=== PATIENT | female | born 1980 | race Caucasian/White ===

== ENCOUNTER → 2016-05-17 | Outpatient (REF) | payer OTHER ==
[~2016-05-17] MED LIST: ACET50TA PO; CITA20TA4 PO; FERR325T3 PO; IBUP-1114 PO; OMEP40CA2 PO; PRENTAB7 PO; VITA50003 PO; VITA500046 PO
[2016-05-17 10:47] LABS: MEAN CORPUSCULAR HEMOGLOBIN 27.4 pg (27.0-33.0); MEAN CORPUSCULAR HGB CONC 33.2 g/dl (32.0-36.5); MEAN CORPUSCULAR VOLUME 82.6 fl (80.0-96.0); PLATELET COUNT, AUTOMATED 228 k/mm3 (150-450); RED CELL DISTRIBUTION WIDTH 16.3 % (11.5-14.5); WHITE BLOOD COUNT 5.2 K/mm3 (4.0-10.0)
[2016-05-17 11:01] LABS: ALBUMIN 3.4 GM/DL (3.2-5.2); ALBUMIN/GLOBULIN RATIO 1.03 (1.00-1.93); ALKALINE PHOSPHATASE 135 U/L (45-117); ALT/SGPT 26 U/L (12-78); ANION GAP 8 MEQ/L (8-16); AST/SGOT 18 U/L (15-37); BILIRUBIN,TOTAL 0.3 MG/DL (0.2-1.0); BLOOD UREA NITROGEN 14 MG/DL (7-18); CALCIUM LEVEL 8.3 MG/DL (8.5-10.1); CARBON DIOXIDE LEVEL 30 MEQ/L (21-32); CHLORIDE LEVEL 106 MEQ/L (98-107); CREATININE FOR GFR 0.71 MG/DL (0.55-1.02); GLOMERULAR FILTRATION RATE > 60.0 (>60); GLUCOSE, FASTING 75 MG/DL (70-105); PERCENT SATURATION 37.4 % (13.2-37.4); POTASSIUM SERUM 3.8 MEQ/L (3.5-5.1); SODIUM LEVEL 144 MEQ/L (136-145); TOTAL IRON BINDING CAPACITY 385 UG/DL (250-450); TOTAL PROTEIN 6.7 GM/DL (6.4-8.2)
[2016-05-17 11:02] LABS: VITAMIN B12 LEVEL 585 PG/ML
[2016-05-17 11:03] LABS: FOLATE > 24.0 NG/ML
== END ==
LOC: M LAB REF 10:30
PROVIDERS: ATTEND Physician Assistant Medical
DX: D64.9 Anemia, unspecified (principal)

== ENCOUNTER → 2016-05-17 | Day surgery (SDC) | payer OTHER ==
[~2016-05-17] VITALS: Ht 167.6 cm; Wt 98.4 kg
[~2016-05-17] MED LIST changes: +BUPIVACAINE HCL 0.25% 30 ML VIAL As Ordered ONE; +GLYCOPYRROLATE INJ 0.2 MG/ML 2 ML VIAL As Ordered ONE; +HYDROmorphone HCL 2 MG/ML 1ML VIAL (J1170) As Ordered ONE; +KETOROLAC 30 MG/ML VIAL (J1885) IV SCH; +KETOROLAC 60 MG/2 ML VIAL (J1885) As Ordered ONE; +LIDOCAINE 2% INJ 100 MG/5 ML SDV (FOR ANES.) As Ordered ONE; +LR 1,000 ML IV SCH; +MEPERIDINE INJ 25 MG/ML VIAL (J2175) IV PRN; +METOCLOPRAMIDE INJ 10MG/2ML VIAL (J2765) IV PRN; +MIDAZOLAM INJ 2 MG/2 ML VIAL (J2250) As Ordered ONE; +NEOSTIGMINE 1MG/ML 5 ML SYRINGE (J2710) As Ordered ONE; +ONDANSETRON 4MG/2ML VIAL (J2405) As Ordered ONE; +ONDANSETRON 4MG/2ML VIAL (J2405) IV PRN; +PERCOCET 5MG/325MG TAB PO PRN; +PERCOCET 5MG/325MG TAB PO SCH; +PROPOFOL 200 MG/20 ML VIAL As Ordered ONE; +ROCURONIUM BROMIDE 50 MG/5 ML VIAL As Ordered ONE; +SILVER NITRATE APPLICATOR As Ordered ONE; +dexameTHASONE 4 MG/ML 1ML VIAL (J1100) As Ordered ONE; +fentaNYL 100 MCG/2 ML INJECTION (J3010) As Ordered ONE; +fentaNYL 100 MCG/2 ML INJECTION (J3010) IV PRN
[2016-05-17 09:12] LABS: RED CELL DISTRIBUTION WIDTH 16.2 % (11.5-14.5); WHITE BLOOD COUNT 5.2 K/mm3 (4.0-10.0)
[2016-05-17 09:21] LABS: CONTROL LINE HCG INT CTR LINE PRESENT
--- NOTE | 2016-05-17 13:33 | RO ---
DATE OF PROCEDURE: 05/17/2016 PREPROCEDURE DIAGNOSIS: Satisfied parity with undesired fertility. POSTPROCEDURE DIAGNOSES: 1. Satisfied parity with undesired fertility. 2. Dermoid cyst. PROCEDURE PERFORMED: 1. Laparoscopic salpingo-oophorectomy. 2. Left salpingectomy SURGEON: Sena Patel MD [facility] INSURANCE: Swetha Perry NP ANESTHESIA: General endotracheal anesthesia. ESTIMATED BLOOD LOSS: 100 mL. INTRAVENOUS FLUIDS: 1200 mL of lactated Ringer's solution. URINE OUTPUT: Was 400 mL. PREOPERATIVE ANTIBIOTICS: None. OPERATIVE FINDINGS: Approximately 8 cm dermoid cyst, normal appearing uterus and left adnexa. SPECIMENS: Right dermoid cyst and fallopian tube, left fallopian tube. DESCRIPTION OF OPERATION: After informed consent was obtained and written consent was reviewed, the patient was brought to the operating room where general endotracheal anesthesia was obtained. She was then placed in lithotomy position. She was prepped and draped in a normal sterile fashion. A time out in the operating room was then performed identifying the patient, procedure to be performed, as well as drug allergies. A bivalve speculum was then placed revealing the cervix. The anterior lip of the cervix was grasped with a single tooth tenaculum. A Hulka tenaculum was then advanced through the cervical os as a means to manipulate the uterus. A single tooth tenaculum, as well as speculum was then removed. A Joseph catheter was then placed and set to gravity. Gloves were changed and attention was turned to the patient's abdomen where 0.25 % Marcaine was infused in the umbilical region. An incision was made in this area and an 11 mm trocar and sleeve was advanced through this incision. The trocar was removed. Laparoscope was placed revealing intra-abdominal placement. A pneumoperitoneum was then obtained with CO2 gas. The abdomen was surveyed with the above noted findings. Two additional trocars were placed both left and to the right sides of the abdomen below the umbilicus. These areas were infused with 0.25% Marcaine and a 5 mm trocar and sleeve was advanced through these incisions under direct visualization. Next, a right salpingo-oophorectomy was performed. The right fallopian tube, the infundibulum pelvic ligament was then cauterized and ligated using Harmonic scalpel device with good hemostasis noted. The uterine-ovarian ligament, as well as the fallopian tube was cauterized and ligated with good hemostasis noted. The specimen was then detached and was placed in the Endo Catch bag and was decompressed at the level of the skin and was removed through the umbilical port site. A left salpingectomy was performed. The left fallopian tube was placed on traction using the Harmonic scalpel device, the mesosalpinx were cauterized and ligated. The fallopian tube was transected at the level of the uterus. The specimen was also brought out through the umbilical port site. Surgical sites were inspected and noted to be hemostatic. The abdomen was then irrigated and suctioned. Quinton was applied over the surgical sites. The fascia of the umbilical port site was then closed using #0 Vicryl. The pneumoperitoneum was then released. All three skin incisions were closed with #4-0 Monocryl and dressed with Dermabond. The Joseph catheter, as well as the Hulka tenaculum was then removed. Tenaculum sites were hemostatic after application of silver nitrate. The patient was then taken out of lithotomy position, was awakened from general anesthesia and was taken to the recovery in stable condition. Counts were correct. MTDD
[2016-05-17 15:00] VITALS: BP 144/75
== END | disposition home or self-care (01) ==
LOC: M SDC 08:25
PROVIDERS: ATTEND Obstetrics & Gynecology
DX: Z30.2 Encounter for sterilization (principal); D28.2 Benign neoplasm of uterine tubes and ligaments; K21.9 Gastro-esophageal reflux disease without esophagitis; F32.9 Major depressive disorder, single episode, unspecified; Z79.899 Other long term (current) drug therapy; Z87.891 Personal history of nicotine dependence
CPT/HCPCS: 36415; 58661; 84703; 85027; 86850; 86900; 86901; 88302; 88305; J1100; J1170; J1885; J2250; J2405; J2710; J3010

== ENCOUNTER → 2016-06-28 | Outpatient (CLI) | payer OTHER ==
[~2016-06-28] MED LIST changes: -BUPIVACAINE HCL 0.25% 30 ML VIAL As Ordered ONE; -GLYCOPYRROLATE INJ 0.2 MG/ML 2 ML VIAL As Ordered ONE; -HYDROmorphone HCL 2 MG/ML 1ML VIAL (J1170) As Ordered ONE; -KETOROLAC 30 MG/ML VIAL (J1885) IV SCH; -KETOROLAC 60 MG/2 ML VIAL (J1885) As Ordered ONE; -LIDOCAINE 2% INJ 100 MG/5 ML SDV (FOR ANES.) As Ordered ONE; -LR 1,000 ML IV SCH; -MEPERIDINE INJ 25 MG/ML VIAL (J2175) IV PRN; -METOCLOPRAMIDE INJ 10MG/2ML VIAL (J2765) IV PRN; -MIDAZOLAM INJ 2 MG/2 ML VIAL (J2250) As Ordered ONE; -NEOSTIGMINE 1MG/ML 5 ML SYRINGE (J2710) As Ordered ONE; -ONDANSETRON 4MG/2ML VIAL (J2405) As Ordered ONE; -ONDANSETRON 4MG/2ML VIAL (J2405) IV PRN; -PERCOCET 5MG/325MG TAB PO PRN; -PERCOCET 5MG/325MG TAB PO SCH; -PROPOFOL 200 MG/20 ML VIAL As Ordered ONE; -ROCURONIUM BROMIDE 50 MG/5 ML VIAL As Ordered ONE; -SILVER NITRATE APPLICATOR As Ordered ONE; -dexameTHASONE 4 MG/ML 1ML VIAL (J1100) As Ordered ONE; -fentaNYL 100 MCG/2 ML INJECTION (J3010) As Ordered ONE; -fentaNYL 100 MCG/2 ML INJECTION (J3010) IV PRN
== END ==
LOC: M SMT 10:20
PROVIDERS: ATTEND Physician Assistant Medical
DX: E55.9 Vitamin D deficiency, unspecified (principal)

== ENCOUNTER 2019-12-31 22:31 | Emergency (ER) | payer OTHER ==
[~2019-12-31] VITALS: Ht 165.1 cm; Wt 100.3 kg
[~2019-12-31 22:31] MED LIST changes: -ACET50TA PO; -CITA20TA4 PO; +CITA20TA6 PO; +MAPA500T2 PO; -OMEP40CA2 PO; +OMEP40CA97 PO; -VITA50003 PO; +VITA50005 PO
[2019-12-31] MEDS ORDERED: NS 1,000 ML IV ONE (23:15)
[2019-12-31 23:31] LABS: BASO # 0.1 10^3/uL (0.0-0.2); BASO % 0.6 % (0.0-1.0); EOS # 1.2 10^3/uL (0.0-0.5); EOS % 10.6 % (0.0-3.0); HEMATOCRIT 34.1 % (36.0-47.0); HEMOGLOBIN 10.3 g/dl (12.0-15.5); LYMPH # 1.8 10^3/uL (1.5-5.0); LYMPH % 15.4 % (24.0-44.0); MEAN CORPUSCULAR HEMOGLOBIN 22.4 pg (27.0-33.0); MEAN CORPUSCULAR HGB CONC 30.2 g/dl (32.0-36.5); MEAN CORPUSCULAR VOLUME 74.3 fl (80.0-96.0); MONO # 0.6 10^3/uL (0.0-0.8); MONO % 5.5 % (0.0-5.0); NEUTROPHILS # 7.7 10^3/uL (1.5-8.5); NEUTROPHILS % 67.6 % (36.0-66.0); PLATELET COUNT, AUTOMATED 334 10^3/uL (150-450); RED BLOOD COUNT 4.59 10^6/uL (4.00-5.40); WHITE BLOOD COUNT 11.4 10^3/uL (4.0-10.0)
[2019-12-31 23:40] LABS: INR 0.89; PROTHROMBIN TIME 12.2 SECONDS (12.5-14.3)
[2019-12-31 23:41] LABS: PARTIAL THROMBOPLASTIN TIME 27.3 SECONDS (24.2-38.5)
[2020-01-01] MEDS ORDERED: ISOVUE-370 76% 100ML VIAL As Ordered ONE (00:06)
[2020-01-01 00:08] LABS: ALBUMIN 3.3 GM/DL (3.2-5.2); ALT/SGPT 27 U/L (12-78); BILIRUBIN,DIRECT < 0.1 MG/DL (0.0-0.2); BILIRUBIN,TOTAL 0.2 MG/DL (0.2-1.0); CK-MB VALUE MASS 1.7 NG/ML (<3.6); CPK CREATINE PHOSPHOKINASE 388 U/L (26-192); LIPASE 170 U/L (73-393); MB/CK RELATIVE INDEX 0.44 (< OR =4); TOTAL PROTEIN 6.4 GM/DL (6.4-8.2); TROPONIN I < 0.02 NG/ML (< 0.10)
--- NOTE | 2020-01-01 00:45 | REPVR ---
PROCEDURE INFORMATION: Exam: CT Angiography Chest With Contrast Exam date and time: 12/31/2019 12:17 AM Age: 39 years old Clinical indication: Shortness of breath; Additional info: SOB; Bloody sputum TECHNIQUE: Imaging protocol: Computed tomographic angiography of the chest with intravenous contrast. 3D rendering (Not supervised by radiologist): MIP and/or 3D reconstructed images were created by the technologist. Radiation optimization: All CT scans at this facility use at least one of these dose optimization techniques: automated exposure control; mA and/or kV adjustment per patient size (includes targeted exams where dose is matched to clinical indication); or iterative reconstruction. Contrast material: ISOVUE 370; Contrast volume: 100 ml; Contrast route: INTRAVENOUS (IV); COMPARISON: No relevant prior studies available. FINDINGS: Pulmonary arteries: Normal. No pulmonary emboli. Aorta: Unremarkable. No aortic aneurysm. No aortic dissection. Tracheobronchial tree: Visualized airway is unremarkable. Lungs: Few areas of lung nodules measuring up to 5 mm in the right upper lobe, right lower lobe and left lower lobe. Pleural space: Unremarkable. No pneumothorax. No pleural effusion. Heart: Unremarkable. No cardiomegaly. No pericardial effusion. Lymph nodes: Bilateral mediastinal and bilateral hilar lymphadenopathy. Largest node is located in the left hilar region measuring 1.1 x 1.9 cm. There are some calcified lymph nodes. Stomach and bowel: Status post gastric bypass surgery. Bones/joints: Mild degenerative spine. No acute fracture. Soft tissues: Unremarkable. IMPRESSION: 1. Negative for pulmonary emboli. 2. Few areas of lung nodules. Possible infection. For patients at low risk (minimal or absent history of smoking and of other known risk factors), no routine follow-up is indicated. For patients at high risk (history of smoking or of other known risk factors), consider optional CT Chest at 12 months. (Reference: Dillon) REFERENCES: Barretthojudith H, et al. Guidelines for Management of Incidental Pulmonary Nodules Detected on CT Images: From the Fleischner Society 2017. Radiology. 2017;284(1):228-243. Electronically signed by: Jennifer Sanchez On 01/01/2020 00:45:36 AM
--- NOTE | 2020-01-01 00:48 | REPVR ---
PROCEDURE INFORMATION: Exam: CT Abdomen And Pelvis With Contrast Exam date and time: 12/31/2019 12:17 AM Age: 39 years old Clinical indication: Abdominal pain; Localized; Left upper quadrant (luq); Additional info: Luq pain TECHNIQUE: Imaging protocol: Computed tomography of the abdomen and pelvis with intravenous contrast. Radiation optimization: All CT scans at this facility use at least one of these dose optimization techniques: automated exposure control; mA and/or kV adjustment per patient size (includes targeted exams where dose is matched to clinical indication); or iterative reconstruction. Contrast material: ISOVUE 370; Contrast volume: 100 ml; Contrast route: INTRAVENOUS (IV); COMPARISON: US OBS FOLL UP OR REPEAT EACH GES 12/18/2015 8:02 AM FINDINGS: Lungs: Clusters of lung nodules. See CTA chest report. Liver: Normal. No mass. Gallbladder and bile ducts: Status post cholecystectomy. No biliary ductal dilatation. Pancreas: Normal. No ductal dilation. Spleen: Irregular hypodense lesion in the spleen measuring 1.2 x 1.3 cm. Adrenal glands: Normal. No mass. Kidneys and ureters: Normal. No hydronephrosis. Stomach and bowel: Status post gastric bypass surgery. No abnormal bowel dilatation. No abnormal bowel wall thickening. Negative for colonic diverticulitis. Appendix: Appendix is normal. Intraperitoneal space: Unremarkable. No free air. No significant fluid collection. Vasculature: No aortic aneurysm. Multiple phleboliths in the pelvis. Lymph nodes: Lymphadenopathy in the hilar regions. There are few calcified nodes.21 no lymphadenopathy in the abdomen and pelvis. Urinary bladder: Unremarkable as visualized. Reproductive: Uterus is normal. Crenulated cystic lesion in the left ovary measuring 2.3 x 1.6 cm. Bones/joints: Mild degenerative spine. No acute fracture. Soft tissues: Unremarkable. IMPRESSION: 1. Irregular hypodense lesion in the spleen. For patients without history of cancer, recommend follow-up MR in 6-12 months. With history of cancer, recommend evaluation with PET vs. MRI vs. biopsy. 2. Crenulated cystic lesion in the left ovary. Suspect corpus luteum. No further imaging is recommended. (Reference: Hoang) 3. Status post gastric bypass surgery. 4. Clusters of lung nodules. See CTA chest report. 5. Additional findings as described. REFERENCES: Hoang et al. Management of Incidental Adnexal Findings on CT and MRI: A White Paper of the ACR Incidental Findings Committee, J Am Filomena Radiol. 2019;17(2):248-254. Electronically signed by: Jennifer Sanchez On 01/01/2020 00:48:18 AM
[2020-01-01 01:15] VITALS: BP 137/84
--- NOTE | 2020-01-01 06:43 | ED PDOC ---
Post-Departure Follow-Up ct abd/p faxed to rupa kaplan for fu Suzy Li MD Jan 01, 2020 06:43
--- NOTE | 2020-01-01 09:30 | ECGEPIP ---
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
== END 2020-01-01 01:47 | disposition home or self-care (01) ==
LOC: M ED 22:31
DX: J06.9 Acute upper respiratory infection, unspecified (principal); R10.9 Unspecified abdominal pain; D73.89 Other diseases of spleen; R93.89 Abnormal findings on diagnostic imaging of other specified body structures; R91.8 Other nonspecific abnormal finding of lung field; R59.0 Localized enlarged lymph nodes; Z98.84 Bariatric surgery status; K21.9 Gastro-esophageal reflux disease without esophagitis; F33.9 Major depressive disorder, recurrent, unspecified; Z79.899 Other long term (current) drug therapy
CPT/HCPCS: 71275; 74177; 80047; 80076; 82550; 82553; 83690; 84484; 84702; 85025; 85610; 85730; 93005; 93041; 96360; 96361; 99284; Q9967

== ENCOUNTER 2020-03-26 11:32 | Emergency (ER) | payer OTHER ==
[~2020-03-26] VITALS: Ht 167.6 cm; Wt 101.4 kg
[2020-03-26] MEDS ORDERED: OMEP-218 PO (11:41)
[2020-03-26] MEDS ORDERED: OMEP40CA97 PO (11:41)
--- OUTSIDE RECORDS SUMMARY | 2020-03-26 11:41 | CCD ---
Author [facility] Address [address] [place] [address] Phone Care Team Providers Care Scrap Baler Name Role Phone Berna Gonzalez PP [phone] Sal BEVERLY, aRdha Unavailable [phone] [facility] Unavailable [phone] [facility] Unavailable [phone] [facility], MANAGER SPANISH Unavailable [phone] Reason for Referral No Reason for Referral Recorded Problems Includes: Active, inactive, and resolved Problems All Visits Effective Date(s) Provider Condition Stat Hypocalcemia 08/16/2018 Alexis Nurse Active 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 Recommend 30 minutes daily exercise, decrease calorie intake to <30 g of carbs w/ meals and <15 g. w/ snacks. Anemia 03/24/2016 Berna PUCKETT Active Female Pelvic Pain 09/27/2013 Mary Jane Hawthorne MD Active Carpal Tunnel Syndrome 09/18/2012 Berna PUCKETT Active Note: 09/06/12 Dr Hill-O rtho consult Hypertension (systemic) 06/23/2012 Berna PUCKETT Activ e Note: put on HCTZ 25 mg qd d oing well Vitamin D Deficiency 06/20/2012 [facility] Nurse Active Note: 03/24/16 - [facility]., Radha Huang MD - level @ 16.9. Recommend OTC vitamin D3 5,000 IU daily w/ dinner & Drisdol 50,000 IU once weekly for 3 months.05/2012 level 20, advised 1000u daily. Blood Pressure Isolated Elevated 06/16/2012 Berna PUCKETT Active Note: ill today, will have p t monitor at home, call if >140/90 Overweight 06/16/2012 Mary Jane Hawthorne MD Active Note: patient concerned, rev iewed healthy diet, exercise 30 min or more daily encouraged, will check tsh and labs /// s/p bariatric surgery. History of Cervical Dysplasia 04/04/2012 Berna PUCKETT Active Note: Unchanged Contraceptive Surveillance 04/04/2012 Berna PUCKETT Ac tive Note: Unchanged - TRINESSA D UE, REFILLED-- SAFE INTERCOURSE ENCOURAGED Current Smoker 04/04/2012 Berna PUCKETT Active Note: Unchanged - with alcoh ol 3 CIG/DAY done 2013 Depression 03/27/2012 Berna PUCKETT Active Note: Unchanged Tendonitis 03/27/2012 Berna PUCKETT Active Note: Unchanged - BILATERAL WRIST, SPLINTS EFFECTIVE, NERVE CONDUCTION LAST AUGUST WAS NEGATIVE DR QUEZADA-- HEAT, WATCH REPETATIVE MOTION WHEN FLAIRS Nicotine Dependence 03/27/2012 Berna PUCKETT Inactive Note: Unchanged - SMOKING BU T NOT DAILY, SOCIAL, MONITOR RISKS DISCUSSED, OPTIONS GIVEN, PT DECLINES Sebaceous Cyst 11/21/2011 Steven Hawthorne MD Active Note: Unchanged - 11/24/11 in c and drainage done; resched for excision if desires once well healed- over a month Joint Pain, Localized in the Shoulder 09/15/2011 Berna PUCKETT Active Note: involving upper arm, U PPER EXTREMITY NERVE CONDUCTION IS WNL 09/15/2011 Pain in Joint Involving Upper Arm 08/31/2011 Berna PUCKETT Active Note: pt went to [facility] with as sessment to pain joint, Elbow ( left ). pt left forearm pain with clinical suspicion of carpal tunnel syndrome. pt was provided with a wrist splint for nighttime use. EMG done. Dr. 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 Anxiety 04/08/2010 Berna PUCKETT Active Note: Well-Controlled - gracai lopram, stress management discussed DOING WELL . Cervical Pap Smear 04/08/2010 Berna PUCKETT Active Note: Unchanged - wnl 011, 07/20/2011 SHOWS HYPERKERATOSIS OTHERWISE WNL, AFFIRM + TREATED WITH FLAGYL. Routine General Medical Examination At [facility] 08/20/2008 Berna PUCKETT Active Note: PFT WNL--, pap wnl Major Depressive Affective Disorder Recurrent Episode Modera 12/30/2007 Berna PUCKETT Active Note: Well-Controlled - doin g well on citalopram, declines counseling. Plan of Treatment Pending Tests Order Diagnosis Results Due Ordering Provi jose Lab AMYLASE 01/07/21 Berna PUCKETT Lab Antinuclear Antibodies, IFA 01/07/21 Berna PUCKETT Lab VITAMIN B12 01/07/21 Berna PUCKETT Lab (CBC)COMPLETE BLOOD CNT 01/07/21 Berna PUCKETT Lab CREATINE KINASE 01/07/21 Berna PUCKETT Lab COMPREHENSIVE METABOLIC PANEL 01/07/21 Berna PUCKETT Lab EBV (VCA) IgG Ab,S 01/07/21 Berna PUCKETT Lab EBV(VCA)IgM Ab,S 01/07/21 Berna Araiza Lab IRON 01/07/21 Berna PUCKETT Lab FERRITIN 01/07/21 Berna PUCKETT Lab FOLIC ACID 01/07/21 Berna PUCKETT Lab HEMOGLOBIN A1C 01/07/21 Berna PUCKETT Lab IRON TIBC 01/07/21 Berna PUCKETT Lab LIPASE 01/07/21 Berna PUCKETT Lab LIPID PANEL 01/07/21 Berna PUCKETT Lab Lyme Western Blot,S 01/07/21 Berna PUCKETT Lab FREE T4 AND TOTAL T4 01/07/21 Berna PUCKETT Lab TSH 01/07/21 Berna PUCKETT Lab Vitamin D,25-HYDROXY 01/07/21 Berna PUCKETT Referrals To Diagnosis US Note: Please schedule patient for test l ower pelvic pain, vaginal discomfort, transvaginal US for further eval [facility] 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 Diarrhea Note: Please schedule patient with provi jose vaginal itching, abdominal tenderness, [place] 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 referral please Endocrine Disorder of parathyr oid gland, unspecified Note: Please schedule patient with provi jose Future Appointments Date Time Location Provider [facility] 03/11/2020 3:00PM [facility] Berna PUCKETT Future Tests Order Diagnosis Results Due Ordering Provid er Lab US PELVIC TRANSVAGINAL NON OB 01/07/21 Berna PUCKETT Lab US ABDOMEN COMPLETE 01/07/21 Berna PUCKETT Findings Encounter Date Ordered disposition - tylenol and/or mo rhett as needed for pain or fever, and warm salt water gargles if tolerated. Change toothbrush in 2-3 days. Finish all antibiotics as ordered to prevent complications of strep. Also, the patient is to return or call for appointment if there is persistence of fever for more than 48 hours, pain or other new significant symptoms Acute Telehealth Zoom with Berna PUCKETT 02/01/2020 Ordered fluids Acute Telehealth Zoom with Berna PUCKETT 02/01/2020 Ordered return to the clinic if condition worsens or n ew symptoms arise Acute Telehealth Zoom with Berna PUCKETT 02/01/2020 Ordered soft diet Acute Telehealth Zoom with Berna PUCKETT 02/01/2020 Ordered disposition - tylenol and/or mo rhett as needed for pain or fever, and warm salt water gargles if tolerated. Change toothbrush in 2-3 days. Finish all antibiotics as ordered to prevent complications of strep. Also, the patient is to return or call for appointment if there is persistence of fever for more than 48 hours, pain or other new significant symptoms Telephonic Encounter with Berna PUCKETT 01/08/2020 Ordered fluids Telephonic Encounter with Berna PUCKETT 01/08/2020 Ordered return to the clinic if condition worsens or n ew symptoms arise Telephonic Encounter with Berna PUCKETT 01/08/2020 Ordered soft diet Telephonic Encounter with Berna PUCKETT 01/08/2020 Ordered return to the clinic if condition worsens or n ew symptoms arise Acute L1 with Berna Reece NP 12/20/2019 Ordered return to the clinic if condition worsens or n ew symptoms arise Acute Follow-up Telehealth with Michelle Mendez NP 12/17/2019 Ordered return to the clinic if condition worsens or n ew symptoms arise Telephonic Encounter with Michelle Mendez NP 12/13/2019 Ordered return to the clinic if condition worsens or n ew symptoms arise Acute L1 with Michelle Mendez NP 12/12/2019 Ordered Clinical summary transmitted to referring provider electronically with reasonable certainty of receipt or receiving provider [facility] Primary Care Telehealth Zoom with Berna PUCKETT 06/13/2019 Ordered follow-up visit 6 months AHR, sooner if quest ions or problems Primary Care Telehealth Zoom with Berna PUCKETT 06/13/2019 Ordered return to the clinic if condition worsens or n ew symptoms arise Primary Care Telehealth Zoom with Berna PUCKETT 06/13/2019 Ordered Transition in care, clinical sum berna provided electronically through [employer] [facility] Primary Care Telehealth Zoom with Berna PUCKETT 06/13/2019 Ordered Clinical summary transmitted to referring provider electronically with reasonable certainty of receipt or receiving provider [facility] Walk-In with Berna PUCKETT 01/19/2019 Ordered disposition - Patient or careta harsh was instructed in use of tylenol and/or motrin as needed for pain or fever, and decongestants if tolerated. Fluids, rest was advised. Also, the patient is to return or call for appointment if there is persistence of fever for more than 48 hours, pain or other new significant symptoms Walk-In with Berna PUCKETT 01/19/2019 Ordered follow-up visit 6 months AHR, sooner if quest ions or problems Walk-In with Berna PUCKETT 01/19/2019 Ordered return to the clinic if condition worsens or n ew symptoms arise Walk-In with Berna PUCKETT 01/19/2019 Ordered Transition in care, clinical sum berna provided electronically through [employer] [facility] Walk-In with Berna PUCKETT 01/19/2019 Ordered Clinical summary transmitted to referring provider electronically or receiving provider electronically through [employer] [facility] Chronic Disease Follow-up with Berna PUCKETT 08/18/2018 Ordered follow-up visit 6 months AHR, sooner if quest ions or problems Chronic Disease Follow-up with Berna PUCKETT 08/18/2018 Ordered return to the clinic if condition worsens or n ew symptoms arise Chronic Disease Follow-up with Berna PUCKETT 08/18/2018 Ordered Transition in care, clinical sum berna provided electronically through [employer] [facility] Chronic Disease Follow-up with Berna PUCKETT 08/18/2018 Ordered Clinical summary transmitted to referring provider electronically or receiving provider electronically through [employer] [facility] AHR with Berna PUCKETT 03/14/2018 Ordered follow-up visit 6 months, sooner if questions or problems AHR with Berna PUCKETT 03/14/2018 Ordered return to the clinic if condition worsens or n ew symptoms arise AHR with Berna PUCKETT 03/14/2018 Ordered Transition in care, clinical sum berna provided electronically through [employer] AHR with Berna PUCKETT 03/14/2018 Ordered follow-up visit 6 months, sooner if questions or problems Chronic Disease Follow-up with Berna PUCKETT 03/30/2017 Ordered return to the clinic if condition worsens or n ew symptoms arise Chronic Disease Follow-up with Berna PUCKETT 03/30/2017 Ordered Transition in care, clinical sum berna provided electronically through [employer] [facility] Chronic Disease Follow-up with Berna PUCKETT 03/30/2017 Ordered follow-up visit 6 months, sooner if questions or problems AHR with Berna PUCKETT 09/23/2016 Ordered return to the clinic if condition worsens or n ew symptoms arise AHR with Berna PUCKETT 09/23/2016 Ordered Transition in care, clinical sum berna provided electronically through [employer] AHR with Berna PUCKETT 09/23/2016 Ordered follow-up visit 6 months, sooner if questions or problems Chronic Disease Follow-up with Berna PUCKETT 03/24/2016 Ordered return to the clinic if condition worsens or n ew symptoms arise Chronic Disease Follow-up with Berna PUCKETT 03/24/2016 Ordered follow-up visit 6 months, sooner if questions or problems AHR with Berna PUCKETT 09/22/2015 Ordered return to the clinic if condition worsens or n ew symptoms arise AHR with Berna PUCKETT 09/22/2015 Ordered follow-up visit 6 months, sooner if quest or problems Chronic Disease Follow-up with Berna PUCKETT 03/24/2015 Ordered return to the clinic if condition worsens or n ew symptoms arise Chronic Disease Follow-up with Berna PUCKETT 03/24/2015 Ordered follow-up visit 6 months, sooner if quest or problems AHR with Berna PUCKETT 06/04/2014 Ordered return to the clinic if condition worsens or n ew symptoms arise AHR with Berna PUCKETT 06/04/2014 Ordered return to the clinic if condition worsens or n ew symptoms arise Walk-In with Mary Jane Hawthorne MD 09/27/2013 Ordered a urine culture Walk-In with Berna mcpherson NP 09/20/2013 Ordered return to the clinic if condition worsens or n ew symptoms arise Walk-In with Berna Dangelo NP 09/20/2013 Ordered follow-up visit HERE FOR AHR IN OCT, POSTOP CARE PER SURGEON Pre Op with Berna PUCKETT 07/03/2013 Ordered return to the clinic if condition worsens or n ew symptoms arise Pre Op with Berna PUCKETT 07/03/2013 Ordered disposition - Patient or careta ker was instructed in use of tylenol and/or motrin as needed for pain or fever, and decongestants if tolerated. Fluids, rest was advised. Also, the patient is to return or call for appointment if there is persistence of fever for more than 48 hours, pain or other new significant symptoms Chronic Disease Follow-up with Berna PUCKETT 05/03/2013 Ordered follow-up visit preop clearance scheduled for JUNE-- call sooner if questions or problems Chronic Disease Follow-up with Berna PUCKETT 05/03/2013 Ordered return to the clinic if condition worsens or n ew symptoms arise Chronic Disease Follow-up with Berna PUCKETT 05/03/2013 Ordered follow-up visit f/u, sap plant maintenance consultant referral if not reso lving with treatment-- Same Day Acute with Berna PUCKETT 12/13/2012 Ordered return to the clinic if condition worsens or n ew symptoms arise Same Day Acute with Berna PUCKETT 12/13/2012 Ordered disposition - Patient or leroy house was instructed in use of tylenol and/or motrin as needed for pain or fever. Fluids, rest was advised. Also, the patient is to return or call for appointment if there is persistence of fever for more than 48 hours, pain or other new significant symptoms Same Day Acute with Berna PUCKETT 10/18/2012 Ordered return to the clinic if condition worsens or n ew symptoms arise Same Day Acute with Berna PUCKETT 10/18/2012 Ordered return to the clinic if conditio n worsens or new symptoms arise call if questions or problems before next appt meds discussed, no alcohol with flagyl-- call if not tolerating, or pain or new symptoms Follow-up Labs with Berna PUCKETT 08/30/2012 Ordered follow-up visit 4 months for rosales review, sooner if questions or problems AHR with Berna PUCKETT 08/28/2012 Ordered return to the clinic if condition worsens or n ew symptoms arise AHR with Berna PUCKETT 08/28/2012 Ordered disposition - Patient or leroy harsh was instructed in use of antipyretics and decongestants. Mucinex as needed. Also, the patient is to return if there is persistence of fever for more than 48 hours, pain or other new significant symptoms M Same Day with Berna PUCKETT 07/14/2012 Ordered fluids , rest M Same Day with Berna PUCKETT Ordered return to the clinic if condition worsens or n ew symptoms arise M Same Day with Berna PUCKETT 07/14/2012 Ordered return to the clinic if conditio n worsens or new symptoms arise or if not improved 24-48 hr, resolved 7-10 days. Call if question or problem M Same Day with Berna PUCKETT 07/14/2012 Ordered follow-up visit HTN Follow-up with Berna Douglas 07/10/2012 Ordered return to the clinic if condition worsens or n ew symptoms arise HTN Follow-up with Berna PUCKETT 07/10/2012 Patient education about pain management as appropriat e HTN Follow-up with Berna PUCKETT 07/10/2012 Ordered return to the clinic if conditio n worsens or new symptoms arise zach fever, pain or swelling,-- M Same Day with Berna PUCKETT 06/16/2012 Ordered follow-up visit Chronic Disease Follow-up with Berna PUCKETT 03/27/2012 Ordered return to the clinic if condition worsens or n ew symptoms arise Chronic Disease Follow-up with Berna PUCKETT 03/27/2012 Patient education about pain management as appropriat e Chronic Disease Follow- up with Berna PUCKETT 03/27/2012 Increase fluids and rest Advised to replace tooth brush in 48-72 hours Moniter temperature. RTO if symptoms worsen or do not improve M Same Day with Ilene Decker NP 12/08/2011 Ordered fluids M Same Day with Ilene Decker NP 12/07 Ordered return to the clinic if condition worsens or n ew symptoms arise M Same Day with Ilene Decker NP 12/08/2011 Ordered follow-up visit in 4 months berhane ner if quest or problems and with Dr Steven Hawthorne as ordered for cyst removal 10 Minute Revist with Berna PUCKETT 11/17/2011 Ordered return to the clinic if condition worsens or n ew symptoms arise 10 Minute Revist with Berna PUCKETT 11/17/2011 Ordered fluids (patient to increase p.o. intake) Day with Crystal PUCKETT 08/23/2011 Ordered urinalysis Urine culture sent M Same Day with Bebeto PUCKETT 08/23/2011 Ordered a mammogram AHR with Berna PUCKETT 07/20/2011 Ordered follow-up visit 6 months and ba sed on test results, sooner if quest or problems AHR with Berna PUCKETT 07/20/2011 Ordered return to the clinic if condition worsens or n ew symptoms arise AHR with Berna PUCKETT 07/20/2011 Ordered return to the clinic if condition worsens or n ew symptoms arise 10 Minute Revist with Crystal PUCKETT 03/20/2011 Ordered return to the clinic if condition worsens or n ew symptoms arise M Same Day with Crystal PUCKETT 01/26/2011 Ordered follow-up visit in 6 months FO R PAP AND AHR, SOONER IF QUEST OR PROBLEMS M 20 Minutes with Berna PUCKETT 11/25/2010 Ordered return to the clinic if condition worsens or n ew symptoms arise M 20 Minutes with Berna PUCKETT 11/25/2010 Ordered follow-up visit in 3 months to review depression and new ocp-- sooner if questions or problems 30 minutes with Berna PUCKETT 07/09/2010 Ordered return to the clinic if condition worsens or n ew symptoms arise 30 minutes with Berna PUCKETT 07/09/2010 Advised that she can work with no lif ting / pushing / pulling over 20# for 4 days, then if improved can return to work without restrictions after that time. 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 Advised motrin 800 mg TID ATC for 4 days then prn. Advised to take with food. If has any GI upset will stop and let me know. Advised also flexeril prn for muscle spasms. Advised that flexeril will make her drowsy so cannot work or drive on medicine. She will let me know if no improvement in 4 days or RTC sooner with new or worsening sx. Patient expressed understanding and agreed with plan M Same Day with Mckenna Davidson NP 06/25/2010 Ordered return to the clinic if condition worsens or n ew symptoms arise M Same Day with Mckenna Davidson NP 06/25/2010 Ordered follow-up visit 4 to 6 weeks-- sooner if que stions or problems M 20 Minutes with Berna PUCKETT 05/28/2010 Ordered return to the clinic if condition worsens or n ew symptoms arise M 20 Minutes with Berna PUCKETT 05/28/2010 Ordered follow-up visit three to four w eeks-- sooner if questions or problems baseline mammogram at 39 yo unless change in hx or symptoms-- labs reviewed from last october-- will recheck next year and prn-- will also review palpitations and menses at next appt 30 minutes with Berna PUCKETT 04/08/2010 Ordered return to the clinic if condition worsens or n ew symptoms arise --F/U 30 minutes with Berna PUCKETT 04/08/2010 Ordered return to the clinic if conditio n worsens or new symptoms arise PT INFORMED SHE IS DO FOR AHR/PAP-- SCHEDULED FOR 03/11/2009-- M Same Day with Berna PUCKETT 02/04/2010 APPROVED FOR FIREFIGHTING 30 minutes with Berna Dangelo NP 08/26/2009 Ordered return to the clinic if conditio n worsens or new symptoms arise --F/U one year and prn abcds of [employer] discussed seatbelt use MSBE 30 minutes with Berna PUCKETT 12/03/2008 Ordered return to the clinic if condition worsens or n ew symptoms arise 30 minutes with Berna PUCKETT 11/14/2008 Ordered a lipid profile IF YOUNGER THAN 75 AND OVER 75 IF RISK FACTORS. DUE: NO RISK FACTORS- [facility] Review-Short with Berna PUCKETT 08/21/19 09 Ordered a mammogram Q 1-2 YEARS UNTIL AGE 69, DUE: 39Y O [facility] Review-Short with Berna PUCKETT 08/20/2008 Ordered an X-ray DEXA DUE: IF CHANGE IN HISTORY, HEIGH T LOSS, ETC [facility] Review-Short with Berna PUCKETT 08/20/2008 Requested consultation with a specialist DISCUSSED COLONOSCOPY RECOMMENDATIONS VS FOBT. DUE: AT 49 YO UNLESS CHANGE IN FAMILY HISTORY- [facility] Review-Short with Berna PUCKETT 08/20/2008 Ordered return to the clinic if conditio n worsens or new symptoms arise motrin or tylenol prn watch for continuing cough, fever, symptoms worse warm salt water gargles prn out of work for the rest of the week, patient agrees good handwashing M Office Visit - Short with Berna PUCKETT 009 Assessments Includes: Assessments for all patient encounters Findings Encounter Date Abdominal pain omeprazole and f.u with GI labs neg, u s she will reschedule Acute Telehealth Zoom with Berna PUCKETT 02/01/2020 Assessment of anxiety well controlled with meds, want s to continue Acute Telehealth Zoom with Berna PUCKETT 02/01/2020 Assessment of shoulder joint pain painf ul to lseep onleft hip and left shoulder-- asked pt to do PT to limit dx likely tendonitis as she has had no trauma, pt agrees-- no radicular symptoms, no numbnesss or weakness-- Acute Telehealth Zoom with Berna PUCKETT 02/01/2020 Bariatric surgery status Acute Telehealth Zoom with Berna PUCKETT 02/01/2020 Esophageal reflux Acute Telehealth Zoom with Berna PUCKETT 02/01/2020 Left hip joint pain Acute Telehealth Zoom with Berna PUCKETT 02/01/2020 Multiple pulmonary nodules symptoms resolved, will mo nitor Acute Telehealth Zoom with Berna PUCKETT 02/01/2020 Nicotine dependence in remission x two months encouraged continued cessation she agrees please call if quest or concerns before 24 minutes telephone time spentw tih pt >50% counseling, coordination of care Acute Telehealth Zoom with Berna PUCKETT 02/01/2020 Ovarian cyst us ordered for rechek, pain is improved, working toda-y- Acute Telehealth Zoom with Berna PUCKETT 02/01/2020 Abdominal pain omeprazole and f.u with GI after labs and USs are back, 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-- advised to the ER if worse again before-- Telephonic Encounter with Berna PUCKETT 01/08/2020 Bariatric surgery status Telephonic Encounter with Berna PUCKETT 01/08/2020 Multiple pulmonary nodules Telephonic Encounter with Berna PUCKETT 01/08/2020 Nicotine dependence in remission x one month encouraged continued cessation pt encouraged to have rapid covid testing due to symptoms -- she feels she does not have covid but agrees to testing-- labs, US s after next tuesday as she had a positive covid exposure last tuesday -- she agrees please call if quest or concerns before 24 minutes telephone time spentw tih pt >50% counseling, coordination of care Telephonic Encounter with Berna PUCKETT 0 Ovarian cyst Telephonic Encounter with Berna PUCKETT 01/08/2020 Acute sinusitis Acute L1 with Berna Reece NP 0 Bronchitis Acute L1 with Berna Reece NP 0 Acute bronchitis Acute Follow-up Telehealth with Michelle Mendez NP 12/17/2019 Viral syndrome Acute Follow-up Telehealth with Michelle Mendez [employer] 12/17/2019 Acute bronchitis Acute Follow-up Telephonic with Qing De Jesus [employer] 12/14/2019 Viral syndrome Acute Follow-up Telephonic with Qing De Jesus [employer] 12/14/2019 Acute bronchitis Telephonic Encounter with Michelle cui [employer] 12/13/2019 Viral syndrome Telephonic Encounter with Michelle ciu [employer] 12/13/2019 Acute pharyngitis Acute L1 with Michelle Mendez [employer] 12/11 Assessment of cough Acute L1 with Michelle Mendez [employer] 12/11 Assessment of dyspnea Acute L1 with Michelle Mendez [employer] Anemia continue iron as ordered-- lean proteins, iron in the diet will recheck labs as ordered with PTH 44 minutes face tof martina time spent with pt >50% counseling, coordination of care Primary Care Telehealth Zoom with Berna PUCKETT 06/13/2019 Assessment of anxiety Primary Care Telehealth Zoom with Berna PUCKETT 06/13/2019 Assessment of depression well controlled with citalop tiffanie, Primary Care Telehealth Zoom with Berna PUCKETT 06/13/2019 Esophageal reflux omeprazole down to on ce daily, trying to go as needed-- watch spicy foods and triggers-- Primary Care Telehealth Zoom with Berna PUCKETT 06/13/2019 Hypertension well controlled s/p bariatric surgery of [facility] Primary Care Telehealth Zoom with Berna PUCKETT 06/13/2019 Nicotine dependence 5 min on education, quit options-- down to 2-4 -- could quit with SO as a team-- benefit vs risk discussed Primary Care Telehealth Zoom with Berna PUCKETT 06/13/2019 Overweight s/p bariatric surgery 2012 -- at high was 286-- was down to 195-- Primary Care Telehealth Zoom with Berna PUCKETT 06/13/2019 Parathyroid gland disorder hx, post op, monitor will recheck with labs since Ca off Primary Care Telehealth Zoom with Berna PUCKETT 0 06/13/2019 Persistent insomnia Primary Care Telehealth Zoom with Berna PUCKETT 06/13/2019 Restless legs syndrome stretches, warm baths, check labs-- will take ropinorole daily and see if this helps-- Primary Care Telehealth Zoom with Berna PUCKETT 06/13/2019 Anemia continue iron as ordered-- lean proteins, iron in the diet will watch labs 44 minutes face tof martina time spent with pt >50% counseling, coordination of care Walk-In with Berna PUCKETT 01/19/2019 Assessment of depression well controlled with citalop tiffanie, Walk-In with Berna PUCKETT 01/19/2019 Esophageal reflux off meds-- Walk-In with Berna Douglas 01/19/2019 Hypertension well controlled s/p bariatric surgery of f meds Walk-In with Berna PUCKETT 01/19/2019 Nicotine dependence 5 min on education, quit options-- down to 2-4 -- could quit with SO as a team-- benefit vs risk discussed Walk-In with Berna PUCKETT 01/19/2019 Otitis media of the left ear and open wound, forehead Walk-In with Berna PUCKETT 01/19/2019 Overweight s/p bariatric surgery 2012 -- at high was 286-- was down to 195-- Walk-In with Berna PUCKETT 01/19/2019 Restless legs syndrome stretches, warm baths, check labs-- will take ropinorole daily and see if this helps-- Walk-In with Berna PUCKETT 01/19/2019 Anemia continue iron as ordered-- lean proteins, iron in the diet will recheck labs as ordered with PTH 44 minutes face tof martina time spent with pt >50% counseling, coordination of care Chronic Disease Follow-up with Berna PUCKETT 08/18/2018 Assessment of depression well controlled with citalop tiffanie, Chronic Disease Follow-up with Berna PUCKETT 08/18/2018 Esophageal reflux omeprazole down to on ce daily, trying to go as needed-- watch spicy foods and triggers-- Chronic Disease Follow-up with Berna PUCKETT 08/18/2018 Hypertension well controlled s/p bariatric surgery of f meds Chronic Disease Follow-up with Berna PUCKETT 08/18/2018 Nicotine dependence 5 min on education, quit options-- down to 2-4 -- could quit with SO as a team-- benefit vs risk discussed Chronic Disease Follow-up with Berna PUCKETT 08/18/2018 Overweight s/p bariatric surgery 2012 -- at high was 286-- was down to 195-- Chronic Disease Follow-up with Berna PUCKETT 08/18/2018 Parathyroid gland disorder hx, post op, monitor will recheck with labs since Ca off Chronic Disease Follow-up with Berna PUCKETT 07/30 Restless legs syndrome stretches, warm baths, check labs-- will take ropinorole daily and see if this helps-- Chronic Disease Follow-up with Berna PUCKETT 08/18/2018 Anemia continue iron as ordered-- lean proteins, iron in the diet 45 minutes face to face time with pt >50% counseling, coordination of care AHR with Berna PUCKETT 03/14/2018 Assessment of depression well controlled with citalop tiffanie, AHR with Berna PUCKETT 03/14/2018 Esophageal reflux will trial off omepra zole--- watch spicy foods and triggers-- AHR with Berna PUCKETT 03/14/2018 Hypertension well controlled s/p bariatric surgery of f meds AHR with Berna PUCKETT 03/14/2018 Nicotine dependence 5 min on education, quit options-- less than pack day, sometimes 3-5 -- thinking about e cig options-- benefit vs risk discussed AHR with Berna PUCKETT 03/14/2018 Normal routine history and physical s ee updated problem list above for impression and plan of any problems addressed today. AHR with Berna PUCKETT 03/14/2018 Overweight s/p bariatric surgery 2012 -- AHR with Berna PUCKETT 03/14/2018 Parathyroid gland disorder hx, post op, monitor dr erika españa AHR with Berna PUCKETT 03/14/2018 Restless legs syndrome stretches, warm baths, check labs-- will take ropinorole daily and see if this helps-- AHR with Berna PUCKETT 03/14/2018 Vaginitis vs yeast, affirm sent, she took a diflucan at home-- AHR with Berna PUCKETT 03/14/2018 Anemia continue iron as ordered-- lean proteins, iron in the diet 43 minutes face to face time with pt >50% counseling, coordination of care Chronic Disease Follow-up with Berna PUCKETT 03/30/2017 Assessment of depression well controlled with citalop tiffanie, Chronic Disease Follow-up with Berna PUCKETT 03/30/2017 Bronchitis Chronic Disease Follow-up with Berna PUCKETT 03/30/2017 Esophageal reflux continue omeprazole a s ordered-- watch spicy foods and triggers-- Chronic Disease Follow-up with Berna PUCKETT 03/02 Hypertension well controlled s/p bariatric surgery of f meds Chronic Disease Follow-up with Berna PUCKETT 03/30/2017 Hypoparathyroidism Chronic Disease Follow-up with Berna PUCKETT 03/30/2017 Nicotine dependence - in remission Chronic Disease Fol low-up with Berna PUCKETT 03/30/2017 Overweight s/p bariatric surgery 2012 -- she is eatin g healthy Chronic Disease Follow-up with Berna PUCKETT 03/30/2017 Parathyroid gland disorder hx, post op, monitor dr erika españa Chronic Disease Follow- up with Berna PUCKETT 03/30/2017 Restless legs syndrome stretches, warm baths, check labs-- consider meds if not resolving-- Chronic Disease Follow-up with Berna PUCKETT 03/02 Anemia continue iron as ordered-- lean proteins, iron in the diet AHR with Berna PUCKETT 09/23/2016 Assessment of depression well controlled with citalop tiffanie, AHR with Berna PUCKETT 09/23/2016 Esophageal reflux continue omeprazole a s ordered-- watch spicy foods and triggers-- AHR with Berna PUCKETT 09/23/2016 Hypertension well controlled s/p bariatric surgery of f meds AHR with Berna PUCKETT 09/23/2016 Nicotine dependence - in remission AHR with Berna PUCKETT 09/23/2016 Normal routine history and physical s ee updated problem list above for impression and plan of any problems addressed today. AHR with Berna PUCKETT 09/23/2016 Overweight s/p bariatric surgery 2012 -- she is eatin g healthy AHR with Berna PUCKETT 09/23/2016 Parathyroid gland disorder hx, post op, monitor dr erika españa AHR with Berna PUCKETT 09/23/2016 Restless legs syndrome stretches, warm baths, check labs-- consider meds if not resolving-- AHR with Berna PUCKETT 09/23/2016 Amenorrhea no menses since of edi 3 months ago -- preg neg today-- Chronic Disease Follow-up with Berna PUCKETT 03/24/2016 Assessment of depression well controlle d with citalopram, stress management, use of support group -- stress management Chronic Disease Follow-up with Berna PUCKETT 03/24/2016 Esophageal reflux well controlled, starting probiotic for baby's colic Chronic Disease Follow-up with Berna PUCKETT 03/24/2016 Hypertension well controlled s/p bariatric surgery of f meds Chronic Disease Follow-up with Berna PUCKETT 03/24/2016 Nicotine dependence - in remission [facility] 44 minutes face to face time with pt >50% counseling, coordination of care Chronic Disease Follow-up with Berna PUCKETT 03/24/2016 Overweight s/p bariatric surgery 2013 l abs as below, healthy diet, exercise encouraged, reviewed Chronic Disease Follow-up with Berna PUCKETT 03/24/2016 Assessment of depression well controlle d with citalopram, her OB is aware she is taking, risk vs benefit discussed AHR with Berna PUCKETT 09/22/2015 Esophageal reflux ppi ok per ob? advise d to double check to make sure she knows you are taking-- watch spicy foods and triggers-- AHR with Berna PUCKETT 09/22/2015 Hypertension well controlled s/p bariatric surgery of [facility] AHR with Berna PUCKETT 09/22/2015 Nicotine dependence - in remission AHR with Berna PUCKETT 09/22/2015 Normal routine history and physical s ee updated problem list above for impression and plan of any problems addressed today. 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-- will monitor-- AHR with Berna PUCKETT 09/22/2015 will call when baby is born for appt if nee ded AHR with Berna PUCKETT 09/22/2015 Skin abscess open still but healing, ne devin took antibiotic -- s/s infection and wound care reviewed-- f.u as needed AHR with Berna PUCKETT 09/22/2015 Assessment of depression well controlle d, citalopram as ordered-- stress management is encouraged Chronic Disease Follow-up with Berna PUCKETT 03/24/2015 Esophageal reflux well controlled, cont inue PPI omeprazole increased to 40 mg daily Chronic Disease Follow-up with Berna PUCKETT 03/01 Overweight has lost 80 pounds since gas tric bypass last year, gained 20 back- with job changed-- working on healthier options Chronic Disease Follow-up with Berna PUCKETT 03/24/2015 Vitamin D deficiency Chronic Disease Follow-up with Berna PUCKETT 03/24/2015 Assessment of depression well controlle d, citalopram as ordered-- stress management is encouraged AHR with Berna PUCKETT 06/04/2014 Esophageal reflux well controlled, continue PPI as or dered AHR with Berna PUCKETT 06/04/2014 Normal routine history and physical s ee updated problem list above for impression and plan of any problems addressed today. AHR with Berna PUCKETT 06/04/2014 Overweight has lost 80 pounds since gas tric bypass last year, doing well vit d a bit low per surgeon, will request copies AHR with Berna PUCKETT 06/04/2014 Vitamin D deficiency AHR with Berna PUCKETT 06/04/2014 Female pelvic pain Walk-In with Mary Jane Hawthorne MD 09/27 Overweight Walk-In with Mary Jane Hawthorne MD 09/27 Urinary tract infection : this appears to be cleared b y today's urinalysis Walk- In with Mary Jane Hawthorne MD 09/27/2013 Postsurgical status of intestinal bypass Walk-In with Berna Dangelo NP 09/20/2013 Sexually transmitted disease EXPOSURE Walk-In with Jennifer Dangelo NP 09/20/2013 Urinary tract infection Walk-In with Berna mcpherson NP 09/20/2013 Assessment of depression well controlled, continue ci talopram as ordered Pre Op with Berna PUCKETT 07/03/2013 Esophageal reflux on pepcid currently, can adjust per surgeon Pre Op with Berna PUCKETT 07/03/2013 Hypertension well controlled with HCTZ, no cardiac sy mptoms, Pre Op with Berna PUCKETT 07/03/2013 Morbid obesity THIS PATIENT'S CHRONIC I SSUES ARE OPTIMALLY CONTROLLED FOR UPCOMING SURGERY PENDING EKG AND LABS Pre Op with Berna PUCKETT 07/03/2013 Normal routine history and physical s ee updated problem list above for impression and plan of any problems addressed today. Pre Op with Berna PUCKETT 07/03/2013 Vitamin D deficiency continue daily supplementation P re Op with Berna PUCKETT 07/03/2013 Assessment of anxiety Chronic Disease Follow-up with Berna PUCKETT 05/03/2013 Depression Chronic Disease Follow-up with Berna PUCKETT 05/03/2013 Hypertension Chronic Disease Follow-up with Berna PUCKETT 05/03/2013 Obesity Chronic Disease Follow-up with Berna PUCKETT 05/03/2013 Sinusitis Chronic Disease Follow-up with Berna PUCKETT 05/03/2013 Assessment of anxiety Same Day Acute with Berna PUCKETT 12/13/2012 Bacterial vaginosis Same Day Acute with Berna PUCKETT 1 Vaginal candidiasis Same Day Acute with Berna PUCKETT 1 Assessment of current smoker patient is aware of risks, has cut down, will monitor Acute with Berna PUCKETT 11/17/2012 Assessment of depression stress management, continue current meds, -- Acute with Berna PUCKETT 11/17/2012 Diarrhea stool cultures as ordered jacky cullen, will order labs due to abdominal symptoms Acute with Berna PUCKETT 11/17/2012 Female pelvic pain transvaginal US and 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 referral at this point for ongoing symptoms-- go to ER if worsening pain or fever-- Acute with Berna PUCKETT 11/17/2012 Hypertension to goal today, HCTZ helps with fluid-- watch salt, continue current plan Acute with Berna PUCKETT 11/17/2012 Malaise Same Day Acute with Berna PUCKETT 0 10/18/2012 Urinary tract infection Same Day Acute with Berna PUCKETT 10/18/2012 Vitamin D deficiency Same Day Acute with Berna PUCKETT 10/18/2012 Bacterial vaginosis /will cover for PID due to tenderness on last exam, here for treatment-- Follow-up Labs with Berna PUCKETT 08/30/2012 Contraceptive surveillance TRISPRINTEC WORKING WELL, CALL FOR REFILLS IF NEEDED AHR with Berna PUCKETT 08/28/2012 Hypertension TOLERATING HCTZ WELL, WATC H SALT, HEALTHY DIET, EXERCISE 30 MIN DAILY ENCOURAGED AHR with Berna PUCKETT 08/28/2012 Nicotine dependence NO SMOKING PER PT, MONITOR, PT IS AWARE OF RISKS AHR with Berna PUCKETT 08/28/2012 Normal routine history and physical AHR with Berna PUCKETT 08/28/2012 Routine gynecological exam with cervical pap smear AHR with Berna PUCKETT 08/28/2012 Vaginal candidiasis dry well after swimming, shower, diflucan as ordered AHR with Berna PUCKETT 08/28/2012 Vitamin D deficiency CONTINUE CURRENT DOSING, LABS NE XT VISIT AHR with Berna PUCKETT 08/28/2012 Sinusitis with early bronchitis no smoking advised M Same Day with Berna PUCKETT 07/14/2012 Assessment of current smoker intermitte nt, social, pt is aware of risks, monitor 5 min HTN Follow-up with Berna PUCKETT 07/10/2012 Causalgia of upper limb bilateral forea rm down-- splints were effective but now both worsening-- EMG U/E wnl, patient will make appt for reevaluation at ortho HTN Follow-up with Berna PUCKETT 07/10/2012 Hypertension much improved with HCTZ, w atch salt <140/90 is the goal, has lost almost 10 pounds over last two visits monitor HTN Follow-up with Berna PUCKETT 07/10/2012 Vitamin D deficiency on 50,000 u once w eekly as the 2000 u daily not effective, recheck 3 months, pt has lab slip HTN Follow-up with Berna PUCKETT 07/10/2012 Isolated blood pressure was elevated wa tch salt, goal is less than 140/90, will monitor, likely due to sickess, healthy weight loss encouraged M Same Day with Berna PUCKETT 06/16/2012 Nicotine dependence smokes about three monthly-- advised of risks, pt aware, trying to quit on own M Same Day with Berna PUCKETT 06/16/2012 Overweight patient concerned, reviewed healthy diet, exercise 30 min or more daily encouraged, will check tsh and labs M Same Day with Berna PUCKETT 06/16/2012 Pharyngitis warm salt water gargles, ty lenol and/or motrin as needed for pain or fever, change toothbrush in 2-3 days -- return if fever, pain, continued symptoms despite treatment M Same Day with Berna PUCKETT 06/16/2012 Contraceptive surveillance TRINESSA DUE , REFILLED-- SAFE INTERCOURSE ENCOURAGED Chronic Disease Follow-up with Berna PUCKETT 03/01 Major depression, recurrent without juliette ncholia CITALOPRAM HELPFUL, STRESS MANAGEMENT ENCOURAGED-- DOING WELL Chronic Disease Follow-up with Berna PUCKETT 03/27/2012 Nicotine dependence SMOKING BUT NOT JUAN MANUEL LY, SOCIAL, MONITOR RISKS DISCUSSED, OPTIONS GIVEN, PT DECLINES Chronic Disease Follow-up with Berna PUCKETT 03/27/2012 Tendonitis BILATERAL WRIST, SPLINTS EFF ECTIVE, NERVE CONDUCTION LAST AUGUST WAS NEGATIVE-- HEAT, WATCH REPETATIVE MOTION WHEN FLAIRS Chronic Disease Follow-up with Berna PUCKETT 03/27/2012 Pharyngitis suspect strep M Same Day with Ilene Jackson 12/08/2011 Sebaceous cyst improving well; small am t drainage continues; less pain;; pack removed. Once healed sched excision if desires 10 Minute Revist with Steven Hawthorne MD 11/26/2011 Assessment of anxiety better, monitor 10 Minute Revist with Berna PUCKETT 11/17/2011 Assessment of current smoker 6 min spen t with pt on eval, declines quit options, pt states she is aware of risks 10 Minute Revist with Berna PUCKETT 11/17/2011 Contraceptive surveillance as below, tr isprintec, condom use prn-- menses is reg-- monitor 10 Minute Revist with Berna PUCKETT 11/17/2011 Depression doing well with citalopram a nd support of sister who she lives with-- declines counseling,s tress management encouraged 10 Minute Revist with Berna PUCKETT 11/17/2011 Sebaceous cyst warm packs, will cover w ajit keflex, removal by Dr Steven Hawthorne scheduled for 2 weeks-- pt states gets larger and tender and then goes down again x months, requesting removal 10 Minute Revist with Berna PUCKETT 11/17/2011 Urinary tract infection M Same Day with Crystal PUCKETT 08/23/2011 Assessment of anxiety declines natalie hanks,stress management encouraged, cont current meds AHR with Berna PUCKETT 07/20/2011 Nicotine dependence smoking, 2cigs day -- AHR with Berna PUCKETT 07/20/2011 Normal routine history and physical AHR with Berna PUCKETT 07/20/2011 Symptoms referable to a joint of the hum erus/elbow xray ordered, RICE advised , consider PT, further imaging if not resolving 1-2 weeks AHR with Berna PUCKETT 07/20/2011 Acute sinusitis 10 Minute Revist with Crystal PUCKETT 03/20/2011 Allergic rhinitis M Same Day with Crystal PUCKETT Assessment of anxiety M 20 Minutes with Berna PUCKETT 0 11/25/2010 Assessment of current smoker M 20 Minutes with Berna PUCKETT 11/25/2010 Contraceptive surveillance M 20 Minutes with Berna PUCKETT 11/25/2010 Depression M 20 Minutes with Berna PUCKETT Persistent insomnia SLEEP HYGEINE HAND OUT, GIVEN 10 DAY LUNESTA TO RESET SLEEP CYCLE-- MONITOR M 20 Minutes with Berna PUCKETT 11/25/2010 Contraceptive surveillance take at the same time daily, use back up when on abx-- start tuesday of next menses 30 minutes with Berna PUCKETT 07/09/2010 Major depression, recurrent without juliette ncholia citalopram, stress management, sleep hygeine reviewed 30 minutes with Berna PUCKETT 07/09/2010 Nicotine dependence only three or less a day, but did advise to not smoke while on control-- 30 minutes with Berna PUCKETT 07/09/2010 Vitamin D deficiency cont 1000 units d stacyy, will recheck with next set of labs 30 minutes with Berna PUCKETT 07/09/2010 Sprain Trapezius muscle M Same Day with Mckenna Davidson [employer]OWER 0 06/25/2010 Sprained left shoulder M Same Day with Mckenna Davidson [employer] 05/30 Anxiety disorder NOS discussed anxiety , depression symptoms with patient-- discussed situational changes, stress management and positive feedback-- patient will also cont to find counseling appt-- we will keep her on the same dose of celexa for now-- she will call if worsening symptoms or concerns before next appt-- M 20 Minutes with Berna PUCKETT 05/28/2010 Assessment of current smoker does not want to quit at this time due to depression , anxiety-- continue to monitor M 20 Minutes with Berna PUCKETT 05/28/2010 Obesity will check lipids, tsh, labs a s ordered-- diet and exercise 30 min daily encouraged-- monitor M 20 Minutes with Berna PUCKETT 05/28/2010 Contraceptive surveillance 30 minutes with Berna Douglas 04/08/2010 Normal routine history and physical 30 minutes with Berna PUCKETT 04/08/2010 Routine pelvic exam with cervical pap smear 30 minutes with Berna PUCKETT 04/08/2010 Foreign body in the left auditory canal RELIEF OF SYM PTOMS WITH PROCEDURE M Same Day with Berna PUCKETT 02/04/2010 Normal routine history and physical 30 minutes with Jennifer Dangelo NP 08/26/2009 Breast fibrocystic disease 30 minutes with Berna Douglas 12/03/2008 Obesity diet and exercise discussed 30 minutes with Berna PUCKETT 12/03/2008 Routine pelvic exam with cervical pap smear 30 minutes with Berna PUCKETT 12/03/2008 Sebaceous cyst RIGHT LOWER BACK, LESS THAN 1 MM 30 min utes with Berna PUCKETT 12/03/2008 Normal routine history and physical exam deferred due to menses, rescheduled for two weeks, fasting labs ordered-- patient agrees discussed sunscreen, skincare, diet and exercise daily 30 minutes with Berna PUCKETT 11/14/2008 Cervical dysplasia per history, last pap april 2007 wnl-- is scheduled next visit for PAP-- M Health Review-Short with Berna PUCKETT 08/21/19 09 Normal routine history and physical M Health Review-Sh ort with Berna PUCKETT 08/20/2008 Influenza type A M Office Visit - Short with Berna PUCKETT 05/21/2008 Instructions Instructions not supported for this document typeNo Instructions Recorded Medical Equipment - Implanted Devices Includes: Current and historical DevicesNo Medical Equipment Recorded Medications Includes: Current and historical Medications Current Medications (continue as prescribed) Omeprazole 20 MG Oral Capsule Delayed Release 01/08/2020 Provider: Berna PUCKETT Diagnosis: Gastro-esophageal re flux disease without esophagitis twice a day takes rare Misc. Devices Miscellaneous 01/08/2020 - 02/07/2020 Provider : Berna PUCKETT Diagnosis: Cough olivas rapid test for covid testing symp toms of cough sore [facility]bromide 40 MG Oral Tablet 01/08/2020 Provider: Berna PUCKETT Diagnosis: Major depressive dis order, recurrent, moderate once a day Albuterol Sulfate (2.5 MG/3ML) 0.083% Inhalation Nebul ization solution 12/20/2019 Provider: Berna Reece NP Diagnosis: Shortness of breath inhale 1 vial every 4-6 hours as needed wheezing. Past Medications on file Amoxicillin-Pot Clavulanate 875-125 MG Oral Tablet 0 - 12/30/2019 Provider: Berna Reece NP Diagnosis: Acute sinusitis, uns pecified twice a day- with food predniSONE 20 MG Oral Tablet 12/13/2019 - 12/20/2019 Provide r: Michelle Mendez NP Diagnosis: Acute bronchitis, un specified 2 tabs by mouth once a day with food Albuterol Sulfate (2.5 MG/3ML) 0.083% Inhalation Nebul ization solution 12/12/2019 - 12/20/2019 Provider: Michelle Mendez NP Diagnosis: Shortness of breath 3ML via nebulizer inhaled every 4 hours as needed for wheezi ng/SOB guaiFENesin ER 600 MG Oral Tablet Extended Release 12 Hour 12/12/2019 - 12/13/2019 Provider: Michelle Mendez NP Diagnosis: Cough 1 tab by mouth twice a day as needed for cough/congestion Daily Multivitamin Oral Capsule 06/13/2019 - 12/12/2019 Prov ider: Diagnosis: Citalopram Hydrobromide 40 MG Oral Tablet 06/13/2019 - 01/07 Provider: Berna PUCKETT Diagnosis: Major depressive dis order, recurrent, moderate once a day Omeprazole 20 MG Oral Capsule Delayed Release 06/13/2019 - 1 03/09/2019 Provider: Berna PUCKETT Diagnosis: Gastro-esophageal re flux disease without esophagitis twice a day takes rare Omeprazole 20 MG Oral Capsule Delayed Release 06/13/2019 - 0 06/13/2019 Provider: Berna PUCKETT Diagnosis: Gastro-esophageal re flux disease without esophagitis twice a day takes rare Citalopram Hydrobromide 40 MG Oral Tablet 06/13/2019 - 06/12 Provider: Berna PUCKETT Diagnosis: Major depressive dis order, recurrent, moderate once a day Daily Multivitamin Oral Capsule 01/19/2019 - 06/13/2019 Prov ider: Diagnosis: rOPINIRole HCl 0.5 MG Oral Tablet 01/19/2019 - 06/13/2019 Pr ovider: Berna PUCKETT Diagnosis: Restless legs syndro me one nightly, x one week, can increase to two nightly after t hat if needed Cefdinir 300 MG Oral Capsule 01/19/2019 - 01/29/2019 Provide r: Berna PUCKETT Diagnosis: twice a day metroNIDAZOLE 500MG Oral Tablet 08/21/2018 - 01/19/2019 Prov ider: Berna PUCKETT Diagnosis: twice a day EQL Vitamin D3 5000UNIT Oral Capsule 08/18/2018 - 06/13/2019 Provider: Diagnosis: per endo Omeprazole 20MG Oral Capsule, delayed-release 04/03/2018 - 0 06/13/2019 Provider: Berna PUCKETT Diagnosis: Gastro-esophageal re flux disease without esophagitis twice a day Citalopram Hydrobromide 40MG Oral Tablet 04/03/2018 - 2019 Provider: Berna PUCKETT Diagnosis: Major depressive dis order, recurrent, moderate once a day MetroNIDAZOLE 500MG Oral Tablet 03/15/2018 - 08/18/2018 Prov ider: Berna PUCKETT Diagnosis: twice a day Omeprazole 20MG Oral Capsule Delayed Release 03/30/2017 - Provider: Berna PUCKETT Diagnosis: Gastro-esophageal re flux disease without esophagitis twice a day PredniSONE 20MG Oral Tablet 03/30/2017 - 03/14/2018 Provider : Berna PUCKETT Diagnosis: use as directed one TID for 3 days, on e BID for 3 days, one daily for 3 days, and 1/2 tab daily for 3 days Zithromax Z-Kunal 250MG Oral Tablet 03/30/2017 - 03/14/2018 Pr ovider: Berna PUCKETT Diagnosis: 2 tabs po day one, 1tab po daily days 2- 5 ROPINIRole HCl 0.5MG Oral Tablet 03/30/2017 - 01/19/2019 Pro vider: Berna PUCKETT Diagnosis: Restless legs syndro me one nightly, x one week, can increase to two nightly after t hat if needed Ferrous Sulfate 325 (65 Fe)MG Oral Tablet 03/30/2017 - 06/12 Provider: Berna PUCKETT Diagnosis: Other iron deficienc y anemias twice a day Citalopram Hydrobromide 40MG Oral Tablet 03/30/2017 - 2018 Provider: Berna PUCKETT Diagnosis: Major depressive dis order, recurrent, moderate once a day EQL Vitamin D3 5000UNIT Oral Capsule 03/30/2017 - 08/18/2018 Provider: Diagnosis: per endo Daily Multivitamin Oral Capsule 03/30/2017 - 01/19/2019 Prov ider: Diagnosis: Omeprazole 20MG Oral Capsule Delayed Release 10/04/2016 - Provider: Berna PUCKETT Diagnosis: Gastro-esophageal re flux disease without esophagitis twice a day EQL Vitamin D3 5000UNIT Oral Capsule 09/23/2016 - 03/30/2017 Provider: Diagnosis: per endo Daily Multivitamin Oral Capsule 09/23/2016 - 03/30/2017 Prov ider: Diagnosis: EQL Vitamin D3 5000UNIT Oral Capsule 04/19/2016 - 09/23/2016 Provider: Diagnosis: per endo Vitamin D3 [id number] Oral Tablet 04/19/2016 - 09/23/2016 Pro vider: Diagnosis: per endo Drisdol [id number] Oral Capsule 04/14/2016 - 09/23/2016 Provi jose: Radha Huang MD Diagnosis: once weekly for 3 months CVS Gummy 0.4-113.5 MG Tablet Chewable 03/24/2016 - 09/23/2016 Provider: Diagnosis: CVS Vitamin D3 1000 UNIT Tablet Chewable 03/24/2016 - 2016 Provider: Berna PUCKETT Diagnosis: Vitamin D deficiency , unspecified once a day Ferrous Sulfate 325 (65 Fe) MG Tablet 03/24/2016 - 8 Provider: Berna PUCKETT Diagnosis: Other iron deficienc y anemias twice a day Omeprazole 20 MG Capsule Delayed Release 03/24/2016 - 2016 Provider: Berna PUCKETT Diagnosis: Gastro-esophageal re flux disease without esophagitis twice a day Citalopram Hydrobromide 40 MG Tablet 03/24/2016 - 03/30/2017 Provider: Berna PUCKETT Diagnosis: Major depressive dis order, recurrent, moderate once a day Multivitamins Capsule 09/22/2015 - 03/24/2016 Provider: Diagnosis: Citalopram Hydrobromide 40 MG Tablet 09/22/2015 - 03/24/2016 Provider: Berna PUCKETT Diagnosis: Major depressive dis order, recurrent, moderate once a day Omeprazole 40 MG Capsule Delayed Release 09/22/2015 - 2016 Provider: Berna PUCKETT Diagnosis: Gastro-esophageal re flux disease without esophagitis once a day CVS Gummy 0.4-113.5 MG Tablet Chewable 09/22/2015 - 03/24/2016 Provider: Diagnosis: Vitamin D 1000 UNIT Capsule 09/22/2015 - 03/24/2016 Provi jsoe: Diagnosis: Biotin 1000 MCG Tablet 03/24/2015 - 09/22/2015 Provider: Diagnosis: 2 qday Citalopram Hydrobromide 40 MG Tablet 03/24/2015 - 09/22/2015 Provider: Berna PUCKETT Diagnosis: Major depressive dis order, recurrent, moderate once a day Omeprazole 40 MG Capsule Delayed Release 03/24/2015 - 2015 Provider: Berna PUCKETT Diagnosis: Gastro-esophageal re flux disease without esophagitis once a day Vitamin D 1000 UNIT Capsule 03/24/2015 - 09/22/2015 Provi jose: Diagnosis: Multivitamins Capsule 03/24/2015 - 09/22/2015 Provider: Diagnosis: Omeprazole 20 MG Capsule, delayed-release 07/31/2014 - 03/24 Provider: Berna PUCKETT Diagnosis: Esophageal Reflux once a day per gastric bypass surgery Citalopram Hydrobromide 40 MG Tablet 06/04/2014 - 03/24/2015 Provider: Berna PUCKETT Diagnosis: Major Depressive Aff ective Disorder Recurrent Episode Modera once a day TriNessa (28) 0.18/0.215/0.25 MG-35 MCG Tablet 06/04/2014 - 03/24/2015 Provider: Berna PUCKETT Diagnosis: Contraceptive Survei llance Unspecified as directed one by mouth daily Omeprazole 20 MG Capsule, delayed-release 06/04/2014 - 07/31 Provider: Berna PUCKETT Diagnosis: Esophageal Reflux once a day per gastric bypass surgery Citalopram Hydrobromide 40 MG Tablet 06/04/2014 - 06/04/2014 Provider: Berna PUCKETT Diagnosis: Major Depressive Aff ective Disorder Recurrent Episode Modera once a day CVS Vitamin D3 1000 UNIT Capsule, conventional 06/04/2014 - 03/24/2015 Provider: Diagnosis: Biotin 1000 MCG Tablet 06/04/2014 - 03/24/2015 Provider: Diagnosis: 2 qday Multivitamins Capsule, conventional 06/04/2014 - 03/24/2015 Provider: Diagnosis: Citalopram Hydrobromide 40 MG OR TABS 03/05/2014 - 5 Provider: Berna PUCKETT Diagnosis: Major Depressive Aff ective Disorder Recurrent Episode Modera Multivitamins OR CAPS 09/27/2013 - 06/04/2014 Provider: Diagnosis: Biotin 1000 MCG OR TABS 09/27/2013 - 06/04/2014 Provider: Diagnosis: 2 qday Multivitamins OR CAPS 09/27/2013 - 09/27/2013 Provider: Diagnosis: TriNessa (28) 0.18/0.215/0.25 MG-35 MCG OR TABS 09/21/2013 - 06/04/2014 Provider: Berna PUCKETT Diagnosis: one by mouth daily Pyridium 200 MG OR TABS 09/20/2013 - 09/27/2013 Provider: Berna Dangelo OLIVE GROWER Diagnosis: Bactrim DS 800-160 MG OR TABS 09/20/2013 - 09/27/2013 Provid er: Berna Dangelo OLIVE GROWER Diagnosis: Diflucan 150 MG OR TABS 09/18/2013 - 09/20/2013 Provider: Berna PUCKETT Diagnosis: Diflucan 150 MG OR TABS 09/18/2013 - 09/18/2013 Provider: Berna PUCKETT Diagnosis: QID Omeprazole 20 MG OR CPDR 08/30/2013 - 06/04/2014 Provider: Berna PUCKETT Diagnosis: Esophageal Reflux per gastric bypass surgery CVS Vitamin D3 1000 UNIT OR CAPS 08/30/2013 - 06/04/2014 Pro vider: Berna PUCKETT Diagnosis: Unspecified Vitamin D Deficiency Citalopram Hydrobromide 40 MG OR TABS 07/03/2013 - 5 Provider: Berna PUCKETT Diagnosis: Major Depressive Aff ective Disorder Recurrent Episode Modera Citalopram Hydrobromide 40 MG OR TABS 07/03/2013 - 4 Provider: Berna PUCKETT Diagnosis: Pepcid 40 MG OR TABS 07/03/2013 - 08/30/2013 Provider: Diagnosis: Diflucan 150 MG OR TABS 06/19/2013 - 07/03/2013 Provider: Berna PUCKETT Diagnosis: take one - call clinic to be evaluated if symptoms are not resolved! Diflucan 150 MG OR TABS 06/19/2013 - 07/03/2013 Provider: Berna PUCKETT Diagnosis: take one - call clinic to be evaluated if symptoms are not resolved! Citalopram Hydrobromide 40 MG OR TABS 06/18/2013 - 4 Provider: Alida PUCKETT Diagnosis: Augmentin 875-125 MG OR TABS 05/03/2013 - 07/03/2013 Provide r: Berna PUCKETT Diagnosis: Take one tab PO BID x 10 days Citalopram Hydrobromide 40 MG OR TABS 04/09/2013 - 4 Provider: Berna PUCKETT Diagnosis: Major Depressive Aff ective Disorder Recurrent Episode Modera Citalopram Hydrobromide 40 MG OR TABS 04/09/2013 - 4 Provider: Berna PUCKETT Diagnosis: Major Depressive Aff ective Disorder Recurrent Episode Modera hydroCHLOROthiazide 25 MG TABS 02/12/2013 - 09/20/2013 Provi ojse: Berna PUCKETT Diagnosis: Benign Essential Hyp ertension Tri-Sprintec 0.18/0.215/0.25 MG-35 MCG OR TABS 01/26/2013 - 07/03/2013 Provider: Berna PUCKETT Diagnosis: Contraceptive Survei llance Unspecified one tab po qday Diflucan 150 MG OR TABS 01/16/2013 - 04/09/2013 Provider: Berna PUCKETT Diagnosis: 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 metroNIDAZOLE 500 MG OR TABS 11/22/2012 - 12/13/2012 Provide r: Berna PUCKETT Diagnosis: Take one tab PO BID x 10 days Vitamin D3 1.25 MG (19177 UT) OR CAPS 11/17/2012 - 4 Provider: Berna PUCKETT Diagnosis: Take one capsule once weekly for 12 WEEKS Bactrim DS 800-160 MG OR TABS 10/24/2012 - 11/17/2012 Provid er: Berna PUCKETT Diagnosis: Vitamin D3 1.25 MG (74178 UT) OR CAPS 10/20/2012 - 3 Provider: Berna PUCKETT Diagnosis: Take one capsule once weekly for 12 weeks Cipro 500 MG OR TABS 10/18/2012 - 11/17/2012 Provider: Berna PUCKETT Diagnosis: Urinary Tract Infect ion Site Not Specified Diflucan 150 MG OR TABS 10/18/2012 - 11/17/2012 Provider: Berna PUCKETT Diagnosis: Candidiasis of Vulva and Vagina take one tab po x 1 now and repeat in 1 week if sx con tinue this is a refill Diflucan 150 MG OR TABS 10/16/2012 - 10/18/2012 Provider: Berna PUCKETT Diagnosis: take one tab po x 1 now and repeat in 1 week if sx continue Azithromycin 1 GM OR PACK 08/30/2012 - 10/18/2012 Provider: Berna PUCKETT Diagnosis: Candidiasis of Vulva and Vagina 1g po once weekly x 2 weeks Flagyl 500 MG OR TABS 08/30/2012 - 11/17/2012 Provider: Berna PUCKETT Diagnosis: Candidiasis of Vulva and Vagina Diflucan 150 MG OR TABS 08/28/2012 - 11/17/2012 Provider: Berna PUCKETT 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 Exam Wi th or without Pap Vitamin D3 1.25 MG (43175 UT) OR CAPS 08/28/2012 - 3 Provider: Berna PUCKETT Diagnosis: Unspecified Vitamin D Deficiency one tab monthly Citalopram Hydrobromide 40 MG OR TABS 08/28/2012 - 4 Provider: Berna PUCKETT Diagnosis: Major Depressive Aff ective Disorder Recurrent Episode Modera Tri-Sprintec 0.18/0.215/0.25 MG-35 MCG OR TABS 08/28/2012 - 01/16/2013 Provider: Berna PUCKETT Diagnosis: Contraceptive Survei llance Unspecified one tab po qday hydroCHLOROthiazide 25 MG TABS 08/28/2012 - 02/12/2013 Provi jose: Berna PUCKETT Diagnosis: Benign Essential Hyp ertension Zithromax Z-Kunal 250 MG OR TABS 07/14/2012 - 08/28/2012 Provi jose: Berna PUCKETT Diagnosis: Acute Maxillary Sinu sitis 2 tabs po day one, 1tab po daily days 2- 5 Vitamin D3 1.25 MG (27416 UT) OR CAPS 06/28/2012 - 3 Provider: Berna PUCKETT Diagnosis: Unspecified Vitamin D Deficiency hydroCHLOROthiazide 25 MG TABS 06/23/2012 - 08/28/2012 Provi jose: Berna PUCKETT Diagnosis: Penicillin V Potassium 500 MG OR TABS 06/16/2012 - 3 Provider: Berna PUCKETT Diagnosis: Acute Pharyngitis Citalopram Hydrobromide 40 MG OR TABS 03/27/2012 - 3 Provider: Berna PUCKETT Diagnosis: Major Depressive Aff ective Disorder Recurrent Episode Modera KEEP ON FILE FOR REFILL Tri-Sprintec 0.18/0.215/0.25 MG-35 MCG OR TABS 03/27/2012 - 08/28/2012 Provider: Berna PUCKETT Diagnosis: Contraceptive Survei llance Unspecified one tab po qday Wrist Splint MISC 03/27/2012 - 08/28/2012 Provider: Berna PUCKETT Diagnosis: TENDONITIS AND ENTHE SOPATHY BILAT DX: TENDONITIS FIT TO SIZE, LEFT AND RIGHT Penicillin V Potassium 500 MG OR TABS 12/08/2011 - 3 Provider: Ilene Decker NP Diagnosis: Acute Pharyngitis 1 TAB PO TID X 10 DAYS Cephalexin 500 MG OR CAPS 11/24/2011 - 12/08/2011 Provider: Steven Hawthorne MD Diagnosis: Sebaceous Cyst Cephalexin 500 MG OR CAPS 11/17/2011 - 11/24/2011 Provider: Berna PUCKETT Diagnosis: Sebaceous Cyst Tri-Sprintec 0.18/0.215/0.25 MG-35 MCG OR TABS 11/17/2011 - 03/27/2012 Provider: Berna PUCKETT Diagnosis: Contraceptive Survei llance Unspecified one tab po qday Citalopram Hydrobromide 40 MG OR TABS 11/17/2011 - 3 Provider: Berna PUCKETT Diagnosis: Major Depressive Aff ective Disorder Recurrent Episode Modera Pyridium 200 MG OR TABS 08/23/2011 - 11/17/2011 Provider: Crystal PUCKETT Diagnosis: Urinary Tract Infect ion Site Not Specified one tab po tid for 2 days Bactrim DS 800-160 MG OR TABS 08/23/2011 - 11/17/2011 Provid er: Crystal PUCKETT Diagnosis: Urinary Tract Infect ion Site Not Specified 1 tab by mouth bid x 7 days Flagyl 500 MG OR TABS 07/23/2011 - 08/23/2011 Provider: Berna PUCKETT Diagnosis: Do not drink alcohol with this medication Bactroban 2% EX OINT 07/20/2011 - 11/17/2011 Provider: Berna PUCKETT Diagnosis: aaa bid prn # 15 gram tube Tri-Sprintec 0.18/0.215/0.25 MG-35 MCG OR TABS 07/20/2011 - 11/17/2011 Provider: Berna PUCKETT Diagnosis: Contraceptive Survei llance Unspecified one tab po qday Citalopram Hydrobromide 40 MG OR TABS 07/20/2011 - 2 Provider: Berna PUCKETT Diagnosis: this is an increase from 20 mg daily Citalopram Hydrobromide 20 MG OR TABS 06/23/2011 - 2 Provider: Berna PUCKETT Diagnosis: Tri-Sprintec 0.18/0.215/0.25 MG-35 MCG OR TABS 03/20/2011 - 07/20/2011 Provider: Crystal PUCKETT Diagnosis: one tab po qday Augmentin 875-125 MG OR TABS 03/20/2011 - 07/20/2011 Provide r: Crystal PUCKETT Diagnosis: Sinusitis, Acute Uns pecified one tab po bid ZyrTEC Allergy 10 MG OR TABS 01/26/2011 - 03/20/2011 Provide r: Crystal PUCKETT Diagnosis: Allergic Rhinitis Ca use Unspecified one tab po qday ZyrTEC Allergy 10 MG OR TABS 01/26/2011 - 01/26/2011 Provide r: Crystal PUCKETT Diagnosis: Allergic Rhinitis Ca use Unspecified one tab po qday Ambien 10 MG OR TABS 11/27/2010 - 03/20/2011 Provider: Berna PUCKETT Diagnosis: Lunesta 2 MG OR TABS 11/25/2010 - 11/27/2010 Provider: Berna PUCKETT Diagnosis: ONE PO QHS Loestrin 24 Fe 1-20 MG-MCG OR TABS 11/25/2010 - 03/20/2011 Manuel derasder: Berna PUCKETT Diagnosis: Citalopram Hydrobromide 20 MG OR TABS 11/25/2010 - 2 Provider: Berna PUCKETT Diagnosis: Citalopram Hydrobromide 20 MG OR TABS 10/19/2010 - 1 Provider: Berna PUCKETT Diagnosis: Citalopram Hydrobromide 20 MG OR TABS 08/20/2010 - 1 Provider: Berna PUCKETT Diagnosis: Ortho Tri-Cyclen Lo 0.18/0.215/0.25 MG-25 MCG OR TABS 2010 - 11/25/2010 Provider: Berna PUCKETT Diagnosis: Flexeril 10 MG OR TABS 06/25/2010 - 07/09/2010 Provider: Mckenna Davidson NP Diagnosis: 1 tab PO TID prn muscle spasms Citalopram Hydrobromide 20 MG OR TABS 06/05/2010 - 1 Provider: Berna PUCKETT Diagnosis: Citalopram Hydrobromide 20 MG OR TABS 04/08/2010 - 1 Provider: Berna PUCKETT Diagnosis: 1/2 TABLET ONCE DAILY, MAY INCREASE TO ONE TABLET PO DAILY A FTER ONE WEEK Zithromax 250 MG OR TABS 01/15/2010 - 02/04/2010 Provider: Moy Multani DO Diagnosis: 2 tabs for the first day and then 1 each day for 2-5 Relenza Diskhaler 5 MG/BLISTER IN AEPB 05/21/2008 - 02/05/20 10 Provider: Berna PUCKETT Diagnosis: 10 MG NOW AND 2H APART, THEN 10 MG BID X 4 DAYS Permethrin 5% EX CREA 05/18/2007 - 12/03/2008 Provider: Berna PUCKETT Diagnosis: apply head to toe except mucous membrane leave on 8-14 hours wash off repeat in 14 days if not effective Medications Administered Includes: Administered Medications in patient's chart Medications Administered Diagnosis Date Provi jose cefTRIAXone Sodium 250 MG IJ SOLR 08/30/2012 Myrna PUCKETT verbal order per MMB Vital Signs Includes: Vital Signs from 02/02/2019 through 02/03/2020 Vital Name 02/01/2020 11:17A 01/08/2020 08:16A 12/20/2019 01:01P 12/17/2019 08:43A 12/14/2019 11:25A Pain Level 0 4 0 0 0 Oxygen Saturation (%) 97 Flow Rate (l/min) (None (Room Air)) FiO2 (%) 21 Blood Pressure Sitting L 120/80 BP Cuff Size Regular Pulse Rate-Sitting (bpm) 104 Pulse Rhythm Regular Respiration Rate (breaths/min) 20 Temp-Tympanic (F) 97.6 Weight (lb) 219 217 Temp-Temporal 96.7 Note: pt unable to obtain any vitals Vital Name 12/13/2019 09:34A 12/12/2019 12:59P 06/13/2019 12:37P Pain Level 4 0 0 Oxygen Saturation (%) 98 Flow Rate (l/min) (None (Room Air)) FiO2 (%) 21 Blood Pressure Sitting L 118/80 BP Cuff Size Large Pulse Rate-Sitting (bpm) 91 Pulse Rhythm Regular Respiration Rate (breaths/min) 17 Temp-Tympanic (F) 96.9 98.4 Weight (lb) 217 235 Note: Pt obtained vitals pt weighed se lf at home Results Includes: Results from 02/02/2019 through 02/03/2020 Strep Test In-House Labs Ordered by Michelle Mendez NP on 12/12/2019 Collected: 12/12/2019 Reported: 12/12/2019 Throat Swab negative N (Normal) Reviewed on 12/12/2019; All test result s are final unless otherwise noted. FULL THROAT CULT [facility] Ordered by Michelle Mendez NP on 12/12/[address] [place] [address], [id number] Collected: 12/12/2019 Reported: 12/14/2019 tel:[phone] See Note Pyle None Note: Run: 12/14/19 0834 INTERFACED REPORT Name: Lisette Soto Age/Sex: 39/F Location: [facility] Acct: [id number] Unit: [id number] Status: REG REF Room/Bed: Re12/12/19 Disch: Att Dr: Michelle Mendez NP Specimen #: [id number] Ordered : 12/12/19 Collected : 12/12/19 By: LETICIA Received: 12/12/19 By: ROCKY Source: THROAT Specimen Description: Procedure Result -- FULL THROAT CULT Final USUAL KALYAN AFTER 18 HOURS USUAL KALYAN AFTER 42 HOURS FULL THROAT CULT Preliminary (Corrected) USUAL KALYAN AFTER 18 HOURS END OF REPORT Reviewed by Michelle Mendez NP on 11/28; All test results are final unless otherwise noted. Reported Physicians [facility] Ordered by Michelle Mendez NP on 12/12/[address] [place] [address], [address] Collected: 12/12/2019 Reported: 12/14/2019 tel:[phone] Reported Physicians See Note None Note: Reported Physicians:Ordering: Michelle Carlisleding: Michelle Mendez Reviewed by Michelle Mendez OLIVE GROWER on 11/28; All test results are final unless otherwise noted. RESPIRATORY PANEL AND COVID [facility] Ordered by Michelle Mendez OLIVE GROWER on 12/12/[address] [place] [address], [address] Collected: 12/12/2019 Reported: 12/12/2019 tel:[phone] ADENOVIRUS Not Detected (NotDetected) None Note: Responsible Observer: ADENOVIRUS A DENOVIRUS [phone] (A) BORDETELLA PARAPERTUS Not Detected (NotDetected) None Note: Responsible Observer: BORD PAR IS1 001 BORDETELLA PARAPERTUS [phone] (A) BORDETELLA PERTUSSIS Not Detected (NotDetected) None Note: Responsible Observer: BORDET PERTU SS BORDETELLA PERTUSSIS [phone] (A) CHLAMYDIA PNEUMONIAE Not Detected (NotDetected) None Note: Responsible Observer: CHLMY PNEUMO JULIENNE CHLAMYDIA PNEUMONIAE [phone] (A) CORONAVIRUS NL63 Not Detected (NotDetected) None Note: This is NOT the novel coronavirus COVID-19Responsible Observer: CORONVIRUS NL63 CORONAVIRUS NL63 [phone] (A) CORONAVIRUS OC43 Not Detected (NotDetected) None Note: This is NOT the novel coronavirus COVID-19Responsible Observer: CORONVIRUS OC43 CORONAVIRUS OC43 [phone] (A) CORONAVIRUS 229E Not Detected (NotDetected) None Note: This is NOT the novel coronavirus COVID-19Responsible Observer: CORONVIRUS 229E CORONAVIRUS 229E [phone] (A) CORONAVIRUS HKU1 Not Detected (NotDetected) None Note: This is NOT the novel coronavirus COVID-19Responsible Observer: CORONVIRUS HKU1 CORONAVIRUS HKU1 [phone] (A) COVID 19 (SARS-CoV-2) NOT-DETECTED (NOTDETECTED) None Note: THIS IS THE NOVEL CORONAVIRUS COV ID-19Responsible Observer: COVID 2 SARS Coronavirus 2 (SARS-CoV-2) [phone] (A) INFLUENZA A Not Detected (NotDetected) None Note: Responsible Observer: INFLUENZA A INFLUENZA A [phone] (A) INFLUENZA B Not Detected (NotDetected) None Note: Responsible Observer: INFLUENZA B INFLUENZA B [phone] (A) HUMAN METAPNEUMOVIRUS Not Detected (NotDetected) None Note: Responsible Observer: HUMAN METAPN EUV HUMAN METAPNEUMOVIRUS [phone] (A) MYCOPLASMA PNEUMONIAE Not Detected (NotDetected) None Note: The Respiratory Panel is a multip lexed nucleic acid/PCR test. A negative result does not rule out the presence of PCR inhibitors in the patient sample or assay-specific nucleic acid concentrations below the level of detection by the assay.Responsible Observer: MYCOP PNEUMONIA MYCOPLASMA PNEUMONIAE [phone] (A) PARAINFLUENZA VIRUS 4 Not Detected (NotDetected) None Note: Responsible Observer: PARAINFLU R 4 PARAINFLUENZA VIRUS 4 [phone] (A) PARAINFLUENZA VIRUS 3 Not Detected (NotDetected) None Note: Responsible Observer: PARAINFLU R 3 PARAINFLUENZA VIRUS 3 [phone] (A) PARAINFLUENZA VIRUS 1 Not Detected (NotDetected) None Note: Responsible Observer: PARAINFLU R 1 PARAINFLUENZA VIRUS 1 [phone] (A) PARAINFLUENZA VIRUS 2 Not Detected (NotDetected) None Note: Responsible Observer: PARAINFLU R 2 PARAINFLUENZA VIRUS 2 [phone] (A) HUMAN RHINOVIRUS/ENT Detected (NotDetected) A (Abnormal) Note: Responsible Observer: HMN RHINO/EN TER HUMAN RHINOVIRUS/ENT [phone] (A) RESPIRATORY SYNCY VIR Not Detected (NotDetected) None Note: Responsible Observer: RSV RESPIRAT ORY SYNCY VIR [phone] (A) Reviewed by Michelle Mendez NP on 11/28; All test results are final unless otherwise noted. Reported Physicians [facility] Ordered by Michelle Mendez NP on 12/12/[address], [address] Collected: 12/12/2019 Reported: 12/12/2019 tel:[phone] Reported Physicians See Note None Note: Reported Physicians:Ordering: Michelle Carlisle LAtjosselineding: Michelle Mendez Reviewed by Michelle Mendez NP on 11/28; All test results are final unless otherwise noted. History of Present Illness History of Present Illness not supported for this document typeNo History of Present Illness Recorded Social History Description Last Updated Secondhand cigarette smoke exposure 6 weeks 0 Smoking status 02/01/2020 : Former smoker 02/01/2020 control method --sexually active, one partner, doing well on OCP--menses--5- 6-7 days normal ONE ~no miscarriages or abortions 12/20/2019 Caffeine use coffee 5 days a week 12/20/2019 Feeding oneself with no difficulty 12/20/2019 Good exercise habits 12/20/2019 No difficulty walking unassisted 12/20/2019 No difficulty washing 12/20/2019 No life circumstance event 12/20/2019 No recent decrease in exercise activity 12/20/2019 No recent emotional stress 12/20/2019 No severe hearing impairment 12/20/2019 No severe visual impairment 12/20/2019 No tobacco use 12/20/2019 Not using drugs 12/20/2019 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, [employer]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 Sexually active 12/20/2019 Social history [use for free text] 12/20/2019 Social history unchanged 12/20/2019 The sexual partner had a vasectomy 12/20/2019 Not a current smoker with alcohol 3 CIG/DAY 5 Procedures and Surgical/Medical History Includes: Procedures from 02/02/2019 through 02/03/2020 Procedures CPT-4 Diagnosis Performing Provider Service Location Service Date Rapid Strep Test 27515 Acute pharyngitis, unspecified Danielle Mendez NP [facility] 12/12/2019 Surgical History Last Updated History of cholecystectomy 199812/20/2019 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 Surgical / procedural history bilateral salpingectomy , right oophorectomy 12/20/2019 Surgical / procedural history Leep 19 y o - normal pa p smears since 12/20/2019 Medical History Last Updated Exposure to streptococcus 01/10/2020 History of cervical dysplasia 12/20/2019 07/18/[address] Sy 2019 Exposure to STD , positive chlymidia 1997, multiple te sts since then negative 12/20/2019 1 12/20/2019 No history of condyloma acuminatum last pap was April 2007 normal, MAR 2010 WNL 12/20/2019 No history of coronary artery disease 12/20/2019 No history of essential hypertension 12/20/2019 No history of HIV infection 12/20/2019 No history of hyperlipidemia 12/20/2019 No history of prostatitis 12/20/2019 No history of type 2 diabetes mellitus 12/20/2019 No previous emergency room visit 12/20/2019 No recent change in medical history 12/20/2019 No recent immunization for flu 12/20/2019 No smoke exposure 12/20/2019 Para 1 12/20/2019 Past medical history -Please see Problem List for Act odalis Chronic Problems 12/20/2019 Standardized depression screening: negative for sympto ms 09/27/2013 09/27/2013 A mammogram was performed 02/07/2012 05/03/2013 Cervical Pap smear 08/28/2012 03/15/2013 Family History Includes: Family History in patient's chart Description Last Updated Maternal Aunt on oxygen Aunt and Grand mother with heart disease ~Paternal GM cervical cancer, ~Sister- HTN 12/20/2019 Family history of cancer both grandmothers- cervical 12/20/2019 Family history of depression mom 12/20/2019 Family history of diabetes mellitus paternal 12/20/19 20 Family history of essential hypertension paternal Family history of heart disease grandmother 0 Family history of hypertension father 12/20/2019 Family history unchanged 12/20/2019 Maternal history of depression 12/20/2019 Maternal history of not using drugs 12/20/2019 No family history of early deaths 12/20/2019 No family history of malignant female breast neoplasm 12/20/2019 No family history of malignant neoplasm of large intes shayla 12/20/2019 No paternal history of depression 12/20/2019 Paternal history of not using drugs 12/20/2019 Review of Systems Review of Systems not supported for this document typeNo Review of Systems Recorded Mental Status Mental Status not supported for this document typeNo Mental Status Recorded Functional Status Functional Status not supported for this document typeNo Functional Status Recorded Physical Exam Physical Exam not supported for this document typeNo Physical Exam Recorded Immunizations Includes: Immunizations in patient's chart Vaccine Dose # Date Site Reaction(s) Status Source Boostrix 1 04/08/2010 Left Arm Complete (Administered) [facility] Hep B 1 04/08/2010 Right Arm Complete (Administered) [facility] Hep B 2 05/06/2010 Right Arm Complete (Administered) [facility] Hep B 3 03/30/2017 Left Deltoid Complete (Administered) [facility] Influenza 1 04/08/2010 Left Arm Complete (Administered) [facility] Influenza 2 11/25/2010 Left Arm Complete (Administered) [facility] Influenza 3 11/17/2011 Right Arm Complete (Administered) [facility] Influenza 4 12/13/2012 Left Arm Complete (Administered) [facility] Note: [facility] Influenza 5 03/30/2017 Right Deltoid Complete (Administere d) [facility] Influenza 6 03/14/2018 Left Arm Complete (Administered) [facility] MMR 1 11/15/1980 Complete (Reported) Patient MMR 2 07/09/2010 Right Arm Complete (Administered) [facility] PPD TB TST 1 04/08/2010 Lower Right Arm Complete (Adminis tered) [facility] Tdap 1 03/19/2015 Complete (Reported) Patient Allergies Includes: Active, inactive, and resolved AllergiesNo Known Allergies Encounters Includes: Encounters from 02/02/2019 through 02/03/2020 Encounter Provider Location Date Diagnosis [Patient Encounter] Berna PUCKETT 02/01/2020 Acute Telehealth Zoom Berna PUCKETT [facility] 02/01/2020 Esophageal Reflux, Assessment of Anxiety, Assessment of Joint Pain, Localized in the Shoulder, Joint Pain in the Left Hip, Ovarian Cyst, Cxr Lungs Multiple Pulmonary Nodules, Nicotine Dependence in Remission, Bariatric Surgery Status, Abdominal Pain [Patient Encounter] Berna PUCKETT 01/08/2020 Telephonic Encounter Berna PUCKETT [facility] 01/08/2020 Ovarian Cyst, Abdominal Pain, Bariatric Surgery Status, Cxr Lungs Multiple Pulmonary Nodules, Nicotine Dependence in Remission Acute L1 Berna Reece NP [facility] 12/20/2019 Sinusiti s Acute, Bronchitis Acute Follow-up Telehealth Michelle Mendez NP [facility] Acute Bronchitis, Viral Syndrome Acute Follow-up Telephonic Qing De Jesus NP [facility] 020 Acute Bronchitis, Viral Syndrome Telephonic Encounter Michelle Mendez NP [facility] 0 Acute Bronchitis, Viral Syndrome Acute L1 Michelle Mendez [employer] [facility] 12/12/2019 Asse ssment of Cough, Assessment of Difficulty Breathing (dyspnea), Pharyngitis Acute Primary Care Telehealth Zoom Berna PUCKETT [facility] Assessment of Anxiety, Persistent Insomnia, Nicotine Dependence, Hypertension (systemic), Restless Legs Syndrome, Esophageal Reflux, Parathyroid Gland Disorders, Overweight, Assessment of Depression, Anemia Standing Order Berna PUCKETT 04/24/2019 Insurance Includes: Active Insurance Policies Plan Name Member ID Group # Subscriber Relationship Effective Da abdi 1 - Mvp [id number] Lisette Soto Self 019 - Unknown 2 - D [employer] [id number] Lisette Kendall Advance Directives Includes: Current Advance Directives Directive Pat Aware Third Constitution Party Effective Date Reviewed Status RHIO Yes 09/07/2012 Current and Ve rified Note: 08/28/12 packet given Pt Bill of Rights, Priv Prac, Ad Dir Yes 03/14/2018 Current and Verified Note: Pt declined AD packet Ebola Screening Performed Yes 01/19/2019 Current and Verified Note: Within the last month, have you traveled outside of the [place]? - NO Health Concerns Includes: Active Health Concerns Female Pelvic Pain Onset 09/27/2013 Overweight Onset 06/16/2012 Goals Includes: Active Goals Lose weight. Added 06/17/2012 by Provider Health Concern: Overweight Determine cause of pelvic pain. Added 09/27/2013 by Provider Health Concern: Female Pelvic Pain Interventions Includes: Interventions for active Goals Some of your symptoms (fatigue, feeling poorly, pale) may be due to a vitamin/mineral deficiency, so we have ordered bloodwork to look for these. Added 06/17/2012 Goal: Lose weight. We have ordered labwork to look for poss ible causes of pelvic pain and your other symptoms. A pelvic exam was done today in the office and we will check for STDs and yeast.If your symptoms do not improve or worsen, please return to see Berna Roaara. Added 09/27/2013 Goal: Determine cause of pelvic pain. Evaluations & Outcomes Includes: Evaluations & Outcomes for active Goals Goal converted from Patient Problem data . Goal is currently In Progress. Added 06/17/2012 - In Progress Goal: Lose weight. Goal converted from Patient Problem data . Goal is currently In Progress. Added 09/27/2013 - In Progress Goal: Determine cause of pelvic pain.
--- OUTSIDE RECORDS SUMMARY | 2020-03-26 11:42 | CCD ---
Author Author [facility] Organization [facility] Address [address] [place] [address] Phone Care Team Providers Care Chief Specialist Leed Name Role Phone Berna Gonzalez PP [phone] Sal BEVERLY, Radha Unavailable [phone] [facility] Unavailable [phone] [facility] Unavailable [phone] [facility], LPN MEDICAL ASSISTANT Unavailable [phone] Reason for Referral No Reason for Referral [...] Paulino se Active Note: 04/14/16 - [facility] y Ortho.Radha MD - BMI = 36.5. [...] d oing well Vitamin D Deficiency 06/20/2012 [place] Nurse Active Note: 03/24/16 - [facility] Ortho., Radha Huang MD - level [...] use. EMG done. Dr. Yolanda Quezada MD 08-24-11.AGuidry/GRE TUTOR Mammographic Abnormality 08/09/2011 Berna PUCKETT Acti ve [...] 04/08/2010 Berna PUCKETT Active Note: Well-Controlled - gracia lopram, stress management discussed DOING WELL . Cervical Pap Smear 04/08/2010 Berna PUCKETT Active Note: Unchanged - wnl 011, 07/20/2011 SHOWS HYPERKERATOSIS OTHERWISE WNL, AFFIRM + TREATED WITH FLAGYL. Routine General Medical Examination At [facility] 08/20/2008 Berna PUCKETT Active Note: PFT WNL--, pap wnl Major Depressive Affective Disorder Recurrent Episode Modera 12/30/2007 Berna PUCKETT Active Note: Well-Controlled - doin g well on citalopram, declines counseling. Plan of Treatment Pending Tests Order Diagnosis Results Due Ordering Provi jose Lab (CBC)COMPLETE BLOOD CNT 12/10/19 Berna PUCKETT Lab COMPREHENSIVE METABOLIC PANEL 12/10/19 Berna PUCKETT Lab IRON 12/10/19 Berna PUCKETT Lab FERRITIN 12/10/19 Berna PUCKETT Lab FOLIC ACID 12/10/19 Berna PUCKETT Lab HEMOGLOBIN A1C 12/10/19 Berna PUCKETT Lab IRON TIBC 12/10/19 Berna PUCKETT Lab LIPID PANEL 12/10/19 Berna PUCKETT Lab TSH 12/10/19 Berna PUCKETT Lab Vitamin D,25-HYDROXY 12/10/19 Berna PUCKETT Lab COVID 19 12/28/19 Michelle L Kimba ll SECURITY SHIFT MANAGER Lab INFLUENZA A B RAPID 12/28/19 Michelle L Andrea SECURITY SHIFT MANAGER Lab RESPIRATORY PANEL AND COVID 12/28/19 Michelle L Andrea SECURITY SHIFT MANAGER Lab AMYLASE 01/07/21 Berna PUCKETT Lab Antinuclear [...] pain, vaginal discomfort, transvaginal US for further [facility] imaging LUMBER TAILER Diarrhea Note: Please schedule patient with provi jose vaginal itching, abdominal tenderness, [place] LUMBER TAILER referral please Endocrine Disorder of parathyr oid gland, unspecified Note: Please schedule patient with provi jose Future Appointments Date Time Location Provider Acute Follow-up Well 02/01/2020 11:10AM [facility] Berna PUCKETT AHR 03/11/2020 3:00PM [facility] Berna PUCKETT Future Tests Order Diagnosis Results [...] of receipt or receiving provider electronically through [employer] [facility] Primary Care Telehealth Zoom with Berna PUCKETT 06/13/2019 Ordered follow-up visit 6 months AHR, sooner if quest ions or problems Primary Care Telehealth Zoom with Berna PUCKETT 06/13/2019 Ordered return to the clinic if condition worsens or n ew symptoms arise Primary Care Telehealth Zoom with Berna PUCKETT 06/13/2019 Ordered Transition in care, clinical sum berna provided electronically through [employer] [facility] Primary Care Telehealth Zoom with Berna PUCKETT 06/13/2019 Ordered Clinical summary transmitted to referring provider electronically with reasonable certainty of receipt or receiving provider electronically through [employer] [facility] Walk-In with Berna PUCKETT 01/19/2019 Ordered [...] care, clinical sum berna provided electronically through [employer] [facility] Walk-In with Berna PUCKETT 01/19/2019 Ordered Clinical summary transmitted to referring provider electronically or receiving provider electronically through [employer] [facility] Chronic Disease Follow-up with Berna PUCKETT 08/18/2018 Ordered follow-up visit 6 months AHR, sooner if quest ions or problems Chronic Disease Follow-up with Berna PUCKETT 08/18/2018 Ordered return to the clinic if condition worsens or n ew symptoms arise Chronic Disease Follow-up with Berna PUCKETT 08/18/2018 Ordered Transition in care, clinical sum berna provided electronically through [employer] [facility] Chronic Disease Follow-up with Berna PUCKETT 08/18/2018 Ordered Clinical summary transmitted to referring provider electronically or receiving provider electronically through [employer] [facility] AHR with Berna PUCKETT 03/14/2018 Ordered follow-up visit 6 months, sooner if questions or problems AHR with Berna PUCKETT 03/14/2018 Ordered return to the clinic if condition worsens or n ew symptoms arise AHR with Berna PUCKETT 03/14/2018 Ordered Transition in care, clinical sum berna provided electronically through [employer] [facility] AHR with Berna PUCKETT 03/14/2018 Ordered follow-up visit 6 months, sooner if questions or problems Chronic Disease Follow-up with Berna PUCKETT 03/30/2017 Ordered return to the clinic if condition worsens or n ew symptoms arise Chronic Disease Follow-up with Berna PUCKETT 03/30/2017 Ordered Transition in care, clinical sum berna provided electronically through [employer] [facility] Chronic Disease Follow-up with Berna PUCKETT 03/30/2017 Ordered follow-up visit 6 months, sooner if questions or problems AHR with Berna PUCKETT 09/23/2016 Ordered return to the clinic if condition worsens or n ew symptoms arise AHR with Berna PUCKETT 09/23/2016 Ordered Transition in care, clinical sum berna provided electronically through [employer] [facility] AHR with Berna PUCKETT 09/23/2016 Ordered follow-up [...] 07/03/2013 Ordered disposition - Patient or careta harsh [...] Berna PUCKETT 05/03/2013 Ordered follow-up visit f/u, social media manager referral if not reso lving with treatment-- [...] 08/30/2012 Ordered follow-up visit 4 months for janet caba review, sooner if questions or problems AHR with Berna PUCKETT 08/28/2012 Ordered return to the clinic if condition worsens or n ew symptoms arise AHR with Berna PUCKETT 08/28/2012 Ordered disposition - Patient lionel house was instructed in use of antipyretics and [...] Ordered fluids (patient to increase p.o. 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-- as well as LUMBER TAILER-- advised to the ER if worse again [...] Acute sinusitis Acute L1 with Berna Reece SECURITY SHIFT MANAGER 0 Bronchitis Acute L1 with Berna Reece SECURITY SHIFT MANAGER 0 Acute bronchitis Acute Follow-up Telehealth with Michelle Mendez NP 12/17/2019 Viral syndrome Acute Follow-up Telehealth with Michelle Mendez SECURITY SHIFT MANAGER 12/17/2019 Acute bronchitis Acute Follow-up Telephonic with Qing De Jesus NP 12/14/2019 Viral syndrome Acute Follow-up Telephonic with Qing De Jesus NP 12/14/2019 Acute bronchitis Telephonic Encounter with Michelle cui SECURITY SHIFT MANAGER 12/13/2019 Viral syndrome Telephonic Encounter with Michelle cui SECURITY SHIFT MANAGER 12/13/2019 Acute pharyngitis Acute L1 with Michelle Mendez SECURITY SHIFT MANAGER 12/11 Assessment of cough Acute L1 with Michelle Mendez SECURITY SHIFT MANAGER 12/11 Assessment of dyspnea Acute L1 with Michelle Mendez SECURITY SHIFT MANAGER Anemia continue iron as ordered-- lean proteins, [...] controlled s/p bariatric surgery of f meds Primary Care Telehealth Zoom with Berna PUCKETT [...] Hypertension well controlled s/p bariatric surgery of [facility] Chronic Disease Follow-up with Berna PUCKETT 08/18/2018 [...] Hypertension well controlled s/p bariatric surgery of [facility] AHR with Berna PUCKETT 03/14/2018 Nicotine dependence 5 min on education, quit options-- less than pack day, sometimes 3-5 -- thinking about e cig options-- benefit vs risk discussed AHR with Berna PUCKETT 03/14/2018 Normal routine history and physical s ee updated problem list above for impression and plan of any problems addressed today. AHR with Berna PUCKETT 03/14/2018 Overweight s/p bariatric surgery 2013 -- AHR with Berna PUCKETT 03/14/2018 Parathyroid [...] PUCKETT 03/24/2016 Nicotine dependence - in remission sinc e 2015 44 minutes face to face time with pt >50% counseling, coordination of care Chronic Disease Follow-up with Berna PUCKETT 03/24/2016 Overweight s/p bariatric surgery 2012 l abs as below, healthy diet, exercise [...] of f meds AHR with Berna PUCKETT 09/22/2015 Nicotine dependence - in remission AHR with Berna PUCKETT 09/22/2015 Normal routine history and physical s ee updated problem list above for impression and plan of any problems addressed today. 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-- will monitor-- AHR with Berna PUCKETT 09/22/2015 [...] of intestinal bypass Walk-In with Berna Dangelo SECURITY SHIFT MANAGER 09/20/2013 Sexually transmitted disease EXPOSURE Walk-In with Jennifer escamilla Maryam Dangelo NP 09/20/2013 Urinary tract infection Walk-In with Berna mcpherson SECURITY SHIFT MANAGER 09/20/2013 Assessment of depression well controlled, continue [...] 11/17/2012 Female pelvic pain transvaginal US and LUMBER TAILER referral at this point for ongoing symptoms-- [...] Crystal PUCKETT 08/23/2011 Assessment of anxiety declines counseli latonya,stress management encouraged, cont current meds AHR with [...] Vitamin D deficiency cont 1000 units d aily, will recheck with next set of labs 30 minutes with Berna PUCKETT 07/09/2010 Sprain Trapezius muscle M Same Day with Mckenna Davidson SECURITY SHIFT MANAGER 0 06/25/2010 Sprained left shoulder M Same Day with Mckenna Davidson NP 05/30 Anxiety disorder NOS discussed anxiety , [...] with cervical pap smear 30 minutes with eBrna PUCKETT 04/08/2010 Foreign body in the left [...] M Health Review-Short with Berna PUCKETT 08/21/19 Normal routine history and physical [facility] [...] toms of cough sore [facility] Citalopram Hydrobromide 40 MG Oral Tablet 01/08/2020 [...] 12/13/2019 - 12/20/2019 Provide r: Michelle Mendez SECURITY SHIFT MANAGER Diagnosis: Acute bronchitis, un specified 2 tabs [...] 09/23/2016 Provider: Diagnosis: per endo Vitamin D3 [id number] Oral Tablet 04/19/2016 - 09/23/2016 Pro vider: Diagnosis: per endo Drisdol [id number] Oral Capsule 04/14/2016 - 09/23/2016 Provi jose: [...] Tablet Chewable 09/22/2015 - 03/24/2016 Provider: Diagnosis: KP Vitamin D 1000 UNIT Capsule 09/22/2015 - 03/24/2016 Provi jose: Diagnosis: Biotin 1000 MCG Tablet 03/24/2015 - 09/22/2015 Provider: Diagnosis: 2 qday Citalopram Hydrobromide 40 MG Tablet 03/24/2015 - 09/22/2015 Provider: Berna PUCKETT Diagnosis: Major depressive dis order, recurrent, moderate once a day Omeprazole 40 MG Capsule Delayed Release 03/24/2015 - 2015 Provider: Berna PUCKETT Diagnosis: Gastro-esophageal re flux disease without esophagitis once a day KP Vitamin D 1000 UNIT Capsule 03/24/2015 - [...] TABS 09/20/2013 - 09/27/2013 Provider: Berna Dangelo NP Diagnosis: Bactrim DS 800-160 MG OR TABS 09/20/2013 - 09/27/2013 Provid er: Berna Dangelo SECURITY SHIFT MANAGER Diagnosis: Diflucan 150 MG OR TABS 09/18/2013 [...] 25 MG TABS 02/12/2013 - 09/20/2013 Provi jose: Berna PUCKETT Diagnosis: Benign Essential [...] x 10 days Vitamin D3 1.25 MG (78404 UT) OR CAPS 11/17/2012 - 4 Provider: Berna PUCKETT Diagnosis: Take one capsule once weekly for 12 WEEKS Bactrim DS 800-160 MG OR TABS 10/24/2012 - 11/17/2012 Provid er: Berna PUCKETT Diagnosis: Vitamin D3 1.25 MG (78984 UT) OR CAPS 10/20/2012 - 3 Provider: [...] - 11/17/2012 Provider: Berna PUCKETT Diagnosis: Routine [employer]. Exam Wi th or without Pap Vitamin D3 1.25 MG (34155 UT) OR CAPS 08/28/2012 - 3 Provider: [...] days 2- 5 Vitamin D3 1.25 MG (73208 UT) OR CAPS 06/28/2012 - 3 Provider: [...] Unspecified one tab po qday [facility] 03/27/2012 - 08/28/2012 Provider: Berna PUCKETT Diagnosis: [...] OR TABS 2010 - 11/25/2010 Provider: Berna PUKCETT Diagnosis: Flexeril 10 MG OR TABS 06/25/2010 [...] MMB Vital Signs Includes: Vital Signs from 01/09/2019 through 01/10/2020 Vital Name 01/08/2020 08:16A 12/20/2019 01:01P 12/17/2019 08:43A 12/14/2019 11:25A 12/13/2019 09:34A Pain Level 4 0 0 0 4 Blood Pressure Sitting L 120/80 BP Cuff Size Regular Pulse Rate-Sitting (bpm) 104 Pulse Rhythm Regular Respiration Rate (breaths/min) 20 Temp-Tympanic (F) 97.6 96.9 Weight (lb) 219 217 Oxygen Saturation (%) 97 Flow Rate (l/min) (None (Room Air)) FiO2 (%) 21 Temp-Temporal 96.7 Note: Pt obtained vi erika Vital Name 12/12/2019 12:59P 06/13/2019 12:37P 01/19/2019 02:29P Pain Level 0 0 4 Blood Pressure Sitting L 118/80 130/80 BP Cuff Size Large Large Pulse Rate-Sitting (bpm) 91 85 Pulse Rhythm Regular Regular Respiration Rate (breaths/min) 17 18 Temp-Tympanic (F) 98.4 97.6 Weight (lb) 217 235 239 Oxygen Saturation (%) 98 99 Flow Rate (l/min) (None (Room Air)) (None (Room Air)) FiO2 (%) 21 21 Note: pt weighed self at home Results Includes: Results from 01/09/2019 through 01/10/2020 Strep Test In-House Labs Ordered by Michelle Mendez NP on 12/12/2019 Collected: 12/12/2019 Reported: 12/12/2019 Throat Swab negative N (Normal) Reviewed on 12/12/2019; All test result s are final unless otherwise noted. FULL THROAT CULT [facility] Ordered by Michelle Mendez NP on 12/12/[address] [place] [address], [address] Collected: 12/12/2019 Reported: 12/14/2019 tel:[phone] See Note Pyle None Note: Run: 12/14/19 0834 INTERFACED REPORT Name: CharlesLisette Age/Sex: 39/F Location: [facility] Acct: [id number] Unit: [id number] Status: REG REF Room/Bed: Re12/12/19 Disch: Gordon Dr: Michelle Mendez SECURITY SHIFT MANAGER Specimen #: [id number] Ordered : 12/12/19 Collected : 12/12/19 By: OFFICE Received: 12/12/19 By: ROCKY Source: THROAT Specimen Description: Procedure Result -- FULL THROAT CULT Final USUAL KALYAN AFTER 18 HOURS USUAL KALYAN AFTER 42 HOURS FULL THROAT CULT Preliminary (Corrected) USUAL KALYAN AFTER 18 HOURS END OF REPORT Reviewed by Michelle Mendez NP on 11/28; All test results are final unless otherwise noted. Reported Physicians [facility] Ordered by Michelle Mendez NP on 12/12/[address] [place] [address], [address] Collected: 12/12/2019 Reported: 12/14/2019 tel:[phone] Reported Physicians See Note None Note: Reported Physicians:Ordering: Michelle Carlisle LAttending: Michelle Mendez Reviewed by Michelle Mendez NP on 11/28; All test results are final unless otherwise noted. RESPIRATORY PANEL AND COVID [facility] Ordered by Michelle Mendez NP on 12/12/[address] [place] [address], [address] Collected: 12/12/2019 Reported: 12/12/2019 tel:[phone] ADENOVIRUS Not Detected (NotDetected) None Note: Responsible [...] VIR [phone] (A) Reviewed by Michelle Mendez SECURITY SHIFT MANAGER on 11/28; All test results are final unless otherwise noted. Reported Physicians [facility] Ordered by Michelle Mendez SECURITY SHIFT MANAGER on 12/12/[address], [facility] Collected: 12/12/2019 Reported: 12/12/2019 tel:[phone] Reported Physicians See Note None Note: Reported Physicians:Ordering: Michelle Carlisle LAttending: Michelle Mendez Reviewed by Michelle Mendez SECURITY SHIFT MANAGER on 11/28; All test results are final unless otherwise noted. 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] AllergiesNo Known Allergies Encounters Includes: Encounters from 01/09/2019 through 01/10/2020 Encounter Provider Location Date Diagnosis [Patient Encounter] Berna PUCKETT 01/08/2020 Telephonic Encounter Berna PUCKETT [facility] 01/08/2020 Ovarian Cyst, Abdominal Pain, Bariatric Surgery Status, Cxr Lungs Multiple Pulmonary Nodules, Nicotine Dependence in Remission Acute L1 Sariah Shanell [facility] 12/20/2019 Sinusiti s Acute, Bronchitis Acute Follow-up Telehealth Michelle Mendez [facility] Acute Bronchitis, Viral Syndrome Acute Follow-up Telephonic Qing De Jesus [facility] 020 Acute Bronchitis, Viral Syndrome Telephonic Encounter Michelle Mendez [facility] 0 Acute Bronchitis, Viral Syndrome Acute L1 Michelle Mendez [facility] 12/12/2019 Asse ssment of Cough, Assessment of Difficulty Breathing (dyspnea), Pharyngitis Acute Primary Care Telehealth Zoom Berna PUCKETT [facility] Assessment of Anxiety, Persistent Insomnia, Nicotine Dependence, Hypertension (systemic), Restless Legs Syndrome, Esophageal Reflux, Parathyroid Gland Disorders, Overweight, Assessment of Depression, Anemia Standing Order Berna PUCKETT 04/24/2019 Walk-In Berna PUCKETT [facility] 01/19/2019 Otitis Media Left Ear, Assessment of Depression, Anemia, Hypertension (systemic), Restless Legs Syndrome, Esophageal Reflux, Overweight, Nicotine Dependence Insurance Includes: Active Insurance Policies Plan Name Member ID Group # Subscriber Relationship Effective Da abdi 1 - Mvp [id number] Lisette Kendall 019 - Unknown 2 - D [employer] [id number] Lisette Kendall Advance Directives Includes: Current Advance Directives Directive Pat Aware Third Libertarian Effective Date Reviewed Status RHIO Yes 09/07/2012 [...] or worsen, please return to see Berna Rajput. Added 09/27/2013 Goal: Determine cause of pelvic [...]
--- OUTSIDE RECORDS SUMMARY | 2020-03-26 11:43 | CCD ---
Author Author [facility] Organization [facility] Address Unknown Phone Unavailable Care Team Providers Care Geospatial Information Scientist Name Role Phone JAYA, W EDUARDO PA Unavailable Unavailable LAKE, W EDUARDO PA Unavailable Unavailable LAKE, W EDUARDO PA Unavailable Unavailable LAKE, W EDUARDO PA Unavailable Unavailable LAKE, W EDUARDO PA Unavailable Unavailable LAKE, W EDUARDO PA Unavailable Unavailable LAKE, W EDUARDO PA Unavailable Unavailable LAKE, W EDUARDO PA Unavailable Unavailable LAKE, W EDUARDO PA Unavailable Unavailable LAKE, W EDUARDO PA Unavailable Unavailable LAKE, W EDUARDO PA Unavailable Unavailable LAKE, W EDUARDO PA Unavailable Unavailable ALKE, W EDUARDO PA Unavailable Unavailable LAKE, W EDUARDO PA Unavailable Unavailable LAKE, W EDUARDO PA Unavailable Unavailable LAKE, W EDUARDO PA Unavailable Unavailable LAKE, W EDUARDO PA Unavailable Unavailable LAKE, W EDUARDO PA Unavailable Unavailable LAKE, W EDUARDO PA Unavailable Unavailable LAKE, W EDUARDO PA Unavailable Unavailable LAKE, W EDUARDO PA Unavailable Unavailable LAKE, W EDUARDO PA Unavailable Unavailable LAKE, W EDUARDO PA Unavailable Unavailable LAKE, W EDUARDO PA Unavailable Unavailable LAKE, W EDUARDO PA Unavailable Unavailable LAKE, W EDUARDO PA Unavailable Unavailable LAKE, W EDUARDO PA Unavailable Unavailable LAKE, W EDUARDO PA Unavailable Unavailable LAKE, W EDUARDO PA Unavailable Unavailable LAKE, W EDUARDO PA Unavailable Unavailable LAKE, W EDUARDO PA Unavailable Unavailable LAKE, W EDUARDO PA Unavailable Unavailable LAKE, W EDUARDO PA Unavailable Unavailable LAKE, W EDUARDO PA Unavailable Unavailable LAKE, W EDUARDO PA Unavailable Unavailable LAKE, W EDUARDO PA Unavailable Unavailable LAKE, W EDUARDO PA Unavailable Unavailable LAKE, W EDUARDO PA Unavailable Unavailable LAKE, W EDUARDO PA Unavailable Unavailable LAKE, W EDUARDO PA Unavailable Unavailable LAKE, W EDUARDO PA Unavailable Unavailable LAKE, W EDUARDO PA Unavailable Unavailable LAKE, W EDUARDO PA Unavailable Unavailable LAKE, W EDUARDO PA Unavailable Unavailable LAKE, W EDUARDO PA Unavailable Unavailable LAKE, W EDUARDO PA Unavailable Unavailable Shaben, E Berna INFRASTRUCTURE ANALYST Unavailable Unavailable Shaben, E Berna INFRASTRUCTURE ANALYST Unavailable Unavailable Shaben, E Berna INFRASTRUCTURE ANALYST Unavailable Unavailable Shaben, E Berna INFRASTRUCTURE ANALYST Unavailable Unavailable Shaben, E Berna INFRASTRUCTURE ANALYST Unavailable Unavailable Shaben, E Berna INFRASTRUCTURE ANALYST Unavailable Unavailable Shaben, E Berna INFRASTRUCTURE ANALYST Unavailable Unavailable Shaben, E Berna INFRASTRUCTURE ANALYST Unavailable Unavailable Shaben, E Berna INFRASTRUCTURE ANALYST Unavailable Unavailable Shaben, E Berna INFRASTRUCTURE ANALYST Unavailable Unavailable Shaben, E Berna INFRASTRUCTURE ANALYST Unavailable Unavailable Shaben, E Berna INFRASTRUCTURE ANALYST Unavailable Unavailable Shaben, E Berna INFRASTRUCTURE ANALYST Unavailable Unavailable Shaben, E Berna INFRASTRUCTURE ANALYST Unavailable Unavailable Shaben, E Berna INFRASTRUCTURE ANALYST Unavailable Unavailable Shaben, E Berna INFRASTRUCTURE ANALYST Unavailable Unavailable Shaben, E Berna INFRASTRUCTURE ANALYST Unavailable Unavailable Shaben, E Berna INFRASTRUCTURE ANALYST Unavailable Unavailable Shaben, E Berna INFRASTRUCTURE ANALYST Unavailable Unavailable Shaben, E Berna INFRASTRUCTURE ANALYST Unavailable Unavailable Shaben, E Berna INFRASTRUCTURE ANALYST Unavailable Unavailable Shaben, E Berna INFRASTRUCTURE ANALYST Unavailable Unavailable Shaben, Kelsi Coronel INFRASTRUCTURE ANALYST Unavailable Unavailable Shaben, Kelsi Coronel INFRASTRUCTURE ANALYST Unavailable Unavailable Neal, A Qing SOLID STATE TESTER Unavailable Unavailable Greenbrier, A Qing SOLID STATE TESTER Unavailable Unavailable Neal, A Qing SOLID STATE TESTER Unavailable Unavailable Greenbrier, A Qing SOLID STATE TESTER Unavailable Unavailable Greenbrier, A Qing SOLID STATE TESTER Unavailable Unavailable Greenbrier, A Qing SOLID STATE TESTER Unavailable Unavailable Greenbrier, A Qing SOLID STATE TESTER Unavailable Unavailable Neal, A Qing SOLID STATE TESTER Unavailable Unavailable Neal, A Qing SOLID STATE TESTER Unavailable Unavailable Greenbrier, A Qing SOLID STATE TESTER Unavailable Unavailable Greenbrier, A Qing SOLID STATE TESTER Unavailable Unavailable Greenbrier, A Qing SOLID STATE TESTER Unavailable Unavailable Greenbrier, A Qing SOLID STATE TESTER Unavailable Unavailable Greenbrier, A Qing SOLID STATE TESTER Unavailable Unavailable Neal, A Qing SOLID STATE TESTER Unavailable Unavailable Greenbrier, A Qing SOLID STATE TESTER Unavailable Unavailable Neal, A Qing SOLID STATE TESTER Unavailable Unavailable Greenbrier, A Qing SOLID STATE TESTER Unavailable Unavailable Neal, A Qing SOLID STATE TESTER Unavailable Unavailable Greenbrier, A Qing SOLID STATE TESTER Unavailable Unavailable Greenbrier, A Qing SOLID STATE TESTER Unavailable Unavailable CAROL, L INGRID SOLID STATE TESTER Unavailable Unavailable CAROL, L INGRID SOLID STATE TESTER Unavailable Unavailable CAROL, L INGRID SOLID STATE TESTER Unavailable Unavailable CAROL, L INGRID SOLID STATE TESTER Unavailable Unavailable CAROL, L INRGID SOLID STATE TESTER Unavailable Unavailable CAROL, L INGRID SOLID STATE TESTER Unavailable Unavailable CAROL, L INGRID SOLID STATE TESTER Unavailable Unavailable CAROL, L INGRID SOLID STATE TESTER Unavailable Unavailable CAROL, L INGRID SOLID STATE TESTER Unavailable Unavailable CAROL, L INGRID SOLID STATE TESTER Unavailable Unavailable CAROL, L INGRID SOLID STATE TESTER Unavailable Unavailable CAROL, L INGRID SOLID STATE TESTER Unavailable Unavailable CAROL, L INGRID SOLID STATE TESTER Unavailable Unavailable CAROL, L INGRID SOLID STATE TESTER Unavailable Unavailable CAROL, L INGRID SOLID STATE TESTER Unavailable Unavailable CAROL, L INGRID SOLID STATE TESTER Unavailable Unavailable CAROL, L INGRID SOLID STATE TESTER Unavailable Unavailable CAROL, L INGRID SOLID STATE TESTER Unavailable Unavailable CAROL, L INGRID SOLID STATE TESTER Unavailable Unavailable CAROL, L INGRID SOLID STATE TESTER Unavailable Unavailable CAROL, L INGRID SOLID STATE TESTER Unavailable Unavailable CAROL, L INGRID SOLID STATE TESTER Unavailable Unavailable CAROL, L INGRID SOLID STATE TESTER Unavailable Unavailable CAROL, L INGRID SOLID STATE TESTER Unavailable Unavailable CAROL, L INGRID SOLID STATE TESTER Unavailable Unavailable CAROL, L INGRID SOLID STATE TESTER Unavailable Unavailable CAROL, L INGRID SOLID STATE TESTER Unavailable Unavailable CAROL, L INGRID SOLID STATE TESTER Unavailable Unavailable CAROL, L INGRID SOLID STATE TESTER Unavailable Unavailable CAROL, L INGRID SOLID STATE TESTER Unavailable Unavailable CAROL, L INGRID SOLID STATE TESTER Unavailable Unavailable CAROL, L INGRID SOLID STATE TESTER Unavailable Unavailable CAROL, L INGRID SOLID STATE TESTER Unavailable Unavailable CAROL, L INGRID SOLID STATE TESTER Unavailable Unavailable LD, M BERNA PA Unavailable Unavailable LD, M BERNA PA Unavailable Unavailable LD, M BERNA PA Unavailable Unavailable LD, M BERNA PA Unavailable Unavailable LD, M BERNA PA Unavailable Unavailable LD, M BERNA PA Unavailable Unavailable LD, M BERNA PA Unavailable Unavailable LD, M BERNA PA Unavailable Unavailable LD, M BERNA PA Unavailable Unavailable LD, M BERNA PA Unavailable Unavailable LD, M BERNA PA Unavailable Unavailable LD, M BERNA PA Unavailable Unavailable LD, M BERNA PA Unavailable Unavailable LD, M BERNA PA Unavailable Unavailable LD, M BERNA PA Unavailable Unavailable LD, M BERNA PA Unavailable Unavailable LD, M BERNA PA Unavailable Unavailable LD, M BERNA PA Unavailable Unavailable LD, M BERNA PA Unavailable Unavailable LD, M BERNA PA Unavailable Unavailable LD, M BERNA PA Unavailable Unavailable LD, M BERNA PA Unavailable Unavailable LD, M BERNA PA Unavailable Unavailable LD, M BERNA PA Unavailable Unavailable LD, M BERNA PA Unavailable Unavailable LD, M BERNA PA Unavailable Unavailable LD, M BERNA PA Unavailable Unavailable LD, M BERNA PA Unavailable Unavailable LD, M BERNA PA Unavailable Unavailable LD, M BERNA PA Unavailable Unavailable LD, M BERNA PA Unavailable Unavailable LD, M BERNA PA Unavailable Unavailable LD, M BERNA PA Unavailable Unavailable LD, M BERNA PA Unavailable Unavailable LD, M BERNA PA Unavailable Unavailable LD, M BERNA PA Unavailable Unavailable LD, M BERNA PA Unavailable Unavailable LD, M BERNA PA Unavailable Unavailable LD, M BERNA PA Unavailable Unavailable LD, M BERNA PA Unavailable Unavailable LD, M BERNA PA Unavailable Unavailable LD, M BERNA PA Unavailable Unavailable LD, M BERNA PA Unavailable Unavailable LD, M BERNA PA Unavailable Unavailable LD, M BERNA PA Unavailable Unavailable LD, M BERNA PA Unavailable Unavailable LD, M BERNA PA Unavailable Unavailable LD, M BERNA PA Unavailable Unavailable LD, M BERNA PA Unavailable Unavailable LD, M BERNA PA Unavailable Unavailable LD, M BERNA PA Unavailable Unavailable LD, M BERNA PA Unavailable Unavailable LD, M BERNA PA Unavailable Unavailable LD, M BERNA PA Unavailable Unavailable LD, M BERNA PA Unavailable Unavailable LD, M BERNA PA Unavailable Unavailable LD, M BERNA PA Unavailable Unavailable LD, M BERNA PA Unavailable Unavailable LD, M BERNA PA Unavailable Unavailable LD, M BERNA PA Unavailable Unavailable LD, M BERNA PA Unavailable Unavailable LD, M BERNA PA Unavailable Unavailable LD, M BERNA PA Unavailable Unavailable LD, M BERNA PA Unavailable Unavailable LD, M BERNA PA Unavailable Unavailable LD, M BERNA PA Unavailable Unavailable LD, M BERNA PA Unavailable Unavailable LD, M BERNA PA Unavailable Unavailable LD, M BERNA PA Unavailable Unavailable LD, M BERNA PA Unavailable Unavailable LD, M BERNA PA Unavailable Unavailable LD, M BERNA PA Unavailable Unavailable LD, M BERNA PA Unavailable Unavailable LD, M BERNA PA Unavailable Unavailable LD, M BERNA PA Unavailable Unavailable LD, M BERNA PA Unavailable Unavailable LD, M BERNA PA Unavailable Unavailable LD, M BERNA PA Unavailable Unavailable LD, M BERNA PA Unavailable Unavailable LD, M BERNA PA Unavailable Unavailable LD, M BERNA PA Unavailable Unavailable LD, M BERNA PA Unavailable Unavailable LD, M BERNA PA Unavailable Unavailable LD, M BERNA PA Unavailable Unavailable LD, M BERNA PA Unavailable Unavailable LD, M BERNA PA Unavailable Unavailable LD, M BERNA PA Unavailable Unavailable LD, M BERNA PA Unavailable Unavailable LD, M BERNA PA Unavailable Unavailable LD, M BERNA PA Unavailable Unavailable LD, M BERNA PA Unavailable Unavailable LD, M BERNA PA Unavailable Unavailable LD, M BERNA PA Unavailable Unavailable LD, M BERNA PA Unavailable Unavailable LD, M BERNA PA Unavailable Unavailable LD, M BERNA PA Unavailable Unavailable LD, M BERNA PA Unavailable Unavailable LD, M BERNA PA Unavailable Unavailable LD, M BERNA PA Unavailable Unavailable LD, M BERNA PA Unavailable Unavailable LD, M BERAN PA Unavailable Unavailable LD, M BERNA PA Unavailable Unavailable LD, M BERNA PA Unavailable Unavailable LD, M BERNA PA Unavailable Unavailable LD, M BERNA PA Unavailable Unavailable LD, M BERNA PA Unavailable Unavailable LD, M BERNA PA Unavailable Unavailable LD, M BERNA PA Unavailable Unavailable LD, M BERNA PA Unavailable Unavailable LD, M BERNA PA Unavailable Unavailable LD, M BERNA PA Unavailable Unavailable LD, M BERNA PA Unavailable Unavailable LD, M BERNA PA Unavailable Unavailable LD, M BERNA PA Unavailable Unavailable LD, M BERNA PA Unavailable Unavailable LD, M BERNA PA Unavailable Unavailable LD, M BERNA PA Unavailable Unavailable LD, M BERNA PA Unavailable Unavailable LD, M BERNA PA Unavailable Unavailable LD, M BERNA PA Unavailable Unavailable LD, M BERNA PA Unavailable Unavailable LD, M BERNA PA Unavailable Unavailable LD, M BERNA PA Unavailable Unavailable LD, M BERNA PA Unavailable Unavailable LD, M BERNA PA Unavailable Unavailable LD, M BERNA PA Unavailable Unavailable LD, M BERNA PA Unavailable Unavailable LD, M BERNA PA Unavailable Unavailable LD, M BERNA PA Unavailable Unavailable LD, M BERNA PA Unavailable Unavailable LD, M BERNA PA Unavailable Unavailable LD, M BERNA PA Unavailable Unavailable LD, M BERNA PA Unavailable Unavailable LD, M BERNA PA Unavailable Unavailable LD, M BERNA PA Unavailable Unavailable LD, M BERNA PA Unavailable Unavailable LD, M BERNA PA Unavailable Unavailable LD, M BERNA PA Unavailable Unavailable LD, M BERNA PA Unavailable Unavailable LD, M BERNA PA Unavailable Unavailable LD, M BERNA PA Unavailable Unavailable LD, M BERNA PA Unavailable Unavailable LD, M BERNA PA Unavailable Unavailable LD, M BERNA PA Unavailable Unavailable Re-disclosure Warning The records that you are about to access may contain information from federally-assisted alcohol or drug abuse programs. If such information is present, then the following federally mandated warning applies: This information has been disclosed to you from records protected by federal confidentiality rules (42 CFR part 2). The federal rules prohibit you from making any further disclosure of this information unless further disclosure is expressly permitted by the written consent of the person to whom it pertains or as otherwise permitted by 42 CFR part 2. A general authorization for the release of medical or other information is NOT sufficient for this purpose. The Federal rules restrict any use of the information to criminally investigate or prosecute any alcohol or drug abuse patient.The records that you are about to access may contain highly sensitive health information, the redisclosure of which is protected by Article 27-F of the [place] State Public Health law. If you continue you may have access to information: Regarding HIV / AIDS; Provided by facilities licensed or operated by the [facility] Office of Mental Health; or Provided by the [facility] Office for People With Developmental Disabilities. If such information is present, then the following [facility] mandated warning applies: This information has been disclosed to you from confidential records which are protected by state law. State law prohibits you from making any further disclosure of this information without the specific written consent of the person to whom it pertains, or as otherwise permitted by law. Any unauthorized further disclosure in violation of state law may result in a fine or group home sentence or both. A general authorization for the release of medical or other information is NOT sufficient authorization for further disc losure. Allergies and Adverse Reactions Type Description Substance Reaction Status Data Source(s ) Allergy to substance No Known Allergies No known allergies (situation ) MIRANDA ([facility]) Allergy to substance No Known Allergies No known allergies (situation ) MIRANDA ([facility]) Allergy to substance No Known Allergies No known allergies (situation ) MIRANDA ([facility]) Allergy to substance No Known Allergies No known allergies (situation ) MIRANDA ([facility]) Allergy to substance No Known Allergies No known allergies (situation ) [facility]ANDA ([facility]) Allergy to substance No Known Allergies No known allergies (situation ) M[facility]ANDA ([facility]) Allergy to substance No Known Allergies No known allergies (situation ) M[facility]ANDA ([facility]) Allergy to substance No Known Allergies No known allergies (situation ) [facility]DA ([facility]) Family History Family Member Name Family Member Gender Family Member Status Date o f Status Description Data Source(s) Unknown Female Problem MEDENT ([facility]) Unknown Unknown Problem [facility] ([facility], ) Unknown Unknown Problem [facility] ([facility], ) Unknown Unknown Problem [facility] ([facility], ) Unknown Unknown Problem [facility] ([facility], ) Unknown Unknown Problem [facility] ([facility], ) Unknown Unknown Problem [facility], ) Unknown Unknown Problem MEDENT ([facility], ) Unknown Unknown Problem [facility] ([facility], ) Unknown Unknown Problem [facility] ([facility], ) Encounters Encounter Providers Location Date Indications Data Source(s ) Outpatient Attender: BERNA PUCKETT 03/12/2020 08:4 7:00 AM EST lab 1 of 1 computer [facility] lab 1 of 1 computer Outpatient Attender: BERNA PUCKETT 02/13/2020 12:00:00 A M EST [facility] [employer] Outpatient Attender: BERNA PUCKETT 02/06/2020 08:34:00 A M EST lab [facility] lab Unknown<td ID="encounterTypeDescriptionI D0">[Patient Encounter]</td><td>Berna PUCKETT</td><td></td><td>02/01/2020</td><td></td> Attender: BERNA PUCKETT 02/01/2020 02:58:00 PM EST - 02/01/2020 11:59:00 PM EST MIRANDA ([facility]) Outpatient<td ID="encounterTypeDescripti onID1">Acute Telehealth Zoom</td><td>Berna PUCKETT</td><td>[facility]</td><td>02/01/2020</td><td><content ID="encounterDiagnosisID1-0"> Esophageal Reflux</content>, <content ID="encounterDiagnosisID1-1">Assessment of Anxiety</content>, <content ID="encounterDiagnosisID1-2">Assessment of Joint Pain, Localized in the Shoulder</content>, <content ID="encounterDiagnosisID1- 3">Joint Pain in the Left Hip</content>, <content ID="encounterDiagnosisID1- 4">Ovarian Cyst</content>, <content ID="encounterDiagnosisID1-5">Cxr Lungs Multiple Pulmonary Nodules</content>, <content ID="encounterDiagnosisID1- 6">Nicotine Dependence in Remission</content>, <content ID="encounterDiagnosisID1-7">Bariatric Surgery Status</content>, <content ID="encounterDiagnosisID1-8">Abdominal Pain</content></td> Attender: BERNA PUCKETT [facility] 02/01/2020 11:10:00 AM EST - 02/01/2020 11:57:15 AM EST Abdominal PainBariatric Surgery StatusNi cotine Dependence in RemissionCxr Lungs Multiple Pulmonary NodulesOvarian CystJoint Pain in the Left HipEsophageal RefluxAssessment of Joint Pain, Localized in the ShoulderAssessment of Anxiety MIRANDA ([facility]) Abdominal Pain Bariatric Surgery Status Nicotine Dependence in Remission Cxr Lungs Multiple Pulmonary Nodules Ovarian Cyst Joint Pain in the Left Hip Esophageal Reflux Assessment of Joint Pain, Localized in t he Shoulder Assessment of Anxiety Unknown<td ID="encounterTypeDescriptionI D2">[Patient Encounter]</td><td>Berna PUCKETT</td><td></td><td>01/08/2020</td><td></td> Attender: BERNA PUCKETT 01/08/2020 09:13:00 AM EST - 01/08/2020 11:59:00 PM EST MIRANDA ([facility]) Outpatient<td ID="encounterTypeDescripti onID3">Telephonic Encounter</td><td>Berna PUCKETT</td><td>[facility]</td><td>01/08/2020</td><td><content ID="encounterDiagnosisID3-0">Ovarian Cyst</content>, <content ID="encounterDiagnosisID3-1">Abdominal Pain</content>, <content ID="encounterDiagnosisID3-2">Bariatric Surgery Status</content>, <content ID="encounterDiagnosisID3-3">Cxr Lungs Multiple Pulmonary Nodules</content>, <content ID="encounterDiagnosisID3-4">Nicotine Dependence in Remission</content></td> Attender: BERNA PUCKETT [facility] 0 08:40:00 AM EST - 01/08/2020 09:21:34 AM EST Nicotine Dependence in RemissionCxr Lungs Multiple Pulmonary NodulesBariatric Surgery StatusAbdominal PainOvarian CystNicotine Dependence in RemissionCxr Lungs Multiple Pulmonary NodulesBariatric Surgery StatusAbdominal PainOvarian Cyst [facility] Nicotine Dependence in Remission Cxr Lungs Multiple Pulmonary Nodules Bariatric Surgery Status Abdominal Pain Ovarian Cyst Nicotine Dependence in Remission Cxr Lungs Multiple Pulmonary Nodules Bariatric Surgery Status Abdominal Pain Ovarian Cyst Outpatient<td ID="encounterTypeDescripti onID4">Acute L1</td><td>Berna Reece NP</td><td>[facility]</td><td>12/20/2019</td><td><content ID="encounterDiagnosisID4-0">Sinusitis Acute</content>, <content ID="encounterDiagnosisID4-1">Bronchitis</content></td> Attender: Berna Reece INFRASTRUCTURE ANALYST [facility] 12/20/2019 12:44:00 PM EDT - 12/20/2019 01:22:01 PM EDT BronchitisSinusitis AcuteBronchitisSinusitis AcuteBronchitisSinusitis Acute MIRANDA ([facility]) Bronchitis Sinusitis Acute Bronchitis Sinusitis Acute Bronchitis Sinusitis Acute Outpatient<td ID="encounterTypeDescripti onID5">Acute Follow-up Telehealth</td><td>Ingrid Medina NP</td><td>[facility]</td><td>12/17/2019</td><td><content ID="encounterDiagnosisID5-0">Acute Bronchitis</content>, <content ID="encounterDiagnosisID5-1">Viral Syndrome</content></td> Attender: INGRID MEDINA NP [facility] 020 08:40:00 AM EDT - 12/17/2019 09:38:17 AM EDT Viral SyndromeAcute BronchitisViral SyndromeAcute BronchitisViral SyndromeAcute BronchitisViral SyndromeAcute Bronchitis MIRANDA ([facility]) Viral Syndrome Acute Bronchitis Viral Syndrome Acute Bronchitis Viral Syndrome Acute Bronchitis Viral Syndrome Acute Bronchitis Outpatient<td ID="encounterTypeDescripti onID6">Acute Follow-up Telephonic</td><td>Qing De Jesus NP</td><td>[facility]</td><td>12/14/2019</td><td><content ID="encounterDiagnosisID6-0">Acute Bronchitis</content>, <content ID="encounterDiagnosisID6-1">Viral Syndrome</content></td> Attender: Qing De Jesus NP [facility] 12/14/2019 01:30:00 PM EDT - 12/14/2019 11:47:25 AM EDT Viral SyndromeAcute BronchitisViral SyndromeAcute BronchitisViral SyndromeAcute BronchitisViral SyndromeAcute BronchitisViral SyndromeAcute Bronchitis MIRANDA ([facility]) Viral Syndrome Acute Bronchitis Viral Syndrome Acute Bronchitis Viral Syndrome Acute Bronchitis Viral Syndrome Acute Bronchitis Viral Syndrome Acute Bronchitis Outpatient<td ID="encounterTypeDescripti onID7">Telephonic Encounter</td><td>Ingrid Medina NP</td><td>[facility]</td><td>12/13/2019</td><td><content ID="encounterDiagnosisID7-0">Acute Bronchitis</content>, <content ID="encounterDiagnosisID7-1">Viral Syndrome</content></td> Attender: INGRID MEDINA NP [facility] 020 09:40:00 AM EDT - 12/13/2019 09:57:31 AM EDT Viral SyndromeAcute BronchitisViral SyndromeAcute BronchitisViral SyndromeAcute BronchitisViral SyndromeAcute BronchitisViral SyndromeAcute BronchitisViral SyndromeAcute BronchitisAcute BronchitisPharyngitis Acute MIRANDA ([facility]) Viral Syndrome Acute Bronchitis Viral Syndrome Acute Bronchitis Viral Syndrome Acute Bronchitis Viral Syndrome Acute Bronchitis Viral Syndrome Acute Bronchitis Viral Syndrome Acute Bronchitis Acute Bronchitis Pharyngitis Acute Outpatient Attender: INGRID MEDINA NP 12/12/2019 01:51:0 0 PM EDT [facility] Outpatient<td ID="encounterTypeDescripti onID8">Acute L1</td><td>Ingrid Medina NP</td><td>[facility]</td><td>12/12/2019</td><td><content ID="encounterDiagnosisID8-0">Assessment of Cough</content>, <content ID="encounterDiagnosisID8-1">Assessment of Difficulty Breathing (dyspnea)</content>, <content ID="encounterDiagnosisID8-2">Pharyngitis Acute</content></td> Attender: INGRID MEDINA NP [facility] 12/12/2019 12:44:00 PM EDT - 12/12/2019 01:45:44 PM EDT Pharyngitis AcuteAssessment of Difficulty Breathing (dyspnea)Assessment of CoughPharyngitis AcuteAssessment of Difficulty Breathing (dyspnea)Assessment of CoughPharyngitis AcuteAssessment of Difficulty Breathing (dyspnea)Assessment of CoughPharyngitis AcuteAssessment of Difficulty Breathing (dyspnea)Assessment of CoughPharyngitis AcuteAssessment of Difficulty Breathing (dyspnea)Assessment of CoughPharyngitis AcuteAssessment of Difficulty Breathing (dyspnea)Assessment of CoughPharyngitis AcuteAssessment of Difficulty Breathing (dyspnea)Assessment of Cough MIRANDA ([facility]) Pharyngitis Acute Assessment of Difficulty Breathing (dysp wei) Assessment of Cough Pharyngitis Acute Assessment of Difficulty Breathing (dysp wei) Assessment of Cough Pharyngitis Acute Assessment of Difficulty Breathing (dysp wei) Assessment of Cough Pharyngitis Acute Assessment of Difficulty Breathing (dysp wei) Assessment of Cough Pharyngitis Acute Assessment of Difficulty Breathing (dysp wei) Assessment of Cough Pharyngitis Acute Assessment of Difficulty Breathing (dysp wei) Assessment of Cough Pharyngitis Acute Assessment of Difficulty Breathing (dysp wei) Assessment of Cough Outpatient<td ID="encounterTypeDescripti onID9">Primary Care Telehealth [facility]</td><td>Berna PUCKETT</td><td>[facility]</td><td>06/13/2019</td><td><content ID="encounterDiagnosisID9-0"> Assessment of Anxiety</content>, <content ID="encounterDiagnosisID9- 1">Persistent Insomnia</content>, <content ID="encounterDiagnosisID9-2">Nicotine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 GynecologicalUltrasound.MAGDA Berg/Mario you for referring ASAEL GILL to our office. Electronically Signed - TANJA TITUS DO 03/14/20 15:59 Name Value Range Interpretation Code Description Data Maria T rce(s) Supporting Document(s) ID Date Data Source [id number] 03/13/2020 12:00:00 AM EST [facility] Berna PUCKETT Patient Name: LLOYD GILL St Date of : 1980[place] [address] Date of Exam: 1P#: Fax: [phone] EXAM: US ABDOMEN, LIMITED SINGLE ORGAN,QUADRANTCLINICAL INFORMATION: Abdominal pain. Followup hypodense lesion seen in thespleen on prior CT of 01/01/2020.Multiple ultrasonographic images of the spleen show an anechoic structurewithin the spleen which measures 1 cm in its greatest dimension andexhibits posterior wall enhancement and increased through transmission.There is no free fluid in the abdomen. There is no perisplenic fluidcollection or other abnormality involving the spleen. The imaged portion ofthe left kidney is within normal limits.IMPRESSION:Small splenic cyst as described above.Accredited by the [employer] in General Ultrasound.MAGDA Berg/Mark you for referring ASAEL GILL to our office. Electronically Signed - TANJA TITUS DO 03/14/20 16:00 Name Value Range Interpretation Code Description Data Maria T rce(s) Supporting Document(s) ID Date Data Source [id number] 03/12/2020 11:07:00 PM [facility] Name Value Range Interpretation Code Description Data Maria T rce(s) Supporting Document(s) VITAMIN B12 580 PG/ML 211-1999 N [facility] ID Date Data Source [id number] 03/12/2020 11:07:00 PM [facility] Name Value Range Interpretation Code Description Data Maria T rce(s) Supporting Document(s) FOLATE > 24.00 NG/ML 3.40-24.00 [facility] ID Date Data Source [id number] 03/12/2020 01:42:00 PM [facility] Name Value Range Interpretation Code Description Data Maria T rce(s) Supporting Document(s) WHITE BLOOD COUNT 5.35 10^3/uL 4.00-10.50 N [facility] RED BLOOD COUNT 5.28 10^6/uL 3.90-5.20 [facility] HEMOGLOBIN 13.1 G/DL 11.5-15.6 N [facility] HEMATOCRIT 41.2 % 35.0-46.0 N [facility] MCV 78.0 FL 80.0-100.0 L [facility] MCH 24.8 PG 27.0-34.0 L [facility] MCHC 31.8 G/DL 32-36 L [facility] RDW 21.2 % 11.5-14.5 H [facility] PLATELET COUNT 289 10^3/uL 130-400 N [facility] MPV 10.8 FL 8.7-13.2 N [facility] GRAN % (AUTO) 69.4 % 42.0-75.0 N [facility] LYMPH % (AUTO) 21.1 % 20.0-51.0 N [facility] MONO % (AUTO) 6.7 % 2.0-15.0 N [facility] EOS % (AUTO) 1.9 % 0.0-11.0 N [facility] BASO % (AUTO) 0.7 % 0.0-2.0 N [facility] IG % (AUTO) 0.2 % 1.00-5.00 [facility] IG # (AUTO) 0.0 10^3/uL <0.5 [facility] GRAN # (AUTO) 3.71 10^3/uL 1.50-6.50 N [facility] LYMPH # (AUTO) 1.1 k/uL 1.0-5.0 N [facility] MONO # (AUTO) 0.36 k/uL 0.20-1.50 N [facility] EOS # (AUTO) 0.10 10^3/uL 0.00-1.10 N [facility] BASO # (AUTO) 0.04 10^3/uL 0.00-0.20 N [facility] ID Date Data Source [id number] 03/12/2020 11:07:00 PM EST [facility] Name Value Range Interpretation Code Description Data Maria T rce(s) Supporting Document(s) SODIUM 139 MEQ/L 135-145 N [facility] POTASSIUM 4.0 MEQ/L 3.5-5.3 N [facility] CHLORIDE 107 MEQ/L 94-110 N [facility] CARBON DIOXIDE 26 MEQ/L 22-33 N [facility] ANION GAP 10 5-16 N [facility] BLOOD UREA NITRO 14 MG/DL 7-25 N [facility] CREATININE 0.7 MG/DL 0.6-1.4 N [facility] GFR > 90.0 ML/MIN [facility] Stage G1 - Normal or high kidney functi on The GFR is an estimate of the Glomerular Filtration Rate. It is an aid to assess a patient's renal function. It is not a conclusive diagnosis of kidney disease. GFR normal is >=90 The MDRD GFR calculation is considered valid between the ages of 18 and 75 years only. BUN/CREAT RATIO 20 8-36 N [facility] GLUCOSE 74 MG/DL 70-100 N [facility] CA 8.7 MG/DL 8.7-10.5 N [facility] BILIRUBIN,TOTAL 0.5 MG/DL 0.1-1.3 N [facility] AST 24 U/L 5-40 N [facility] ALT 23 U/L 5-48 N [facility] ALKALINE PHOSPHATASE 74 U/L 40-140 N [facility] alth TOTAL PROTEIN 6.7 G/DL 5.9-8.3 N [facility] ALBUMIN 4.5 G/DL 3.0-5.1 N [facility] GLOBULIN 2.2 G/DL 1.5-3.5 N [facility] ALB/GLOB RATIO 2.0 G/DL 1.0-3.0 [facility] ID Date Data Source [id number] 03/12/2020 11:07:00 PM [facility] Name Value Range Interpretation Code Description Data Maria T rce(s) Supporting Document(s) IRON 65 UG/DL 35-150 N [facility] ID Date Data Source [id number] 03/12/2020 11:07:00 PM [facility] Name Value Range Interpretation Code Description Data Maria T rce(s) Supporting Document(s) FERRITIN 12.0 NG/ML 22-322 L [facility] ID Date Data Source [id number] 02/13/2020 02:37:00 PM [facility] Name Value Range Interpretation Code Description Data Maria T rce(s) Supporting Document(s) OCCULT BLOOD #1 POSITIVE NEGATIVE A [facility] Methodology is Fecal Immunochemical(Imm unoassay) Test for Occult Blood. Detects human hemoglobin at 5ug hHB/g feces. ID Date Data Source [id number] 02/06/2020 01:18:00 PM [facility] Name Value Range Interpretation Code Description Data Maria T rce(s) Supporting Document(s) WHITE BLOOD COUNT 5.79 10^3/uL 4.00-10.50 N [facility] ealth RED BLOOD COUNT 4.71 10^6/uL 3.90-5.20 N [facility] HEMOGLOBIN 10.7 G/DL 11.5-15.6 L [facility] HEMATOCRIT 34.5 % 35.0-46.0 L [facility] MCV 73.2 FL 80.0-100.0 L [facility] MCH 22.7 PG 27.0-34.0 L [facility] MCHC 31.0 G/DL 32-36 L [facility] RDW 16.1 % 11.5-14.5 H [facility] PLATELET COUNT 353 10^3/uL 130-400 N [facility] MPV 10.2 FL 8.7-13.2 N [facility] GRAN % (AUTO) 69.3 % 42.0-75.0 N [facility] LYMPH % (AUTO) 19.9 % 20.0-51.0 L [facility] MONO % (AUTO) 6.9 % 2.0-15.0 N [facility] EOS % (AUTO) 2.8 % 0.0-11.0 N [facility] BASO % (AUTO) 0.9 % 0.0-2.0 N [facility] IG % (AUTO) 0.2 % 1.00-5.00 [facility] IG # (AUTO) 0.0 10^3/uL <0.5 [facility] GRAN # (AUTO) 4.02 10^3/uL 1.50-6.50 N [facility] LYMPH # (AUTO) 1.2 k/uL 1.0-5.0 N [facility] MONO # (AUTO) 0.40 k/uL 0.20-1.50 N [facility] EOS # (AUTO) 0.16 10^3/uL 0.00-1.10 N [facility] BASO # (AUTO) 0.05 10^3/uL 0.00-0.20 N [facility] ID Date Data Source [id number] 02/06/2020 02:08:00 PM EST [facility] Name Value Range Interpretation Code Description Data Maria T rce(s) Supporting Document(s) SODIUM 139 MEQ/L 135-145 N [facility] POTASSIUM 4.1 MEQ/L 3.5-5.3 [facility] CHLORIDE 109 MEQ/L 94-110 N [facility] CARBON DIOXIDE 26 MEQ/L 22-33 N [facility] ANION GAP 8 5-16 N [facility] BLOOD UREA NITRO 14 MG/DL 7-25 N [facility] CREATININE 0.6 MG/DL 0.6-1.4 N [facility] GFR > 90.0 ML/MIN [facility] Stage G1 - Normal or high kidney functi on The GFR is an estimate of the Glomerular Filtration Rate. It is an aid to assess a patient's renal function. It is not a conclusive diagnosis of kidney disease. GFR normal is >=90 The MDRD GFR calculation is considered valid between the ages of 18 and 75 years only. BUN/CREAT RATIO 23 8-36 [facility] GLUCOSE 82 MG/DL 70-100 N [facility] CA 8.5 MG/DL 8.7-10.5 L [facility] BILIRUBIN,TOTAL 0.3 MG/DL 0.1-1.3 N [facility] AST 22 U/L 5-40 N [facility] ALT 24 U/L 5-48 [facility] ALKALINE PHOSPHATASE 87 U/L 40-140 [facility] alth TOTAL PROTEIN 5.9 G/DL 5.9-8.3 N [facility] ALBUMIN 4.1 G/DL 3.0-5.1 [facility] GLOBULIN 1.8 G/DL 1.5-3.5 [facility] ALB/GLOB RATIO 2.3 G/DL 1.0-3.0 [facility] ID Date Data Source [id number] 02/08/2020 05:24:00 PM [facility] Name Value Range Interpretation Code Description Data Maria T rce(s) Supporting Document(s) ALEX,IFA,S Negative . [facility] Ne gative <1:80 Borderline 1:80 Positive > 1:80 Performed at: RN - [facility] [address] [id number] Clinical Nursing Professor: Mckenzie Rico MD, Phone: [phone] ID Date Data Source [id number] 02/06/2020 02:08:00 PM [facility] Name Value Range Interpretation Code Description Data Maria T rce(s) Supporting Document(s) GLYCOSYLATED HGBA1C 5.3 % 4.1-6.5 N [facility] ID Date Data Source [id number] 02/08/2020 05:24:00 PM EST [facility] Name Value Range Interpretation Code Description Data Maria T rce(s) Supporting Document(s) EBV (VCA) IgG Ab,S >600.0 U/mL 0.0-17.9 A [facility] Negati ve <18.0 Equivocal 18.0 - 21.9 Positive >21.9 ID Date Data Source [id number] 02/06/2020 02:08:00 PM EST [facility] Name Value Range Interpretation Code Description Data Maria T rce(s) Supporting Document(s) IRON 18 UG/DL 35-150 L [facility] TIBC 437 UG/DL 260-400 H [facility] % IRON SATURATION 4.0 % 20-50 L [facility] ID Date Data Source [id number] 02/08/2020 05:24:00 PM EST [facility] Name Value Range Interpretation Code Description Data Maria T rce(s) Supporting Document(s) EBV(VCA)IgM Ab,S <36.0 U/mL 0.0-35.9 [facility] Negati ve <36.0 Equivocal 36.0 - 43.9 Positive >43.9 Performed at: - [facility] [address] [id number] Clinical Nursing Professor: Mckenzie Rico MD, Phone: [phone] ID Date Data Source [id number] 02/06/2020 02:08:00 PM EST [facility] Name Value Range Interpretation Code Description Data Maria T rce(s) Supporting Document(s) FERRITIN 3.8 NG/ML 22-322 L [facility] ID Date Data Source [id number] 02/08/2020 05:24:00 PM EST [facility] Name Value Range Interpretation Code Description Data Maria T rce(s) Supporting Document(s) Lyme Line Blot,S See Notes [facility] Lyme Ab IgG by Line Blot: IgG P93 Ab. Absent IgG P66 Ab. Absent IgG P58 Ab. Absent IgG P45 Ab. Absent IgG P41 Ab. Present IgG P39 Ab. Absent IgG P30 Ab. Absent IgG P28 Ab. Absent IgG P23 Ab. Absent IgG P18 Ab. Absent Lyme IgG Line Blot Interp. Negative Positive: 5 of the following Borrelia-specific bands: 18,23,28,30,39,41,45,58,66, and 93. Negative: No bands or banding patterns which do not meet positive criteria. Lyme Ab IgM by Line Blot: IgM P41 Ab. Absent IgM P39 Ab. Absent IgM P23 Ab. Absent Lyme IgM Line Blot Interp. Negative Note: An equivocal or positive EIA result followed by a negative Line Blot result is considered NEGATIVE. An equivocal or positive EIA result followed by a positive Line Blot is considered POSITIVE by the CDC. . Positive: 2 of the following bands: 23,39 or 41 Negative: No bands or banding patterns which do not meet positive criteria. Criteria for positivity are those recommended by CDC/ASTPHLD. p23=Osp C, k39=geqhbhsjg . Note: Sera from individuals with the following may cross react in the Lyme Line Blot assays: other spirochetal diseases (periodontal disease, leptospirosis, relapsing fever, yaws, and pinta);connective autoimmune (Rheumatoid Arthritis and Systemic Lupus Erythematosus and also individuals with Antinuclear Antibody);other infections ([place] Spotted Fever; Rosette- Navas Virus,and Cytomegalovirus). . [facility] Dir: Mckenzie Rico MD [address] [place], [place] [id number] Contact by: [phone] CDC Recommendations for Lyme Disease Testing 1.The Western Blot should not be run without first performing an EIA or IFA. 2.The Western Blot should not be run if the EIA or IFA tests are negative. 3.A positive IgM Western Blot is only meaningful during the first 4 weeks of illness 4.If the patient has been ill for longer than 4-6 weeks and the IgG Western Blot test is negative, it is unlikely that the patient has Lyme disease, even if the IgM immunoblot is positive. ID Date Data Source [id number] 02/06/2020 02:08:00 PM [facility] Name Value Range Interpretation Code Description Data Maria T rce(s) Supporting Document(s) CREATINE KINASE 99 U/L 0-265 N [facility] ID Date Data Source [id number] 02/06/2020 02:08:00 PM [facility] Value Range Interpretation Code Description Data Maria T rce(s) Supporting Document(s) TRIGLYCERIDES 78 MG/DL 45-150 N [facility] CHOLESTEROL 157 MG/DL 125-200 [facility] LDL CHOLESTEROL 77 MG/DL 50-130 [facility] HDL CHOLESTEROL 64 MG/DL 32-96 [facility] CHOL/HDL RATIO 2.5 0-4.3 N [facility] ID Date Data Source [id number] 02/06/2020 02:08:00 PM [facility] Name Value Range Interpretation Code Description Data Maria T rce(s) Supporting Document(s) AMYLASE 91 U/L 20-115 N [facility] ID Date Data Source [id number] 02/06/2020 02:08:00 PM [facility] Name Value Range Interpretation Code Description Data Maria T rce(s) Supporting Document(s) LIPASE 43 U/L 6-51 N [facility] ID Date Data Source [id number] 02/06/2020 02:08:00 PM [facility] Name Value Range Interpretation Code Description Data Maria T rce(s) Supporting Document(s) VITAMIN B12 381 PG/ML 211-2000 N [facility] ID Date Data Source [id number] 02/06/2020 02:08:00 PM [facility] Name Value Range Interpretation Code Description Data Maria T rce(s) Supporting Document(s) FOLATE 12.10 NG/ML 3.40-24.00 N [facility] ID Date Data Source [id number] 02/06/2020 02:08:00 PM [facility] Name Value Range Interpretation Code Description Data Maria T rce(s) Supporting Document(s) Vitamin D,25-HYDROXY 13.7 ng/ml 30-100 L [facility] Vitamin D Status Range De ficiency <20 ng/ml Insufficiency 20-29.9 ng/ml Sufficiency 30-100 ng/ml Toxicity >100 ng/ml Patients should not be tested for 72 hours post fluorescein dye angiography. A false elevation of result may occur. ID Date Data Source [id number] 02/06/2020 02:08:00 PM [facility] Name Value Range Interpretation Code Description Data Maria T rce(s) Supporting Document(s) FREE T4 (FREE THYROXINE) 0.90 NG/DL 0.76-1.78 N [facility] T4 (THYROXINE) 5.3 UG/DL 4.5-10.9 [facility] ID Date Data Source [id number] 02/06/2020 02:08:00 PM EST [facility] Name Value Range Interpretation Code Description Data Maria T rce(s) Supporting Document(s) TSH 2.006 uIU/ML 0.470-4.200 [facility] Patients should not be tested for 72 ho urs post fluorescein dye angiography. A false depression of result may occur. ID Date Data Source [id number] 01/20/2020 05:49:00 PM EST [facility] Name Value Range Interpretation Code Description Data Maria T rce(s) Supporting Document(s) SARS-CoV-2 by BRAIN [facility] This lab was ordered by [facility] and reported by [employer]. ID Date Data Source [id number] 01/23/2020 08:12:59 AM EST [facility] Name Value Range Interpretation Code Description Data Maria T rce(s) Supporting Document(s) SARS COV2 SOURCE [facility] SARS COV 2 BY PCR [facility] Not Detected INTERPRETIVE INFORMATION: S ARS-CoV-2 (COVID-19) by BRAIN This test should be ordered for the detection of the 2019 novel coronavirus SARS-CoV-2 in individuals who meet SARS-CoV-2 clinical and/or epidemiological criteria. The Coronavirus SARS-CoV-2 (COVID-19) by nucleic acid amplification test is for in vitro diagnostic use under the FDA Emergency Use Authorization (EUA) for US laboratories certified under CLIA to perform high complexity tests. This test has not been FDA cleared or approved. In compliance with this authorization, please visit [email or web address] for more information and to access the applicable information sheets. Not Detected results do not rule out the presence of PCR inhibitors in the patient specimen or assay specific nucleic acid in concentrations below the level of detection by the assay. Detected results are indicative of the presence of SARS-CoV-2 RNA. Due to the complexity of nucleic acid amplification methodologies, there may be a risk of false positive results. Clinical correlation with patient history and other diagnostic information is necessary to determine patient infection status. Reliable results are dependent on adequate specimen collection, transport, storage, and handling. Performed by [employer], [address] [place] [id number] [email or web address], Cookie Salomon MD, Lab. Director ID Date Data Source [id number] 01/20/2020 12:00:00 AM 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[facility]) Name Value Range Interpretation Code Description Data Maria T rce(s) Supporting Document(s) SARS-CoV2 Rapid Antigen [facility]ARTM POLO ([facility]) This lab was ordered by [facility] C are and reported by [facility]. ID Date Data Source [id number] 01/08/2020 12:00:00 AM 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[facility]) Name Value Range Interpretation Code Description Data Maria T rce(s) Supporting Document(s) 2019 Novel Coronavirus RNA ANITA [facility]MAK[facility] ([facility]) This lab was ordered by [facility] are and reported by [facility]. ID Date Data Source [id number] 12/26/2019 12:14:00 PM EDT [facility] ([facility]) CHEST X-RAY, FRONTAL AND LATERAL VIEWS INDICATION:BELLY PAIN COMPARISON/CORRELATION: Chest x-ray 12/12/2019 FINDINGS:No consolidation, effusion, or pneumothorax. Normal heart size without pulmonary vascular congestion. Bony thorax unremarkable. IMPRESSION:Negative chest x-ray. ABDOMEN X-RAY 2 VIEW INDICATION:BELLY PAIN COMPARISON/CORRELATION: X-ray abdomen 12/19/2014 FINDINGS/IMPRESSION:No definite kidney stones. Fairly large amount of stool noted in the proximal half of the colon consistent with constipation. Sutures noted at the gastroesophageal junction suggesting prior gastric bypass surgery. Mild thickening of small bowel mucosa. Right upper quadrant surgical clips likely related to cholecystectomy. Professional interpretation performed at [facility] . Name Value Range Interpretation Code Description Data Maria T rce(s) Supporting Document(s) ID Date Data Source [id number] 12/26/2019 12:14:00 PM EDT [facility] ([facility]) CHEST X-RAY, FRONTAL AND LATERAL VIEWS INDICATION:BELLY PAIN COMPARISON/CORRELATION: Chest x-ray 12/12/2019 FINDINGS:No consolidation, effusion, or pneumothorax. Normal heart size without pulmonary vascular congestion. Bony thorax unremarkable. IMPRESSION:Negative chest x-ray. ABDOMEN X-RAY 2 VIEW INDICATION:BELLY PAIN COMPARISON/CORRELATION: X-ray abdomen 12/19/2014 FINDINGS/IMPRESSION:No definite kidney stones. Fairly large amount of stool noted in the proximal half of the colon consistent with constipation. Sutures noted at the gastroesophageal junction suggesting prior gastric bypass surgery. Mild thickening of small bowel mucosa. Right upper quadrant surgical clips likely related to cholecystectomy. Professional interpretation performed at [facility] . Name Value Range Interpretation Code Description Data Maria T rce(s) Supporting Document(s) ID Date Data Source [id number] 12/23/2019 12:00:00 AM EDT [facility] ([facility]) Name Value Range Interpretation Code Description Data Maria T rce(s) Supporting Document(s) 2019 Novel Coronavirus RNA ANITA RTMAKER ([facility]) This lab was ordered by [facility] and reported by [facility]. ID Date Data Source [id number] 12/12/2019 02:05:00 [place] [address] Patient Name: Asael Gill Exam Date: 12/12/19 : 1980 Ordering Doctor: Ingrid Medina NP Attending Doctor: Ingrid Medina NP CC: CHEST RADIOGRAPHS, 2 VIEWS INDICATION: R/O PNEUMONIA COMPARISON: None. TECHNIQUE: PA and lateral views of the chest were obtained. FINDINGS: Lungs/Pleura: The lungs are clear. No effusion or pneumothorax. Cardiomediastinal contours: Within normal limits. Soft tissues/upper abdomen: Within normal limits. Bones: Unremarkable. IMPRESSION: No acute findings. Professional interpretation performed by [facility] at [facility] . End of diagnostic report: [id number] Signed: Nessa Shipman MD 12/12/19 1415 Interpreted by: Kimi Shipmancribed by: Nessa Shipman Name Value Range Interpretation Code Description Data Maria T rce(s) Supporting Document(s) ID Date Data Source [id number] 12/12/2019 01:40:00 PM EDT [facility]IR[facility] ([employer]) Name Value Range Interpretation Code Description Data Maria T rce(s) Supporting Document(s) Throat Swab negative Normal Throat Swab [facility] ([facility]) ID Date Data Source [id number] 12/12/2019 01:29:00 PM EDT [facility] ([employer]) Name Value Range Interpretation Code Description Data [facility] rce(s) Supporting Document(s) Reported Physicians See Note Reported Physicians MIRANDA ([facility]) Note: Reported Physicians:Ordering: Ingrid Carlisleding: Ingrid Medina ID Date Data Source [id number] 12/12/2019 01:29:00 PM EDT MIRANDA ([employer]) Name Value Range Interpretation Code Description Data [facility] rce(s) Supporting Document(s) See Note Pyle See Note Lashanda JEAN ([facility]) Note: Run: 12/14/19 0834 INTERFACED REPORT Name: CharlesAsael M Age/Sex: 39/F Location: [facility] Acct: [id number] Unit: [id number] Status: REG REF Room/Bed: Re12/12/19 Disch: Att Dr: Ingrid Medina [employer] Specimen #: [id number] Ordered : 12/12/19 Collected : 12/12/19 By: OFFICE Received: 12/12/19 By: ROCKY Source: THROAT Specimen Description: Procedure Result -- FULL THROAT CULT Final USUAL KALYAN AFTER 18 HOURS USUAL KALYAN AFTER 42 HOURS FULL THROAT CULT Preliminary (Corrected) USUAL KALYAN AFTER 18 HOURS END OF REPORT ID Date Data Source [id number] 12/14/2019 08:34:00 AM EDT Edgar Jooce Run: 12/14/19 0834 INTERFACED REPORT Name: Asael Gill Age/Sex: 39/F Location: [facility] Acct: [id number] Unit: [id number] Status: REG REF Room/Bed: Re12/12/19 Disch: Att Dr: Ingrid Medina [employer] Specimen #: [id number] Ordered : 12/12/19 Collected : 12/12/19 By: OFFICE Received: 12/12/19 By: GMACDOUGAL Source: THROAT Specimen Description: Procedure Result - FULL THROAT CULT Final USUAL KALYAN AFTER 18 HOURS USUAL KALYAN AFTER 42 HOURS FULL THROAT CULT Preliminary (Corrected) USUAL KALYAN AFTER 18 HOURS END OF REPORT Name Value Range Interpretation Code Description Data Maria T rce(s) Supporting Document(s) ID Date Data Source [id number] 12/12/2019 01:29:00 PM EDT MIRANDA [facility] Name Value Range Interpretation Code Description Data Maria T rce(s) Supporting Document(s) Reported Physicians See Note Reported Physicians HANNIBAL ([facility]) Note: Reported Physicians:Ordering: Kimb all Ingrid LAttending: Ingrid Medina ID Date Data Source [id number] 12/12/2019 01:27:00 PM EDT MIRANDA ([facility]) Name Value Range Interpretation Code Description Data Maria T rce(s) Supporting Document(s) Reported Physicians See Note Reported Physicians HANNIBAL ([facility]) Note: Reported Physicians:Ordering: Kimb all, Ingrid LAttending: Ingrid Medina ID Date Data Source [id number] 12/12/2019 01:27:00 PM EDT MIRANDA ([facility]) Name Value Range Interpretation Code Description Data [facility] rce(s) Supporting Document(s) BORDETELLA PARAPERTUS Not Detected BORDETELLA P ARAPERTUS HANNIBAL ([facility]) Note: Responsible Observer: THONG CHRISTENSEN IS1 001 BORDETELLA PARAPERTUS [phone] (A) Adenovirus [Presence] in Unspecified specimen by Organ ism specific culture Not Detected ADENOVIRUS HANNIBAL ([facility]) Note: Responsible Observer: ADENOVIRUS A DENOVIRUS [phone] (A) Bordetella pertussis [Presence] in Unspe cified specimen by Organism specific culture Not Detected BORDETELLA PERTUSSIS HANNIBAL ([facility]) Note: Responsible Observer: MERT PERTU SS BORDETELLA PERTUSSIS [phone] (A) CORONAVIRUS OC43 Not Detected CORONAVIRUS OC43 [facility] ([facility]) Note: This is NOT the novel coronavirus COVID-19Responsible Observer: CORONVIRUS OC43 CORONAVIRUS OC43 [phone] (A) CORONAVIRUS NL63 Not Detected CORONAVIRUS NL63 [place] ([facility]) Note: This is NOT the novel coronavirus COVID-19Responsible Observer: CORONVIRUS NL63 CORONAVIRUS NL63 [phone] (A) CHLAMYDIA PNEUMONIAE Not Detected CHLAMYDIA PNE UMONIAE MIRANDA ([facility]) Note: Responsible Observer: CHLMY PNEUMO JULIENNE CHLAMYDIA PNEUMONIAE [phone] (A) CORONAVIRUS HKU1 Not Detected CORONAVIRUS HKU1 [place] ([facility]) Note: This is NOT the novel coronavirus COVID-19Responsible Observer: CORONVIRUS HKU1 CORONAVIRUS HKU1 [phone] (A) INFLUENZA A Not Detected INFLUENZA A MIRANDA ([facility]) Note: Responsible Observer: INFLUENZA A INFLUENZA A [phone] (A) COVID 19 (SARS-CoV-2) NOT-DETECTED COVID 19 (SA RS-CoV-2) MIRANDA ([facility]) Note: THIS IS THE NOVEL CORONAVIRUS COV ID-19Responsible Observer: COVID 2 SARS Coronavirus 2 (SARS-CoV-2) [phone] (A) CORONAVIRUS 229E Not Detected CORONAVIRUS 229E [place] ([facility]) Note: This is NOT the novel coronavirus COVID-19Responsible Observer: CORONVIRUS 229E CORONAVIRUS 229E [phone] (A) PARAINFLUENZA VIRUS 4 Not Detected PARAINFLUENZ A VIRUS 4 MIRANDA ([facility]) Note: Responsible Observer: PARAINFLU R 4 PARAINFLUENZA VIRUS 4 [phone] (A) HUMAN METAPNEUMOVIRUS Not Detected HUMAN METAPN EUMOVIRUS MIRANDA ([facility]) Note: Responsible Observer: HUMAN METAPN EUV HUMAN METAPNEUMOVIRUS [phone] (A) Mycoplasma pneumoniae [Presence] in Unsp ecified specimen by Organism specific culture Not Detected MYCOPLASMA PNEUMONIAE HANNIBAL ([facility]) Note: The Respiratory Panel is a multip lexed nucleic acid/PCR test. A negative result does not rule out the presence of PCR inhibitors in the patient sample or assay-specific nucleic acid concentrations below the level of detection by the assay.Responsible Observer: MYCOP PNEUMONIA MYCOPLASMA PNEUMONIAE [phone] (A) INFLUENZA B Not Detected INFLUENZA B MIRANDA ([facility]) Note: Responsible Observer: INFLUENZA B INFLUENZA B [phone] (A) Parainfluenza virus 3 [Presence] in Unsp ecified specimen by Organism specific culture Not Detected PARAINFLUENZA VIRUS 3 MIRANDA ([facility]) Note: Responsible Observer: PARAINFLU R 3 PARAINFLUENZA VIRUS 3 [phone] (A) Parainfluenza virus 1 [Presence] in Unsp ecified specimen by Organism specific culture Not Detected PARAINFLUENZA VIRUS 1 MIRANDA ([facility]) Note: Responsible Observer: PARAINFLU R 1 PARAINFLUENZA VIRUS 1 [phone] (A) HUMAN RHINOVIRUS/ENT Detected Abnormal (applies to non-numeric results) HUMAN RHINOVIRUS/ENT HANNIBAL ([facility]) Note: Responsible Observer: HMN RHINO/EN TER HUMAN RHINOVIRUS/ENT [phone] (A) Parainfluenza virus 2 [Presence] in Unsp ecified specimen by Organism specific culture Not Detected PARAINFLUENZA VIRUS 2 HANNIBAL ([facility]) Note: Responsible Observer: PARAINFLU R 2 PARAINFLUENZA VIRUS 2 [phone] (A) RESPIRATORY SYNCY VIR Not Detected RESPIRATORY SYNCY VIR HANNIBAL ([facility]) Note: Responsible Observer: RSV RESPIRAT ORY SYNCY VIR [phone] (A) ID Date Data Source [id number] 12/12/2019 01:27:00 PM EDT [facility] Name Value Range Interpretation Code Description Data Maria T rce(s) Supporting Document(s) SARS-CoV-2 (COVID-19) RNA [Presence] in Nasopharynx by BRAIN with non-probe detection [facility] This lab was ordered by [facility] and reported by [facility]. ID Date Data Source [id number] 12/12/2019 09:28:00 PM EDT [facility] Name Value Range Interpretation Code Description Data Maria T rce(s) Supporting Document(s) ADENOVIRUS Not Detected NotDetected [facility] CORONAVIRUS 229E Not Detected NotDetected [facility] This is NOT the novel coronavirus COVID -19 CORONAVIRUS HKU1 Not Detected NotDetected [facility] This is NOT the novel coronavirus COVID -19 CORONAVIRUS NL63 [facility]ed [facility] This is NOT the novel coronavirus COVID -19 CORONAVIRUS OC43 Not Detected [facility]Detected [facility] This is NOT the novel coronavirus COVID -19 COVID 19 (SARS-CoV-2) NOT-DETECTED NOTDETECTED [facility] THIS IS THE NOVEL CORONAVIRUS COVID-19 HUMAN METAPNEUMOVIRUS Not Detected NotDetected [facility] HUMAN RHINOVIRUS/ENT Detected NotDetected A [facility] INFLUENZA A Not Detected NotDetected [facility] INFLUENZA B Not Detected NotDetected [facility] PARAINFLUENZA VIRUS 1 Not Detected NotDetected [facility] PARAINFLUENZA VIRUS 2 Not Detected NotDetected [facility] PARAINFLUENZA VIRUS 3 Not Detected NotDetected [facility] PARAINFLUENZA VIRUS 4 Not Detected NotDetected [facility] RESPIRATORY SYNCY VIR Not Detected NotDetected [facility] BORDETELLA PARAPERTUS Not Detected NotDetected [facility] BORDETELLA PERTUSSIS Not Detected [facility]ed [facility] CHLAMYDIA PNEUMONIAE Not Detected NotDetected [facility] MYCOPLASMA PNEUMONIAE Not Detected NotDetected [facility] The Respiratory Panel is a multiplexed nucleic acid/PCR test. A negative result does not rule out the presence of PCR inhibitors in the patient sample or assay-specific nucleic acid concentrations below the level of detection by the assay. Procedure Social History Code Duration Value Status Description Data Source(s ) Smoking 02/01/2020 12:00:00 AM EST Ex-smoker (finding) complet ed Ex-smoker (finding) [facility] Smoking 12/17/2019 12:00:00 AM EDT Occasional tobacco sm oker (finding) completed Occasional tobacco smoker (finding) HANNIBAL ([facility]) Smoking 12/17/2019 12:00:00 AM EDT Occasional tobacco sm oker (finding) completed Occasional tobacco smoker (finding) HANNIBAL ([facility]) Smoking 12/14/2019 12:00:00 AM EDT Occasional tobacco sm oker (finding) completed Occasional tobacco smoker (finding) HANNIBAL ([facility]) Smoking 12/13/2019 12:00:00 AM EDT Occasional tobacco sm oker (finding) completed Occasional tobacco smoker (finding) MIRANDA ([facility]) Smoking 12/12/2019 12:00:00 AM EDT Ex-smoker (finding) complet ed Ex-smoker (finding) HANNIBAL ([facility]) Smoking 02/16/2019 12:00:00 AM EST Never smoker completed Never s moker [facility]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 ([facility]) Vital Signs ID Date Data Source UNK Name Value Range Interpretation Code Description Data Source(s) PhenX - pain, abdominal - type and intensity protocol 0 0 HANNIBAL ([facility]) pt unable to obtain any vitals PhenX - pain, abdominal - type and intensity protocol 4 4 HANNIBAL ([facility]) Body weight 219 [lb_av] 219 [lb_av] HANNIBAL ([facility]) Body temperature 97.6 [degF] 97.6 [degF] COARSEGOLDW AY ([facility]) Respiratory rate 20 /min 20 /min HANNIBAL ([facility]) Heart rate rhythm 1 1 [facility] Y ([facility]) Heart rate 104 /min 104 /min HANNIBAL ([facility]) Diastolic blood pressure 80 mm[Hg] 80 mm[Hg] HANNIBAL ([facility]) Systolic blood pressure 120 mm[Hg] 120 mm[Hg] [facility] Inhaled oxygen concentration 21 % 21 % HANNIBAL ([facility]) Inhaled oxygen flow rate 0 L/min 0 L/min HANNIBAL ([facility]) Oxygen saturation in Arterial blood by Pulse oximetry 97 % 97 % HANNIBAL ([facility]) PhenX - pain, abdominal - type and intensity protocol 0 0 HANNIBAL ([facility]) Body weight 217 [lb_av] 217 [lb_av] HANNIBAL ([facility]) Body temperature 96.7 [degF] 96.7 [degF] GREENW AY ([facility]) PhenX - pain, abdominal - type and intensity protocol 0 0 HANNIBAL ([facility]) PhenX - pain, abdominal - type and intensity protocol 0 0 HANNIBAL ([facility]) Body temperature 96.9 [degF] 96.9 [degF] GREENW AY ([facility]) Pt obtained vitals PhenX - pain, abdominal - type and intensity protocol 4 4 HANNIBAL ([facility]) Pt obtained vitals Respiratory rate 17 /min 17 /min HANNIBAL ([facility]) Heart rate rhythm 1 1 GREENID Y ([facility]) Heart rate 91 /min 91 /min MIRANDA ([facility]) Diastolic blood pressure 80 mm[Hg] 80 mm[Hg] MIRANDA ([facility]) Systolic blood pressure 118 mm[Hg] 118 mm[Hg] G [place]AY ([facility]) Inhaled oxygen concentration 21 % 21 % HANNIBAL ([facility]) Inhaled oxygen flow rate 0 L/min 0 L/min HANNIBAL ([facility]) Oxygen saturation in Arterial blood by Pulse oximetry 98 % 98 % HANNIBAL ([facility]) PhenX - pain, abdominal - type and intensity protocol 0 0 HANNIBAL ([facility]) Body weight 217 [lb_av] 217 [lb_av] MIRANDA ([facility]) Body temperature 98.4 [degF] 98.4 [degF] [facility] ([facility]) Body weight 235 [lb_av] 235 [lb_av] MIRANDA ([facility]) pt weighed self at home PhenX - pain, abdominal - type and intensity protocol 0 0 HANNIBAL ([facility]) pt weighed self at home Inhaled oxygen concentration 21 % 21 % [facility] ([facility]) Oxygen saturation in Arterial blood by Pulse oximetry 98 % 98 % [employer] ([facility]) Body weight 240 [lb_av] 240 [lb_av] 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 Devices Miscellaneous 01/08/2020 12:00:00 AM EST MIRANDA ([facility]) Omeprazole 20 MG Delayed Release Oral Capsule 01/08/2020 12:00:00 A M EST MIRANDA ([facility]) Amoxicillin 875 MG / Clavulanate 125 MG Oral Tablet 12/20/19 20 12:00:00 AM EDT MIRANDA ([facility]) Albuterol 0.83 MG/ML Inhalant Solution 12/20/2019 12:00:00 AM EDT MIRANDA ([facility]) Prednisone 20 MG Oral Tablet 12/13/2019 12:00:00 AM EDT MIRANDA ([facility]) 12 HR Guaifenesin 600 MG Extended Release Oral Tablet 12/12/2019 12:00:00 AM EDT MIRANDA ([facility]) Albuterol 0.83 MG/ML Inhalant Solution 12/12/2019 12:00:00 AM EDT MIRANDA ([facility]) Citalopram 40 MG Oral Tablet 06/13/2019 12:00:00 AM EDT MIRANDA ([facility]) Omeprazole 20 MG Delayed Release Oral Capsule 06/13/2019 12:00:00 A M EDT MIRANDA ([facility]) Omeprazole 20 MG Delayed Release Oral Capsule 06/13/2019 12:00:00 A M EDT MIRANDA ([facility]) Citalopram 40 MG Oral Tablet 06/13/2019 12:00:00 AM EDT MIRANDA ([facility]) cefdinir 300 MG Oral Capsule 01/19/2019 12:00:00 AM EST MIRANDA ([facility]) ropinirole 0.5 MG Oral Tablet 01/19/2019 12:00:00 AM EST MIRANDA ([facility]) Citalopram 40 MG Oral Tablet 04/03/2018 12:00:00 AM EST MIRANDA ([facility]) Omeprazole 20 MG Delayed Release Oral Capsule 04/03/2018 12:00:00 A M EST MIRANDA ([facility]) ferrous sulfate 325 MG Oral Tablet 03/30/2017 12:00:00 AM EST MIRANDA ([facility])
[2020-03-26 13:15] LABS: BASO % 0.3 % (0.0-1.0); EOS # 0.1 10^3/uL (0.0-0.5); EOS % 0.7 % (0.0-3.0); HEMATOCRIT 41.6 % (36.0-47.0); LYMPH # 0.8 10^3/uL (1.5-5.0); MEAN CORPUSCULAR HEMOGLOBIN 24.8 pg (27.0-33.0); MEAN CORPUSCULAR HGB CONC 31.3 g/dl (32.0-36.5); MEAN CORPUSCULAR VOLUME 79.2 fl (80.0-96.0); MONO # 0.4 10^3/uL (0.0-0.8); NEUTROPHILS # 7.7 10^3/uL (1.5-8.5); NEUTROPHILS % 85.6 % (36.0-66.0); PLATELET COUNT, AUTOMATED 270 10^3/uL (150-450); RED BLOOD COUNT 5.25 10^6/uL (4.00-5.40)
[2020-03-26 13:39] LABS: ALBUMIN 3.8 GM/DL (3.2-5.2); BILIRUBIN,DIRECT 0.1 MG/DL (0.0-0.2); BILIRUBIN,TOTAL 0.3 MG/DL (0.2-1.0); TOTAL PROTEIN 6.8 GM/DL (6.4-8.2)
--- NOTE | 2020-03-26 13:45 | REP ---
INDICATION: epigastric pain/pud r/o free air. COMPARISON: Comparison is made with films from abdominal CT study January 01, 2020.. TECHNIQUE: Three view acute abdominal series including upright chest radiograph. FINDINGS: Upright chest radiograph is unremarkable. There is no evidence of infiltrate or free subdiaphragmatic air. Heart size is normal. Pulmonary vasculature is not increased. Pleural angles are sharp. Supine and erect views the abdomen show clips in the right upper quadrant. There are proximal and distal colon air-fluid levels. These are small consistent with some liquid colon content question enteritis. There is a solitary loop of left central abdominal small bowel which is borderline in caliber. No small bowel air-fluid levels are seen. There are surgical sutures in the left upper quadrant. Flank stripes are intact. Psoas margins appear symmetric. There are phleboliths in the pelvis. No mass or organomegaly is seen. IMPRESSION: Air-fluid levels are noted in the colon which is not dilated. Question enteritis. No evidence of free air. No evidence of obstruction.. <Electronically signed by Reggie Irvin > 03/26/20 [id number]
--- OUTSIDE RECORDS SUMMARY | 2020-03-26 14:22 | CCD ---
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 ([facility]) No history of prostatitis No history of prostatitis 12/20/2019 1 2:00:00 AM EDT MIRANDA ([facility]) No history of hyperlipidemia No history of hyperlipidemia 12:00:00 AM EDT MIRANDA ([facility]) No history of HIV infection No history of HIV infection 11/29 12:00:00 AM EDT MIRANDA ([facility]) No history of essential hypertension No history of essential hypertension 12/20/2019 12:00:00 AM EDT MIRANDA ([facility]) No history of coronary artery disease No history of coronary artery disease 12/20/2019 12:00:00 AM EDT MIRANDA ([facility]) No history of condyloma acuminatum last pap was April 2007 normal, MAR 2010 WNL No history of condyloma acuminatum last pap was April 2007 normal, MAR 2010 WNL 12/20/2019 12:00:00 AM EDT Geo[facility] ([facility]) 1 1 12/20/2019 12:00:00 AM EDT [facility] ([facility]) Exposure to STD , positive chlymidia 1998, multiple te sts since then negative Exposure to STD , positive chlymidia 1997, multiple tests since then negative 12/20/2019 12:00:00 AM EDT [facility] ([facility]) 07/18/[address] Sy 07/18/[address] Sy 12/20/2019 12:00:00 AM EDT [facility] ([facility]) History of cervical dysplasia History of cervical dysplasia 12/20/2019 12:00:00 AM EDT MIRANDA ([facility]) Surgical / procedural history Leep 19 y o - normal pa p smears since Surgical / procedural history Leep 19 y o - normal pap smears since 12/20/2019 12:00:00 AM EDT MIRANDA ([facility]) Surgical / procedural history bilateral salpingectomy , right oophorectomy Surgical / procedural history bilateral salpingectomy, right oophorectomy 12/20/2019 12:00:00 AM EDT MIRANDA ([facility]) 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 Hist ory of gastric 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 12/20/2019 12:00:00 AM EDT [facility] History of cholecystectomy 1998 History of cholecystectomy 199812/20/2019 12:00:00 AM EDT MIRANDA ([facility]) Para 1 Para 1 12/13/2019 12:00:00 AM EDT G REENWAY ([facility]) 1 1 12/13/2019 12:00:00 AM EDT G REENWAY ([facility]) Surgical / procedural history Leep 19 y o - normal pa p smears since Surgical / procedural history Leep 19 y o - normal pap smears since 12/13/2019 12:00:00 AM EDT MIRANDA ([facility]) Surgical / procedural history bilateral salpingectomy , right oophorectomy Surgical / procedural history bilateral salpingectomy, right oophorectomy 12/13/2019 12:00:00 AM EDT MIRANDA ([facility]) Rapid Strep Test Rapid Strep Test 12/12/2019 12:00:00 AM EDT MIRANDA ([facility]) Rapid Strep Test Rapid Strep Test 12/12/2019 12:00:00 AM EDT MIRANDA ([facility]) Results ID Date Data Source [id number] 03/13/2020 12:00:00 AM EST [facility] Berna PUCKETT Patient Name: LLOYD GILL Dmitriy Date of : 1980[place] [address] Date of Exam: [facility]#: Fax: [phone] EXAM: US PELVIC COMPLETECLINICAL [...] ultrasonography is within normal limits.Accredited by the [employer] in GynecologicalUltrasound.MAGDA Berg/Mario you for referring ASAEL GILL to our office. Electronically Signed - TANJA TITUS DO 03/14/20 15:59 Name Value Range Interpretation Code Description Data Maria T rce(s) Supporting Document(s) ID Date Data Source [id number] 03/13/2020 12:00:00 AM EST [facility] Berna PUCKETT Patient Name: LLOYD GILL St [facility] 1980[facility] [address] Date of Exam: [facility]#: Fax: [phone] EXAM: US PELVIC COMPLETECLINICAL [...] ultrasonography is within normal limits.Accredited by the [employer] in GynecologicalUltrasound.MAGDA Berg/Mario you for referring ASAEL GILL to our office. Electronically Signed - TANJA TITUS DO 03/14/20 15:59 Name Value Range Interpretation Code Description Data Maria T rce(s) Supporting Document(s) ID Date Data Source [id number] 03/13/2020 12:00:00 AM EST [facility] Berna PUCKETT Patient Name: LLOYD GILLano St Date of : 1980[place] [address] Date of Exam: 1P#: Fax: [phone] EXAM: [...] splenic cyst as described above.Accredited by the [employer] in General Ultrasound.MAGDA Berg/Mark you for referring ASAEL GILL to our office. Electronically Signed - TANJA TITUS DO 03/14/20 16:00 Name Value Range Interpretation Code Description Data Maria T rce(s) Supporting Document(s) ID Date Data Source [id number] 03/12/2020 11:07:00 PM [facility] Name Value Range Interpretation Code Description Data Maria T rce(s) Supporting Document(s) VITAMIN B12 580 PG/ML 211-2000 N [facility] ID Date Data Source [id number] 03/12/2020 11:07:00 PM [facility] Name Value Range Interpretation Code Description Data Maria T rce(s) Supporting Document(s) FOLATE > 24.00 NG/ML 3.40-24.00 H [facility] ID Date Data Source [id number] 03/12/2020 01:42:00 PM [facility] Name Value Range Interpretation Code Description Data Maria T rce(s) Supporting Document(s) WHITE BLOOD COUNT 5.35 10^3/uL 4.00-10.50 N [facility] RED BLOOD COUNT 5.28 10^6/uL 3.90-5.20 [facility] HEMOGLOBIN 13.1 G/DL 11.5-15.6 N [facility] HEMATOCRIT 41.2 % 35.0-46.0 N [facility] MCV 78.0 FL 80.0-100.0 L [facility] MCH 24.8 PG 27.0-34.0 L [facility] MCHC 31.8 G/DL 32-36 L [facility] RDW 21.2 % 11.5-14.5 H [facility] PLATELET COUNT 289 10^3/uL 130-400 N [facility] MPV 10.8 FL 8.7-13.2 N [facility] GRAN % (AUTO) 69.4 % 42.0-75.0 N [facility] LYMPH % (AUTO) 21.1 % 20.0-51.0 N [facility] MONO % (AUTO) 6.7 % 2.0-15.0 N [facility] EOS % (AUTO) 1.9 % 0.0-11.0 N [facility] BASO % (AUTO) 0.7 % 0.0-2.0 N [facility] IG % (AUTO) 0.2 % 1.00-5.00 [facility] IG # (AUTO) 0.0 10^3/uL <0.5 [facility] GRAN # (AUTO) 3.71 10^3/uL 1.50-6.50 N [facility] LYMPH # (AUTO) 1.1 k/uL 1.0-5.0 N [facility] MONO # (AUTO) 0.36 k/uL 0.20-1.50 N [facility] EOS # (AUTO) 0.10 10^3/uL 0.00-1.10 N [facility] BASO # (AUTO) 0.04 10^3/uL 0.00-0.20 N [facility] ID Date Data Source [id number] 03/12/2020 11:07:00 PM EST [facility] Name Value Range Interpretation Code Description Data Maria T rce(s) Supporting Document(s) SODIUM 139 MEQ/L 135-145 N [facility] POTASSIUM 4.0 MEQ/L 3.5-5.3 N [facility] CHLORIDE 107 MEQ/L 94-110 N [facility] CARBON DIOXIDE 26 MEQ/L 22-33 N [facility] ANION GAP 10 5-16 N [facility] BLOOD UREA NITRO 14 MG/DL 7-25 N [facility] CREATININE 0.7 MG/DL 0.6-1.4 N [facility] GFR > 90.0 ML/MIN [facility] Stage G1 - Normal or high kidney functi on The GFR is an estimate of the Glomerular Filtration Rate. It is an aid to assess a patient's renal function. It is not a conclusive diagnosis of kidney disease. GFR normal is >=90 The MDRD GFR calculation is considered valid between the ages of 18 and 75 years only. BUN/CREAT RATIO 20 8-36 N [facility] GLUCOSE 74 MG/DL 70-100 N [facility] CA 8.7 MG/DL 8.7-10.5 N [facility] BILIRUBIN,TOTAL 0.5 MG/DL 0.1-1.3 N [facility] AST 24 U/L 5-40 N [facility] ALT 23 U/L 5-48 N [facility] ALKALINE PHOSPHATASE 74 U/L 40-140 N [facility] alth TOTAL PROTEIN 6.7 G/DL 5.9-8.3 N [facility] ALBUMIN 4.5 G/DL 3.0-5.1 N [facility] GLOBULIN 2.2 G/DL 1.5-3.5 N [facility] ALB/GLOB RATIO 2.0 G/DL 1.0-3.0 [facility] ID Date Data Source [id number] 03/12/2020 11:07:[address] [facility] Name Value Range Interpretation Code Description Data Maria T rce(s) Supporting Document(s) IRON 65 UG/DL 35-150 N [facility] ID Date Data Source [id number] 03/12/2020 11:07:[address] [facility] Name Value Range Interpretation Code Description Data Mariat rce(s) Supporting Document(s) FERRITIN 12.0 NG/ML 22-322 L [facility] ID Date Data Source [id number] 02/13/2020 02:37:00 PM [facility] Name Value Range Interpretation Code Description Data Maria T rce(s) Supporting Document(s) OCCULT BLOOD #1 POSITIVE NEGATIVE A [facility] Methodology is Fecal Immunochemical(Imm unoassay) Test for Occult Blood. Detects human hemoglobin at 5ug hHB/g feces. ID Date Data Source [id number] 02/06/2020 01:18:[address] [facility] Name Value Range Interpretation Code Description Data Maria T rce(s) Supporting Document(s) WHITE BLOOD COUNT 5.79 10^3/uL 4.00-10.50 N [facility] RED BLOOD COUNT 4.71 10^6/uL 3.90-5.20 N [facility] th HEMOGLOBIN 10.7 G/DL 11.5-15.6 L [facility] HEMATOCRIT 34.5 % 35.0-46.0 L [facility] MCV 73.2 FL 80.0-100.0 L [facility] MCH 22.7 PG 27.0-34.0 L [facility] MCHC 31.0 G/DL 32-36 L [facility] RDW 16.1 % 11.5-14.5 H [facility] PLATELET COUNT 353 10^3/uL 130-400 N [facility] MPV 10.2 FL 8.7-13.2 N [facility] GRAN % (AUTO) 69.3 % 42.0-75.0 N [facility] LYMPH % (AUTO) 19.9 % 20.0-51.0 L [facility] MONO % (AUTO) 6.9 % 2.0-15.0 N [facility] EOS % (AUTO) 2.8 % 0.0-11.0 N [facility] BASO % (AUTO) 0.9 % 0.0-2.0 N [facility] IG % (AUTO) 0.2 % 1.00-5.00 [facility] IG # (AUTO) 0.0 10^3/uL <0.5 [facility] GRAN # (AUTO) 4.02 10^3/uL 1.50-6.50 N [facility] LYMPH # (AUTO) 1.2 k/uL 1.0-5.0 N [facility] MONO # (AUTO) 0.40 k/uL 0.20-1.50 N [facility] EOS # (AUTO) 0.16 10^3/uL 0.00-1.10 N [facility] BASO # (AUTO) 0.05 10^3/uL 0.00-0.20 N [facility] ID Date Data Source [id number] 02/06/2020 02:08:00 PM EST [facility] Name Value Range Interpretation Code Description Data Maria T rce(s) Supporting Document(s) SODIUM 139 MEQ/L 135-145 N [facility] POTASSIUM 4.1 MEQ/L 3.5-5.3 [facility] CHLORIDE 109 MEQ/L 94-110 N [facility] CARBON DIOXIDE 26 MEQ/L 22-33 N [facility] ANION GAP 8 5-16 N [facility] BLOOD UREA NITRO 14 MG/DL 7-25 N [facility] CREATININE 0.6 MG/DL 0.6-1.4 N [facility] GFR > 90.0 ML/MIN [facility] Stage G1 - Normal or high kidney functi on The GFR is an estimate of the Glomerular Filtration Rate. It is an aid to assess a patient's renal function. It is not a conclusive diagnosis of kidney disease. GFR normal is >=90 The MDRD GFR calculation is considered valid between the ages of 18 and 75 years only. BUN/CREAT RATIO 23 8-36 [facility] GLUCOSE 82 MG/DL 70-100 N [facility] CA 8.5 MG/DL 8.7-10.5 L [facility] BILIRUBIN,TOTAL 0.3 MG/DL 0.1-1.3 N [facility] AST 22 U/L 5-40 [facility] ALT 24 U/L 5-48 [facility] ALKALINE PHOSPHATASE 87 U/L 40-140 [facility] alth TOTAL PROTEIN 5.9 G/DL 5.9-8.3 N [facility] ALBUMIN 4.1 G/DL 3.0-5.1 [facility] GLOBULIN 1.8 G/DL 1.5-3.5 [facility] ALB/GLOB RATIO 2.3 G/DL 1.0-3.0 [facility] ID Date Data Source [id number] 02/08/2020 05:24:[address] [facility] Name Value Range Interpretation Code Description Data Maria T rce(s) Supporting Document(s) ALEX,IFA,S Negative . [facility] Ne gative <1:80 Borderline 1:80 Positive > 1:80 Performed at: RN - [facility] [address] [id number] [employer] Helper: Mckenzie Rico MD, Phone: [phone] ID Date Data Source [id number] 02/06/2020 02:08:[address] [facility] Name Value Range Interpretation Code Description Data Maria T rce(s) Supporting Document(s) GLYCOSYLATED HGBA1C 5.3 % 4.1-6.5 N [facility] ID Date Data Source [id number] 02/08/2020 05:24:00 PM EST [facility] Name Value Range Interpretation Code Description Data Maria T rce(s) Supporting Document(s) EBV (VCA) IgG Ab,S >600.0 U/mL 0.0-17.9 [facility] Negati ve <18.0 Equivocal 18.0 - 21.9 Positive >21.9 ID Date Data Source [id number] 02/06/2020 02:08:00 PM EST [facility] Name Value Range Interpretation Code Description Data Maria T rce(s) Supporting Document(s) IRON 18 UG/DL 35-150 L [facility] TIBC 437 UG/DL 260-400 H [facility] % IRON SATURATION 4.0 % 20-50 L [facility] ID Date Data Source [id number] 02/08/2020 05:24:00 PM EST [facility] Name Value Range Interpretation Code Description Data Maria T rce(s) Supporting Document(s) EBV(VCA)IgM Ab,S <36.0 U/mL 0.0-35.9 [facility] Negati ve <36.0 Equivocal 36.0 - 43.9 Positive >43.9 Performed at: - [facility] [address] [id number] [employer]: Mckenzie Rico MD, Phone: [phone] ID Date Data Source [id number] 02/06/2020 02:08:00 PM EST [facility] Name Value Range Interpretation Code Description Data Maria T rce(s) Supporting Document(s) FERRITIN 3.8 NG/ML 22-322 L [facility] ID Date Data Source [id number] 02/08/2020 05:24:00 PM EST [facility] Name Value Range Interpretation Code Description Data Maria T rce(s) Supporting Document(s) Lyme Line Blot,S See Notes [facility] Lyme Ab IgG by Line Blot: IgG [...] are those recommended by CDC/ASTPHLD. p23=Osp C, p60=srtzwqupw . Note: Sera from individuals with the following may cross react in the Lyme Line Blot assays: other spirochetal diseases (periodontal disease, leptospirosis, relapsing fever, yaws, and pinta);connective autoimmune (Rheumatoid Arthritis and Systemic Lupus Erythematosus and also individuals with Antinuclear Antibody);other infections ([place] Spotted Fever; Rosette- Navas Virus,and Cytomegalovirus). . [facility] Dir: Mckenzie Rico MD [address] [place], [place] [id number] Contact by: [phone] CDC Recommendations for Lyme Disease Testing 1.The [...] immunoblot is positive. ID Date Data Source [id number] 02/06/2020 02:08:[address] [facility] Name Value Range Interpretation Code Description Data Maria T rce(s) Supporting Document(s) CREATINE KINASE 99 U/L 0-265 N [facility] ID Date Data Source [id number] 02/06/2020 02:08:00 PM EST [facility] Name Value Range Interpretation Code Description Data Maria T rce(s) Supporting Document(s) TRIGLYCERIDES 78 MG/DL 45-150 N [facility] CHOLESTEROL 157 MG/DL 125-200 N [facility] LDL CHOLESTEROL 77 MG/DL 50-130 N [facility] HDL CHOLESTEROL 64 MG/DL 32-96 [facility] CHOL/HDL RATIO 2.5 0-4.3 N [facility] ID Date Data Source [id number] 02/06/2020 02:08:[address] [facility] Name Value Range Interpretation Code Description Data Maria T rce(s) Supporting Document(s) AMYLASE 91 U/L 20-115 N [facility] ID Date Data Source [id number] 02/06/2020 02:08:[address] [facility] Name Value Range Interpretation Code Description Data Maria T rce(s) Supporting Document(s) LIPASE 43 U/L 6-51 N [facility] ID Date Data Source [id number] 02/06/2020 02:08:[address] [facility] Name Value Range Interpretation Code Description Data Maria T rce(s) Supporting Document(s) VITAMIN B12 381 PG/ML 211-2000 N [facility] ID Date Data Source [id number] 02/06/2020 02:08:[address] [facility] Name Value Range Interpretation Code Description Data Maria T rce(s) Supporting Document(s) FOLATE 12.10 NG/ML 3.40-24.00 N [facility] ID Date Data Source [id number] 02/06/2020 02:08:[address] [facility] Name Value Range Interpretation Code Description Data Maria T rce(s) Supporting Document(s) Vitamin D,25-HYDROXY 13.7 ng/ml 30-100 L [facility] Vitamin D Status Range De ficiency <20 ng/ml Insufficiency 20-29.9 ng/ml Sufficiency 30-100 ng/ml Toxicity >100 ng/ml Patients should not be tested for 72 hours post fluorescein dye angiography. A false elevation of result may occur. ID Date Data Source [id number] 02/06/2020 02:08:[address] [facility] Name Value Range Interpretation Code Description Data Maria T rce(s) Supporting Document(s) FREE T4 (FREE THYROXINE) 0.90 NG/DL 0.76-1.78 N [facility] T4 (THYROXINE) 5.3 UG/DL 4.5-10.9 N [facility] ID Date Data Source [id number] 02/06/2020 02:08:00 PM EST [facility] Name Value Range Interpretation Code Description Data Maria T rce(s) Supporting Document(s) TSH 2.006 uIU/ML 0.470-4.200 [facility] Patients should not be tested for 72 ho urs post fluorescein dye angiography. A false depression of result may occur. ID Date Data Source [id number] 01/20/2020 05:49:00 PM EST [facility] Name Value Range Interpretation Code Description Data Maria T rce(s) Supporting Document(s) SARS-CoV-2 by [facility] This lab was ordered by [facility] and reported by [facility]. ID Date Data Source [id number] 01/23/2020 08:12:59 AM EST [facility] Name Value Range Interpretation Code Description Data Maria T rce(s) Supporting Document(s) SARS COV2 SOURCE [facility] SARS COV 2 BY PCR Laboratory [facility] Not Detected INTERPRETIVE INFORMATION: S ARS-CoV-2 (COVID-19) [...] In compliance with this authorization, please visit [email or web address] for more information and to access the [...] collection, transport, storage, and handling. Performed by [facility], [address] [place] [id number] [email or web address] Cookie Salomon MD, Lab. Director ID Date Data Source [id number] 01/20/2020 12:00:00 AM 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[facility]) Name Value Range Interpretation Code Description Data Maria T rce(s) Supporting Document(s) SARS-CoV2 Rapid Antigen CHARTM POLO ([facility]) This lab was ordered by [facility] C are and reported by [facility]. ID Date Data Source [id number] 01/08/2020 12:00:00 AM 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[facility]) Name Value Range Interpretation Code Description Data Maria T rce(s) Supporting Document(s) 2019 Novel Coronavirus RNA ANITA RTMAKER ([facility]) This lab was ordered by [facility] C are and reported by [facility]. ID Date Data Source [id number] 12/26/2019 12:14:00 PM EDT [facility] ([facility]) CHEST X-RAY, FRONTAL AND LATERAL VIEWS INDICATION:BELLY [...] rce(s) Supporting Document(s) ID Date Data Source [id number] 12/26/2019 12:14:00 PM EDT [facility] ([facility]) CHEST X-RAY, FRONTAL AND LATERAL VIEWS INDICATION:BELLY [...] related to cholecystectomy. Professional interpretation performed at [facility] . Name Value Range Interpretation Code Description Data Maria T rce(s) Supporting Document(s) ID Date Data Source [id number] 12/23/2019 12:00:00 AM EDT [facility] ([facility]) Name Value Range Interpretation Code Description Data [facility] rce(s) Supporting Document(s) 2019 Novel Coronavirus RNA ANITA RTMAKER ([facility]) This lab was ordered by [facility] are and reported by [facility]. ID Date Data Source [id number] 12/12/2019 02:05:00 [place] [address] Patient Name: Asael Gill Exam Date: 12/12/19 [...] No acute findings. Professional interpretation performed by [facility] Medical Imaging at [facility] . End of diagnostic report: [id number] Signed: Nessa Shipman MD 12/12/19 1415 Interpreted by: Kimi Shipmancribed by: Nessa Shipman Name Value Range Interpretation Code Description Data Maria T rce(s) Supporting Document(s) ID Date Data Source [id number] 12/12/2019 01:40:00 PM EDT MIRANDA ([facility]) Name Value Range Interpretation Code Description Data Maria T rce(s) Supporting Document(s) Throat Swab negative Normal Throat Swab MIRANDA ([facility]) ID Date Data Source [id number] 12/12/2019 01:29:00 PM EDT MIRANDA ([facility]) Name Value Range Interpretation Code Description Data [facility] rce(s) Supporting Document(s) Reported Physicians See Note Reported Physicians MIRANDA ([facility]) Note: Reported Physicians:Ordering: Ingrid Carlisleding: Ingrid Medina ID Date Data Source [id number] 12/12/2019 01:29:00 PM EDT MIRANDA ([facility]) Name Value Range Interpretation Code Description Data [facility] rce(s) Supporting Document(s) See Note Lashanda See Note Lashanda JEAN ([facility]) Note: Run: 12/14/19 0834 INTERFACED REPORT Name: CharlesAsael M Age/Sex: 39/F Location: [facility] Acct: [id number] Unit: [id number] Status: REG REF Room/Bed: Re12/12/19 Disch: Att Dr: Ingrid Medina DIRECTOR MANUFACTURING ENGINEERING Specimen #: [id number] Ordered : 12/12/19 Collected : 12/12/19 By: OFFICE Received: 12/12/19 By: ROCKY Source: THROAT Specimen Description: Procedure Result -- FULL THROAT CULT Final USUAL KALYAN AFTER 18 HOURS USUAL KALYAN AFTER 42 HOURS FULL THROAT CULT Preliminary (Corrected) USUAL KALYAN AFTER 18 HOURS END OF REPORT ID Date Data Source [id number] 12/14/2019 08:34:00 AM EDT [facility]: 12/14/19 0834 INTERFACED REPORT Name: Asael Gill Age/Sex: 39/F Location: [facility] Acct: [id number] Unit: [id number] Status: REG REF Room/Bed: Re12/12/19 Disch: Att Dr: Ingrid Medina DIRECTOR MANUFACTURING ENGINEERING Specimen #: [id number] Ordered : 12/12/19 Collected : 12/12/19 By: OFFICE Received: 12/12/19 By: [email or web address] Source: THROAT Specimen Description: Procedure Result - FULL THROAT CULT Final USUAL KALYAN AFTER 18 HOURS USUAL KALYAN AFTER 42 HOURS FULL THROAT CULT Preliminary (Corrected) USUAL KALYAN AFTER 18 HOURS END OF REPORT Name Value Range Interpretation Code Description Data Maria T rce(s) Supporting Document(s) ID Date Data Source [id number] 12/12/2019 01:29:00 PM EDT M[facility]DA ([facility]) Name Value Range Interpretation Code Description Data Maria T rce(s) Supporting Document(s) Reported Physicians See Note Reported Physicians [place] ([facility]) Note: Reported Physicians:Ordering: Kimjasen all Ingrid LAttending: Ingrid Medina ID Date Data Source [id number] 12/12/2019 01:27:00 PM EDT MIRANDA ([facility]) Name Value Range Interpretation Code Description Data Maria T rce(s) Supporting Document(s) Reported Physicians See Note Reported Physicians [place] ([facility]) Note: Reported Physicians:Ordering: Kimb all, Ingrid LAttending: Ingrid Medina ID Date Data Source [id number] 12/12/2019 01:27:00 PM EDT MIRANDA ([facility]) Name Value Range Interpretation Code Description Data [facility] rce(s) Supporting Document(s) BORDETELLA PARAPERTUS Not Detected BORDETELLA P ARAPERTUS [place] ([facility]) Note: Responsible Observer: THONG CHRISTENSEN IS1 001 BORDETELLA PARAPERTUS [phone] (A) Adenovirus [Presence] in Unspecified specimen by Organ ism specific culture Not Detected ADENOVIRUS [place] ([facility]) Note: Responsible Observer: ADENOVIRUS A DENOVIRUS [phone] (A) Bordetella pertussis [Presence] in Unspe cified specimen by Organism specific culture Not Detected BORDETELLA PERTUSSIS [place] ([facility]) Note: Responsible Observer: MERT MIRANDAU SS BORDETELLA PERTUSSIS [phone] (A) CORONAVIRUS OC43 Not Detected CORONAVIRUS OC43 [facility] ([facility]) Note: This is NOT the novel coronavirus COVID-19Responsible Observer: CORONVIRUS OC43 CORONAVIRUS OC43 [phone] (A) CORONAVIRUS NL63 Not Detected CORONAVIRUS NL63 [place] ([facility]) Note: This is NOT the novel coronavirus COVID-19Responsible Observer: CORONVIRUS NL63 CORONAVIRUS NL63 [phone] (A) CHLAMYDIA PNEUMONIAE Not Detected CHLAMYDIA PNE UMONIAE MIRANDA ([facility]) Note: Responsible Observer: CHLMY PNEUMO JULIENNE CHLAMYDIA PNEUMONIAE [phone] (A) CORONAVIRUS HKU1 Not Detected CORONAVIRUS HKU1 [place] ([facility]) Note: This is NOT the novel coronavirus COVID-19Responsible Observer: CORONVIRUS HKU1 CORONAVIRUS HKU1 [phone] (A) INFLUENZA A Not Detected INFLUENZA A [facility]DA ([facility]) Note: Responsible Observer: INFLUENZA A INFLUENZA A [phone] (A) COVID 19 (SARS-CoV-2) NOT-DETECTED COVID 19 (SA RS-CoV-2) [facility]DA ([facility]) Note: THIS IS THE NOVEL CORONAVIRUS COV ID-19Responsible Observer: COVID 2 SARS Coronavirus 2 (SARS-CoV-2) [phone] (A) CORONAVIRUS 229E Not Detected CORONAVIRUS 229E [place] ([facility]) Note: This is NOT the novel coronavirus COVID-19Responsible Observer: CORONVIRUS 229E CORONAVIRUS 229E [phone] (A) PARAINFLUENZA VIRUS 4 Not Detected PARAINFLUENZ A VIRUS 4 [facility] ([facility]) Note: Responsible Observer: PARAINFLU R 4 PARAINFLUENZA VIRUS 4 [phone] (A) HUMAN METAPNEUMOVIRUS Not Detected HUMAN METAPN EUMOVIRUS [facility] ([facility]) Note: Responsible Observer: HUMAN METAPN EUV HUMAN METAPNEUMOVIRUS [phone] (A) Mycoplasma pneumoniae [Presence] in Unsp ecified specimen by Organism specific culture Not Detected MYCOPLASMA PNEUMONIAE [facility]ANDA ([facility]) Note: The Respiratory Panel is a multip lexed nucleic acid/PCR test. A negative result does not rule out the presence of PCR inhibitors in the patient sample or assay-specific nucleic acid concentrations below the level of detection by the assay.Responsible Observer: MYCOP PNEUMONIA MYCOPLASMA PNEUMONIAE [phone] (A) INFLUENZA B Not Detected INFLUENZA B [facility]DA ([facility]) Note: Responsible Observer: INFLUENZA B INFLUENZA B [phone] (A) Parainfluenza virus 3 [Presence] in Unsp ecified specimen by Organism specific culture Not Detected PARAINFLUENZA VIRUS 3 [facility]DA ([facility]) Note: Responsible Observer: PARAINFLU R 3 PARAINFLUENZA VIRUS 3 [phone] (A) Parainfluenza virus 1 [Presence] in Unsp ecified specimen by Organism specific culture Not Detected PARAINFLUENZA VIRUS 1 [facility]DA ([facility]) Note: Responsible Observer: PARAINFLU R 1 PARAINFLUENZA VIRUS 1 [phone] (A) HUMAN RHINOVIRUS/ENT Detected Abnormal (applies to non-numeric results) HUMAN RHINOVIRUS/ENT [place] ([facility]) Note: Responsible Observer: HMN RHINO/EN TER HUMAN RHINOVIRUS/ENT [phone] (A) Parainfluenza virus 2 [Presence] in Unsp ecified specimen by Organism specific culture Not Detected PARAINFLUENZA VIRUS 2 [place] ([facility]) Note: Responsible Observer: PARAINFLU R 2 PARAINFLUENZA VIRUS 2 [phone] (A) RESPIRATORY SYNCY VIR Not Detected RESPIRATORY SYNCY VIR [place] ([facility]) Note: Responsible Observer: RSV RESPIRAT ORY SYNCY VIR [phone] (A) ID Date Data Source [id number] 12/12/2019 01:27:00 PM [facility]T [facility] Name Value Range Interpretation Code Description Data Maria T rce(s) Supporting Document(s) SARS-CoV-2 (COVID-19) RNA [Presence] in Nasopharynx by BRAIN with non-probe detection [facility] This lab was ordered by [facility] and reported by [facility]. ID Date Data Source [id number] 12/12/2019 09:28:00 PM [facility] Name Value Range Interpretation Code Description Data Maria T rce(s) Supporting Document(s) ADENOVIRUS Not Detected NotDetected [facility] CORONAVIRUS 229E Not Detected NotDetected [facility] This is NOT the novel coronavirus COVID -19 CORONAVIRUS HKU1 Not Detected NotDetected [facility] This is NOT the novel coronavirus COVID -19 CORONAVIRUS NL63 [facility]ed [facility] This is NOT the novel coronavirus COVID -19 CORONAVIRUS OC43 Not Detected [facility]Detected [facility] This is NOT the novel coronavirus COVID -19 COVID 19 (SARS-CoV-2) NOT-DETECTED NOTDETECTED [facility] THIS IS THE NOVEL CORONAVIRUS COVID-19 HUMAN METAPNEUMOVIRUS Not Detected NotDetected [facility] HUMAN RHINOVIRUS/ENT Detected NotDetected [facility] INFLUENZA A Not Detected NotDetected [facility] INFLUENZA B Not Detected NotDetected [facility] PARAINFLUENZA VIRUS 1 Not Detected NotDetected [facility] PARAINFLUENZA VIRUS 2 Not Detected NotDetected [facility] PARAINFLUENZA VIRUS 3 Not Detected NotDetected [facility] PARAINFLUENZA VIRUS 4 Not Detected NotDetected [facility] RESPIRATORY SYNCY VIR Not Detected NotDetected [facility] BORDETELLA PARAPERTUS Not Detected NotDetected [facility] BORDETELLA PERTUSSIS Not Detected NotDetected [facility] CHLAMYDIA PNEUMONIAE Not Detected NotDetected [facility] MYCOPLASMA PNEUMONIAE Not Detected NotDetected [facility] The Respiratory Panel is a multiplexed nucleic acid/PCR test. A negative result does not rule out the presence of PCR inhibitors in the patient sample or assay-specific nucleic acid concentrations below the level of detection by the assay. Procedure Social History Code Duration Value Status Description Data Source(s ) Smoking 02/01/2020 12:00:00 AM EST Ex-smoker (finding) complet ed Ex-smoker (finding) [place] ([facility]) Smoking 12/17/2019 12:00:00 AM EDT Occasional tobacco sm oker (finding) completed Occasional tobacco smoker (finding) [place] ([facility]) Smoking 12/17/2019 12:00:00 AM EDT Occasional tobacco sm oker (finding) completed Occasional tobacco smoker (finding) [place] ([facility]) Smoking 12/14/2019 12:00:00 AM EDT Occasional tobacco sm oker (finding) completed Occasional tobacco smoker (finding) [place] ([facility]) Smoking 12/13/2019 12:00:00 AM EDT Occasional tobacco sm oker (finding) completed Occasional tobacco smoker (finding) [facility]IRANDA ([facility]) Smoking 12/12/2019 12:00:00 AM EDT Ex-smoker (finding) complet ed Ex-smoker (finding) [place] ([facility]) Smoking 02/16/2019 12:00:00 AM EST Never smoker completed Never s moker [facility] ([facility]) Vital Signs ID Date Data Source UNK Name Value Range Interpretation Code Description Data Source(s) PhenX - pain, abdominal - type and intensity protocol 0 0 [place] ([facility]) pt unable to obtain any vitals PhenX - pain, abdominal - type and intensity protocol 4 4 [place] ([facility]) Body weight 219 [lb_av] 219 [lb_av] [place] ([facility]) Body temperature 97.6 [degF] 97.6 [degF] [facility] [place] ([facility]) Respiratory rate 20 /min 20 /min [place] ([facility]) Heart rate rhythm 1 1 [facility] Y ([facility]) Heart rate 104 /min 104 /min [place] ([facility]) Diastolic blood pressure 80 mm[Hg] 80 mm[Hg] [place] ([facility]) Systolic blood pressure 120 mm[Hg] 120 mm[Hg] [facility] ([facility]) Inhaled oxygen concentration 21 % 21 % [place] ([facility]) Inhaled oxygen flow rate 0 L/min 0 L/min [place] ([facility]) Oxygen saturation in Arterial blood by Pulse oximetry 97 % 97 % [place] ([facility]) PhenX - pain, abdominal - type and intensity protocol 0 0 [place] ([facility]) Body weight 217 [lb_av] 217 [lb_av] [place] ([facility]) Body temperature 96.7 [degF] 96.7 [degF] [place] [facility] ([facility]) PhenX - pain, abdominal - type and intensity protocol 0 0 [place] ([facility]) PhenX - pain, abdominal - type and intensity protocol 0 0 [place] ([facility]) Body temperature 96.9 [degF] 96.9 [degF] [place] [facility] ([facility]) Pt obtained vitals PhenX - pain, abdominal - type and intensity protocol 4 4 [place]DA ([facility]) Pt obtained vitals Respiratory rate 17 /min 17 /min [place] ([facility]) Heart [facility] rhythm 1 1 [facility] Heart rate 91 /min 91 /min [facility] ([facility]) Diastolic blood pressure 80 mm[Hg] 80 mm[Hg] [facility] ([facility]) Systolic blood pressure 118 mm[Hg] 118 mm[Hg] G [place] ([facility]) Inhaled oxygen concentration 21 % 21 % [place] ([facility]) Inhaled oxygen flow rate 0 L/min 0 L/min [place] ([facility]) Oxygen saturation in Arterial blood by Pulse oximetry 98 % 98 % [place] ([facility]) PhenX - pain, abdominal - type and intensity protocol 0 0 [place] ([facility]) Body weight 217 [lb_av] 217 [lb_av] [facility] ([facility]) Body temperature 98.4 [degF] 98.4 [degF] [facility] ([facility]) Body weight 235 [lb_av] 235 [lb_av] [facility]DA ([facility]) pt weighed self at home PhenX - pain, abdominal - type and intensity protocol 0 0 [place] ([facility]) pt weighed self at home Inhaled oxygen concentration 21 % 21 % [facility] ([facility]) Oxygen saturation in Arterial blood by Pulse oximetry 98 % 98 % [facility] ([facility]) Body weight 240 [lb_av] 240 [lb_av] [facility] ([facility]) Diastolic blood pressure 89 mm[Hg] 89 mm[Hg] [facility] ([facility]) Systolic blood pressure 152 mm[Hg] 152 mm[Hg] C [facility] ([facility]) Heart rate 101 /min 101 /min [facility] ([facility]) Body temperature 97.8 [degF] 97.8 [degF] LUANA CUELLAR ([facility]) Patient Treatment Plan of Care Planned Activity Planned Date Details Description Data Source (s) Citalopram 40 MG Oral Tablet 01/08/2020 12:00:00 AM EST [place] ([facility]) Misc. Devices Miscellaneous 01/08/2020 12:00:00 AM EST [facility] ([facility]) Omeprazole 20 MG Delayed Release Oral Capsule 01/08/2020 12:00:00 A M EST [facility] ([facility]) Amoxicillin 875 MG / Clavulanate 125 MG Oral Tablet 12/20/19 20 12:00:00 AM EDT [facility]DA ([facility]) Albuterol 0.83 MG/ML Inhalant Solution 12/20/2019 12:00:00 AM EDT [facility]DA ([facility]) Prednisone 20 MG Oral Tablet 12/13/2019 12:00:00 AM EDT [facility]DA ([facility]) 12 HR Guaifenesin 600 MG Extended Release Oral Tablet 12/12/2019 12:00:00 AM EDT [facility] ([facility]) Albuterol 0.83 MG/ML Inhalant Solution 12/12/2019 12:00:00 AM EDT [facility]DA ([facility]) Citalopram 40 MG Oral Tablet 06/13/2019 12:00:00 AM EDT [facility]DA ([facility]) Omeprazole 20 MG Delayed Release Oral Capsule 06/13/2019 12:00:00 A M EDT [facility] ([facility]) Omeprazole 20 MG Delayed Release Oral Capsule 06/13/2019 12:00:00 A M EDT [facility] ([facility]) Citalopram 40 MG Oral Tablet 06/13/2019 12:00:00 AM EDT [facility] ([facility]) cefdinir 300 MG Oral Capsule 01/19/2019 12:00:00 AM EST [facility] ([facility]) ropinirole 0.5 MG Oral Tablet 01/19/2019 12:00:00 AM EST [facility] ([facility]) Citalopram 40 MG Oral Tablet 04/03/2018 12:00:00 AM EST [place] ([facility]) Omeprazole 20 MG Delayed Release Oral Capsule 04/03/2018 12:00:00 A M EST [facility] ([facility]) ferrous sulfate 325 MG Oral Tablet 03/30/2017 12:00:00 AM EST [facility] ([facility])
--- NOTE | 2020-03-26 14:54 | ECGEPIP ---
[facility] - ED Test Date: 2020-03-26 Pat Name: ASAEL GILL Department: Room: - Gender: Female [employer] Director: MARVIN : 1980 Requested By: LISSETTE Guerrero Order Number: [id number] Reading MD: Alida Hurley Measurements Intervals [place] Rate: 66 P: 21 MI: 187 QRS: 25 QRSD: 90 T: 0 QT: 412 QTc: 433 Interpretive Statements SINUS RHYTHM DECREASED RATE 12/31/19 Electronically Signed on 03-26-2020 14:54:08 EST by Ailda Hurley
[2020-03-26] MEDS: GASTROGRAFIN SOLUTION 30ML PO SCH ×2 (14:59→15:35)
[2020-03-26 15:57] VITALS: BP_DIAS 84
[2020-03-26] MEDS ORDERED: ISOVUE-370 76% 100ML VIAL As Ordered ONE (16:18)
--- NOTE | 2020-03-26 16:49 | REP ---
INDICATION: epigastric pain, pud gastric bypass--elevated lipase. COMPARISON: 01/01/2020 TECHNIQUE: 100 cc Isovue 370 and oral bowel preparatory contrast administration. FINDINGS: There is no change in the lung bases. The liver, spleen, pancreas, adrenal glands, and kidneys are unchanged. There is an unchanged 3 mm sized right renal cortical cyst and there is an unchanged subcentimeter sized splenic cyst. Postoperative changes again noted from previous bariatric surgery and cholecystectomy. The bowel loops and the mesenteries are within normal limits. There is no free fluid or free air. The abdominal aorta and para-aortic regions are unchanged and again seen to be within normal limits. No mass or adenopathy has developed. Bone window technique throughout the examination shows the osseous structures to be stable and intact. IMPRESSION: No acute disease or significant change compared to the prior exam with findings as described above. <Electronically signed by Epi Holcomb > 03/26/20 [id number]
[2020-03-26 18:35] VITALS: BP_SYST 152
== END 2020-03-26 18:39 | disposition home or self-care (01) ==
LOC: M ED 11:32
DX: K85.90 Acute pancreatitis without necrosis or infection, unspecified (principal); K62.5 Hemorrhage of anus and rectum; R10.13 Epigastric pain; Z79.899 Other long term (current) drug therapy
CPT/HCPCS: 36415; 74021; 74177; 80047; 80076; 82150; 83690; 84702; 85025; 93005; 99284; Q9963; Q9967

== ENCOUNTER → 2020-04-16 | Outpatient (CLI) | payer OTHER ==
[~2020-04-16] MED LIST changes: +FLUT11IN; +OMEP-218 PO
== END ==
LOC: M LABSMTC 13:29
PROVIDERS: ATTEND Anesthesiology
DX: Z01.812 Encounter for preprocedural laboratory examination (principal); Z20.822 Contact with and (suspected) exposure to COVID-19

== ENCOUNTER 2020-04-21 11:47 | Day surgery (SDC) | payer OTHER ==
[~2020-04-21] VITALS: Ht 167.6 cm; Wt 103.3 kg
[~2020-04-21 11:47] MED LIST changes: +NS 1,000 ML IV ONE
--- OUTSIDE RECORDS SUMMARY | 2020-04-21 11:54 | CCD | Continuity of Care Document ---
Author Author Lisette THOMAS M.D Organization Unknown Address [address] [place] [id number] Phone [phone] Care Team Providers Care Marketing Community Liaison Name Role Phone Berna Rajput AUTM [phone] Problems Active Problems Provider Date Hemorrhage of rectum and anus Ricardo Thomas M.D. Onset : 04/10/2020 Social History Type Date Description Comments Sex Unknown ETOH Use Denies alcohol use Tobacco Use Start: Unknown End: Unknown Patient is a former smoker QUIT 12/17 Allergies, Adverse Reactions, Alerts Description No Known Drug Allergies Medications Active Medications SIG Qnty Indications Ordering Provide r Date Sutab [id number] Tablets as directed 1box Ricardo Thomas M.D. 04/10/2020 Citalopram Hydrobromide 40mg Tablets Berna Rajput PA Omeprazole 20mg Capsules DR Take One Capsule By Mouth Two Times A Day Unknown Immunizations Description No Information Available Vital Signs Date Vital Result Comment 04/10/2020 1:34pm Height 66 inches 5'6" Weight 232.00 lb BP Systolic 132 mmHg BP Diastolic 89 mmHg Heart Rate 80 /min BMI (Body Mass Index) 37.4 kg/m2 Weight 105.235 kg Body Temperature 97.9 F Results Description No Information Available Procedures Description No Information Available Medical Devices Description No Information Available Encounters Description No Information Available Assessments Date Code Description Provider 04/10/2020 D64.9 Anemia Ricardo craig M.D. Plan of Treatment Future Appointment(s):* 04/21/2020 12:15 pm - Ricardo Thomas M.D. at Main Office 04/10/2020 - Ricardo Thomas M.D.* D64.9 Anemia* Comments:* 39 yo wf who presents for a colonoscopy/egd due to a h/o anemia. Pt has had a gastric bypass-2013. No c/o abdominal pain, weight loss, change in bowel habits, or rectal bleeding. No family h/o colon cancer. No h/o chest pain, or sob. She had a bout of pancreatitis of unknown cause.Plan:1. Colonoscopy + egd.2. Informed consent. Functional Status Description No Information Available Mental Status Description No Information Available Referrals Description No Information Available
--- OUTSIDE RECORDS SUMMARY | 2020-04-21 11:54 | CCD ---
Author [facility] Organization [facility] Address [address] [place] [address] Phone Care Team Providers Care Dustless Operator Name Role Phone Berna Gonzalez PP [phone] Sal BEVERLY, Radha Unavailable [phone] [facility], [facility] Unavailable [phone] [facility] Unavailable [phone] [facility], RESTAURANT GREETER Unavailable [phone] Reason for Referral No Reason for Referral Recorded Problems Includes: Active, inactive, and resolved Problems All Visits Onset Date - Time Resolved Date - Time Provider Co ndition Status Pancreatitis 04/08/2020 - 12:00PM Berna PUCKETT A ctive Note: Unchanged - working dx [facility] er notes requested Bariatric Surgery Status 04/08/2020 - 12:00AM Berna PUCKETT Active Note: Unchanged Hypocalcemia 08/16/2018 - 12:00AM Alexis Nurse Active Parathyroid Gland Disorders 10/02/2016 - 12:00AM Berna PUCKETT Active Note: Unchanged Esophageal Reflux 10/02/2016 - 12:00AM Berna PUCKETT Active Note: Unchanged Restless Legs Syndrome 10/02/2016 - 12:00AM Berna PUCKETT Active Note: Unchanged Other obesity due to excess calories 04/14/2016 - 12:00AM Alexis Nurse Active Note: 04/14/16 - Kremit Lacy., Radha Huang MD - BMI = 36.5. Recommend 30 minutes daily exercise, decrease calorie intake to <30 g of carbs w/ meals and <15 g. w/ snacks. Anemia 03/24/2016 - 12:00AM Berna PUCKETT A ctive Female Pelvic Pain 09/27/2013 - 12:00AM Mary Jane patiño MD Active Carpal Tunnel Syndrome 09/18/2012 - 12:00AM Berna PUCKETT Active Note: 09/06/12 Dr Hill-O rtho consult Hypertension (Systemic) 06/23/2012 - 12:00AM Berna PUCKETT Active Note: put on HCTZ 25 mg qd d oing well Vitamin D Deficiency 06/20/2012 - 12:00AM Alexis carranza Active Note: 03/24/16 - [facility] Ortho., Radha Huang MD - level @ 16.9. Recommend OTC vitamin D3 5,000 IU daily w/ dinner & Drisdol 50,000 IU once weekly for 3 months.05/2012 level 20, advised 1000u daily. Blood Pressure Isolated Elevated 06/16/2012 - 12:00AM Berna PUCKETT Active Note: ill today, will have p t monitor at home, call if >140/90 Overweight 06/16/2012 - 12:00AM Mary Jane Bowden Active Note: patient concerned, rev iewed healthy diet, exercise 30 min or more daily encouraged, will check tsh and labs /// s/p bariatric surgery. History of Cervical Dysplasia 04/04/2012 - 12:00AM Myrna PUCKETT Active Note: Unchanged Contraceptive Surveillance 04/04/2012 - 12:00AM Berna PUCKETT Active Note: Unchanged - TRINESSA D UE, REFILLED-- SAFE INTERCOURSE ENCOURAGED Current Smoker 04/04/2012 - 12:00AM Berna PUCKETT Active Note: Unchanged - with alcoh ol 3 CIG/DAY done 2013 Depression 03/27/2012 - 12:00AM Berna PUCKETT A ctive Note: Unchanged Tendonitis 03/27/2012 - 12:00AM Berna PUCKETT A ctive Note: Unchanged - BILATERAL WRIST, SPLINTS EFFECTIVE, NERVE CONDUCTION LAST AUGUST WAS NEGATIVE DR QUEZADA-- HEAT, WATCH REPETATIVE MOTION WHEN FLAIRS Nicotine Dependence 03/27/2012 - 12:00AM Berna PUCKETT Inactive Note: Unchanged - SMOKING BU T NOT DAILY, SOCIAL, MONITOR RISKS DISCUSSED, OPTIONS GIVEN, PT DECLINES Sebaceous Cyst 11/21/2011 - 12:00AM Steven Hawthorne MD A ctive Note: Unchanged - 11/24/11 in c and drainage done; resched for excision if desires once well healed- over a month Joint Pain, Localized in the Shoulder 09/15/2011 - 12:00AM Berna PUCKETT Active Note: involving upper arm, U PPER EXTREMITY NERVE CONDUCTION IS WNL 09/15/2011 Pain in Joint Involving Upper Arm 08/31/2011 - 12:00AM Berna PUCKETT Active Note: pt went to [facility] with as sessment to pain joint, Elbow ( left ). pt left forearm pain with clinical suspicion of carpal tunnel syndrome. pt was provided with a wrist splint for nighttime use. EMG done. Dr. 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 Anxiety 04/08/2010 - 12:00AM Berna PUCKETT A ctive Note: Well-Controlled - gracia lopram, stress management discussed DOING WELL . Cervical Pap Smear 04/08/2010 - 12:00AM Berna PUCKETT Active Note: Unchanged - wnl 011, 07/20/2011 SHOWS HYPERKERATOSIS OTHERWISE WNL, AFFIRM + TREATED WITH FLAGYL. Routine General Medical Examination At [facility] acilit 08/20/2008 - 12:00AM Berna PUCKETT Active Note: PFT WNL--, pap wnl Major Depression Recurrent Moderate 12/30/2007 - 12:00AM Berna PUCKETT Active Note: Well-Controlled - doin g well on citalopram, declines counseling. Plan of Treatment Pending Tests Order Diagnosis Results Due Ordering Provi jose Lab CBC w/ Auto Diff 04/28/20 Berna Araiza Lab FERRITIN 04/28/20 Berna PUCKETT Lab IRON TIBC 04/28/20 Berna PUCKETT Referrals To Diagnosis US Note: Please schedule patient for test l ower pelvic pain, vaginal discomfort, transvaginal US for further eval [facility] YOUTH LEADER Diarrhea Note: Please schedule patient with provi jose vaginal itching, abdominal tenderness, [place] YOUTH LEADER referral please Endocrine Disorder of parathyr oid gland, unspecified Note: Please schedule patient with provi jose GI Ricardo Thomas MD Other fecal abnormal ities Note: Please schedule patient with provi jose for positive occult blood in stool Future Appointments Date Time Location Provider Acute Telehealth Zoom 04/18/2020 10:20AM [facility] agnes PUCKETT Future Tests Order Diagnosis Results Due Ordering Provid er Records Hospital records 04/08/20 Berna Araiza Findings Encounter Date Ordered return to the clinic if condition worsens or n ew symptoms arise Acute Telehealth Zoom with Berna PUCKETT 04/08/2020 Ordered disposition - tylenol and/or mo rhett as needed for pain or fever, and warm salt water gargles if tolerated. Change toothbrush in 2-3 days. Finish all antibiotics as ordered to prevent complications of strep. Also, the patient is to return or call for appointment if there is persistence of fever for more than 48 hours, pain or other new significant symptoms Primary Care Telehealth Zoom with Berna PUCKETT 03/18/2020 Ordered fluids Primary Care Telehealth Zoom with Berna PUCKETT 03/18/2020 Ordered return to the clinic if condition worsens or n ew symptoms arise Primary Care Telehealth Zoom with Berna PUCKETT 03/18/2020 Ordered soft diet Primary Care Telehealth Zoom with Berna PUCKETT 03/18/2020 Ordered disposition - tylenol and/or mo rhett [...] of receipt or receiving provider electronically through [employer] [facility] Primary Care Telehealth Zoom with Berna PUCKETT 06/13/2019 Ordered follow-up visit 6 months AHR, sooner if quest ions or problems Primary Care Telehealth Zoom with Berna PUCKETT 06/13/2019 Ordered return to the clinic if condition worsens or n ew symptoms arise Primary Care Telehealth Zoom with Berna PUCKETT 06/13/2019 Ordered Transition in care, clinical sum berna provided electronically through [employer] [facility] Primary Care Telehealth Zoom with Berna PUCKETT 06/13/2019 Ordered Clinical summary transmitted to referring provider electronically with reasonable certainty of receipt or receiving provider electronically through [employer] Walk-In with Berna PUCKETT 01/19/2019 Ordered disposition [...] or n ew symptoms arise Walk-In with Benra PUCKETT 01/19/2019 Ordered Transition in care, clinical sum berna provided electronically through [employer] [facility] Walk-In with Berna PUCKETT 01/19/2019 Ordered Clinical summary transmitted to referring provider electronically or receiving provider electronically through [employer] [facility] Chronic Disease Follow-up with Berna PUCKETT 08/18/2018 Ordered follow-up visit 6 months AHR, sooner if quest ions or problems Chronic Disease Follow-up with Berna PUCKETT 08/18/2018 Ordered return to the clinic if condition worsens or n ew symptoms arise Chronic Disease Follow-up with Berna PUCKETT 08/18/2018 Ordered Transition in care, clinical sum berna provided electronically through [employer] [facility] Chronic Disease Follow-up with Berna PUCKETT 08/18/2018 Ordered Clinical summary transmitted to referring provider electronically or receiving provider electronically through [employer] AHR with Berna PUCKETT 03/14/2018 Ordered follow-up visit 6 months, sooner if questions or problems AHR with Berna PUCKETT 03/14/2018 Ordered return to the clinic if condition worsens or n ew symptoms arise AHR with Berna PUCKETT 03/14/2018 Ordered Transition in care, clinical sum berna provided electronically through [employer] [facility] AHR with Berna PUCKETT 03/14/2018 Ordered follow-up visit 6 months, sooner if questions or problems Chronic Disease Follow-up with Berna PUCKETT 03/30/2017 Ordered return to the clinic if condition worsens or n ew symptoms arise Chronic Disease Follow-up with Berna PUCKETT 03/30/2017 Ordered Transition in care, clinical sum berna provided electronically through [employer] [facility] Chronic Disease Follow-up with Berna PUCKETT 03/30/2017 Ordered follow-up visit 6 months, sooner if questions or problems AHR with Berna PUCKETT 09/23/2016 Ordered return to the clinic if condition worsens or n ew symptoms arise AHR with Berna PUCKETT 09/23/2016 Ordered Transition in care, clinical sum berna provided electronically through [employer] [facility] AHR with Berna PUCKETT 09/23/2016 Ordered [...] Ordered follow-up visit HERE FOR AHR IN SEPT, POSTOP CARE PER SURGEON Pre Op with Berna PUCKETT 07/03/2013 Ordered return to the clinic if condition worsens or n ew symptoms arise Pre Op with Berna PUCKETT 07/03/2013 Ordered disposition - Patient or [facility] [...] Berna PUCKETT 05/03/2013 Ordered follow-up visit f/u, artist and repertoire manager referral if not reso lving with [...] 08/30/2012 Ordered follow-up visit 4 months for ch ronic review, sooner if questions or problems AHR with Berna PUCKETT 08/28/2012 Ordered return to the clinic if condition worsens or n ew symptoms arise AHR with Berna PUCKETT 08/28/2012 Ordered disposition - Patient or [facility] house was instructed in use of antipyretics [...] for all patient encounters Findings Encounter Date Anemia 30 min zoom time with pt >50% counseling and c ounseling Acute Telehealth Zoom with Berna PUCKETT 04/08/2020 Bariatric surgery status Acute Telehealth Zoom with Berna PUCKETT 04/08/2020 Esophageal reflux Acute Telehealth Zoom with Berna PUCKETT 04/08/2020 Moderate recurrent major depression no concerns with citalopram, can continue Acute Telehealth Zoom with Berna PUCKETT 04/08/2020 Pancreatitis it is important that we re ceive all labs notes imaging from [facility] so these were requested pt was encouraged to refrain from alcohol and no tylenol or OTCS and no dietary supplements and she will do her f.u with GI this week-- also, she will be seen if ANY worsening or persistent symptoms zach bleeding, fever, pain-- and have GI notes sent here for chart-- please follow a low fat diet which she is not thrilled with but will attempt-- Acute Telehealth Zoom with Berna PUCKETT 04/08/2020 Abdominal pain omeprazole and f.u with GI labs neg, u s she will reschedule Primary Care Telehealth Zoom with Berna PUCKETT 03/18/2020 Anemia Primary Care Telehealth Zoom with Berna PUCKETT 03/18/2020 Assessment of anxiety well controlled with meds, want s to continue Primary Care Telehealth Zoom with Berna PUCKETT 03/18/2020 Assessment of depression Primary Care Telehealth Zoom with Trisha PUCKETT 03/18/2020 Assessment of shoulder joint pain painf ul to lseep onleft hip and left shoulder-- asked pt to do PT to limit dx likely tendonitis as she has had no trauma, pt agreed butone visit cost $50 so will trial home regimen, feeling better so opts to monitor-- no radicular symptoms, no numbnesss or weakness-- Primary Care Telehealth Zoom with Berna PUCKETT 03/18/2020 Bariatric surgery status Primary Care Telehealth Zoom with Trisha PUCKETT 03/18/2020 Esophageal reflux Primary Care Telehealth Zoom with Berna PUCKETT 03/18/2020 Left hip joint pain Primary Care Telehealth Zoom with Berna PUCKETT 03/18/2020 Multiple pulmonary nodules symptoms resolved, will mo flaquito Primary Care Telehealth Zoom with Berna PUCKETT 03/18/2020 Nicotine dependence in remission x two months encouraged continued cessation she agrees please call if quest or concerns before 28 minutes zoom time spentw tih pt >50% counseling, coordination of care Primary Care Telehealth Zoom with Berna PUCKETT 03/18/2020 Ovarian cyst us ordered for recheck, reid moser -- no abnormal bleeding or bruising current so will monitor anemia now that she is back on her bariatric meds-- s,s reviewed as well as last labs and imaging see scannedpain is improved, working toda-y- Primary Care Telehealth Zoom with Berna PUCKETT 03/18/2020 Abdominal pain omeprazole and f.u with GI [...] 02/01/2020 Multiple pulmonary nodules symptoms resolved, will slim huddleston Acute Telehealth Zoom with Berna PUCKETT 02/01/2020 [...] GI after labs and USs are back, 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-- advised to the ER if worse again [...] Acute sinusitis Acute L1 with Berna Reece MANAGER RECRUITING 0 Bronchitis Acute L1 with Berna Reece MANAGER RECRUITING 0 Acute bronchitis Acute Follow-up Telehealth with Michelle Mendez MANAGER RECRUITING 12/17/2019 Viral syndrome Acute Follow-up Telehealth with Michelle Mendez MANAGER RECRUITING 12/17/2019 Acute bronchitis Acute Follow-up Telephonic with Qing De Jesus NP 12/14/2019 Viral syndrome Acute Follow-up Telephonic with Qing De Jesus MANAGER RECRUITING 12/14/2019 Acute bronchitis Telephonic Encounter with Michelle cui MANAGER RECRUITING 12/13/2019 Viral syndrome Telephonic Encounter with Michelle cui MANAGER RECRUITING 12/13/2019 Acute pharyngitis Acute L1 with Michelle Mendez MANAGER RECRUITING 12/11 Assessment of cough Acute L1 with Michelle Mendez MANAGER RECRUITING 12/11 Assessment of dyspnea Acute L1 with Michelle Mendez MANAGER RECRUITING Anemia continue iron as ordered-- lean proteins, [...] PUCKETT 03/24/2016 Nicotine dependence - in remission sin e 2015 44 minutes face to face [...] 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-- will monitor-- AHR with Berna PUCKETT 09/22/2015 [...] Jane Hawthorne MD 09/27 Overweight Walk-In with MaryJ ane Hawthorne MD 09/27 Urinary tract infection : [...] 11/17/2012 Female pelvic pain transvaginal US and YOUTH LEADER referral at this point for ongoing symptoms-- [...] Sebaceous cyst warm packs, will cover w ith keflex, removal by Dr Steven Hawthorne scheduled for 2 weeks-- pt states gets larger and tender and then goes down again x months, requesting removal 10 Minute Revist with Brena PUCKETT 11/17/2011 Urinary tract infection M Same Day with Crystal PUCKETT 08/23/2011 Assessment of anxiety declines natalie hanks,stress management encouraged, cont current meds AHR with Berna PUCKETT 07/20/2011 Nicotine dependence smoking, 2cigs day -- AHR with Berna PUCKETT 07/20/2011 Normal routine history and physical AHR with Berna PUCKETT 07/20/2011 Symptoms referable to a joint of the hum erus/elbow xray ordered, REBEKAH advised , consider PT, further imaging if [...] Vitamin D deficiency cont 1000 units d jerry, will recheck with next set of labs 30 minutes with Berna PUCKETT 07/09/2010 Sprain Trapezius muscle M Same Day with Mckenna Davidson MANAGER RECRUITING 0 06/25/2010 Sprained left shoulder M Same Day with Mckenna Davidson MANAGER RECRUITING 05/30 Anxiety disorder NOS discussed anxiety , [...] Normal routine history and physical [facility] Review- ort with Berna PUCKETT 08/20/2008 Influenza type [...] rare Citalopram Hydrobromide 40 MG Oral Tablet 01/08/2020 Provider: Berna PUCKETT Diagnosis: Major depressive dis order, recurrent, moderate once a day Past Medications on file Misc. Devices Miscellaneous 01/08/2020 - 02/07/2020 Provider : Berna PUCKETT Diagnosis: Cough olivas rapid test for covid testing symp toms of cough sore throat and headache [place]i Amoxicillin-Pot Clavulanate 875-125 MG Oral Tablet 0 - 12/30/2019 Provider: Berna Reece NP Diagnosis: Acute sinusitis, uns pecified twice a day- with food Albuterol Sulfate (2.5 MG/3ML) 0.083% Inhalation Nebul ization solution 12/20/2019 - 03/18/2020 Provider: Berna Reece MANAGER RECRUITING Diagnosis: Shortness of breath inhale 1 vial every 4-6 hours as needed wheezing. predniSONE 20 MG Oral Tablet 12/13/2019 - 12/20/2019 Provide r: Michelle Mendez MANAGER RECRUITING Diagnosis: Acute bronchitis, un specified 2 tabs by mouth once a day with food Albuterol Sulfate (2.5 MG/3ML) 0.083% Inhalation Nebul ization solution 12/12/2019 - 12/20/2019 Provider: Michelle Mendez MANAGER RECRUITING Diagnosis: Shortness of breath 3ML via nebulizer inhaled every 4 hours as needed for wheezi ng/SOB guaiFENesin ER 600 MG Oral Tablet Extended Release 12 Hour 12/12/2019 - 12/13/2019 Provider: Michelle Mendez MANAGER RECRUITING Diagnosis: Cough 1 tab by mouth twice a day as needed for cough/congestion Citalopram Hydrobromide 40 MG Oral Tablet 06/13/2019 [...] once a day Daily Multivitamin Oral Capsule 06/13/2019 - 12/12/2019 Prov ider: Diagnosis: rOPINIRole HCl 0.5 MG Oral Tablet 01/19/2019 - 06/13/2019 Pr ovider: Berna PUCKETT Diagnosis: Restless legs syndro me one nightly, x one week, can increase to two nightly after t hat if needed Cefdinir 300 MG Oral Capsule 01/19/2019 - 01/29/2019 Provide r: Berna PUCKETT Diagnosis: twice a day Daily Multivitamin Oral Capsule 01/19/2019 - 06/13/2019 Prov ider: Diagnosis: metroNIDAZOLE 500MG Oral Tablet 08/21/2018 - 01/19/2019 Prov ider: Berna PUCKETT Diagnosis: twice a day EQL Vitamin D3 5000UNIT Oral Capsule 08/18/2018 - 06/13/2019 Provider: Diagnosis: per endo Citalopram Hydrobromide 40MG Oral Tablet 04/03/2018 - 2019 Provider: Berna PUCKETT Diagnosis: Major depressive dis order, recurrent, moderate once a day Omeprazole 20MG Oral Capsule, delayed-release 04/03/2018 - 0 06/13/2019 Provider: Berna PUCKETT Diagnosis: Gastro-esophageal re flux disease without esophagitis twice a day MetroNIDAZOLE 500MG Oral Tablet 03/15/2018 - 08/18/2018 Prov ider: Berna PUCKETT Diagnosis: twice a day PredniSONE 20MG Oral Tablet [...] Diagnosis: Omeprazole 20MG Oral Capsule Delayed Release 03/30/2017 - Provider: Berna PUCKETT Diagnosis: Gastro-esophageal re flux disease without esophagitis twice a day Omeprazole 20MG Oral Capsule Delayed Release 10/04/2016 - Provider: Berna PUCKETT Diagnosis: Gastro-esophageal re flux disease without esophagitis twice a day Daily Multivitamin Oral Capsule 09/23/2016 - 03/30/2017 Prov ider: Diagnosis: EQL Vitamin D3 5000UNIT Oral Capsule 09/23/2016 - 03/30/2017 Provider: Diagnosis: per endo Vitamin D3 [id number] Oral Tablet 04/19/2016 - 09/23/2016 Pro vider: Diagnosis: per endo EQL Vitamin D3 5000UNIT Oral Capsule 04/19/2016 - 09/23/2016 Provider: Diagnosis: per endo Drisdol [id number] Oral Capsule 04/14/2016 - 09/23/2016 Provi jose: Radha Huang MD Diagnosis: once weekly for 3 months [facility] Vitamin D3 1000 UNIT Tablet Chewable [...] dis order, recurrent, moderate once a day [facility] Gummy 0.4-113.5 MG Tablet Chewable 03/24/2016 - 09/23/2016 Provider: Diagnosis: Citalopram Hydrobromide 40 MG Tablet [...] Capsule 09/22/2015 - 03/24/2016 Provi jose: Diagnosis: Multivitamins Capsule 09/22/2015 - 03/24/2016 Provider: Diagnosis: Citalopram Hydrobromide 40 MG Tablet 03/24/2015 - 09/22/2015 Provider: Berna PUCKETT Diagnosis: Major depressive dis order, recurrent, moderate once a day Omeprazole 40 MG Capsule Delayed Release 03/24/2015 - 2015 Provider: Berna PUCKETT Diagnosis: Gastro-esophageal re flux disease without esophagitis once a day Vitamin D 1000 UNIT Capsule 03/24/2015 - 09/22/2015 Provi jose: Diagnosis: Multivitamins Capsule 03/24/2015 - 09/22/2015 Provider: Diagnosis: Biotin 1000 MCG Tablet 03/24/2015 - 09/22/2015 Provider: Diagnosis: 2 qday Omeprazole 20 MG Capsule, delayed-release 07/31/2014 - [...] 09/20/2013 - 09/27/2013 Provid er: Berna Dangelo NP Diagnosis: Diflucan 150 MG OR TABS 09/18/2013 - 09/20/2013 Provider: Berna PUCKETT Diagnosis: Diflucan 150 MG OR TABS 09/18/2013 - 09/18/2013 Provider: Berna PUCKETT Diagnosis: QID [facility] Vitamin D3 1000 UNIT OR CAPS 08/30/2013 - 06/04/2014 Pro vider: Berna PUCKETT Diagnosis: Unspecified Vitamin D Deficiency Omeprazole 20 MG OR CPDR 08/30/2013 - 06/04/2014 Provider: Berna PUCKETT Diagnosis: Esophageal Reflux per gastric bypass surgery Citalopram Hydrobromide 40 MG OR TABS 07/03/2013 [...] x 10 days Vitamin D3 1.25 MG (04248 UT) OR CAPS 11/17/2012 - 4 Provider: Berna PUCKETT Diagnosis: Take one capsule once weekly for 12 WEEKS Bactrim DS 800-160 MG OR TABS 10/24/2012 - 11/17/2012 Provid er: Berna PUCKETT Diagnosis: Vitamin D3 1.25 MG (92347 UT) OR CAPS 10/20/2012 - 3 Provider: [...] PUCKETT Diagnosis: Candidiasis of Vulva and Vagina Vitamin D3 1.25 MG (83088 UT) OR CAPS 08/28/2012 - 3 Provider: [...] Berna PUCKETT Diagnosis: Benign Essential Hyp ertension Diflucan 150 MG OR TABS 08/28/2012 - 11/17/2012 Provider: Berna PUCKETT 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 Exam Wi th or without Pap Zithromax Z-Kunal 250 MG OR TABS 07/14/2012 - 08/28/2012 Provi jose: Berna PUCKETT Diagnosis: Acute Maxillary Sinu sitis 2 tabs po day one, 1tab po daily days 2- 5 Vitamin D3 1.25 MG (74053 UT) OR CAPS 06/28/2012 - 3 Provider: Berna PUCKETT Diagnosis: Unspecified Vitamin D Deficiency hydroCHLOROthiazide 25 MG TABS 06/23/2012 - 08/28/2012 Provi jose: Berna PUCKETT Diagnosis: Penicillin V Potassium 500 MG OR TABS 06/16/2012 - 3 Provider: Berna PUCKETT Diagnosis: Acute Pharyngitis Tri-Sprintec 0.18/0.215/0.25 MG-35 MCG OR TABS 03/27/2012 - 08/28/2012 Provider: Berna PUCKETT Diagnosis: Contraceptive Survei llance Unspecified one tab po qday Wrist Splint MISC 03/27/2012 - 08/28/2012 Provider: Berna PUCKETT Diagnosis: TENDONITIS AND ENTHE SOPATHY BILAT DX: TENDONITIS FIT TO SIZE, LEFT AND RIGHT Citalopram Hydrobromide 40 MG OR TABS 03/27/2012 - 3 Provider: Berna PUCKETT Diagnosis: Major Depressive Aff ective Disorder Recurrent Episode Modera KEEP ON FILE FOR REFILL Penicillin V Potassium 500 MG OR TABS 12/08/2011 - 3 Provider: Ilene Decker NP Diagnosis: Acute Pharyngitis 1 TAB PO TID X 10 DAYS Cephalexin 500 MG OR CAPS 11/24/2011 - 12/08/2011 Provider: Steven Hawthorne MD Diagnosis: Sebaceous Cyst Tri-Sprintec 0.18/0.215/0.25 MG-35 MCG OR TABS 11/17/2011 - 03/27/2012 Provider: Berna PUCKETT Diagnosis: Contraceptive Survei llance Unspecified one tab po qday Citalopram Hydrobromide 40 MG OR TABS 11/17/2011 - 3 Provider: Berna PUCKETT Diagnosis: Major Depressive Aff ective Disorder Recurrent Episode Modera Cephalexin 500 MG OR CAPS 11/17/2011 - 11/24/2011 Provider: Berna PUCKETT Diagnosis: Sebaceous Cyst Bactrim DS 800-160 MG OR TABS 08/23/2011 - 11/17/2011 Provid er: Crystal PUCKETT Diagnosis: Urinary Tract Infect ion Site Not Specified 1 tab by mouth bid x 7 days Pyridium 200 MG OR TABS 08/23/2011 - 11/17/2011 Provider: Crystal PUCKETT Diagnosis: Urinary Tract Infect ion Site Not Specified one tab po tid for 2 days Flagyl 500 MG OR TABS 07/23/2011 - 08/23/2011 Provider: Berna PUCKETT Diagnosis: Do not drink alcohol with this medication Tri-Sprintec 0.18/0.215/0.25 MG-35 MCG OR TABS 07/20/2011 - 11/17/2011 Provider: Berna PUCKETT Diagnosis: Contraceptive Survei llance Unspecified one tab po qday Citalopram Hydrobromide 40 MG OR TABS 07/20/2011 - 2 Provider: Berna PUCKETT Diagnosis: this is an increase from 20 mg daily Bactroban 2% EX OINT 07/20/2011 - 11/17/2011 Provider: Berna PUCKETT Diagnosis: aaa bid prn # 15 gram tube Citalopram Hydrobromide 20 MG OR TABS 06/23/2011 - 2 Provider: Berna PUCKETT Diagnosis: Augmentin 875-125 MG OR TABS 03/20/2011 - 07/20/2011 Provide r: Crystal PUCKETT Diagnosis: Sinusitis, Acute Uns pecified one tab po bid Tri-Sprintec 0.18/0.215/0.25 MG-35 MCG OR TABS 03/20/2011 - 07/20/2011 Provider: Crystal PUCKETT Diagnosis: one tab po qday ZyrTEC Allergy 10 MG OR TABS 01/26/2011 - 01/26/2011 Provide r: Crystal PUCKETT Diagnosis: Allergic Rhinitis Ca use Unspecified one tab po qday ZyrTEC Allergy 10 MG OR TABS 01/26/2011 - 03/20/2011 Provide r: Crystal PUCKETT Diagnosis: Allergic Rhinitis Ca use Unspecified one tab po qday Ambien 10 MG OR TABS 11/27/2010 - 03/20/2011 Provider: Berna PUCKETT Diagnosis: Loestrin 24 Fe 1-20 MG-MCG OR TABS 11/25/2010 - 03/20/2011 P rovider: Berna PUCKETT Diagnosis: Citalopram Hydrobromide 20 MG OR TABS 11/25/2010 - 2 Provider: Berna PUCKETT Diagnosis: Lunesta 2 MG OR TABS 11/25/2010 - 11/27/2010 Provider: Berna PUCKETT Diagnosis: ONE PO QHS Citalopram Hydrobromide 20 MG OR TABS 10/19/2010 [...] MMB Vital Signs Includes: Vital Signs from 04/08/2019 through 04/08/2020 Vital Name 04/08/2020 09:33A 03/18/2020 11:35A 02/01/2020 11:17A 01/08/2020 08:16A 12/20/2019 01:01P Pain Level 2 0 0 4 0 Oxygen Saturation (%) 97 Flow Rate (l/min) (None (Room Air)) FiO2 (%) 21 Blood Pressure Sitting L 120/80 BP Cuff Size Regular Pulse Rate-Sitting (bpm) 104 Pulse Rhythm Regular Respiration Rate (breaths/min) 20 Temp-Tympanic (F) 97.6 Weight (lb) 219 Note: no vitals pt unable to obtain any vitals Vital Name 12/17/2019 08:43A 12/14/2019 11:25A 12/13/2019 09:34A 12/12/2019 12:59P 06/13/2019 12:37P Pain Level 0 0 4 0 0 Oxygen Saturation (%) 98 Flow Rate (l/min) (None (Room Air)) FiO2 (%) 21 Blood Pressure Sitting L 118/80 BP Cuff Size Large Pulse Rate-Sitting (bpm) 91 Pulse Rhythm Regular Respiration Rate (breaths/min) 17 Temp-Tympanic (F) 96.9 98.4 Weight (lb) 217 217 235 Temp-Temporal 96.7 Note: Pt obtained vitals pt josé ghed self at home Results Includes: Results from 04/08/2019 through 04/08/2020 VITAMIN B12 [facility] Ordered by Berna PUCKETT on 03/12/[address], [address] Collected: 03/12/2020 Reported: 03/12/2020 23:07 tel :[phone] VITAMIN B12 580 PG/ML (211-2000) N (Normal) Note: Responsible Observer: B12 VITAMIN B12 300.5200 (A) Reviewed by Berna PUCKETT on 2020; All test results are final unless otherwise noted. FOLATE [facility] Ordered by Berna PUCKETT on 03/12/[address] [place] [address], [address] Collected: 03/12/2020 Reported: 03/12/2020 23:07 tel :[phone] FOLATE > 24.00 NG/ML (3.40-24.00) H (High) Note: Responsible Observer: FOLATE FOLAT E 300.5210 (A) Reviewed by Berna PUCKETT on 2020; All test results are final unless otherwise noted. Reported Physicians [facility] Ordered by Berna PUCKETT on 03/12/[address] [place] [address], [address] Collected: 03/12/2020 Reported: 03/12/2020 23:08 tel :[phone] Reported Physicians See Note None Note: Reported Physicians:Ordering: Berna RogersAttending: Berna Rajput Reviewed by Berna PUCKETT on 2020; All test results are final unless otherwise noted. CBC w/ Auto Diff [facility] Ordered by Berna PUCKETT on 03/03/[address] [place] [address], [address] Collected: 03/12/2020 Reported: 03/12/2020 13:42 tel :[phone] BASO # (AUTO) 0.04 10\^3/uL (0.00-0.20) N (Normal) Note: Responsible Observer: BASO # (AUTO ) BASO # (AUTO) 100.1500 (A) BASO % (AUTO) 0.7 % (0.0-2.0) N (Normal) Note: Responsible Observer: BASO % (AUTO ) BASO % (AUTO) 100.1250 (A) EOS # (AUTO) 0.10 10\^3/uL (0.00-1.10) N (Normal) Note: Responsible Observer: EOS # (AUTO) EOS # (AUTO) 100.1450 (A) EOS % (AUTO) 1.9 % (0.0-11.0) N (Normal) Note: Responsible Observer: EOS % (AUTO) EOS % (AUTO) 100.1200 (A) GRAN # (AUTO) 3.71 10\^3/uL (1.50-6.50) N (Normal) Note: Responsible Observer: GRAN # (AUTO ) GRAN #(AUTO) 100.1325 (A) GRAN % (AUTO) 69.4 % (42.0-75.0) N (Normal) Note: Responsible Observer: GRAN % (AUTO ) GRAN % (AUTO) 100.1000 (A) HEMATOCRIT 41.2 % (35.0-46.0) N (Normal) Note: Responsible Observer: HCT HEMATOCR IT 100.0400 (A) HEMOGLOBIN 13.1 G/DL (11.5-15.6) N (Normal) Note: Responsible Observer: HGB HEMOGLOB IN 100.0300 (A) IG # (AUTO) 0.0 10\^3/uL (<0.5) None Note: Responsible Observer: IG # (AUTO) IG # (AUTO) 100.1260 (A) IG % (AUTO) 0.2 % (1.00-5.00) None Note: Responsible Observer: IG % (AUTO) IG % (AUTO) 100.1255 (A) LYMPH # (AUTO) 1.1 k/uL (1.0-5.0) N (Normal) Note: Responsible Observer: LYMPH # (AUT O) LYMPH # (AUTO) 100.1350 (A) LYMPH % (AUTO) 21.1 % (20.0-51.0) N (Normal) Note: Responsible Observer: LYMPH % (AUT O) LYMPH % (AUTO) 100.1100 (A) MCH 24.8 PG (27.0-34.0) L (Low) Note: Responsible Observer: MCH MCH 100 .0600 (A) MCHC 31.8 G/DL (32-36) L (Low) Note: Responsible Observer: MCHC MCHC 1 00.0650 (A) MCV 78.0 FL (80.0-100.0) L (Low) Note: Responsible Observer: MCV MCV 100 .0550 (A) MONO # (AUTO) 0.36 k/uL (0.20-1.50) N (Normal) Note: Responsible Observer: MONO # (AUTO ) MONO # (AUTO) 100.1400 (A) MONO % (AUTO) 6.7 % (2.0-15.0) N (Normal) Note: Responsible Observer: MONO % (AUTO ) MONO% (AUTO) 100.1150 (A) MPV 10.8 FL (8.7-13.2) N (Normal) Note: Responsible Observer: MPV MPV 100 .0950 (A) PLATELET COUNT 289 10\^3/uL (130-400) N (Normal) Note: Responsible Observer: PLT PLATELET COUNT 100.0850 (A) RED BLOOD COUNT 5.28 10\^6/uL (3.90-5.20) H (High) Note: Responsible Observer: RBC RED BLOO D COUNT 100.0250 (A) RDW 21.2 % (11.5-14.5) H (High) Note: Responsible Observer: RDW RDW 100 .0700 (A) WHITE BLOOD COUNT 5.35 10\^3/uL (4.00-10.50) N (Normal) Note: Responsible Observer: WBC WHITE BL OOD COUNT 100.0150 (A) Reviewed by Berna PUCKETT on 2020; All test results are final unless otherwise noted. COMPREHENSIVE METABOLIC PANEL [facility] Ordered by Berna PUCKETT on 03/03/[address] [place] [address], [address] Collected: 03/12/2020 Reported: 03/12/2020 23:07 tel :[phone] ALB/GLOB RATIO 2.0 G/DL (1.0-3.0) N (Normal) Note: Responsible Observer: A/G RATIO AL B/GLOB RATIO 300.4100 (A) ALBUMIN 4.5 G/DL (3.0-5.1) N (Normal) Note: Responsible Observer: ALB ALBUMIN 300.3900 (A) ALKALINE PHOSPHATASE 74 U/L (40-140) N (Normal) Note: Responsible Observer: ALK PHOS ALK RASHMI PHOSPHATASE 300.3110 (A) ALT 23 U/L (5-48) N (Normal) Note: Responsible Observer: ALT/SGPT ALT 300.3100 (A) AST 24 U/L (5-40) N (Normal) Note: Responsible Observer: AST/SGOT AST 300.3050 (A) BUN/CREAT RATIO 20 (8-36) N (Normal) Note: Responsible Observer: BUN/CREAT RA ALESHA BUN/CREAT RATIO 300.0450 (A) BILIRUBIN,TOTAL 0.5 MG/DL (0.1-1.3) N (Normal) Note: Responsible Observer: TOTAL BILI T OTAL BILIRUBIN 300.2700 (A) BLOOD UREA NITRO 14 MG/DL (7-25) N (Normal) Note: Responsible Observer: BUN BLOOD UR EA NITROGEN 300.0350 (A) CA 8.7 MG/DL (8.7-10.5) N (Normal) Note: Responsible Observer: CA CALCIUM 300.2200 (A) CHLORIDE 107 MEQ/L (94-110) N (Normal) Note: Responsible Observer: CL CHLORIDE 300.0200 (A) CARBON DIOXIDE 26 MEQ/L (22-33) N (Normal) Note: Responsible Observer: CO2 CARBON D IOXIDE 300.0250 (A) CREATININE 0.7 MG/DL (0.6-1.4) N (Normal) Note: Responsible Observer: CREAT CREATI NINE 300.0400 (A) ANION GAP 10 (5-16) N (Normal) Note: Responsible Observer: ANION GAP AN ION GAP 300.0300 (A) GFR > 90.0 ML/MIN None Note: Stage G1 - Normal or high kidney function The GFR is an estimate of the Glomerular Filtration Rate. It is an aid to assess a patient's renal function. It is not a conclusive diagnosis of kidney disease. GFR normal is >=90 The MDRD GFR calculation is considered valid between the ages of 18 and 75 years only.Responsible Observer: GFR GFR 300.0410 (A) GLOBULIN 2.2 G/DL (1.5-3.5) N (Normal) Note: Responsible Observer: GLOB GLOBULI N 300.4050 (A) GLUCOSE 74 MG/DL (70-100) N (Normal) Note: Responsible Observer: GLU GLUCOSE 300.0500 (A) POTASSIUM 4.0 MEQ/L (3.5-5.3) N (Normal) Note: Responsible Observer: K POTASSIUM 300.0150 (A) SODIUM 139 MEQ/L (135-145) N (Normal) Note: Responsible Observer: NA SODIUM 3 00.0100 (A) TOTAL PROTEIN 6.7 G/DL (5.9-8.3) N (Normal) Note: Responsible Observer: TP TOTAL PRO TEIN 300.3750 (A) Reviewed by Berna PUCKETT on 2020; All test results are final unless otherwise noted. IRON [facility] Ordered by Berna PUCKETT on 03/03/[address] [place] [address], [address] Collected: 03/12/2020 Reported: 03/12/2020 23:07 tel :[phone] IRON 65 UG/DL (35-150) N (Normal) Note: Responsible Observer: FE IRON 300 .2400 (A) Reviewed by Berna PUCKETT on 2020; All test results are final unless otherwise noted. FERRITIN [facility] Ordered by Berna PUCKETT on 03/03/[address] [place] [address], [address] Collected: 03/12/2020 Reported: 03/12/2020 23:07 tel :[phone] FERRITIN 12.0 NG/ML (22-322) L (Low) Note: Responsible Observer: FERRITIN RIYA RITIN 300.2650 (A) Reviewed by Berna PUCKETT on 2020; All test results are final unless otherwise noted. Reported Physicians [facility] Ordered by Berna PUCKETT on 03/03/[address] [place] [address], [address] Collected: 03/12/2020 Reported: 03/12/2020 23:08 tel :[phone] Reported Physicians See Note None Note: Reported Physicians:Ordering: Berna RogersAttending: Berna Rajput Reviewed by Berna PUCKETT on 2020; All test results are final unless otherwise noted. OCCULT BLOOD [facility] Ordered by Berna PUCKETT on 02/11/[address] [place] [address], [address] Collected: 02/13/2020 Reported: 02/13/2020 14:37 tel :[phone] OCCULT BLOOD #1 POSITIVE (NEGATIVE) A (Abnormal) Note: Methodology is Fecal Immunochemic al(Immunoassay) Test for Occult Blood. Detects human hemoglobin at 5ug hHB/g feces.Responsible Observer: OCCULT BLOOD #1 OCCULT BLOOD #1 600.0640 (A) Reviewed by Berna PUCKETT on 2019; All test results are final unless otherwise noted. Reported Physicians [facility] Ordered by Berna PUCKETT on 02/11/[address], [address] Collected: 02/13/2020 Reported: 02/13/2020 14:37 tel :[phone] Reported Physicians See Note None Note: Reported Physicians:Ordering: Berna RogersAttending: Berna Rajput Reviewed by Berna PUCKETT on 2019; All test results are final unless otherwise noted. CBC w/ Auto Diff [facility] Ordered by Berna PUCKETT on 01/08/[address], [address] Collected: 02/06/2020 Reported: 02/06/2020 13:18 tel :[phone] BASO # (AUTO) 0.05 10\^3/uL (0.00-0.20) N (Normal) Note: Responsible Observer: BASO # (AUTO ) BASO # (AUTO) 100.1500 (A) BASO % (AUTO) 0.9 % (0.0-2.0) N (Normal) Note: Responsible Observer: BASO % (AUTO ) BASO % (AUTO) 100.1250 (A) EOS # (AUTO) 0.16 10\^3/uL (0.00-1.10) N (Normal) Note: Responsible Observer: EOS # (AUTO) EOS # (AUTO) 100.1450 (A) EOS % (AUTO) 2.8 % (0.0-11.0) N (Normal) Note: Responsible Observer: EOS % (AUTO) EOS % (AUTO) 100.1200 (A) GRAN # (AUTO) 4.02 10\^3/uL (1.50-6.50) N (Normal) Note: Responsible Observer: GRAN # (AUTO ) GRAN #(AUTO) 100.1325 (A) GRAN % (AUTO) 69.3 % (42.0-75.0) N (Normal) Note: Responsible Observer: GRAN % (AUTO ) GRAN % (AUTO) 100.1000 (A) HEMATOCRIT 34.5 % (35.0-46.0) L (Low) Note: Responsible Observer: HCT HEMATOCR IT 100.0400 (A) HEMOGLOBIN 10.7 G/DL (11.5-15.6) L (Low) Note: Responsible Observer: HGB HEMOGLOB IN 100.0300 (A) IG # (AUTO) 0.0 10\^3/uL (<0.5) None Note: Responsible Observer: IG # (AUTO) IG # (AUTO) 100.1260 (A) IG % (AUTO) 0.2 % (1.00-5.00) None Note: Responsible Observer: IG % (AUTO) IG % (AUTO) 100.1255 (A) LYMPH # (AUTO) 1.2 k/uL (1.0-5.0) N (Normal) Note: Responsible Observer: LYMPH # (AUT O) LYMPH # (AUTO) 100.1350 (A) LYMPH % (AUTO) 19.9 % (20.0-51.0) L (Low) Note: Responsible Observer: LYMPH % (AUT O) LYMPH % (AUTO) 100.1100 (A) MCH 22.7 PG (27.0-34.0) L (Low) Note: Responsible Observer: MCH MCH 100 .0600 (A) MCHC 31.0 G/DL (32-36) L (Low) Note: Responsible Observer: MCHC MCHC 1 00.0650 (A) MCV 73.2 FL (80.0-100.0) L (Low) Note: Responsible Observer: MCV MCV 100 .0550 (A) MONO # (AUTO) 0.40 k/uL (0.20-1.50) N (Normal) Note: Responsible Observer: MONO # (AUTO ) MONO # (AUTO) 100.1400 (A) MONO % (AUTO) 6.9 % (2.0-15.0) N (Normal) Note: Responsible Observer: MONO % (AUTO ) MONO% (AUTO) 100.1150 (A) MPV 10.2 FL (8.7-13.2) N (Normal) Note: Responsible Observer: MPV MPV 100 .0950 (A) PLATELET COUNT 353 10\^3/uL (130-400) N (Normal) Note: Responsible Observer: PLT PLATELET COUNT 100.0850 (A) RED BLOOD COUNT 4.71 10\^6/uL (3.90-5.20) N (Normal) Note: Responsible Observer: RBC RED BLOO D COUNT 100.0250 (A) RDW 16.1 % (11.5-14.5) H (High) Note: Responsible Observer: RDW RDW 100 .0700 (A) WHITE BLOOD COUNT 5.79 10\^3/uL (4.00-10.50) N (Normal) Note: Responsible Observer: WBC WHITE BL OOD COUNT 100.0150 (A) Reviewed by Berna PUCKETT on 2019; All test results are final unless otherwise noted. COMPREHENSIVE METABOLIC PANEL [facility] Ordered by Berna PUCKETT on 01/08/[address] [place] [address], [address] Collected: 02/06/2020 Reported: 02/06/2020 14:08 tel :[phone] ALB/GLOB RATIO 2.3 G/DL (1.0-3.0) N (Normal) Note: Responsible Observer: A/G RATIO AL B/GLOB RATIO 300.4100 (A) ALBUMIN 4.1 G/DL (3.0-5.1) N (Normal) Note: Responsible Observer: ALB ALBUMIN 300.3900 (A) ALKALINE PHOSPHATASE 87 U/L (40-140) N (Normal) Note: Responsible Observer: ALK PHOS ALK RASHMI PHOSPHATASE 300.3110 (A) ALT 24 U/L (5-48) N (Normal) Note: Responsible Observer: ALT/SGPT ALT 300.3100 (A) AST 22 U/L (5-40) N (Normal) Note: Responsible Observer: AST/SGOT AST 300.3050 (A) BUN/CREAT RATIO 23 (8-36) N (Normal) Note: Responsible Observer: BUN/CREAT RA ALESHA BUN/CREAT RATIO 300.0450 (A) BILIRUBIN,TOTAL 0.3 MG/DL (0.1-1.3) N (Normal) Note: Responsible Observer: TOTAL BILI T OTAL BILIRUBIN 300.2700 (A) BLOOD UREA NITRO 14 MG/DL (7-25) N (Normal) Note: Responsible Observer: BUN BLOOD UR EA NITROGEN 300.0350 (A) CA 8.5 MG/DL (8.7-10.5) L (Low) Note: Responsible Observer: CA CALCIUM 300.2200 (A) CHLORIDE 109 MEQ/L (94-110) N (Normal) Note: Responsible Observer: CL CHLORIDE 300.0200 (A) CARBON DIOXIDE 26 MEQ/L (22-33) N (Normal) Note: Responsible Observer: CO2 CARBON D IOXIDE 300.0250 (A) CREATININE 0.6 MG/DL (0.6-1.4) N (Normal) Note: Responsible Observer: CREAT CREATI NINE 300.0400 (A) ANION GAP 8 (5-16) N (Normal) Note: Responsible Observer: ANION GAP AN ION GAP 300.0300 (A) GFR > 90.0 ML/MIN None Note: Stage G1 - Normal or high kidney function The GFR is an estimate of the Glomerular Filtration Rate. It is an aid to assess a patient's renal function. It is not a conclusive diagnosis of kidney disease. GFR normal is >=90 The MDRD GFR calculation is considered valid between the ages of 18 and 75 years only.Responsible Observer: GFR GFR 300.0410 (A) GLOBULIN 1.8 G/DL (1.5-3.5) N (Normal) Note: Responsible Observer: GLOB GLOBULI N 300.4050 (A) GLUCOSE 82 MG/DL (70-100) N (Normal) Note: Responsible Observer: GLU GLUCOSE 300.0500 (A) POTASSIUM 4.1 MEQ/L (3.5-5.3) N (Normal) Note: Responsible Observer: K POTASSIUM 300.0150 (A) SODIUM 139 MEQ/L (135-145) N (Normal) Note: Responsible Observer: NA SODIUM 3 00.0100 (A) TOTAL PROTEIN 5.9 G/DL (5.9-8.3) N (Normal) Note: Responsible Observer: TP TOTAL PRO TEIN 300.3750 (A) Reviewed by Berna PUCKETT on 2019; All test results are final unless otherwise noted. GLYCOSYLATED HGBA1C [facility] Ordered by Berna PUCKETT on 01/08/[address], [address] Collected: 02/06/2020 Reported: 02/06/2020 14:08 tel :[phone] GLYCOSYLATED HGBA1C 5.3 % (4.1-6.5) N (Normal) Note: Responsible Observer: HGB A1C GLYC OSYLATED HGBA1C 300.0800 (A) Reviewed by Berna PUCKETT on 2019; All test results are final unless otherwise noted. IRON TIBC [facility] Ordered by Berna PUCKETT on 01/08/[address] [place] [address], [address] Collected: 02/06/2020 Reported: 02/06/2020 14:08 tel :[phone] IRON 18 UG/DL (35-150) L (Low) Note: Responsible Observer: FE IRON 300 .2400 (A) % IRON SATURATION 4.0 % (20-50) L (Low) Note: Responsible Observer: % FE SAT % I LULY SATURATION 300.2500 (A) TIBC 437 UG/DL (260-400) H (High) Note: Responsible Observer: TIBC TIBC 3 00.2450 (A) Reviewed by Berna PUCKETT on 2019; All test results are final unless otherwise noted. FERRITIN [facility] Ordered by Berna PUCKETT on 01/08/[address] [place] [address], [address] Collected: 02/06/2020 Reported: 02/06/2020 14:08 tel :[phone] FERRITIN 3.8 NG/ML (22-322) L (Low) Note: Responsible Observer: FERRITIN RIYA RITIN 300.2650 (A) Reviewed by Berna PUCKETT on 2019; All test results are final unless otherwise noted. CREATINE KINASE [facility] Ordered by Berna PUCKETT on 01/08/[address] [place] [address], [address] Collected: 02/06/2020 Reported: 02/06/2020 14:08 tel :[phone] CREATINE KINASE 99 U/L (0-265) N (Normal) Note: Responsible Observer: CK CREATINE KINASE 300.3300 (A) Reviewed by Berna PUCKETT on 2019; All test results are final unless otherwise noted. LIPID PANEL [facility] Ordered by Berna PUCKETT on 01/08/[address] [place] [address], [address] Collected: 02/06/2020 Reported: 02/06/2020 14:08 tel :[phone] CHOL/HDL RATIO 2.5 (0-4.3) N (Normal) Note: Responsible Observer: CHOL/HDL RAT IO CHOL/HDL RATIO 300.4700 (A) CHOLESTEROL 157 MG/DL (125-200) N (Normal) Note: Responsible Observer: CHOL CHOLEST DOC 300.4350 (A) HDL CHOLESTEROL 64 MG/DL (32-96) N (Normal) Note: Responsible Observer: HDL HDL CHOL ESTEROL 300.4600 (A) LDL CHOLESTEROL 77 MG/DL (50-130) N (Normal) Note: Responsible Observer: LDL LDL CHOL ESTEROL 300.4400 (A) TRIGLYCERIDES 78 MG/DL (45-150) N (Normal) Note: Responsible Observer: TRIG TRIGLYC ERIDES 300.4300 (A) Reviewed by Berna PUCKETT on 2019; All test results are final unless otherwise noted. AMYLASE [facility] Ordered by Berna PUCKETT on 01/08/[address] [place] [address], [address] Collected: 02/06/2020 Reported: 02/06/2020 14:08 tel :[phone] AMYLASE 91 U/L (20-115) N (Normal) Note: Responsible Observer: JOSE AMYLASE 300.4900 (A) Reviewed by Berna PUCKETT on 2019; All test results are final unless otherwise noted. LIPASE [facility] Ordered by Berna PUCKETT on 01/08/[address] [place] [address], [address] Collected: 02/06/2020 Reported: 02/06/2020 14:08 tel :[phone] LIPASE 43 U/L (6-51) N (Normal) Note: Responsible Observer: LIP LIPASE 300.4950 (A) Reviewed by Berna PUCKETT on 2019; All test results are final unless otherwise noted. VITAMIN B12 [facility] Ordered by Berna PUCKETT on 01/08/[address] [place] [address], [address] Collected: 02/06/2020 Reported: 02/06/2020 14:08 tel :[phone] VITAMIN B12 381 PG/ML (211-2000) N (Normal) Note: Responsible Observer: B12 VITAMIN B12 300.5200 (A) Reviewed by Berna PUCKETT on 2019; All test results are final unless otherwise noted. FOLATE [facility] Ordered by Berna PUCKETT on 01/08/[address] [place] [address], [address] Collected: 02/06/2020 Reported: 02/06/2020 14:08 tel :[phone] FOLATE 12.10 NG/ML (3.40-24.00) N (Normal) Note: Responsible Observer: FOLATE FOLAT E 300.5210 (A) Reviewed by Berna PUCKETT on 2019; All test results are final unless otherwise noted. Vitamin D,25-HYDROXY [facility] Ordered by Berna PUCKETT on 01/08/[address] [place] [address], [address] Collected: 02/06/2020 Reported: 02/06/2020 14:08 tel :[phone] Vitamin D,25-HYDROXY 13.7 ng/ml (30-100) L (Low) Note: Vitamin D Status Rang e Deficiency <20 ng/ml Insufficiency 20-29.9 ng/ml Sufficiency 30-100 ng/ml Toxicity >100 ng/ml Patients should not be tested for 72 hours post fluorescein dye angiography. A false elevation of result may occur.Responsible Observer: Vitamin D Vitamin D,25-Hydroxy 300.5230 (A) Reviewed by Berna PUCKETT on 2019; All test results are final unless otherwise noted. FREE T4 AND TOTAL T4 [facility] Ordered by Berna PUCKETT on 01/08/[address] [place] [address], [address] Collected: 02/06/2020 Reported: 02/06/2020 14:08 tel :[phone] T4 (THYROXINE) 5.3 UG/DL (4.5-10.9) N (Normal) Note: Responsible Observer: T4 THYROXINE 300.5350 (A) FREE T4 (FREE THYROXINE) 0.90 NG/DL (0.76-1.78) N (Normal) Note: Responsible Observer: FREE T4 FREE THYROXINE 300.5250 (A) Reviewed by Berna PUCKETT on 2019; All test results are final unless otherwise noted. TSH [facility] Ordered by Berna PUCKETT on 01/08/[address] [place] [address], [address] Collected: 02/06/2020 Reported: 02/06/2020 14:08 tel :[phone] TSH 2.006 uIU/ML (0.470-4.200) N (Normal) Note: Patients should not be tested for 72 hours post fluorescein dye angiography. A false depression of result may occur.Responsible Observer: TSH TSH 300.5500 (A) Reviewed by Berna PUCKETT on 2019; All test results are final unless otherwise noted. Antinuclear Antibodies, IFA [facility] Ordered by Berna PUCKETT on 01/08/[address] [place] [address], [address] Collected: 02/06/2020 Reported: 02/08/2020 17:24 tel :[phone] ALEX,IFA,S Negative (.) None Note: Negative <1:80 Borderline 1:80 Positive >1:80 Performed at: RN - [facility] [address] [id number] [employer] Principal: Mckenzie Rico MD, Phone: [phone] Observer: ALEX,IFA,S ALEX,IFA,S [id number] (A) Reviewed by Berna PUCKETT on 2019; All test results are final unless otherwise noted. EBV (VCA) IgG Ab,S [facility] Ordered by Berna PUCKETT on 01/08/[address] [place] [address], [address] Collected: 02/06/2020 Reported: 02/08/2020 17:24 tel :[phone] EBV (VCA) IgG Ab,S >600.0 U/mL (0.0-17.9) A (Abnormal) Note: Negative <18.0 Equivocal 18.0 - 21.9 Positive >21.9Responsible Observer: EBV(VCA)IgG Ab EBV(VCA)IgG Ab,S [id number] [phone] (A) Reviewed by Berna PUCKETT on 2019; All test results are final unless otherwise noted. EBV(VCA)IgM Ab,S [facility] Ordered by Berna PUCKETT on 01/08/[address] [place] [address], [id number] Collected: 02/06/2020 Reported: 02/08/2020 17:24 tel : EBV(VCA)IgM Ab,S <36.0 U/mL (0.0-35.9) None Note: Negative <36.0 Equivocal 36.0 - 43.9 Positive >43.9 Performed at: RN - [facility] [address] [id number] [employer] Principal: Mckenzie Rico MD, Phone: [phone] Observer: EBV(VCA)IgM Ab EBV(VCA)IgM Ab,S [id number] [phone] (A) Reviewed by Berna PUCKETT on 2019; All test results are final unless otherwise noted. Lyme Line Blot,S [facility] Ordered by Beran PUCKETT on 01/08/[address] [place] [address], [id number] Collected: 02/06/2020 Reported: 02/08/2020 17:24 tel : Lyme Line Blot,S See Notes None Note: Lyme Ab IgG by Line Blot: Ig G P93 Ab. Absent IgG P66 Ab. Absent [...] are those recommended by CDC/ASTPHLD. p23=Osp C, j33=uzyryligx . Note: Sera from individuals with the following may cross react in the Lyme Line Blot assays: other spirochetal diseases (periodontal disease, leptospirosis, relapsing fever, yaws, and pinta);connective autoimmune (Rheumatoid Arthritis and Systemic Lupus Erythematosus and also individuals with Antinuclear Antibody);other infections ([place] Spotted Fever; Rosette- Navas Virus,and Cytomegalovirus). . [facility] Dir: Mckenzie Rico MD [address] [place] [address] Contact by: [phone] CDC Recommendations for Lyme Disease Testing 1.The [...] disease, even if the IgM immunoblot is positive.Responsible Observer: Lyme Line Bl Lyme Line Blot,S [id number] [phone] (A) Reviewed by Berna PUCKETT on 2019; All test results are final unless otherwise noted. Reported Physicians [facility] Ordered by Berna PUCKETT on 01/08/[address], [address] Collected: 02/06/2020 Reported: 02/08/2020 17:24 tel :[phone] Reported Physicians See Note None Note: Reported Physicians:Ordering: Berna RogersAttending: Berna Rajput Reviewed by Berna PUCKETT on 2019; All test results are final unless otherwise noted. Strep Test In-House Labs Ordered by Michelle Mendez NP on 12/12/2019 Collected: 12/12/2019 Reported: 12/12/2019 13:40 Throat Swab negative N (Normal) Reviewed on 12/12/2019; All test result s are final unless otherwise noted. FULL THROAT CULT [facility] Ordered by Michelle Mendez NP on 12/12/[address] [place] [address], [id number] Collected: 12/12/2019 Reported: 12/14/2019 08:34 tel :[phone] See Note Pyle None Note: Run: 12/14/19 0834 INTERFACED REPORT Name: Lisette Soto Age/Sex: 39/F Location: PUL Acct: [id number] Unit: [id number] Status: REG REF Room/Bed: Re12/12/19 Disch: Gordon Dr: Michelle Mendez MANAGER RECRUITING Specimen #: [id number] Ordered : 12/12/19 Collected : 12/12/19 By: OFFICE Received: 12/12/19 By: GMRANULFO Source: THROAT Specimen Description: Procedure Result -- FULL THROAT CULT Final USUAL KALYAN AFTER 18 HOURS USUAL KALYAN AFTER 42 HOURS FULL THROAT CULT Preliminary (Corrected) USUAL KALYAN AFTER 18 HOURS END OF REPORT Reviewed by Michelle Mendez NP on 11/28; All test results are final unless otherwise noted. Reported Physicians [facility] Ordered by Michelle Mendez NP on 12/12/[address] [place] [address], [id number] Collected: 12/12/2019 Reported: 12/14/2019 08:34 tel : Reported Physicians See Note None Note: Reported Physicians:Ordering: Michelle Carlisleding: Michelle Mendez Reviewed by Michelle Mendez NP on 11/28; All test results are final unless otherwise noted. RESPIRATORY PANEL AND COVID [facility] Ordered by Michelle Mendez NP on 12/12/[address] [place] [address], [id number] Collected: 12/12/2019 Reported: 12/12/2019 21:28 tel : ADENOVIRUS Not Detected (NotDetected) None Note: Responsible Observer: ADENOVIRUS A DENOVIRUS [phone] (A) BORDETELLA PARAPERTUS Not Detected (NotDetected) None Note: Responsible Observer: THONG CHRISTENSEN IS1 001 BORDETELLA PARAPERTUS [phone] (A) BORDETELLA PERTUSSIS Not Detected (NotDetected) None Note: Responsible Observer: MERT PERTU SS BORDETELLA PERTUSSIS [phone] (A) CHLAMYDIA [...] VIR [phone] (A) Reviewed by Michelle Mendez MANAGER RECRUITING on 11/28; All test results are final unless otherwise noted. Reported Physicians [facility] Ordered by Michelle Mendez MANAGER RECRUITING on 12/12/[address] [place] [address], [facility] Collected: 12/12/2019 Reported: 12/12/2019 21:28 tel : Reported Physicians See Note None Note: Reported Physicians:Ordering: Michelle Carlisleding: Michelle Mendez Reviewed by Michelle Mendez MANAGER RECRUITING on 11/28; All test results are final unless otherwise noted. 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 Sexually active 12/20/2019 Social history [use for free text] 12/20/2019 Social history unchanged 12/20/2019 The sexual partner had a vasectomy 12/20/2019 Not a current smoker with alcohol 3 CIG/DAY 5 Procedures and Surgical History Includes: Procedures from 04/08/2019 through 04/08/2020 Procedures Code Diagnosis Performing Provider Service Location Service Date Rapid Strep Test 61551 Acute pharyngitis, unspecified Danielle Mendez MANAGER RECRUITING [facility] 12/12/2019 Surgical History Last Updated History of cholecystectomy 199812/20/2019 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 Surgical / procedural history bilateral salpingectomy , right oophorectomy 12/20/2019 Surgical / procedural history Leep 19 y o - normal pa p smears since 12/20/2019 Medical History Includes: Medical History in patient's chart Description Last Updated No fall03/20/2020 Exposure to streptococcus 01/10/2020 History of cervical [...] Mental Status not supported for this document type Description Oriented to time, place, and person No anxiety Moderate recurrent major depression no concerns with citalopram, can continue Functional Status Functional Status not supported for [...] AllergiesNo Known Allergies Encounters Includes: Encounters from 04/08/2019 through 04/08/2020 Encounter Provider Location Date Check-In Time Check-Out Time D iagnosis Acute Telehealth Zoom Berna PUCKETT [facility] 04/08/2020 12/20/2019 9:30AM 03/18/2020 11:59PM Esophageal Reflux, Pancreati tis, Bariatric Surgery Status, Anemia, Major Depression Recurrent Moderate Primary Care Telehealth Zoom Berna PUCKETT [facility] 12/20/2019 1:00PM 12:02PM Bariatric Surgery Status, Es ophageal Reflux, Assessment of Depression, Anemia, Assessment of Joint Pain, Localized in the Shoulder, Assessment of Anxiety, Joint Pain in the Left Hip, Cxr Lungs Multiple Pulmonary Nodules, Ovarian Cyst, Nicotine Dependence in Remission, Abdominal Pain Lab Order Berna PUCKETT 03/12/2020 12/20/2019 6:18PM 11:59PM [Patient Encounter] Berna PUCKETT 02/15/2020 12/20/19 20 7:30AM 02/01/2020 11:59PM Referral Order Berna PUCKETT 02/13/2020 12/20/2019 6: 53PM 02/01/2020 11:59PM Lab Order Berna PUCKETT 02/11/2020 12/20/2019 1:58PM 11:59PM Imaging Order Berna PUCKETT 02/04/2020 12/20/2019 12: 38PM 02/01/2020 11:59PM [Patient Encounter] Berna PUCKETT 02/01/2020 12/20/2019 2:58PM 11:59PM Acute Telehealth Zoom Berna PUCKETT [facility] 02/01/2020 12/20/2019 11:10AM 11:57AM Esophageal Reflux, Assessmen t of Anxiety, Assessment of Joint Pain, Localized in the Shoulder, Joint Pain in the Left Hip, Ovarian Cyst, Cxr Lungs Multiple Pulmonary Nodules, Nicotine Dependence in Remission, Bariatric Surgery Status, Abdominal Pain [Patient Encounter] Berna PUCKETT 01/08/2020 12/20/2019 9:13AM 11:59PM Telephonic Encounter Berna PUCKETT [facility] 01/08/2020 12/20/2019 8:40AM 9:21AM Ovarian Cyst, Abdominal Pain , Bariatric Surgery Status, Cxr Lungs Multiple Pulmonary Nodules, Nicotine Dependence in Remission Acute L1 Sariah Shanell [facility] 12/20/2019 12:44PM 1:22PM Sinusitis Acute, Bronchitis Acute Follow-up Telehealth Michelle Mendez [facility] 12/12/2019 8:40AM 9:38AM Acute Bronchitis, Viral Synd christopher Acute Follow-up Telephonic Qing De Jesus [facility] 020 12/12/2019 1:30PM 11:47AM Acute Bronchitis, Viral Synd christopher Telephonic Encounter Michelle Mendez [facility] 0 12/12/2019 9:40AM 9:57AM Acute Bronchitis, Viral Synd christopher Acute L1 Michelle Mendez [facility] 12/12/2019 12:44PM 1: 45PM Assessment of Cough, Assessment of Difficulty Breathing (Dyspnea), Pharyngitis Acute Primary Care Telehealth Zoom Berna PUCKETT [facility] 01/19/2019 1:00PM 1:00PM Assessment of Anxiety, Persi stent Insomnia, Nicotine Dependence, Hypertension (Systemic), Restless Legs Syndrome, Esophageal Reflux, Parathyroid Gland Disorders, Overweight, Assessment of Depression, Anemia Standing Order Berna PUCKETT 04/24/2019 01/19/2019 7: 52AM 01/19/2019 11:59PM Insurance Includes: Active Insurance Policies Plan Name Member ID Group # Subscriber Relationship Effective Da abdi 1 - Mvp [id number] Lisette Kendall [id number] - Unknown 2 - D [employer] [id number] Lisette Kendall Advance Directives Includes: Current Advance Directives Directive Pat Aware Third Republican Effective Date Reviewed Status RHIO Yes 09/07/2012 [...]
--- OUTSIDE RECORDS SUMMARY | 2020-04-21 11:54 | CCD | Continuity of Care Document ---
Author Author Lisette THOMAS M.D Organization Unknown Address [address] [place] [address] Phone [phone] Care Team Providers Care Beta Tester Name Role Phone Berna Rajput AUTM [phone] Problems Active Problems Provider Date Hemorrhage of rectum and anus Ricardo Thomas M.D. Onset : 04/10/2020 Social History Type Date Description Comments Sex Unknown ETOH Use Denies alcohol use Tobacco Use Start: Unknown End: Unknown Patient is a former smoker QUIT 12/17 Allergies, Adverse Reactions, Alerts Description No Known Drug Allergies Medications Active Medications SIG Qnty Indications Ordering Provide r Date Suprep Bowel Prep Kit 17.5-3.13-1.6GM/177ML Solution use as directed 354ml Ricardo Thomas M.D. 04/14/2020 Sutab 3550-190-376xq Tablets as directed 1box Ricardo Thomas M.D. [...] Medical Devices Description No Information Available Encounters Type Date Location Provider Dx Diagnosis Office Visit 04/10/2020 1:30p Main Office Ricardo Thomas M.D. D 64.9 Anemia, unspecified Assessments Date Code Description Provider 04/10/2020 D64.9 Anemia Ricardo craig M.D. Plan of Treatment Future Appointment(s):* 04/15/2020 6:45 am - [facility] at Main Office * 04/21/2020 12:15 pm - Ricardo Thomas M.D. [...]
--- OUTSIDE RECORDS SUMMARY | 2020-04-21 11:56 | CCD ---
Author Author [facility] Organization [facility] Address Unknown Phone Unavailable Care Team Providers Care [employer] Executive Name Role Phone Kyra Thomas MD Unavailable Unavailable Kyra Thomas MD Unavailable Unavailable Kyra Thomas MD Unavailable Unavailable Kyra Thomas MD Unavailable Unavailable Kyra Thomas MD Unavailable Unavailable Kyra Thomas MD Unavailable Unavailable Kyra Thomas MD Unavailable Unavailable Kyra Thomas MD Unavailable Unavailable Kyra Thomas MD Unavailable Unavailable Kyra Thomas MD Unavailable Unavailable Kyra Thomas MD Unavailable Unavailable Kyra Thomas MD Unavailable Unavailable Kyra Thomas MD Unavailable Unavailable Kyra Thomas MD Unavailable Unavailable Martha S Ricardo BEVERLY Unavailable Unavailable Martha S Ricardo BEVERLY Unavailable Unavailable Martha S Ricardo BEVERLY Unavailable Unavailable Martha S Ricardo BEVERLY Unavailable Unavailable Martha S Ricardo BEVERLY Unavailable Unavailable Martha S Ricardo BEVERLY Unavailable Unavailable Martha S Ricardo BEVERLY Unavailable Unavailable Martha S Ricardo MD Unavailable Unavailable Martha S Ricardo MD Unavailable Unavailable Martha, S Ricardo MD Unavailable Unavailable Martha, S Ricardo MD Unavailable Unavailable Martha, S Ricardo BEVERLY Unavailable Unavailable Martha S Ricardo MD Unavailable Unavailable Martha S Ricardo BEVERLY Unavailable Unavailable Martha, S Ricardo BEVERLY Unavailable Unavailable Martha S Ricardo BEVERLY Unavailable Unavailable Martha, S Ricardo BEVERLY Unavailable Unavailable Martha S Ricardo BEVERLY Unavailable Unavailable Martha S Ricardo BEVERLY Unavailable Unavailable Martha S Ricardo BEVERLY Unavailable Unavailable Martha S Ricardo BEVERLY Unavailable Unavailable Martha S Ricardo BEVERLY Unavailable Unavailable Martha S Ricardo BEVERLY Unavailable Unavailable Martha S Ricardo BEVERLY Unavailable Unavailable Martha, S Ricardo BEVERLY Unavailable Unavailable Martha S Ricardo BEVERLY Unavailable Unavailable Martha S Ricardo BEVERLY Unavailable Unavailable Martha S Ricardo BEVERLY Unavailable Unavailable Martha S Ricardo BEVERLY Unavailable Unavailable Martha S Ricardo BEVERLY Unavailable Unavailable Martha S Ricardo BEVERLY Unavailable Unavailable Kyra Thomas MD Unavailable Unavailable Kyra Thomas MD Unavailable Unavailable Kyra Thomas MD Unavailable Unavailable Kyra Thomas MD Unavailable Unavailable Martha, S Ricardo BEVERLY Unavailable Unavailable Shaben, E Berna SCIENTIFIC DATABASE CURATOR Unavailable Unavailable Shaben, E Berna SCIENTIFIC DATABASE CURATOR Unavailable Unavailable Shaben, E Berna SCIENTIFIC DATABASE CURATOR Unavailable Unavailable Shaben, E Berna SCIENTIFIC DATABASE CURATOR Unavailable Unavailable Shaben, E Berna SCIENTIFIC DATABASE CURATOR Unavailable Unavailable Shaben, E Berna SCIENTIFIC DATABASE CURATOR Unavailable Unavailable Shaben, E Berna SCIENTIFIC DATABASE CURATOR Unavailable Unavailable Shaben, E Berna SCIENTIFIC DATABASE CURATOR Unavailable Unavailable Shaben, E Berna SCIENTIFIC DATABASE CURATOR Unavailable Unavailable Shaben, E Berna SCIENTIFIC DATABASE CURATOR Unavailable Unavailable Shaben, E Berna SCIENTIFIC DATABASE CURATOR Unavailable Unavailable Shaben, E Berna SCIENTIFIC DATABASE CURATOR Unavailable Unavailable Shaben, E Berna SCIENTIFIC DATABASE CURATOR Unavailable Unavailable Shaben, E Berna SCIENTIFIC DATABASE CURATOR Unavailable Unavailable Shaben, E Berna SCIENTIFIC DATABASE CURATOR Unavailable Unavailable Shaben, E Berna SCIENTIFIC DATABASE CURATOR Unavailable Unavailable Shaben, E Berna SCIENTIFIC DATABASE CURATOR Unavailable Unavailable Shaben, E Berna SCIENTIFIC DATABASE CURATOR Unavailable Unavailable Shaben, E Berna SCIENTIFIC DATABASE CURATOR Unavailable Unavailable Shaben, E Berna SCIENTIFIC DATABASE CURATOR Unavailable Unavailable Shaben, E Berna SCIENTIFIC DATABASE CURATOR Unavailable Unavailable Shaben, E Berna SCIENTIFIC DATABASE CURATOR Unavailable Unavailable Shaben, E Berna SCIENTIFIC DATABASE CURATOR Unavailable Unavailable Shaben, E Berna SCIENTIFIC DATABASE CURATOR Unavailable Unavailable [place], A Qing CHIEF HUMAN RESOURCES OFFICER Unavailable Unavailable [place], A Qing CHIEF HUMAN RESOURCES OFFICER Unavailable Unavailable [place], A Qing CHIEF HUMAN RESOURCES OFFICER Unavailable Unavailable [place], A Qing CHIEF HUMAN RESOURCES OFFICER Unavailable Unavailable Neal, A Qing CHIEF HUMAN RESOURCES OFFICER Unavailable Unavailable Neal, A Qing CHIEF HUMAN RESOURCES OFFICER Unavailable Unavailable Neal, A Qing CHIEF HUMAN RESOURCES OFFICER Unavailable Unavailable [place], A Qing CHIEF HUMAN RESOURCES OFFICER Unavailable Unavailable [place], A Qing CHIEF HUMAN RESOURCES OFFICER Unavailable Unavailable Neal, A Qing CHIEF HUMAN RESOURCES OFFICER Unavailable Unavailable [place], A Qing CHIEF HUMAN RESOURCES OFFICER Unavailable Unavailable [place], A Qing CHIEF HUMAN RESOURCES OFFICER Unavailable Unavailable [place], A Qing CHIEF HUMAN RESOURCES OFFICER Unavailable Unavailable Neal, A Qing CHIEF HUMAN RESOURCES OFFICER Unavailable Unavailable [place], A Qing CHIEF HUMAN RESOURCES OFFICER Unavailable Unavailable [place], A Qing CHIEF HUMAN RESOURCES OFFICER Unavailable Unavailable Neal, A Qing CHIEF HUMAN RESOURCES OFFICER Unavailable Unavailable [place], A Qing CHIEF HUMAN RESOURCES OFFICER Unavailable Unavailable [place], A Qing CHIEF HUMAN RESOURCES OFFICER Unavailable Unavailable [place], A Qing CHIEF HUMAN RESOURCES OFFICER Unavailable Unavailable [place], A Qing CHIEF HUMAN RESOURCES OFFICER Unavailable Unavailable CAROL, L INGRID CHIEF HUMAN RESOURCES OFFICER Unavailable Unavailable CAROL, L INGRID CHIEF HUMAN RESOURCES OFFICER Unavailable Unavailable CAROL, L INGRID CHIEF HUMAN RESOURCES OFFICER Unavailable Unavailable CAROL, L INGRID CHIEF HUMAN RESOURCES OFFICER Unavailable Unavailable CAROL, L INGRID CHIEF HUMAN RESOURCES OFFICER Unavailable Unavailable CAROL, L INGRID CHIEF HUMAN RESOURCES OFFICER Unavailable Unavailable CAROL, L INGRID CHIEF HUMAN RESOURCES OFFICER Unavailable Unavailable CAROL, L INGRID CHIEF HUMAN RESOURCES OFFICER Unavailable Unavailable CAROL, L INGRID CHIEF HUMAN RESOURCES OFFICER Unavailable Unavailable CAROL, L INGRID CHIEF HUMAN RESOURCES OFFICER Unavailable Unavailable CAROL, L INGRID CHIEF HUMAN RESOURCES OFFICER Unavailable Unavailable CAROL, L INGRID CHIEF HUMAN RESOURCES OFFICER Unavailable Unavailable CAROL, L INGRID CHIEF HUMAN RESOURCES OFFICER Unavailable Unavailable CAROL, L INGRID CHIEF HUMAN RESOURCES OFFICER Unavailable Unavailable CAROL, L INGRID CHIEF HUMAN RESOURCES OFFICER Unavailable Unavailable CAROL, L INGRID CHIEF HUMAN RESOURCES OFFICER Unavailable Unavailable CAROL, L INGRID CHIEF HUMAN RESOURCES OFFICER Unavailable Unavailable CAROL, L INGRID CHIEF HUMAN RESOURCES OFFICER Unavailable Unavailable CAROL, L INGRID CHIEF HUMAN RESOURCES OFFICER Unavailable Unavailable CAROL, L INGRID CHIEF HUMAN RESOURCES OFFICER Unavailable Unavailable CAROL, L INGRID CHIEF HUMAN RESOURCES OFFICER Unavailable Unavailable CAROL, L INGRID CHIEF HUMAN RESOURCES OFFICER Unavailable Unavailable CAROL, L INGRID CHIEF HUMAN RESOURCES OFFICER Unavailable Unavailable CAROL, L INGRID CHIEF HUMAN RESOURCES OFFICER Unavailable Unavailable CAROL, L INGRID CHIEF HUMAN RESOURCES OFFICER Unavailable Unavailable CAROL, L INGRID CHIEF HUMAN RESOURCES OFFICER Unavailable Unavailable CAROL, L INGRID CHIEF HUMAN RESOURCES OFFICER Unavailable Unavailable CAROL, L INGRID CHIEF HUMAN RESOURCES OFFICER Unavailable Unavailable CAROL, L INGRID CHIEF HUMAN RESOURCES OFFICER Unavailable Unavailable CAROL, L INGRID CHIEF HUMAN RESOURCES OFFICER Unavailable Unavailable CAROL, L INGRID CHIEF HUMAN RESOURCES OFFICER Unavailable Unavailable CAROL, L INGRID CHIEF HUMAN RESOURCES OFFICER Unavailable Unavailable CAROL, L INGRID CHIEF HUMAN RESOURCES OFFICER Unavailable Unavailable CAROL, L INGRID CHIEF HUMAN RESOURCES OFFICER Unavailable Unavailable CAROL, L INGRID CHIEF HUMAN RESOURCES OFFICER Unavailable Unavailable LD, M BERNA PA Unavailable [...] is protected by Article 27-F of the [facility] Public Health law. If you continue you may have access to information: Regarding HIV / AIDS; Provided by facilities licensed or operated by the [facility] Office of Mental Health; or Provided by the [facility] Office for People With Developmental Disabilities. If such information is present, then the following [facility] mandated warning applies: This information has [...] law may result in a fine or skilled nursing sentence or both. A general authorization for [...] [facility]) Unknown Unknown Problem [facility] Unknown Unknown Problem [facility] ([facility], ) Unknown Unknown Problem [facility] Unknown [facility] Problem [facility] Unknown Unknown Problem [facility] Unknown Unknown Problem [facility] Unknown Unknown Problem [facility] ([facility], ) Unknown Unknown Problem [facility] ([facility], ) Unknown Unknown Problem [facility] ([facility], ) Encounters Encounter Providers Location Date Indications Data Source(s ) Outpatient Attender: Ricardo Thomas MD Main Office 04/10/2020 12:30:00 PM EST [facility] ([facility]) Outpatient Attender: BERNA PUCKETT 03/12/2020 08:4 7:00 AM EST lab 1 of 1 computer [facility] lab 1 of 1 computer Outpatient Attender: BERNA PUCKETT 02/13/2020 12:00:00 A M EST Bridge [facility] Bridge Engineer Outpatient Attender: BERNA PUCKETT 02/06/2020 08:34:00 A M EST lab [facility] lab Unknown<td ID="encounterTypeDescriptionI D7">[Patient Encounter]</td><td>Berna PUCKETT</td><td></td><td>02/01/2020</td><td>12/20/2019 2:58PM</td><td>11:59PM</td><td></td> Attender: BERNA PUCKETT 02/01/2020 02:58:00 PM EST - 02/01/2020 11:59:00 PM EST [facility] ([facility]) Outpatient<td ID="encounterTypeDescripti onID8">Acute Telehealth [facility]</td><td>Berna PUCKETT</td><td>[facility]</td><td>02/01/2020</td><td>12/20/2019 11:10AM</td><td>11:57AM</td><td> <content ID="encounterDiagnosisID8-0">Esophageal Reflux</content>, <content ID="encounterDiagnosisID8-1">Assessment of Anxiety</content>, <content ID="encounterDiagnosisID8-2">Assessment of Joint Pain, Localized in the Shoulder</content>, <content ID="encounterDiagnosisID8-3">Joint Pain in the Left Hip</content>, <content ID="encounterDiagnosisID8-4">Ovarian Cyst</content>, <content ID="encounterDiagnosisID8-5">Cxr Lungs Multiple Pulmonary Nodules</content>, <content ID="encounterDiagnosisID8-6">Nicotine Dependence in Remission</content>, <content ID="encounterDiagnosisID8-7">Bariatric Surgery Status</content>, <content ID="encounterDiagnosisID8-8">Abdominal Pain</content></td> Attender: BERNA PUCKETT [facility] 02/01/2020 11:10:00 AM EST - 02/01/2020 11:57:15 AM EST Bariatric Surgery StatusAbdominal PainNicotine Dependence in RemissionCxr Lungs Multiple Pulmonary NodulesOvarian CystJoint Pain in the Left HipAbdominal PainBariatric Surgery StatusNicotine Dependence in RemissionCxr Lungs Multiple Pulmonary NodulesOvarian CystJoint Pain in the Left HipEsophageal RefluxEsophageal RefluxAssessment of Joint Pain, Localized in the ShoulderAssessment of Joint Pain, Localized in the ShoulderAssessment of AnxietyAssessment of Anxiety [facility] ([facility]) Bariatric Surgery Status Abdominal Pain Nicotine Dependence in Remission Cxr Lungs Multiple Pulmonary Nodules Ovarian Cyst Joint Pain in the Left Hip Abdominal Pain Bariatric Surgery Status Nicotine Dependence in Remission Cxr Lungs Multiple Pulmonary Nodules Ovarian Cyst Joint Pain in the Left Hip Esophageal Reflux Esophageal Reflux Assessment of Joint Pain, Localized in t he Shoulder Assessment of Joint Pain, Localized in t he Shoulder Assessment of Anxiety Assessment of Anxiety Unknown<td ID="encounterTypeDescriptionI D9">[Patient Encounter]</td><td>Berna PUCKETT</td><td></td><td>01/08/2020</td><td>12/20/2019 9:13AM</td><td>11:59PM</td><td></td> Attender: BERNA PUCKETT 01/08/2020 09:13:00 AM EST - 01/08/2020 11:59:00 PM EST [facility] ([facility]) Outpatient<td ID="encounterTypeDescripti onID10">Telephonic Encounter</td><td>Berna PUCKETT</td><td>[facility]</td><td>01/08/2020</td><td>12/20/2019 8:40AM</td><td>9:21AM</td><td> <content ID="pllpapchjJjrhmwpanWX90-8">Ovarian Cyst</content>, <content ID="jpswvtdyaQloqbnijhYU07-0">Abdominal Pain</content>, <content ID="uavbjtsuoXoqfjsjigVK97-4">Bariatric Surgery Status</content>, <content ID="sovzbyeczPjzhtqqrmRG86-9">Cxr Lungs Multiple Pulmonary Nodules</content>, <content ID="xtgyapafeJsurpfniuJY06-1">Nicotine Dependence in Remission</cont ent></td> Attender: BERNA PUCKETT [facility] 01/08/2020 08: 40:00 AM EST - 01/08/2020 09:21:34 AM EST Bariatric Surgery StatusNicotine Depende nce in RemissionCxr Lungs Multiple Pulmonary NodulesAbdominal PainOvarian CystNicotine Dependence in RemissionCxr Lungs Multiple Pulmonary NodulesBariatric Surgery StatusAbdominal PainOvarian CystNicotine Dependence in RemissionCxr Lungs Multiple Pulmonary NodulesBariatric Surgery StatusAbdominal PainOvarian Cyst [facility] ([facility]) Bariatric Surgery Status Nicotine Dependence in Remission Cxr Lungs Multiple Pulmonary Nodules Abdominal Pain Ovarian Cyst Nicotine Dependence in Remission Cxr Lungs Multiple Pulmonary Nodules Bariatric Surgery Status Abdominal Pain Ovarian Cyst Nicotine Dependence in Remission Cxr Lungs Multiple Pulmonary Nodules Bariatric Surgery Status Abdominal Pain Ovarian Cyst Unknown<td ID="encounterTypeDescriptionI D4">Referral Order</td><td>Berna PUCKETT</td><td></td><td>02/13/2020</td><td>12/20/2019 6:53PM</td><td>02/01/2020 11:59PM</td><td></td> Attender: BERNA PUCKETT 12/20/2019 06:53:00 PM EDT - 02/01/2020 11:59:00 PM EST [facility] ([facility]) Obstetrics<td ID="encounterTypeDescripti onID2">Lab Order</td><td>Berna PUCKETT</td><td></td><td>03/12/2020</td><td>12/20/2019 6:18PM</td><td>02/01/2020 11:59PM</td><td></td> Attender: BERNA PUCKETT 12/20/2019 0 6:18:00 PM EDT - 02/01/2020 11:59:00 PM EST [facility] ([facility]) Obstetrics<td ID="encounterTypeDescripti onID5">Lab Order</td><td>Berna PUCKETT</td><td></td><td>02/11/2020</td><td>12/20/2019 1:58PM</td><td>02/01/2020 11:59PM</td><td></td> Attender: BERNA PUCKETT 12/20/2019 0 1:58:00 PM EDT - 02/01/2020 11:59:00 PM [facility] ([facility]) Outpatient<td ID="encounterTypeDescripti onID1">Primary Care Telehealth [facility]oom</td><td>Berna PUCKETT</td><td>[facility]</td><td>03/18/2020</td><td>12/20/2019 1:00PM</td><td>12:02PM</td><td> <content ID="encounterDiagnosisID1-0">Bariatric Surgery Status</content>, <content ID="encounterDiagnosisID1-1">Esophageal Reflux</content>, <content ID="encounterDiagnosisID1-2">Assessment of Depression</content>, <content ID="encounterDiagnosisID1-3">Anemia</content>, <content ID="encounterDiagnosisID1-4">Assessment of Joint Pain, Localized in the Shoulder</content>, <content ID="encounterDiagnosisID1-5">Assessment of Anxiety</content>, <content ID="encounterDiagnosisID1-6">Joint Pain in the Left Hip</content>, <content ID="encounterDiagnosisID1-7">Cxr Lungs Multiple Pulmonary Nodules</content>, <content ID="encounterDiagnosisID1-8">Ovarian Cyst</content>, <content ID="encounterDiagnosisID1-9">Nicotine Dependence in Remission</content>, <content ID="encounterDiagnosisID1-10">Abdominal Pain</content></td> Attender: BERNA PUCKETT [facility] 12/20/2019 01:00:00 PM EDT - 03/18/2020 12:02:13 PM EST Bariatric Surgery StatusAbdominal PainNicotine Dependence in RemissionOvarian CystCxr Lungs Multiple Pulmonary NodulesJoint Pain in the Left HipEsophageal RefluxAnemiaAssessment of DepressionAssessment of Joint Pain, Localized in the ShoulderAssessment of Anxiety [facility] ([facility]) Bariatric Surgery Status Abdominal Pain Nicotine Dependence in Remission Ovarian Cyst Cxr Lungs Multiple Pulmonary Nodules Joint Pain in the Left Hip Esophageal Reflux Anemia Assessment of Depression Assessment of Joint Pain, Localized in t he Shoulder Assessment of Anxiety Outpatient<td ID="encounterTypeDescripti onID11">Acute L1</td><td>Berna Reece NP</td><td>[facility]</td><td>12/20/2019</td><td>12:44PM</td><td>1:22PM</td><td><content ID="qdmwkhmkyNovvdqyfpEW26-7">Sinusitis Acute</content>, <content ID="pxrqujugmYthmjjevxEH53-7">Bronchitis</content></td> Attender: Berna MITCHELL [facility] 12/20/2019 12:44:00 PM EDT - 12/20/2019 01:22:01 PM EDT BronchitisSinusitis AcuteBronchitisSinusitis AcuteBronchitisSinusitis AcuteBronchitisSinusitis Acute [facility] ([facility]) Bronchitis Sinusitis Acute Bronchitis Sinusitis Acute Bronchitis Sinusitis Acute Bronchitis Sinusitis Acute Unknown<td ID="encounterTypeDescriptionI D6">Imaging Order</td><td>Berna PUCKETT</td><td></td><td>02/04/2020</td><td>12/20/2019 12:38PM</td><td>02/01/2020 11:59PM</td><td></td> Attender: BERNA PUCKETT 12/20/2019 12:38:00 PM EDT - 02/01/2020 11:59:00 PM EST [facility] Outpatient<td ID="encounterTypeDescripti onID0">Acute Telehealth [facility]oom</td><td>Berna PUCKETT</td><td>[facility]</td><td>04/08/2020</td><td>12/20/2019 9:30AM</td><td>03/18/2020 11:59PM</td><td><content ID="encounterDiagnosisID0-0">Esophageal Reflux</content>, <content ID="encounterDiagnosisID0-1">Pancreatitis</content>, <content ID="encounterDiagnosisID0-2">Bariatric Surgery Status</content>, <content ID="encounterDiagnosisID0-3">Anemia</content>, <content ID="encounterDiagnosisID0-4">Major Depression Recurrent Moderate</content></td> Attender: BERNA PUCKETT [facility] 12/20/2019 09:30:00 AM EDT - 03/18/2020 11:59:00 PM EST Bariatric Surgery StatusPancreatitisEsop hageal RefluxAnemiaMajor Depression Recurrent Moderate [facility] ([facility]) Bariatric Surgery Status Pancreatitis Esophageal Reflux Anemia Major Depression Recurrent Moderate Unknown<td ID="encounterTypeDescriptionI D3">[Patient Encounter]</td><td>Berna PUCKETT</td><td></td><td>02/15/2020</td><td>12/20/2019 7:30AM</td><td>02/01/2020 11:59PM</td><td></td> Attender: BERNA PUCKETT 12/20/2019 07:30:00 AM EDT - 02/01/2020 11:59:00 PM EST [facility] ([facility]) Outpatient<td ID="encounterTypeDescripti onID12">Acute Follow-up Telehealth</td><td>Ingrid Medina NP</td><td>[facility]</td><td>12/17/2019</td><td>12/12/2019 8:40AM</td><td>9:38AM</td><td> <content ID="yqzjsmgjtRdggcbmmfXI15-5">Acute Bronchitis</content>, <content ID="tayshtjlzBetovwxlgWC72-9">Viral Syndrome</content></td> Attender: INGRID MEDINA NP [facility] 12/17/2019 08:40:00 AM EDT - 12/17/2019 09:38:17 AM EDT Viral SyndromeAcute BronchitisViral Synd romeAcute BronchitisViral SyndromeAcute BronchitisViral SyndromeAcute BronchitisViral SyndromeAcute Bronchitis [facility] ([facility]) Viral Syndrome Acute Bronchitis Viral Syndrome Acute Bronchitis Viral Syndrome Acute Bronchitis Viral Syndrome Acute Bronchitis Viral Syndrome Acute Bronchitis Outpatient<td ID="encounterTypeDescripti onID13">Acute Follow-up Telephonic</td><td>Qing De Jesus NP</td><td>[facility]</td><td>12/14/2019</td><td>12/12/2019 1:30PM</td><td>11:47AM</td><td> <content ID="vyhsxqbqnFyfhyexnnQK08-0">Acute Bronchitis</content>, <content ID="iqcednheeWyjjnuujqZH76-9">Viral Syndrome</content></td> Attender: Qing De Jesus NP [facility] 12/14/2019 01:30:00 PM EDT - 12/14/2019 11:47:25 AM EDT Viral SyndromeAcute BronchitisViral Synd romeAcute BronchitisViral SyndromeAcute BronchitisViral SyndromeAcute BronchitisViral SyndromeAcute BronchitisViral SyndromeAcute Bronchitis [facility] ([facility]) Viral Syndrome Acute Bronchitis Viral Syndrome Acute Bronchitis Viral Syndrome Acute Bronchitis Viral Syndrome Acute Bronchitis Viral Syndrome Acute Bronchitis Viral Syndrome Acute Bronchitis Outpatient<td ID="encounterTypeDescripti onID14">Telephonic Encounter</td><td>Ingrid Medina NP</td><td>[facility]</td><td>12/13/2019</td><td>12/12/2019 9:40AM</td><td>9:57AM</td><td> <content ID="tmqihptqvThtjpmfdcUG49-8">Acute Bronchitis</content>, <content ID="ekdmdmthvSagxwnmriDW72-2">Viral Syndrome</content></td> Attender: INGRID MEDINA NP [facility] 12/13/2019 09:40:00 AM EDT - 12/13/2019 09:57:31 AM EDT Viral SyndromeAcute BronchitisViral Synd romeAcute BronchitisViral SyndromeAcute BronchitisViral SyndromeAcute BronchitisViral SyndromeAcute BronchitisViral SyndromeAcute BronchitisViral SyndromeAcute BronchitisAcute BronchitisPharyngitis Acute [facility] ([facility]) Viral Syndrome Acute Bronchitis Viral Syndrome Acute Bronchitis Viral Syndrome Acute Bronchitis Viral Syndrome Acute Bronchitis Viral Syndrome Acute Bronchitis Viral Syndrome Acute Bronchitis Viral Syndrome Acute Bronchitis Acute Bronchitis Pharyngitis Acute Outpatient Attender: INGRID MEDINA NP 12/12/2019 01:51:0 0 PM EDT Xray [facility] Xray Outpatient<td ID="encounterTypeDescripti onID15">Acute L1</td><td>Ingrid Medina NP</td><td>[facility]</td><td>12/12/2019</td><td>12:44PM</td><td>1:45PM</td><td><content ID="wdmfojfdtFqhzotqpnZE24-3">Assessment of Cough</content>, <content ID="ciuhogsivPvslpxytgCL89-4">Assessment of Difficulty Breathing (Dyspnea)</content>, <content ID="sbopdghodJqtfknzohZG84-2">Pharyngitis Acute</content></td> Attender: INGRID MEDINA NP [facility] 12/12/2019 12:44:00 PM EDT - 12/12/2019 01:45:44 PM EDT Pharyngitis AcuteAssessment of Difficulty Breathing (Dyspnea)Assessment of CoughPharyngitis AcuteAssessment of Difficulty Breathing (dyspnea)Assessment of CoughPharyngitis AcuteAssessment of Difficulty Breathing (dyspnea)Assessment of CoughPharyngitis AcuteAssessment of Difficulty Breathing (dyspnea)Assessment of CoughPharyngitis AcuteAssessment of Difficulty Breathing (dyspnea)Assessment of CoughPharyngitis AcuteAssessment of Difficulty Breathing (dyspnea)Assessment of CoughPharyngitis AcuteAssessment of Difficulty Breathing (dyspnea)Assessment of CoughPharyngitis AcuteAssessment of Difficulty Breathing (dyspnea)Assessment of Cough [facility] ([facility]) Pharyngitis Acute Assessment of Difficulty Breathing (Dysp wei) Assessment of Cough Pharyngitis Acute Assessment [...] (dysp wei) Assessment of Cough Outpatient<td ID="encounterTypeDescripti onID16">Primary Care Telehealth [facility]</td><td>Berna PUCKETT</td><td>[facility]</td><td>06/13/2019</td><td>01/19/2019 1:00PM</td><td>1:00PM</td><td> <content ID="fcmzqczyaVrphmesvdVB64-1">Assessment of Anxiety</content>, <content ID="loeqgwszfVyfqkfpwyZT19-2">Persistent Insomnia</content>, <content ID="snuajxlsnRmtdibnftRT26-5">Nicotine Dependence</content>, <content ID="tplsqreiuCszqskxaoOS96-0">Hypertension (Systemic)</content>, <content ID="yruxoyhteAuntalosjFT33-4">Restless Legs Syndrome</content>, <content ID="doezmsazhGzrwcnyzxVF67-6">Esophageal Reflux</content>, <content ID="ufuhucsgbMuryvkhwqGY89-4">Parathyroid Gland Disorders</content>, <content ID="giqrdocfqDzlslyztvVA67-7">Overweight</content>, <content ID="suogyyyuiHgerprgyuCW36-9">Assessment of Depression</content>, <content ID="vihedzjcvLdctxopyrSL44-5">Anemia</content></td> Attender: BERNA PUCKETT [facility] 06/13/2019 01:00:00 PM EDT - 06/13/2019 01:00:16 PM ED T Nicotine DependencePersistent InsomniaNicotine DependencePersistent InsomniaNicotine DependencePersistent InsomniaNicotine DependencePersistent InsomniaNicotine DependencePersistent InsomniaNicotine DependencePersistent InsomniaNicotine DependencePersistent InsomniaNicotine DependencePersistent InsomniaNicotine DependencePersistent InsomniaParathyroid Gland DisordersEsophageal RefluxRestless Legs SyndromeParathyroid Gland DisordersEsophageal RefluxRestless Legs SyndromeParathyroid Gland DisordersEsophageal RefluxRestless Legs SyndromeParathyroid Gland DisordersEsophageal RefluxRestless Legs SyndromeParathyroid Gland DisordersEsophageal RefluxRestless Legs Syndrome Parathyroid Gland DisordersEsophageal RefluxRestless Legs SyndromeParathyroid Gland DisordersEsophageal RefluxRestless Legs SyndromeParathyroid Gland DisordersEsophageal RefluxRestless Legs SyndromeParathyroid Gland DisordersEsophageal RefluxRestless Legs SyndromeAnemiaAnemiaAnemiaAnemiaAnemiaAnemiaAnemiaAnemiaAnemiaHypertension (Systemic)Hypertension (systemic)Hypertension (systemic)Hypertension (systemic)Hypertension (systemic)Hypertension (systemic)Hypertension (systemic) Hypertension (systemic)Hypertension (systemic)OverweightOverweightOverweightOverweightOverweightOverweightOverweight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 Document(s) VITAMIN B12 580 PG/ML 211-2000 [facility] ID Date Data Source [id number] 03/12/2020 11:07:00 PM EST [email or web address] Name Value Range Interpretation Code Description Data Maria T rce(s) Supporting Document(s) FOLATE > 24.00 NG/ML 3.40-24.00 [facility] ID Date Data Source [id number] 03/12/2020 01:42:00 PM EST [email or web address] Name Value Range Interpretation Code Description Data Maria T rce(s) Supporting Document(s) WHITE BLOOD COUNT 5.35 10^3/uL 4.00-10.50 [facility] RED BLOOD COUNT 5.28 10^6/uL 3.90-5.20 [facility] HEMOGLOBIN 13.1 G/DL 11.5-15.6 [facility]EM[facility]IT 41.2 % 35.0-46.0 [facility] MCV 78.0 FL 80.0-100.0 L [facility] MCH 24.8 PG 27.0-34.0 L [facility] MCHC 31.8 G/DL 32-36 [facility] RDW 21.2 % 11.5-14.5 [facility] PLATELET COUNT 289 10^3/uL 130-400 [facility] MPV 10.8 FL 8.7-13.2 [facility] GRAN % (AUTO) 69.4 % 42.0-75.0 N [facility] LYMPH % (AUTO) 21.1 % 20.0-51.0 N [facility] [employer] MONO % (AUTO) 6.7 % 2.0-15.0 [facility] EOS % (AUTO) 1.9 % 0.0-11.0 N [facility] BASO % (AUTO) 0.7 % 0.0-2.0 [facility] IG % (AUTO) 0.2 % 1.00-5.00 [facility] IG # (AUTO) 0.0 10^3/uL <0.5 [facility] GRAN # (AUTO) 3.71 10^3/uL 1.50-6.50 N [facility] LYMPH # (AUTO) 1.1 k/uL 1.0-5.0 N [facility] MONO # (AUTO) 0.36 k/uL 0.20-1.50 [facility] EOS # (AUTO) 0.10 10^3/uL 0.00-1.10 N [facility] BASO # (AUTO) 0.04 10^3/uL 0.00-0.20 [facility] ID Date Data Source [id number] 03/12/2020 11:07:00 PM EST [facility] Name Value Range Interpretation Code Description Data Maria T rce(s) Supporting Document(s) SODIUM 139 MEQ/L 135-145 [facility] POTASSIUM 4.0 MEQ/L 3.5-5.3 [facility] CHLORIDE 107 MEQ/L 94-110 [facility] CARBON DIOXIDE 26 MEQ/L 22-33 N [facility] ANION GAP 10 5-16 N [facility] BLOOD UREA NITRO 14 MG/DL 7-25 N [facility] CREATININE 0.7 MG/DL 0.6-1.4 [facility] GFR > 90.0 ML/MIN [facility] Stage G1 - Normal or high kidney functi on The GFR is an estimate of the Glomerular Filtration Rate. It is an aid to assess a patient's renal function. It is not a conclusive diagnosis of kidney disease. GFR normal is >=90 The MDRD GFR calculation is considered valid between the ages of 18 and 75 years only. BUN/CREAT RATIO 20 8-36 [facility] GLUCOSE 74 MG/DL 70-100 [facility] CA 8.7 MG/DL 8.7-10.5 [facility] BILIRUBIN,TOTAL 0.5 MG/DL 0.1-1.3 [facility] AST 24 U/L 5-40 N [facility] ALT 23 U/L 5-48 [facility] ALKALINE PHOSPHATASE 74 U/L 40-140 [facility] TOTAL PROTEIN 6.7 G/DL 5.9-8.3 N [facility] ALBUMIN 4.5 G/DL 3.0-5.1 [facility] GLOBULIN 2.2 G/DL 1.5-3.5 [facility] ALB/GLOB RATIO 2.0 G/DL 1.0-3.0 N [facility] ID Date Data Source [id number] 03/12/2020 11:07:00 PM [facility] Name Value Range Interpretation Code Description Data Maria T rce(s) Supporting Document(s) IRON 65 UG/DL 35-150 N [facility] ID Date Data Source [id number] 03/12/2020 11:07:00 PM [facility] Name Value Range Interpretation Code Description Data Maria T rce(s) Supporting Document(s) FERRITIN 12.0 NG/ML 22-322 L [facility] ID Date Data Source [id number] 02/13/2020 02:01:00 PM EST MIRANDA ([facility]) Name Value Range Interpretation Code Description Data Maria T rce(s) Supporting Document(s) Reported Physicians See Note Reported Physicians [place] ([facility]) Note: Reported Physicians:Ordering: Berna RogersAttending: Berna Rajput ID Date Data Source [id number] 02/13/2020 02:01:00 PM EST MIRANDA ([facility]) Name Value Range Interpretation Code Description Data Maria T rce(s) Supporting Document(s) OCCULT BLOOD #1 POSITIVE Abnormal (applies to non- numeric results) OCCULT BLOOD #1 MIRANDA ([facility]) Note: Methodology is Fecal Immunochemic al(Immunoassay) Test for Occult Blood. Detects human hemoglobin at 5ug hHB/g feces.Responsible Observer: OCCULT BLOOD #1 OCCULT BLOOD #1 600.0640 (A) ID Date Data Source [id number] 02/13/2020 02:37:00 PM [employer] Name Value Range Interpretation Code Description Data Maria T rce(s) Supporting Document(s) OCCULT BLOOD #1 POSITIVE NEGATIVE A [employer] Methodology is Fecal Immunochemical(Imm unoassay) Test for Occult Blood. Detects human hemoglobin at 5ug hHB/g feces. ID Date Data Source [id number] 02/06/2020 08:39:00 AM EST [employer] ([facility]) Name Value Range Interpretation Code Description Data Maria T rce(s) Supporting Document(s) LIPASE 43 U/L Normal LIPASE [place] ([facility]) Note: Responsible Observer: LIP LIPASE 300.4950 (A) ID Date Data Source [id number] 02/06/2020 08:39:00 AM EST MIRANDA ([facility]) Name Value Range Interpretation Code Description Data Maria T rce(s) Supporting Document(s) Amylase [Enzymatic activity/volume] in Blood 91 U/L No rmal AMYLASE [place] ([facility]) Note: Responsible Observer: JOSE AMYLASE 300.4900 (A) ID Date Data Source [id number] 02/06/2020 08:39:00 AM EST MIRANDA ([facility]) Name Value Range Interpretation Code Description Data Maria T rce(s) Supporting Document(s) Deprecated Cholesterol.in LDL/Cholestero l.in HDL [Mass ratio] in Serum or Plasma 2.5 Normal CHOL/HDL RATIO [place] ([facility] ) Note: Responsible Observer: CHOL/HDL RAT IO CHOL/HDL RATIO 300.4700 (A) Cholesterol crystals [Presence] in Stone by Infrared spectroscop y 157 MG/DL Normal CHOLESTEROL [place] ([facility]) Note: Responsible Observer: CHOL CHOLEST DOC 300.4350 (A) Cholesterol in HDL [Mass/volume] in Serum or Plasma ultracen trifugate 64 MG/DL Normal HDL CHOLESTEROL [place] ([facility]) Note: Responsible Observer: HDL HDL CHOL ESTEROL 300.4600 (A) Cholesterol in LDL [Mass/volume] in Serum or Plasma by Direct as say 77 MG/DL Normal LDL CHOLESTEROL [place] ([facility]) Note: Responsible Observer: LDL LDL CHOL ESTEROL 300.4400 (A) Triglyceride [Mass/volume] in Serum or Plasma 78 MG/DL N ormal TRIGLYCERIDES [place] ([facility]) Note: Responsible Observer: TRIG TRIGLYC ERIDES 300.4300 (A) ID Date Data Source [id number] 02/06/2020 08:39:00 AM EST [facility] [facility] Name Value Range Interpretation Code Description Data Maria T rce(s) Supporting Document(s) Creatine kinase [Enzymatic activity/volume] in Dialysis fluid 99 U/ L Normal CREATINE KINASE [place] ([facility]) Note: Responsible Observer: CK CREATINE KINASE 300.3300 (A) ID Date Data Source [id number] 02/06/2020 08:39:00 AM EST [employer] ([facility]) Name Value Range Interpretation Code Description Data Maria T rce(s) Supporting Document(s) Ferritin [Mass/volume] in Serum or Plasma 3.8 NG/ML Below low normal FERRITIN [place] ([facility]) Note: Responsible Observer: FERRITIN RIYA RITIN 300.2650 (A) ID Date Data Source [id number] 02/06/2020 08:39:00 AM EST [employer] ([facility]) Name Value Range Interpretation Code Description Data Maria T rce(s) Supporting Document(s) Iron [Mass/volume] in Urine collected for unspecified duration 1 8 UG/DL Below low normal IRON [place] ([facility]) Note: Responsible Observer: FE IRON 300 .2400 (A) % IRON SATURATION 4.0 % Below low normal % IRON SATUR ATION [place] ([facility]) Note: Responsible Observer: % FE SAT % I LULY SATURATION 300.2500 (A) TIBC 437 UG/DL Above high normal TIBC MIRANDA ([facility]) Note: Responsible Observer: TIBC TIBC 3 00.2450 (A) ID Date Data Source [id number] 02/06/2020 08:39:00 AM EST MIRANDA ([facility]) Name Value Range Interpretation Code Description Data Maria T rce(s) Supporting Document(s) Hemoglobin A1c/Hemoglobin.total in Blood 5.3 % Normal GLYCOSYLATED HGBA1C [place] ([facility]) Note: Responsible Observer: HGB A1C GLYC OSYLATED HGBA1C 300.0800 (A) ID Date Data Source [id number] 02/06/2020 08:39:00 AM EST MIRANDA ([facility]) Name Value Range Interpretation Code Description Data Maria T rce(s) Supporting Document(s) Albumin [Mass/volume] in Synovial fluid 4.1 G/DL Normal ALBUMIN [place] ([facility]) Note: Responsible Observer: ALB ALBUMIN 300.3900 (A) Albumin/Globulin [Mass Ratio] in Amniotic fluid 2.3 G/DL Normal ALB/GLOB RATIO [place] ([facility]) Note: Responsible Observer: A/G RATIO AL B/GLOB RATIO 300.4100 (A) Alkaline phosphatase isoenzyme [Units/volume] in Serum or Plasma 87 U/L Normal ALKALINE PHOSPHATASE [place] ([facility]) Note: Responsible Observer: ALK PHOS ALK RASHMI PHOSPHATASE 300.3110 (A) Aspartate aminotransferase [Enzymatic activity/volume] in Serum or Plasma 22 U/L Normal AST [place] ([facility]) Note: Responsible Observer: AST/SGOT AST 300.3050 (A) Alanine aminotransferase [Enzymatic activity/volume] in Seru m or Plasma 24 U/L Normal ALT [place] ([facility]) Note: Responsible Observer: ALT/SGPT ALT 300.3100 (A) Bilirubin.total [Mass/volume] in Serum or Plasma 0.3 MG/DL Normal BILIRUBIN,TOTAL [place] ([facility]) Note: Responsible Observer: TOTAL BILI T OTAL BILIRUBIN 300.2700 (A) Urea nitrogen/Creatinine [Mass Ratio] in Serum or Plasma 23 Normal BUN/CREAT RATIO [place] ([facility]) Note: Responsible Observer: BUN/CREAT RA ALESHA BUN/CREAT RATIO 300.0450 (A) BLOOD UREA NITRO 14 MG/DL Normal [facility] ([facility]) Note: Responsible Observer: BUN BLOOD UR EA NITROGEN 300.0350 (A) CA 8.5 MG/DL Below low normal CA MIRANDA ([facility]) Note: Responsible Observer: CA CALCIUM 300.2200 (A) Chloride [Moles/volume] in Serum, Plasma or Blood 109 MEQ/L Normal CHLORIDE [place] ([facility]) Note: Responsible Observer: CL CHLORIDE 300.0200 (A) Carbon dioxide, total [Moles/volume] in Serum or Plasma 26 MEQ/L Normal CARBON DIOXIDE MIRANDA ([facility]) Note: Responsible Observer: CO2 CARBON D IOXIDE 300.0250 (A) Creatine/Creatinine [Mass Ratio] in Urine 0.6 MG/DL Jania l CREATININE [place] ([facility]) Note: Responsible Observer: CREAT CREATI NINE 300.0400 (A) Anion gap in Blood 8 Normal ANION GAP MIRANDA ([facility]) Note: Responsible Observer: ANION GAP AN ION GAP 300.0300 (A) GFR > 90.0 ML/MIN GFR [place] ([facility]) Note: Stage G1 - Normal or high kidney function The GFR is an estimate of the Glomerular Filtration Rate. It is an aid to assess a patient's renal function. It is not a conclusive diagnosis of kidney disease. GFR normal is >=90 The MDRD GFR calculation is considered valid between the ages of 18 and 75 years only.Responsible Observer: GFR GFR 300.0410 (A) Globulin [Mass/volume] in Serum by calculation 1.8 G/DL Normal GLOBULIN [place] ([facility]) Note: Responsible Observer: GLOB GLOBULI N 300.4050 (A) Glucose [Presence] in Urine 82 MG/DL Normal [facility] Note: Responsible Observer: GLU GLUCOSE 300.0500 (A) Potassium [Mass/volume] in Blood 4.1 MEQ/L Normal POT ASSIUM [place] ([facility]) Note: Responsible Observer: K POTASSIUM 300.0150 (A) Sodium [Moles/volume] in Serum, Plasma or Blood 139 MEQ/L Normal SODIUM [place] ([facility]) Note: Responsible Observer: NA SODIUM 3 00.0100 (A) Protein [Mass/volume] in Synovial fluid 5.9 G/DL Normal TOTAL PROTEIN MIRANDA ([facility]) Note: Responsible Observer: TP TOTAL PRO TEIN 300.3750 (A) ID Date Data Source [id number] 02/06/2020 08:39:00 AM EST MIRANDA ([facility]) Name Value Range Interpretation Code Description Data Maria T rce(s) Supporting Document(s) BASO % (AUTO) 0.9 % Normal BASO % (AUTO) MIRANDA ([facility]) Note: Responsible Observer: BASO % (AUTO ) BASO % (AUTO) 100.1250 (A) BASO # (AUTO) 0.05 10\\^3/uL Normal BASO # (AUTO) MIRANDA ([facility]) Note: Responsible Observer: BASO # (AUTO ) BASO # (AUTO) 100.1500 (A) EOS # (AUTO) 0.16 10\\^3/uL Normal EOS # (AUTO) MIRANDA ( [facility]) Note: Responsible Observer: EOS # (AUTO) EOS # (AUTO) 100.1450 (A) GRAN # (AUTO) 4.02 10\\^3/uL Normal GRAN # (AUTO) MIRANDA ([facility]) Note: Responsible Observer: GRAN # (AUTO ) GRAN #(AUTO) 100.1325 (A) EOS % (AUTO) 2.8 % Normal EOS % (AUTO) MIRANDA ([facility]) Note: Responsible Observer: EOS % (AUTO) EOS % (AUTO) 100.1200 (A) GRAN % (AUTO) 69.3 % Normal GRAN % (AUTO) MIRANDA ([facility]) Note: Responsible Observer: GRAN % (AUTO ) GRAN % (AUTO) 100.1000 (A) Hematocrit [Volume Fraction] of Blood by Automated count 34.5 % Below low normal HEMATOCRIT MIRANDA ([facility]) Note: Responsible Observer: HCT HEMATOCR IT 100.0400 (A) Hemoglobin [Mass/volume] in Blood 10.7 G/DL Below low nor mal HEMOGLOBIN MIRANDA ([facility]) Note: Responsible Observer: HGB HEMOGLOB IN 100.0300 (A) IG # (AUTO) 0.0 10\\^3/uL IG # (AUTO) MIRANDA ([facility]) Note: Responsible Observer: IG # (AUTO) IG # (AUTO) 100.1260 (A) LYMPH # (AUTO) 1.2 k/uL Normal LYMPH # (AUTO) MIRANDA ( [facility]) Note: Responsible Observer: LYMPH # (AUT O) LYMPH # (AUTO) 100.1350 (A) IG % (AUTO) 0.2 % IG % (AUTO) MIRANDA ([facility]) Note: Responsible Observer: IG % (AUTO) IG % (AUTO) 100.1255 (A) LYMPH % (AUTO) 19.9 % Below low normal LYMPH % (AUTO) [place] ([facility]) Note: Responsible Observer: LYMPH % (AUT O) LYMPH % (AUTO) 100.1100 (A) Erythrocyte mean corpuscular hemoglobin [Entitic mass] by Automated count 22.7 PG Below low normal MCH MIRANDA ([facility]) Note: Responsible Observer: MCH MCH 100 .0600 (A) Erythrocyte mean corpuscular hemoglobin concentration [Mass/volume] by Automated count 31.0 G/DL Below low normal MCHC MIRANDA ([facility]) Note: Responsible Observer: MCHC MCHC 1 00.0650 (A) Erythrocyte mean corpuscular volume [Entitic volume] by Auto mated count 73.2 FL Below low normal MCV MIRANDA ([facility]) Note: Responsible Observer: MCV MCV 100 .0550 (A) MONO % (AUTO) 6.9 % Normal MONO % (AUTO) MIRANDA ([facility]) Note: Responsible Observer: MONO % (AUTO ) MONO% (AUTO) 100.1150 (A) MONO # (AUTO) 0.40 k/uL Normal MONO # (AUTO) MIRANDA ([facility]) Note: Responsible Observer: MONO # (AUTO ) MONO # (AUTO) 100.1400 (A) MPV 10.2 FL Normal MPV [facility] Note: Responsible Observer: MPV MPV 100 .0950 (A) Erythrocytes [#/volume] in Blood by Automated count 4.71 10\\^6/uL Normal RED BLOOD COUNT [place] ([facility]) Note: Responsible Observer: RBC RED BLOO D COUNT 100.0250 (A) Platelets [#/volume] in Plasma by Automated count 353 10\\^3/uL Normal PLATELET COUNT MIRANDA ([facility]) Note: Responsible Observer: PLT PLATELET COUNT 100.0850 (A) Leukocytes [#/volume] in Blood by Automated count 5.79 10\\^3/uL Normal WHITE BLOOD COUNT MIRANDA ([facility]) Note: Responsible Observer: WBC WHITE BL OOD COUNT 100.0150 (A) Erythrocyte distribution width [Ratio] by Automated count 16.1 % Above high normal RDW MIRANDA ([facility]) Note: Responsible Observer: RDW RDW 100 .0700 (A) ID Date Data Source [id number] 02/06/2020 01:18:00 PM EST [facility] Name Value Range Interpretation Code Description Data Maria T rce(s) Supporting Document(s) WHITE BLOOD COUNT 5.79 10^3/uL 4.00-10.50 N [facility]alth RED BLOOD COUNT 4.71 10^6/uL 3.90-5.20 N [facility] th HEMOGLOBIN 10.7 G/DL 11.5-15.6 L [facility] HEMATOCRIT 34.5 % 35.0-46.0 [facility] MCV 73.2 FL 80.0-100.0 [facility] MCH 22.7 PG 27.0-34.0 [facility] MCHC 31.0 G/DL 32-36 L [facility] RDW 16.1 % 11.5-14.5 [facility] PLATELET COUNT 353 10^3/uL 130-400 [facility] MPV 10.2 FL 8.7-13.2 [facility] GRAN % (AUTO) 69.3 % 42.0-75.0 [facility] LYMPH % (AUTO) 19.9 % 20.0-51.0 [facility] MONO % (AUTO) 6.9 % 2.0-15.0 [facility] EOS % (AUTO) 2.8 % 0.0-11.0 [facility] BASO % (AUTO) 0.9 % 0.0-2.0 [facility] IG % (AUTO) 0.2 % 1.00-5.00 [facility] IG # (AUTO) 0.0 10^3/uL <0.5 [facility] GRAN # (AUTO) 4.02 10^3/uL 1.50-6.50 N [facility] LYMPH # (AUTO) 1.2 k/uL 1.0-5.0 [facility] MONO # (AUTO) 0.40 k/uL 0.20-1.50 [facility] EOS # (AUTO) 0.16 10^3/uL 0.00-1.10 [facility] BASO # (AUTO) 0.05 10^3/uL 0.00-0.20 N [facility] ID Date Data Source [id number] 02/06/2020 02:08:00 PM EST [facility] Name Value Range Interpretation Code Description Data Maria T rce(s) Supporting Document(s) SODIUM 139 MEQ/L 135-145 N [facility] POTASSIUM 4.1 MEQ/L 3.5-5.3 [facility] CHLORIDE 109 MEQ/L 94-110 [facility] CARBON DIOXIDE 26 MEQ/L 22-33 [facility] ANION GAP 8 5-16 N [facility] BLOOD UREA NITRO 14 MG/DL 7-25 N [facility] CREATININE 0.6 MG/DL 0.6-1.4 [facility] GFR > 90.0 ML/MIN [facility] Stage G1 - Normal or high kidney functi on The GFR is an estimate of the Glomerular Filtration Rate. It is an aid to assess a patient's renal function. It is not a conclusive diagnosis of kidney disease. GFR normal is >=90 The MDRD GFR calculation is considered valid between the ages of 18 and 75 years only. BUN/CREAT RATIO 23 8-36 [facility] GLUCOSE 82 MG/DL 70-100 [facility] CA 8.5 MG/DL 8.7-10.5 L [facility] BILIRUBIN,TOTAL 0.3 MG/DL 0.1-1.3 [facility] AST 22 U/L 5-40 [facility] ALT 24 U/L 5-48 [facility] ALKALINE PHOSPHATASE 87 U/L 40-140 [facility] TOTAL PROTEIN 5.9 G/DL 5.9-8.3 N [facility] ALBUMIN 4.1 G/DL 3.0-5.1 [facility] GLOBULIN 1.8 G/DL 1.5-3.5 N [facility] ALB/GLOB RATIO 2.3 G/DL 1.0-3.0 N [facility] ID Date Data Source [id number] 02/08/2020 05:24:00 PM EST [facility] Name Value Range Interpretation Code Description Data Maria T rce(s) Supporting Document(s) ALEX,IFA,S Negative . [facility] Ne gative <1:80 Borderline 1:80 Positive > 1:80 Performed at: - [facility] [address] [id number] Bridge Rigger: Mckenzie Rico MD, Phone: [phone] ID Date Data Source [id number] 02/06/2020 02:08:00 PM EST [facility] Name Value Range Interpretation Code Description Data Maria T rce(s) Supporting Document(s) GLYCOSYLATED HGBA1C 5.3 % 4.1-6.5 N [facility] ID Date Data Source [id number] 02/08/2020 05:24:00 PM EST [facility] Name Value Range Interpretation Code Description Data Maria T rce(s) Supporting Document(s) EBV (VCA) IgG Ab,S >600.0 U/mL 0.0-17.9 A [facility] Negati ve <18.0 Equivocal 18.0 - 21.9 Positive >21.9 ID Date Data Source [id number] 02/06/2020 02:08:00 PM EST [facility] Name Value Range Interpretation Code Description Data Maria T rce(s) Supporting Document(s) IRON 18 UG/DL 35-150 L [facility] TIBC 437 UG/DL 260-400 H [facility] % IRON SATURATION 4.0 % 20-50 L [facility] ID Date Data Source [id number] 02/08/2020 05:24:00 PM EST [facility] Name Value Range Interpretation Code Description Data Maria T rce(s) Supporting Document(s) EBV(VCA)IgM Ab,S <36.0 U/mL 0.0-35.9 [facility] Negati ve <36.0 Equivocal 36.0 - 43.9 Positive >43.9 Performed at: [facility] - [facility] [address] [id number] Bridge Rigger: Mckenzie Rico MD, Phone: [phone] ID Date Data Source [id number] 02/06/2020 02:08:00 PM EST [facility] Name Value Range Interpretation Code Description Data Maria T rce(s) Supporting Document(s) FERRITIN 3.8 NG/ML 22-322 L [facility] ID Date Data Source [id number] 02/08/2020 05:24:00 PM EST [facility] Name Value Range Interpretation Code Description Data Maria T rce(s) Supporting Document(s) Lyme Line Blot,S See Notes [facility] Lyme Ab IgG by Line Blot: IgG [...] are those recommended by CDC/ASTPHLD. p23=Osp C, f21=lxdpzrymo . Note: Sera from individuals with the following may cross react in the Lyme Line Blot assays: other spirochetal diseases (periodontal disease, leptospirosis, relapsing fever, yaws, and pinta);connective autoimmune (Rheumatoid Arthritis and Systemic Lupus Erythematosus and also individuals with Antinuclear Antibody);other infections ([place] Spotted Fever; Rosette- Navas Virus,and Cytomegalovirus). . [facility] Dir: Mckenzie Rico MD [address] [place] [address] Contact by: [phone] CDC Recommendations for Lyme Disease Testing 1.The [...] immunoblot is positive. ID Date Data Source [id number] 02/06/2020 02:08:00 PM EST [facility] Name Value Range Interpretation Code Description Data Maria T rce(s) Supporting Document(s) CREATINE KINASE 99 U/L 0-265 N [facility] ID Date Data Source [id number] 02/06/2020 02:08:00 PM [facility] Name Value Range Interpretation Code Description Data Maria T rce(s) Supporting Document(s) TRIGLYCERIDES 78 MG/DL 45-150 N [facility] CHOLESTEROL 157 MG/DL 125-200 N [facility] LDL CHOLESTEROL 77 MG/DL 50-130 N [facility] HDL CHOLESTEROL 64 MG/DL 32-96 N [facility] CHOL/HDL RATIO 2.5 0-4.3 N [facility] ID Date Data Source [id number] 02/06/2020 02:08:00 PM [facility] Name Value Range Interpretation Code Description Data Maria T rce(s) Supporting Document(s) AMYLASE 91 U/L 20-115 N [facility] ID Date Data Source [id number] 02/06/2020 02:08:00 PM EST [facility] Name Value Range Interpretation Code Description Data Maria T rce(s) Supporting Document(s) LIPASE 43 U/L 6-51 N [facility] ID Date Data Source [id number] 02/06/2020 02:08:00 PM EST [facility] Name Value Range Interpretation Code Description Data Maria T rce(s) Supporting Document(s) VITAMIN B12 381 PG/ML 211-2000 N [facility] ID Date Data Source [id number] 02/06/2020 02:08:00 PM [facility] Name Value Range Interpretation Code Description Data Maria T rce(s) Supporting Document(s) FOLATE 12.10 NG/ML 3.40-24.00 N [facility] ID Date Data Source [id number] 02/06/2020 02:08:00 PM EST [facility] Name Value Range Interpretation Code Description Data Maria T rce(s) Supporting Document(s) Vitamin D,25-HYDROXY 13.7 ng/ml 30-100 L [facility] Vitamin D Status Range De ficiency <20 ng/ml Insufficiency 20-29.9 ng/ml Sufficiency 30-100 ng/ml Toxicity >100 ng/ml Patients should not be tested for 72 hours post fluorescein dye angiography. A false elevation of result may occur. ID Date Data Source [id number] 02/06/2020 02:08:00 PM [facility] Name Value Range Interpretation Code Description Data Maria T rce(s) Supporting Document(s) FREE T4 (FREE THYROXINE) 0.90 NG/DL 0.76-1.78 N [facility] T4 (THYROXINE) 5.3 UG/DL 4.5-10.9 N [facility] ID Date Data Source [id number] 02/06/2020 02:08:00 PM [facility] Name Value Range Interpretation Code Description Data Maria T rce(s) Supporting Document(s) TSH 2.006 uIU/ML 0.470-4.200 N [facility] Patients should not be tested for 72 ho urs post fluorescein dye angiography. A false depression of result may occur. ID Date Data Source [id number] 02/06/2020 08:39:00 AM EST [facility] Name Value Range Interpretation Code Description Data Maria T rce(s) Supporting Document(s) Reported Physicians See Note Reported Physicians MIRANDA ([facility]) Note: Reported Physicians:Ordering: Berna RogersAttending: Berna Rajput ID Date Data Source [id number] 02/06/2020 08:39:00 AM EST [facility] ([facility]) Name Value Range Interpretation Code Description Data Maria T rce(s) Supporting Document(s) Lyme Line Blot,S See Notes Lyme Line BlotKyra ([facility]) Note: Lyme Ab IgG by Line Blot: [...] are those recommended by CDC/ASTPHLD. p23=Osp C, k60=ixtldbsvh . Note: Sera from individuals with the following may cross react in the Lyme Line Blot assays: other spirochetal diseases (periodontal disease, leptospirosis, relapsing fever, yaws, and pinta);connective autoimmune (Rheumatoid Arthritis and Systemic Lupus Erythematosus and also individuals with Antinuclear Antibody);other infections ([place] Spotted Fever; Rosette- Navas Virus,and Cytomegalovirus). . [facility] Dir: Mckenzie Rico MD [address] [place] [address] Contact by: [phone] CDC Recommendations for Lyme Disease Testing 1.The [...] Observer: Lyme Line Bl Lyme Line Blot,S [id number] [phone] (A) ID Date Data Source [id number] 02/06/2020 08:39:00 AM [facility] Name Value Range Interpretation Code Description Data Maria T rce(s) Supporting Document(s) Rosette Navas virus capsid IgM Ab [Units/volume] in Serum <36.0 U/mL EBV(VCA)IgM Ab,S [facility] Note: Negative <36.0 Equivocal 36.0 - 43.9 Positive >43.9 Performed at: [facility] [address] [id number] Bridge Rigger: Mckenzie Rico MD, Phone: [phone] Observer: EBV(VCA)IgM Ab EBV(VCA)IgM Ab,S [id number] (A) ID Date Data Source [id number] 02/06/2020 08:39:00 AM EST M[facility]DA ([facility]) Name Value Range Interpretation Code Description Data Maria T rce(s) Supporting Document(s) Rosette Navas virus capsid IgG Ab [Units/volume] in Serum >600.0 U/mL Abnormal (applies to non-numeric results) EBV (VCA) IgG Ab,S MIRANDA ([facility]) Note: Negative <18.0 Equivocal 18.0 - 21.9 Positive >21.9Responsible Observer: EBV(VCA)IgG Ab EBV(VCA)IgG Ab,S [id number] (A) ID Date Data Source [id number] 02/06/2020 08:39:00 AM EST M[facility] ([facility]) Name Value Range Interpretation Code Description Data Maria T rce(s) Supporting Document(s) ALEX,IFA,S Negative ALEX,IFA,S MIRANDA ([facility]) Note: Negative <1:80 Borderline 1:80 Positive >1:80 Performed at: [facility] [address] [id number] Bridge Rigger: Mckenzie Rico MD, Phone: [phone] Observer: ALEX,IFA,S ALEX,IFA,S [id number] (A) ID Date Data Source [id number] 02/06/2020 08:39:00 AM EST M[facility] ([facility]) Name Value Range Interpretation Code Description Data Maria T rce(s) Supporting Document(s) Thyrotropin [Units/volume] in Serum or Plasma by Detec tion limit <= 0.05 mIU/L 2.006 uIU/ML Normal TSH MIRANDA ([facility]) Note: Patients should not be tested for 72 hours post fluorescein dye angiography. A false depression of result may occur.Responsible Observer: TSH TSH 300.5500 (A) ID Date Data Source [id number] 02/06/2020 08:39:00 AM EST MIRANDA ([facility]) Name Value Range Interpretation Code Description Data Maria T rce(s) Supporting Document(s) T4 (THYROXINE) 5.3 UG/DL Normal T4 (THYROXINE) [place] ( [facility]) Note: Responsible Observer: T4 THYROXINE 300.5350 (A) FREE T4 (FREE THYROXINE) 0.90 NG/DL Normal FREE T4 (FR EE THYROXINE) [place] ([facility]) Note: Responsible Observer: FREE T4 FREE THYROXINE 300.5250 (A) ID Date Data Source [id number] 02/06/2020 08:39:00 AM [facility] MIRANDA ([facility]) Name Value Range Interpretation Code Description Data Maria T rce(s) Supporting Document(s) Calcidiol [Mass/volume] in Serum or Plasma 13.7 ng/ml Below low normal Vitamin D,25-HYDROXY [place] ([facility]) Note: Vitamin D Status Rang e Deficiency <20 ng/ml Insufficiency 20-29.9 ng/ml Sufficiency 30-100 ng/ml Toxicity >100 ng/ml Patients should not be tested for 72 hours post fluorescein dye angiography. A false elevation of result may occur.Responsible Observer: Vitamin D Vitamin D,25-Hydroxy 300.5230 (A) ID Date Data Source [id number] 02/06/2020 08:39:00 AM [facility] ([facility]) Name Value Range Interpretation Code Description Data Maria T rce(s) Supporting Document(s) Folate [Interpretation] in Blood 12.10 NG/ML Normal FO LATE [place] ([facility]) Note: Responsible Observer: FOLATE FOLAT E 300.5210 (A) ID Date Data Source [id number] 02/06/2020 08:39:00 AM [facility] MIRANDA ([facility]) Name Value Range Interpretation Code Description Data Maria T rce(s) Supporting Document(s) Deprecated Cobalamin [Mass/volume] in Serum 381 PG/ML Nor mal VITAMIN B12 [place] ([facility]) Note: Responsible Observer: B12 VITAMIN B12 300.5200 (A) ID Date Data Source [id number] 01/20/2020 05:49:00 PM [facility] Name Value Range Interpretation Code Description Data Maria T rce(s) Supporting Document(s) SARS-CoV-2 by [facility] This lab was ordered by [facility] and reported by [facility]. ID Date Data Source [id number] 01/23/2020 08:12:59 AM EST [facility] Name Value Range Interpretation Code Description Data Maria T rce(s) Supporting Document(s) SARS COV2 SOURCE [facility] SARS COV 2 BY PCR [facility] Not Detected INTERPRETIVE INFORMATION: S ARS-CoV-2 (COVID-19) [...] In compliance with this authorization, please visit [email or web address] for more information and to access the [...] collection, transport, storage, and handling. Performed by [facility], [address] [place] [id number] [email or web address], Cookie Salomon MD, Lab. Director ID Date Data Source [id number] 01/20/2020 12:00:00 AM 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[facility]) Name Value Range Interpretation Code Description Data Maria T rce(s) Supporting Document(s) SARS-CoV2 Rapid Antigen WENDYTrisha POLO ([facility]) This lab was ordered by [facility] are and reported by [facility]. ID Date Data Source [id number] 01/08/2020 12:00:00 AM 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[facility]) Name Value Range Interpretation Code Description Data Maria T rce(s) Supporting Document(s) 2019 Novel Coronavirus RNA [facility] ([facility]) This lab was ordered by [facility] are and reported by [facility]. ID Date Data Source [id number] 12/26/2019 12:14:00 PM EDT [facility] ([facility]) CHEST X-RAY, FRONTAL AND LATERAL VIEWS INDICATION:BELLY [...] related to cholecystectomy. Professional interpretation performed at [facility] . Name Value Range Interpretation Code Description Data Maria T rce(s) Supporting Document(s) ID Date Data Source [id number] 12/26/2019 12:14:00 PM EDT [facility] ([facility]) CHEST X-RAY, FRONTAL AND LATERAL VIEWS INDICATION:BELLY [...] related to cholecystectomy. Professional interpretation performed at [facility] . Name Value Range Interpretation Code Description Data Maria T rce(s) Supporting Document(s) ID Date Data Source [id number] 12/23/2019 12:00:00 AM EDT [facility] ([facility]) Name Value Range Interpretation Code Description Data Maria T rce(s) Supporting Document(s) 2019 Novel Coronavirus RNA [facility] ([facility]) This lab was ordered by [facility] are and reported by [facility]. ID Date Data Source [id number] 12/12/2019 02:05:00 PM EDT [address] [address] Patient Name: Asael Gill Exam Date: 12/12/19 : 1980 Ordering Doctor: Ingrid Medina NP Attending Doctor: Ingrid Medina CHIEF HUMAN RESOURCES OFFICER CC: CHEST RADIOGRAPHS, 2 VIEWS INDICATION: R/O PNEUMONIA COMPARISON: None. TECHNIQUE: PA and lateral views of the chest were obtained. FINDINGS: Lungs/Pleura: The lungs are clear. No effusion or pneumothorax. Cardiomediastinal contours: Within normal limits. Soft tissues/upper abdomen: Within normal limits. Bones: Unremarkable. IMPRESSION: No acute findings. Professional interpretation performed by [facility] at [facility] . End of diagnostic report: [id number] Signed: Nessa Shipman MD 12/12/19 1415 Interpreted by: Tani Shipmananscribed by: Nessa Shipman Name Value Range Interpretation Code Description Data Maria T rce(s) Supporting Document(s) ID Date Data Source [id number] 12/12/2019 01:40:00 PM EDT MIRANDA ([facility]) Name Value Range Interpretation Code Description Data Maria T rce(s) Supporting Document(s) Throat Swab negative Normal Throat Swab MIRANDA ([facility]) ID Date Data Source [id number] 12/14/2019 08:34:00 AM EDT [facility] Run: 12/14/19 0834 INTERFACED REPORT Name: Asael Gill Age/Sex: 39/F Location: [facility] Acct: [id number] Unit: [id number] Status: REG REF Room/Bed: Re12/12/19 Disch: Gordon Dr: Ingrid Medina CHIEF HUMAN RESOURCES OFFICER Specimen #: [id number] Ordered : 12/12/19 Collected : 12/12/19 By: OFFICE Received: 12/12/19 By: GMACDOUGAL Source: THROAT Specimen Description: Procedure Result - FULL THROAT CULT Final USUAL KALYAN AFTER 18 HOURS USUAL KALYAN AFTER 42 HOURS FULL THROAT CULT Preliminary (Corrected) USUAL KALYAN AFTER 18 HOURS END OF REPORT Name Value Range Interpretation Code Description Data Maria T rce(s) Supporting Document(s) ID Date Data Source [id number] 12/12/2019 01:29:00 PM EDT MIRANDA ([facility]) Name Value Range Interpretation Code Description Data Maria T rce(s) Supporting Document(s) Reported Physicians See Note Reported Physicians MIRANDA ([facility]) Note: Reported Physicians:Ordering: Ingrdi Carlisle LAttending: Ingrid Medina ID Date Data Source [id number] 12/12/2019 01:29:00 PM EDT MIRANDA ([facility]) Name Value Range Interpretation Code Description Data [facility] rce(s) Supporting Document(s) Reported Physicians See Note Reported Physicians MIRANDA ([facility]) Note: Reported Physicians:Ordering: Eveline cui, Ingrid LAttending: Ingrid Medina ID Date Data Source [id number] 12/12/2019 01:29:00 PM EDT MIR[facility]DA ([facility]) Name Value Range Interpretation Code Description Data [facility] rce(s) Supporting Document(s) See Note Pyle See Note Lashanda JEAN ([facility]) Note: Run: 12/14/19 0834 INTERFACED REPORT Name: Asael Gill Age/Sex: 39/F Location: [facility] Acct: [id number] Unit: [id number] Status: REG REF Room/Bed: Re12/12/19 Disch: Att Dr: Ingrid Medina CHIEF HUMAN RESOURCES OFFICER Specimen #: [id number] Ordered : 12/12/19 Collected : 12/12/19 By: OFFICE Received: 12/12/19 By: ROCKY Source: THROAT Specimen Description: Procedure Result -- FULL THROAT CULT Final USUAL KALYAN AFTER 18 HOURS USUAL KALYAN AFTER 42 HOURS FULL THROAT CULT Preliminary (Corrected) USUAL KALYAN AFTER 18 HOURS END OF REPORT ID Date Data Source [id number] 12/12/2019 01:27:00 PM EDT [facility] Name Value Range Interpretation Code Description Data Maria T rce(s) Supporting Document(s) SARS-CoV-2 (COVID-19) RNA [Presence] in Nasopharynx by BRAIN with non-probe detection [facility] This lab was ordered by [facility] and reported by [facility]. ID Date Data Source [id number] 12/12/2019 09:28:00 PM EDT [facility] Name Value Range Interpretation Code Description Data Maria T rce(s) Supporting Document(s) ADENOVIRUS Not Detected NotDetected [facility] CORONAVIRUS 229E Not Detected NotDetected [facility] This is NOT the novel coronavirus COVID -19 CORONAVIRUS HKU1 Not Detected NotDetected [facility] This is NOT the novel coronavirus COVID -19 CORONAVIRUS NL63 Not Detected NotDetected [facility] This is NOT the novel coronavirus COVID -19 CORONAVIRUS OC43 Not Detected NotDetected [facility] This is NOT the novel coronavirus COVID -19 COVID 19 (SARS-CoV-2) NOT-DETECTED NOTDETECTED [facility] THIS IS THE NOVEL CORONAVIRUS COVID-19 HUMAN METAPNEUMOVIRUS Not Detected NotDetected [facility] HUMAN RHINOVIRUS/ENT Detected NotDetected A [facility] INFLUENZA A Not Detected NotDetected [facility] INFLUENZA B Not Detected NotDetected [facility] PARAINFLUENZA VIRUS 1 Not Detected NotDetected [facility] PARAINFLUENZA VIRUS 2 Not Detected NotDetected [facility] PARAINFLUENZA VIRUS 3 Not Detected NotDetected [facility] PARAINFLUENZA VIRUS 4 Not Detected NotDetected [facility] RESPIRATORY SYNCY VIR Not Detected NotDetected [facility] BORDETELLA PARAPERTUS Not Detected NotDetected [facility] BORDETELLA PERTUSSIS Not Detected NotDetected [facility] CHLAMYDIA PNEUMONIAE Not Detected NotDetected [facility] MYCOPLASMA PNEUMONIAE Not Detected NotDetected [facility] The Respiratory Panel is a multiplexed nucleic acid/PCR test. A negative result does not rule out the presence of PCR inhibitors in the patient sample or assay-specific nucleic acid concentrations below the level of detection by the assay. ID Date Data Source [id number] 12/12/2019 01:27:00 PM EDT MIRANDA ([facility]) Name Value Range Interpretation Code Description Data Maria T rce(s) Supporting Document(s) Reported Physicians See Note Reported Physicians [place] ([facility]) Note: Reported Physicians:Ordering: Ingrid Carlisle LAttending: Ingrid Medina ID Date Data Source [id number] 12/12/2019 01:27:00 PM EDT MIRANDA ([facility]) Name Value Range Interpretation Code Description Data Maria T rce(s) Supporting Document(s) BORDETELLA PARAPERTUS Not Detected BORDETELLA P ARAPERTUS [place] ([facility]) Note: Responsible Observer: BORD PAR IS1 001 BORDETELLA PARAPERTUS 510.0275 (A) Adenovirus [Presence] in Unspecified specimen by Organ ism specific culture Not Detected ADENOVIRUS [place] ([facility]) Note: Responsible Observer: ADENOVIRUS A DENOVIRUS 510.0205 (A) Bordetella pertussis [Presence] in Unspe cified specimen by Organism specific culture Not Detected BORDETELLA PERTUSSIS [place] ([facility]) Note: Responsible Observer: BORDET PERTU SS BORDETELLA PERTUSSIS 510.0280 (A) CORONAVIRUS NL63 Not Detected CORONAVIRUS NL63 [facility] ([facility]) Note: This is NOT the novel coronavirus COVID-19Responsible Observer: CORONVIRUS NL63 CORONAVIRUS NL63 510.0220 (A) CHLAMYDIA PNEUMONIAE Not Detected CHLAMYDIA PNE UMONIAE [place] ([facility]) Note: Responsible Observer: CHLMY PNEUMO JULIENNE CHLAMYDIA PNEUMONIAE 510.0285 (A) CORONAVIRUS HKU1 Not Detected CORONAVIRUS HKU1 [facility] ([facility]) Note: This is NOT the novel coronavirus COVID-19Responsible Observer: CORONVIRUS HKU1 CORONAVIRUS HKU1 510.0215 (A) CORONAVIRUS OC43 Not Detected CORONAVIRUS OC43 [facility] ([facility]) Note: This is NOT the novel coronavirus COVID-19Responsible Observer: CORONVIRUS OC43 CORONAVIRUS OC43 510.0225 (A) COVID 19 (SARS-CoV-2) NOT-DETECTED COVID 19 (SA RS-CoV-2) MIRANDA ([facility]) Note: THIS IS THE NOVEL CORONAVIRUS COV ID-19Responsible Observer: COVID 2 SARS Coronavirus 2 (SARS-CoV-2) 510.0226 (A) CORONAVIRUS 229E Not Detected CORONAVIRUS 229E [facility] [place] ([facility]) Note: This is NOT the novel coronavirus COVID-19Responsible Observer: CORONVIRUS 229E CORONAVIRUS 229E 510.0210 (A) HUMAN METAPNEUMOVIRUS Not Detected HUMAN METAPN EUMOVIRUS MIRANDA ([facility]) Note: Responsible Observer: HUMAN METAPN EUV HUMAN METAPNEUMOVIRUS 510.0230 (A) Mycoplasma pneumoniae [Presence] in Unsp ecified specimen by Organism specific culture Not Detected MYCOPLASMA PNEUMONIAE MIRANDA ([facility]) Note: The Respiratory Panel is a multip lexed nucleic acid/PCR test. A negative result does not rule out the presence of PCR inhibitors in the patient sample or assay-specific nucleic acid concentrations below the level of detection by the assay.Responsible Observer: MYCOP PNEUMONIA MYCOPLASMA PNEUMONIAE 510.0290 (A) INFLUENZA B Not Detected INFLUENZA B MIRANDA ([facility]) Note: Responsible Observer: INFLUENZA B INFLUENZA B 510.0245 (A) INFLUENZA A Not Detected INFLUENZA A MIRANDA ([facility]) Note: Responsible Observer: INFLUENZA A INFLUENZA A 510.0240 (A) Parainfluenza virus 3 [Presence] in Unsp ecified specimen by Organism specific culture Not Detected PARAINFLUENZA VIRUS 3 [facility]IRANDA ([facility]) Note: Responsible Observer: PARAINFLU R 3 PARAINFLUENZA VIRUS 3 510.0260 (A) PARAINFLUENZA VIRUS 4 Not Detected PARAINFLUENZ A VIRUS 4 MIRANDA ([facility]) Note: Responsible Observer: PARAINFLU R 4 PARAINFLUENZA VIRUS 4 510.0265 (A) Parainfluenza virus 1 [Presence] in Unsp ecified specimen by Organism specific culture Not Detected PARAINFLUENZA VIRUS 1 MIRANDA ([facility]) Note: Responsible Observer: PARAINFLU R 1 PARAINFLUENZA VIRUS 1 510.0250 (A) Parainfluenza virus 2 [Presence] in Unsp ecified specimen by Organism specific culture Not Detected PARAINFLUENZA VIRUS 2 MIRANDA ([facility]) Note: Responsible Observer: PARAINFLU R 2 PARAINFLUENZA VIRUS 2 510.0255 (A) RESPIRATORY SYNCY VIR Not Detected RESPIRATORY SYNCY VIR MIRANDA ([facility]) Note: Responsible Observer: RSV RESPIRAT ORY SYNCY VIR 510.0270 (A) HUMAN RHINOVIRUS/ENT Detected Abnormal (applies to non-numeric results) HUMAN RHINOVIRUS/ENT MIRANDA ([facility]) Note: Responsible Observer: HMN RHINO/EN TER HUMAN RHINOVIRUS/ENT [phone] (A) Procedure Social History Code Duration Value Status Description Data Source(s ) Smoking 04/08/2020 12:00:00 AM EST Ex-smoker (finding) complet ed Ex-smoker (finding) [place] ([facility]) Smoking 02/01/2020 12:00:00 AM EST Ex-smoker (finding) complet ed Ex-smoker (finding) MIRANDA ([facility]) Smoking 12/17/2019 12:00:00 AM EDT Occasional tobacco sm oker (finding) completed Occasional tobacco smoker (finding) MIRANDA ([facility]) Smoking 12/17/2019 12:00:00 AM EDT Occasional tobacco sm oker (finding) completed Occasional tobacco smoker (finding) MIRANDA ([facility]) Smoking 12/14/2019 12:00:00 AM EDT Occasional tobacco sm oker (finding) completed Occasional tobacco smoker (finding) MIRANDA ([facility]) Smoking 12/13/2019 12:00:00 AM EDT Occasional tobacco sm oker (finding) completed Occasional tobacco smoker (finding) MIRANDA ([facility]) Smoking 12/12/2019 12:00:00 AM EDT Ex-smoker (finding) complet ed Ex-smoker (finding) MIRANDA ([facility]) Vital Signs ID Date Data Source UNK Name Value Range Interpretation Code Description Data Source(s) Body temperature 97.9 [degF] 97.9 [degF] MEDENT ([facility]) Body weight 105.235 kg 105.235 kg [facility] Body mass index (BMI) [Ratio] 37.4 kg/m2 37.4 k g/m2 MEDENT ([facility]) Heart rate 80 /min 80 /min MED[facility] ([facility]) Diastolic blood pressure 89 mm[Hg] 89 mm[Hg] MEDENT ([facility]) Systolic blood pressure 132 mm[Hg] 132 mm[Hg] M EDENT ([facility]) Body weight 232.00 [lb_av] 232.00 [lb_av] MEDEN T ([facility]) Body height 66 [in_i] 66 [in_i] [facility] 5'6" PhenX - pain, abdominal - type and intensity protocol 2 2 MIRANDA ([facility]) no vitals PhenX - pain, abdominal - type and intensity protocol 0 0 MIRANDA ([facility]) PhenX - pain, abdominal - type and intensity protocol 0 0 MIRANDA ([facility]) pt unable to obtain any vitals PhenX - pain, abdominal - type and intensity protocol 4 4 MIRANDA ([facility]) Body weight 219 [lb_av] 219 [lb_av] [facility] Body temperature 97.6 [degF] 97.6 [degF] GRE[place] AY ([facility]) Respiratory rate 20 /min 20 /min MIRANDA ([facility]) Heart rate rhythm 1 1 [place] Y ([facility]) Heart rate 104 /min 104 /min MIRANDA ([facility]) Diastolic blood pressure 80 mm[Hg] 80 mm[Hg] MIRANDA ([facility]) Systolic blood pressure 120 mm[Hg] 120 mm[Hg] G REENWAY ([facility]) Inhaled oxygen concentration 21 % 21 % [place] ([facility]) Inhaled oxygen flow rate 0 L/min 0 L/min [place] ([facility]) Oxygen saturation in Arterial blood by Pulse oximetry 97 % 97 % [place] ([facility]) PhenX - pain, abdominal - type and intensity protocol 0 0 MIRANDA ([facility]) Body weight 217 [lb_av] 217 [lb_av] [facility] Body temperature 96.7 [degF] 96.7 [degF] GREENW AY ([facility]) PhenX - pain, abdominal - type and intensity protocol 0 0 MIRANDA ([facility]) PhenX - pain, abdominal - type and intensity protocol 0 0 MIRANDA ([facility]) Body temperature 96.9 [degF] 96.9 [degF] GREENW AY ([facility]) Pt obtained vitals PhenX - pain, abdominal - type and intensity protocol 4 4 MIRANDA ([facility]) Pt obtained vitals Body weight 217 [lb_av] 217 [lb_av] [facility] Body temperature 98.4 [degF] 98.4 [degF] GRE[place]W AY ([facility]) Respiratory rate 17 /min 17 /min MIRANDA ([facility]) Heart rate rhythm 1 1 [place] ([facility]) Heart rate 91 /min 91 /min MIRANDA ([facility]) Diastolic blood pressure 80 mm[Hg] 80 mm[Hg] MIRANDA ([facility]) Systolic blood pressure 118 mm[Hg] 118 mm[Hg] G REENWAY ([facility]) Inhaled oxygen concentration 21 % 21 % [place] ([facility]) Inhaled oxygen flow rate 0 L/min 0 L/min [place] ([facility]) Oxygen saturation in Arterial blood by Pulse oximetry 98 % 98 % [place] ([facility]) PhenX - pain, abdominal - type and intensity protocol 0 0 MIRANDA ([facility]) Body weight 235 [lb_av] 235 [lb_av] [facility] pt weighed self at home PhenX - pain, abdominal - type and intensity protocol 0 0 MIRANDA ([facility]) pt weighed self at home Patient Treatment Plan of Care Planned Activity Planned Date Details Description Data Source (s) [facility]. Devices Miscellaneous 01/08/2020 12:00:00 AM [facility] ([facility]) Citalopram 40 MG Oral Tablet 01/08/2020 12:00:00 AM [facility] ([facility]) Omeprazole 20 MG Delayed Release Oral Capsule 01/08/2020 12:00:00 A M [facility] ([facility]) Albuterol 0.83 MG/ML Inhalant Solution 12/20/2019 12:00:00 AM EDT [place] ([facility]) Amoxicillin 875 MG / Clavulanate 125 MG Oral Tablet 12/20/19 20 12:00:00 AM EDT [place] ([facility]) Prednisone 20 MG Oral Tablet 12/13/2019 12:00:00 AM ED MIRANDA ([facility]) 12 HR Guaifenesin 600 MG Extended Release Oral Tablet 12/12/2019 12:00:00 AM ED MIRANDA ([facility]) Albuterol 0.83 MG/ML Inhalant Solution 12/12/2019 12:00:00 AM [facility] MIRANDA ([facility]) Citalopram 40 MG Oral Tablet 06/13/2019 12:00:00 AM [facility] MIRANDA ([facility]) Omeprazole 20 MG Delayed Release Oral Capsule 06/13/2019 12:00:00 A M [facility] MIRANDA ([facility]) Omeprazole 20 MG Delayed Release Oral Capsule 06/13/2019 12:00:00 A M [facility] MIRANDA ([facility]) Citalopram 40 MG Oral Tablet 06/13/2019 12:00:00 AM [facility] MIRANDA ([facility]) ropinirole 0.5 MG Oral Tablet 01/19/2019 12:00:00 AM [facility] ([facility]) Omeprazole 20 MG Delayed Release Oral Capsule 04/03/2018 12:00:00 A M [facility] ([facility]) Citalopram 40 MG Oral Tablet 04/03/2018 12:00:00 AM [facility] ([facility]) ferrous sulfate 325 MG Oral Tablet 03/30/2017 12:00:00 AM [facility] ([facility])
[2020-04-21] MEDS ORDERED: LIDOCAINE 2% 100MG/5ML SDV (FOR ANES.) As Ordered ONE (12:16)
[2020-04-21] MEDS ORDERED: propofoL 500 MG/50 ML VIAL As Ordered ONE (12:16)
[2020-04-21] MEDS ORDERED: fentaNYL 100 MCG/2 ML INJECTION (J3010) As Ordered ONE (12:18)
[2020-04-21] MEDS ORDERED: propofoL 200 MG/20 ML VIAL As Ordered ONE (13:10)
--- NOTE | 2020-04-21 13:12 | ROOR ---
Patient Name: Lisette Soto Procedure Date: 04/21/2020 12:35 PM Date of : 1980 Age: 39 Room: [facility] Gender: Female Note Status: Finalized Procedure: Upper Endoscopy + Biopsies Indications: Unexplained iron deficiency anemia Providers: Ricardo Thomas MD Referring MD: ITALO Villarreal Requesting Provider: Medicines: Monitored Anesthesia Care Complications: No immediate complications. Procedure: Pre-Anesthesia Assessment: - The heart rate, respiratory rate, oxygen saturations, blood pressure, adequacy of pulmonary ventilation, and response to care were monitored throughout the procedure. The Endoscope was introduced through the mouth, and advanced to the second part of duodenum. The upper GI endoscopy was accomplished without difficulty. The patient tolerated the procedure well. Findings: The Z-line was regular and was found 35 cm from the incisors. Multiple biopsies were obtained with cold forceps for evaluation to rule out Hardwick's Esophagus randomly at the gastroesophageal junction. 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 A gastric pouch with a small size was found. The staple line appeared intact. The gastrojejunal anastomosis was characterized by healthy appearing mucosa. This was traversed. The [id number]-[id number]-[id number] limb was characterized by healthy appearing mucosa. Biopsies for histology were taken with a cold forceps for evaluation of celiac disease. The exam was otherwise without abnormality. Impression: - Z-line regular, 35 cm from the incisors. - Gastric bypass with a small-sized pouch and intact staple line. Gastrojejunal anastomosis characterized by healthy appearing mucosa. Biopsied. - The examination was otherwise normal. - Multiple biopsies were obtained at the gastroesophageal junction. - The examination was otherwise normal. Recommendation: - Patient has a contact number available for emergencies. The signs and symptoms of potential delayed complications were discussed with the patient. Return to normal activities tomorrow. Written discharge instructions were provided to the patient. - Resume previous diet. - Discharge patient to home. - Follow an antireflux regimen. - Continue present medications. - Await pathology results. - Telephone GI clinic for pathology results in 1 week. - Return to referring physician. - The findings and recommendations were discussed with the patient. Procedure Code(s): --- Professional --- 73253, Esophagogastroduodenoscopy, flexible, transoral; with biopsy, single or multiple Diagnosis Code(s): --- Professional --- Z98.84, Bariatric surgery status D50.9, Iron deficiency anemia, unspecified CPT copyright 2019 [employer]. All rights reserved. The codes documented in this report are preliminary and upon night baker review may be revised to meet current compliance requirements. Ricardo Thomas MD Ricardo Thomas MD 04/21/2020 1:11:33 PM Electronically signed by Ricardo Thomas MD Number of Addenda: 0 Note Initiated On: 04/21/2020 12:35 PM Estimated Blood Loss: Estimated blood loss: none.
--- NOTE | 2020-04-21 13:25 | ROOR ---
Patient Name: Lisette Soto Procedure Date: 04/21/2020 12:36 PM Date of : 1980 Age: 39 Room: [facility] Gender: Female Note Status: Finalized Procedure: Total Colonoscopy to Cecum + Biopsy Polypectomy Indications: Unexplained iron deficiency anemia Providers: Ricardo Thomas MD Referring MD: ITALO Villarreal Requesting Provider: Medicines: Monitored Anesthesia Care Complications: No immediate complications. Procedure: Pre-Anesthesia Assessment: - The heart rate, respiratory rate, oxygen saturations, blood pressure, adequacy of pulmonary ventilation, and response to care were monitored throughout the procedure. The Colonoscope was introduced through the anus and advanced to the cecum, identified by appendiceal orifice and ileocecal valve. The colonoscopy was performed without difficulty. The patient tolerated the procedure well. The quality of the bowel preparation was good. Findings: The perianal and digital rectal examinations were normal. A diminutive polyp was found in the rectum. The polyp was sessile. The polyp was removed with a cold biopsy forceps. Resection and retrieval were complete. The exam was otherwise without abnormality on direct and retroflexion views. Impression: - One diminutive polyp in the rectum, removed with a cold biopsy forceps. Resected and retrieved. - The examination was otherwise normal on direct and retroflexion views. - The exam was otherwise normal to the cecum. Recommendation: - Patient has a contact number available for emergencies. The signs and symptoms of potential delayed complications were discussed with the patient. Return to normal activities tomorrow. Written discharge instructions were provided to the patient. - High fiber diet. - Discharge patient to home. - Continue present medications. - Await pathology results. - Telephone GI clinic for pathology results in 1 week. - Repeat colonoscopy in 10 years for screening purposes. - Return to referring physician. - The findings and recommendations were discussed with the patient. Procedure Code(s): --- Professional --- 58291, Colonoscopy, flexible; with biopsy, single or multiple Diagnosis Code(s): --- Professional --- K62.1, Rectal polyp D50.9, Iron deficiency anemia, unspecified CPT copyright 2019 [employer]. All rights reserved. The codes documented in this report are preliminary and upon block cleaner review may be revised to meet current compliance requirements. Ricardo Thomas MD Ricardo Thomas MD 04/21/2020 1:25:06 PM Electronically signed by Ricardo Thomas MD Number of Addenda: 0 Note Initiated On: 04/21/2020 12:36 PM Estimated Blood Loss: Estimated blood loss: none.
[2020-04-21 14:03] VITALS: BP 141/89
== END 2020-04-21 14:07 | disposition home or self-care (01) ==
LOC: M OPP 11:47
PROVIDERS: ATTEND Internal Medicine Gastroenterology
DX: D50.9 Iron deficiency anemia, unspecified (principal); K62.1 Rectal polyp; D13.1 Benign neoplasm of stomach; D13.39 Benign neoplasm of other parts of small intestine; Z98.84 Bariatric surgery status; R12 Heartburn; F41.9 Anxiety disorder, unspecified; F32.9 Major depressive disorder, single episode, unspecified; Z79.899 Other long term (current) drug therapy
CPT/HCPCS: 43239; 45380; 88305; J3010

== ENCOUNTER 2022-07-09 11:54 | Emergency (ER) | payer OTHER ==
[~2022-07-09] VITALS: Ht 167.6 cm; Wt 104.5 kg
[~2022-07-09 11:54] MED LIST changes: -NS 1,000 ML IV ONE; +OMEP-173 PO; -OMEP-218 PO; +OMEP40CA4 PO; -OMEP40CA97 PO
[2022-07-09] MEDS ORDERED: IBUPROFEN 600MG TAB PO ONE (12:45)
[2022-07-09] MEDS ORDERED: PERC5TAB12 PO (12:57)
[2022-07-09 13:16] VITALS: BP 168/100
== END 2022-07-09 13:17 | disposition home or self-care (01) ==
LOC: M ED 11:54 → EDBD 11:54 → M ED 13:17
DX: S83.412A Sprain of medial collateral ligament of left knee, initial encounter (principal); W11.XXXA Fall on and from ladder, initial encounter; Z98.84 Bariatric surgery status; Y92.009 Unspecified place in unspecified non-institutional (private) residence as the place of occurrence of the external cause; Z79.83 Long term (current) use of bisphosphonates; Z79.899 Other long term (current) drug therapy

== ENCOUNTER 2022-08-01 12:40 | Inpatient (IN) | payer OTHER ==
[~2022-08-01] VITALS: Ht 167.6 cm; Wt 105.5 kg
[~2022-08-01 12:40] MED LIST changes: +PERC5TAB12 PO
[2022-08-01 13:19] LABS: VENOUS BASE EXCESS 0.4 (-2.0-2.0); VENOUS O2 SATURATION 34.2 % (60.0-80.0); VENOUS PARTIAL PRESSURE CO2 45.2 mmHg (38.0-50.0); VENOUS PARTIAL PRESSURE O2 22.8 mmHg (30.0-50.0); VENOUS PH 7.377 UNITS (7.330-7.430); VENOUS STANDARD HCO3 23.2 MMOL/L; VENOUS TOTAL CO2 27.3 MMOL/L (24.0-28.0)
[2022-08-01 13:24] LABS: BASO # 0.1 10^3/uL (0.0-0.2); BASO % 0.6 % (0.0-1.0); EOS % 0.1 % (0.0-3.0); HEMATOCRIT 45.1 % (36.0-47.0); HEMOGLOBIN 14.4 g/dl (12.0-15.5); LYMPH # 1.8 10^3/uL (1.5-5.0); LYMPH % 17.8 % (24.0-44.0); MEAN CORPUSCULAR HEMOGLOBIN 25.4 pg (27.0-33.0); MEAN CORPUSCULAR HGB CONC 31.9 g/dl (32.0-36.5); MEAN CORPUSCULAR VOLUME 79.4 fl (80.0-96.0); MONO # 0.6 10^3/uL (0.0-0.8); MONO % 6.2 % (2.0-8.0); NEUTROPHILS # 7.6 10^3/uL (1.5-8.5); PLATELET COUNT, AUTOMATED 301 10^3/uL (150-450); RED BLOOD COUNT 5.68 10^6/uL (4.00-5.40); WHITE BLOOD COUNT 10.1 10^3/uL (4.0-10.0)
[2022-08-01] MEDS ORDERED: ISOVUE-370 76% 100ML VIAL As Ordered ONE (13:26)
[2022-08-01 13:54] LABS: LIPASE 33 U/L (12-53)
[2022-08-01 13:56] LABS: ALBUMIN 3.5 G/DL (3.2-5.2); ALKALINE PHOSPHATASE 112 U/L (46-116); ALT/SGPT 15 U/L (7.0-40); AST/SGOT 10 U/L (<34); BILIRUBIN,DIRECT 0.2 MG/DL (<0.4); BILIRUBIN,TOTAL 0.4 MG/DL (0.3-1.2); BLOOD UREA NITROGEN 10 MG/DL (9-23); CALCIUM LEVEL 8.4 MG/DL (8.5-10.1); CARBON DIOXIDE LEVEL 26 MMOL/L (20-31); CHLORIDE LEVEL 105 MMOL/L (98-107); CK-MB VALUE MASS 2.2 NG/ML (<3.6); CPK CREATINE PHOSPHOKINASE 71 U/L (34-145); CREATININE FOR GFR 0.76 MG/DL (0.55-1.30); GLOMERULAR FILTRATION RATE > 60.0 (>58); GLUCOSE, FASTING 107 MG/DL (60-100); MB/CK RELATIVE INDEX 3.09 (< OR =4); POTASSIUM SERUM 3.9 MMOL/L (3.5-5.1); SODIUM LEVEL 140 MMOL/L (136-145); TOTAL PROTEIN 6.7 G/DL (5.7-8.2)
[2022-08-01 13:57] LABS: HCG, SERUM QUALITATIVE NEGATIVE (NEGATIVE)
[2022-08-01 13:58] LABS: FREE T4 1.24 NG/DL (0.89-1.76); THYROID STIMULATING HORMONE 1.745 uIU/ML (0.55-4.78)
[2022-08-01 14:43] LABS: MB/CK RELATIVE INDEX 3.03 (< OR =4)
[2022-08-01] MEDS ORDERED: ENOXAPARIN 100MG/1ML SYRINGE (J1650 PER 10MG) SC ONE (15:00)
[2022-08-01 15:41] LABS: INR 1.04; PARTIAL THROMBOPLASTIN TIME 27.6 SECONDS (24.8-34.2); PROTHROMBIN TIME 13.8 SECONDS (12.5-14.5)
[2022-08-01] MEDS ORDERED: ACETAMINOPHEN TAB 650MG DOSE (2X325MG) PO PRN (15:45)
[2022-08-01] MEDS ORDERED: MOM 30ML SUSPENSION UDC PO PRN (15:45)
[2022-08-01] MEDS ORDERED: MAALOX 30 ML SUSP *UDC PO PRN (15:45)
[2022-08-01 15:49] LABS: CREATININE FOR GFR 0.76 MG/DL (0.55-1.30); GLOMERULAR FILTRATION RATE > 60.0 (>58)
[2022-08-01] MEDS ORDERED: FERR325T82 PO (15:49)
[2022-08-01] MEDS ORDERED: BUPR150T12 PO (15:49)
[2022-08-01] MEDS ORDERED: CVS1CAP2 PO (15:49)
[2022-08-01] MEDS ORDERED: HOME MED LIST COMPLETE! XX SCH (15:50)
[2022-08-01] MEDS ORDERED: MORPHINE 2 MG/ML 1ML VIAL IV PRN (16:05)
[2022-08-01 17:51] VITALS: BP 119/74; PULSE 129; TEMP 97.8; O2SAT 97
[2022-08-01] MEDS: FERROUS SULFATE 325MG TAB PO SCH (18:15)
[2022-08-01] MEDS: PANTOPRAZOLE 40MG TAB (PROTONIX) PO SCH (18:15)
[2022-08-01] MEDS: buPROPion **XL** TABLET 150MG (WELLBUTRIN XL) PO SCH (18:15)
[2022-08-01] MEDS: LACTOBACILLUS ACIDOPHILUS CAP (BACID) PO SCH (18:15)
[2022-08-01 19:10] LABS: CK-MB VALUE MASS 1.5 NG/ML (<3.6)
[2022-08-01 19:11] LABS: MB/CK RELATIVE INDEX 2.05 (< OR =4)
[2022-08-01 19:49] VITALS: BP 126/83; TEMP 98.8; O2SAT 96
[2022-08-01 20:00] VITALS: PULSE 130
[2022-08-01] MEDS: DOCUSATE SODIUM 100MG CAPSULE PO SCH (20:24)
[2022-08-01 21:20] VITALS: O2SAT 97
[2022-08-01 21:33] LABS: CK-MB VALUE MASS 1.2 NG/ML (<3.6)
[2022-08-01 21:35] LABS: MB/CK RELATIVE INDEX 2.06 (< OR =4)
[2022-08-01 21:59] LABS: MAGNESIUM LEVEL 1.7 MG/DL (1.8-2.4)
[2022-08-01] MEDS: MAG SULF 1GM/100ML (MAG RUN) 1 GM in IV 1 EA IV SCH (23:10)
[2022-08-01 23:49] VITALS: BP 128/88; TEMP 98.8; O2SAT 95
[2022-08-02] VITALS (17 sets, daily range): BP systolic 112–139; BP diastolic 78–98; PULSE 116–118; TEMP 97.3–98.6; O2SAT 94–99
[2022-08-02] MEDS: MAG SULF 1GM/100ML (MAG RUN) 1 GM in IV 1 EA IV SCH (00:22)
[2022-08-02 00:55] LABS: CK-MB VALUE MASS < 1.0 NG/ML (<3.6)
[2022-08-02 00:56] LABS: CPK CREATINE PHOSPHOKINASE 58 U/L (34-145); MB/CK RELATIVE INDEX 1.72 (< OR =4)
[2022-08-02] MEDS: ENOXAPARIN 120MG/0.8ML SYRINGE SC SCH ×2 (02:55→14:18)
[2022-08-02 05:44] LABS: BASO # 0.1 10^3/uL (0.0-0.2); BASO % 0.9 % (0.0-1.0); EOS # 0.1 10^3/uL (0.0-0.5); EOS % 0.9 % (0.0-3.0); HEMATOCRIT 39.9 % (36.0-47.0); HEMOGLOBIN 12.8 g/dl (12.0-15.5); LYMPH # 2.3 10^3/uL (1.5-5.0); MEAN CORPUSCULAR HEMOGLOBIN 25.3 pg (27.0-33.0); MEAN CORPUSCULAR HGB CONC 32.1 g/dl (32.0-36.5); MEAN CORPUSCULAR VOLUME 78.9 fl (80.0-96.0); MONO # 0.5 10^3/uL (0.0-0.8); MONO % 6.7 % (2.0-8.0); NEUTROPHILS # 5.1 10^3/uL (1.5-8.5); NEUTROPHILS % 63.3 % (36.0-66.0); PLATELET COUNT, AUTOMATED 251 10^3/uL (150-450); RED BLOOD COUNT 5.06 10^6/uL (4.00-5.40); WHITE BLOOD COUNT 8.1 10^3/uL (4.0-10.0)
[2022-08-02 05:57] LABS: BLOOD UREA NITROGEN 9 MG/DL (9-23); CARBON DIOXIDE LEVEL 26 MMOL/L (20-31); CHLORIDE LEVEL 104 MMOL/L (98-107); CK-MB VALUE MASS 1.1 NG/ML (<3.6); CPK CREATINE PHOSPHOKINASE 55 U/L (34-145); CREATININE FOR GFR 0.83 MG/DL (0.55-1.30); GLOMERULAR FILTRATION RATE > 60.0 (>58); GLUCOSE, FASTING 99 MG/DL (60-100); SODIUM LEVEL 138 MMOL/L (136-145)
[2022-08-02] MEDS: LACTOBACILLUS ACIDOPHILUS CAP (BACID) PO SCH (08:14)
[2022-08-02] MEDS: DOCUSATE SODIUM 100MG CAPSULE PO SCH ×2 (08:14→21:00)
[2022-08-02] MEDS: PANTOPRAZOLE 40MG TAB (PROTONIX) PO SCH (08:14)
[2022-08-02] MEDS: FERROUS SULFATE 325MG TAB PO SCH (08:14)
[2022-08-02] MEDS: buPROPion **XL** TABLET 150MG (WELLBUTRIN XL) PO SCH (08:14)
[2022-08-03] VITALS (18 sets, daily range): BP systolic 119–134; BP diastolic 68–80; PULSE 115; TEMP 97–98.1; O2SAT 93–99
[2022-08-03] MEDS: ENOXAPARIN 120MG/0.8ML SYRINGE SC SCH ×2 (03:28→14:30)
[2022-08-03 06:00] LABS: BASO # 0.1 10^3/uL (0.0-0.2); BASO % 0.5 % (0.0-1.0); EOS # 0.1 10^3/uL (0.0-0.5); EOS % 1.1 % (0.0-3.0); HEMATOCRIT 40.4 % (36.0-47.0); HEMOGLOBIN 12.8 g/dl (12.0-15.5); LYMPH # 1.3 10^3/uL (1.5-5.0); LYMPH % 14.4 % (24.0-44.0); MEAN CORPUSCULAR HEMOGLOBIN 25.4 pg (27.0-33.0); MEAN CORPUSCULAR HGB CONC 31.7 g/dl (32.0-36.5); MEAN CORPUSCULAR VOLUME 80.2 fl (80.0-96.0); MONO # 0.6 10^3/uL (0.0-0.8); MONO % 6.4 % (2.0-8.0); NEUTROPHILS % 77.2 % (36.0-66.0); PLATELET COUNT, AUTOMATED 242 10^3/uL (150-450); RED BLOOD COUNT 5.04 10^6/uL (4.00-5.40); WHITE BLOOD COUNT 9.1 10^3/uL (4.0-10.0)
[2022-08-03 06:36] LABS: BLOOD UREA NITROGEN 9 MG/DL (9-23); CALCIUM LEVEL 8.2 MG/DL (8.5-10.1); CARBON DIOXIDE LEVEL 27 MMOL/L (20-31); CHLORIDE LEVEL 105 MMOL/L (98-107); CREATININE FOR GFR 0.89 MG/DL (0.55-1.30); GLOMERULAR FILTRATION RATE > 60.0 (>58); GLUCOSE, FASTING 96 MG/DL (60-100); MAGNESIUM LEVEL 1.8 MG/DL (1.8-2.4); POTASSIUM SERUM 3.6 MMOL/L (3.5-5.1); SODIUM LEVEL 141 MMOL/L (136-145)
[2022-08-03] MEDS: LACTOBACILLUS ACIDOPHILUS CAP (BACID) PO SCH (08:31)
[2022-08-03] MEDS: FERROUS SULFATE 325MG TAB PO SCH (08:31)
[2022-08-03] MEDS: buPROPion **XL** TABLET 150MG (WELLBUTRIN XL) PO SCH (08:31)
[2022-08-03] MEDS: DOCUSATE SODIUM 100MG CAPSULE PO SCH (08:31)
[2022-08-03] MEDS: PANTOPRAZOLE 40MG TAB (PROTONIX) PO SCH (08:31)
[2022-08-06 06:49] LABS: DRVV SCREEN 41.8 SEC
[2022-08-06 06:55] LABS: PTT LUPUS TYPE ANTICOAG SCREEN 1.1 (0-1.2)
== END 2022-08-03 18:56 | disposition short-term general hospital (02) | DRG 197 ==
LOC: M ED 12:40 → M ED INP 15:44 → ENRESERV 16:32 → M PCU 17:51
PROVIDERS: ADMIT Internal Medicine; ATTEND Internal Medicine
DX: I82.412 Acute embolism and thrombosis of left femoral vein (principal); I26.99 Other pulmonary embolism without acute cor pulmonale; I82.432 Acute embolism and thrombosis of left popliteal vein; E66.01 Morbid (severe) obesity due to excess calories; K21.9 Gastro-esophageal reflux disease without esophagitis; F41.9 Anxiety disorder, unspecified; I10 Essential (primary) hypertension; D72.829 Elevated white blood cell count, unspecified; R19.7 Diarrhea, unspecified; Z79.899 Other long term (current) drug therapy; I82.442 Acute embolism and thrombosis of left tibial vein

== ENCOUNTER → 2022-11-29 | Outpatient (CLI) | payer OTHER ==
[~2022-11-29] MED LIST changes: +BUPR150T12 PO; +CVS1CAP2 PO; +FERR325T82 PO; -FLUT11IN; +FLUT12AE6
== END ==
LOC: M RAD 12:41
PROVIDERS: ATTEND Internal Medicine Critical Care Medicine
DX: I26.99 Other pulmonary embolism without acute cor pulmonale (principal)
CPT/HCPCS: 71046; 78582; A9540; A9567

== ENCOUNTER → 2022-12-07 | Outpatient (CLI) | payer OTHER | LOC: M WHC 10:57 | PROVIDERS: ATTEND Physician Assistant Medical | DX: R92.1 Mammographic calcification found on diagnostic imaging of breast (principal); N63.14 Unspecified lump in the right breast, lower inner quadrant; N63.23 Unspecified lump in the left breast, lower outer quadrant ==

== ENCOUNTER 2023-01-31 08:32 | Emergency (ER) | payer OTHER ==
[2023-01-31 09:45] LABS: BASO % 0.5 % (0.0-1.0); EOS # 0.1 10^3/uL (0.0-0.5); EOS % 1.2 % (0.0-3.0); HEMATOCRIT 41.4 % (36.0-47.0); HEMOGLOBIN 13.8 g/dl (12.0-15.5); LYMPH % 13.4 % (24.0-44.0); MEAN CORPUSCULAR HEMOGLOBIN 28.6 pg (27.0-33.0); MEAN CORPUSCULAR HGB CONC 33.3 g/dl (32.0-36.5); MEAN CORPUSCULAR VOLUME 85.7 fl (80.0-96.0); MONO # 0.3 10^3/uL (0.0-0.8); MONO % 4.5 % (2.0-8.0); NEUTROPHILS # 6.1 10^3/uL (1.5-8.5); NEUTROPHILS % 80.1 % (36.0-66.0); PLATELET COUNT, AUTOMATED 269 10^3/uL (150-450); RED BLOOD COUNT 4.83 10^6/uL (4.00-5.40); WHITE BLOOD COUNT 7.6 10^3/uL (4.0-10.0)
[2023-01-31] MEDS ORDERED: METO1TAB87 (09:49)
[2023-01-31] MEDS ORDERED: XARE20TA (09:49)
[2023-01-31] MEDS ORDERED: ISOVUE-370 76% 100ML VIAL As Ordered ONE (10:03)
[2023-01-31 10:13] LABS: LIPASE 46 U/L (12-53)
[2023-01-31 10:15] LABS: ALBUMIN 3.4 G/DL (3.2-5.2); ALKALINE PHOSPHATASE 80 U/L (46-116); ALT/SGPT 19 U/L (7.0-40); AST/SGOT 17 U/L (<34); BILIRUBIN,DIRECT 0.2 MG/DL (<0.4); BILIRUBIN,TOTAL 0.4 MG/DL (0.3-1.2); BLOOD UREA NITROGEN 9 MG/DL (9-23); CALCIUM LEVEL 8.5 MG/DL (8.5-10.1); CARBON DIOXIDE LEVEL 25 MMOL/L (20-31); CHLORIDE LEVEL 109 MMOL/L (98-107); CREATININE FOR GFR 0.64 MG/DL (0.55-1.30); GLOMERULAR FILTRATION RATE > 60.0 (>58); GLUCOSE, FASTING 93 MG/DL (60-100); POTASSIUM SERUM 3.8 MMOL/L (3.5-5.1); SODIUM LEVEL 143 MMOL/L (136-145); TOTAL PROTEIN 6.3 G/DL (5.7-8.2)
[2023-01-31 11:05] LABS: RSV AMPLIFICATION NEGATIVE (NEGATIVE)
[2023-01-31 12:00] VITALS: BP 135/70; O2SAT 100
[2023-01-31 12:04] VITALS: TEMP 98.3
[2023-01-31 12:05] LABS: INR 1.28; PROTHROMBIN TIME 15.6 SECONDS (12.5-14.5)
[2023-01-31 12:06] LABS: PARTIAL THROMBOPLASTIN TIME 30.9 SECONDS (24.8-34.2)
== END 2023-01-31 12:11 | disposition home or self-care (01) ==
LOC: M ED 08:32
DX: R04.2 Hemoptysis (principal); I10 Essential (primary) hypertension; Z86.711 Personal history of pulmonary embolism; K21.9 Gastro-esophageal reflux disease without esophagitis; Z98.84 Bariatric surgery status; Z79.899 Other long term (current) drug therapy; Z79.01 Long term (current) use of anticoagulants
CPT/HCPCS: 36415; 71045; 71275; 80047; 80048; 80076; 83690; 85025; 85610; 85730; 87631; 93005; 93041; 94760; 99285; Q9967

== ENCOUNTER → 2023-02-01 | Outpatient (CLI) | payer OTHER ==
[~2023-02-01] MED LIST changes: +METO1TAB87; +XARE20TA
== END ==
LOC: M PLALAB 11:35
PROVIDERS: ATTEND Internal Medicine Hematology
DX: I26.94 Multiple subsegmental thrombotic pulmonary emboli without acute cor pulmonale (principal)

== ENCOUNTER → 2023-05-31 | Outpatient (CLI) | payer OTHER | LOC: M WHC 08:50 | PROVIDERS: ATTEND Physician Assistant Medical | DX: N60.21 Fibroadenosis of right breast (principal) | CPT/HCPCS: 76642; 77065; G0279 ==

== ENCOUNTER → 2023-09-20 | Outpatient (CLI) | payer OTHER | LOC: M RAD 14:39 | PROVIDERS: ATTEND Physician Assistant Medical | DX: I82.5Y3 Chronic embolism and thrombosis of unspecified deep veins of proximal lower extremity, bilateral (principal); R07.9 Chest pain, unspecified; R91.8 Other nonspecific abnormal finding of lung field ==

== ENCOUNTER → 2024-01-04 | Outpatient (CLI) | payer OTHER | LOC: M WHC 08:51 | PROVIDERS: ATTEND Physician Assistant Medical | DX: Z12.31 Encounter for screening mammogram for malignant neoplasm of breast (principal) ==

== ENCOUNTER 2024-11-17 14:02 | Emergency (ER) | payer OTHER, MEDICAID ==
[~2024-11-17] VITALS: Ht 167.6 cm; Wt 104.1 kg
[2024-11-17 14:11] VITALS: TEMP 97.6
[2024-11-17 15:03] LABS: BASO # 0.0 10^3/uL (0.0-0.2); BASO % 0.7 % (0.0-1.0); EOS # 0.1 10^3/uL (0.0-0.5); EOS % 1.5 % (0.0-3.0); LYMPH # 1.6 10^3/uL (1.5-5.0); LYMPH % 29.0 % (24.0-44.0); MONO # 0.4 10^3/uL (0.0-0.8); MONO % 7.7 % (2.0-8.0); NEUTROPHILS # 3.3 10^3/uL (1.5-8.5); NEUTROPHILS % 61.1 % (36.0-66.0); PLATELET COUNT, AUTOMATED 245 10^3/uL (150-450)
[2024-11-17 15:17] LABS: INR 0.98
[2024-11-17] MEDS: NS (Normal Saline) 0.9% 1,000 ML IV ONE (15:22)
[2024-11-17 15:27] LABS: CK-MB VALUE MASS 2.1 NG/ML (<3.6)
[2024-11-17 15:29] LABS: ALT/SGPT 46 U/L (7.0-40); AST/SGOT 32 U/L (<34); CALCIUM LEVEL 8.5 MG/DL (8.5-10.1); CARBON DIOXIDE LEVEL 27 MMOL/L (20-31); CHLORIDE LEVEL 106 MMOL/L (98-107); CPK CREATINE PHOSPHOKINASE 125 U/L (34-145); CREATININE FOR GFR 0.76 MG/DL (0.55-1.30); GLOMERULAR FILTRATION RATE > 90.0 (>58); MB/CK RELATIVE INDEX 1.68 (< OR =4); POTASSIUM SERUM 4.1 MMOL/L (3.5-5.1); SODIUM LEVEL 138 MMOL/L (136-145)
[2024-11-17 15:31] LABS: FREE T4 1.27 NG/DL (0.89-1.76); HCG, SERUM QUALITATIVE NEGATIVE (NEGATIVE)
[2024-11-17 16:51] LABS: CK-MB VALUE MASS 1.7 NG/ML (<3.6)
[2024-11-17 16:55] LABS: CPK CREATINE PHOSPHOKINASE 109 U/L (34-145); MB/CK RELATIVE INDEX 1.55 (< OR =4)
[2024-11-17 18:01] VITALS: BP 142/98
[2024-11-17 18:02] VITALS: O2SAT 94
== END 2024-11-17 18:17 | disposition home or self-care (01) ==
LOC: M ED 14:02
DX: R07.9 Chest pain, unspecified (principal); Z98.84 Bariatric surgery status; Z79.899 Other long term (current) drug therapy

== ENCOUNTER → 2025-01-10 | Outpatient (REF) | payer OTHER, MEDICAID | LOC: M PLALAB 14:08 | PROVIDERS: ATTEND Obstetrics & Gynecology | DX: N87.0 Mild cervical dysplasia (principal) ==

== ENCOUNTER → 2025-01-11 | Outpatient (CLI) | payer OTHER | LOC: M WHC 10:23 | PROVIDERS: ATTEND Physician Assistant Medical | DX: Z12.31 Encounter for screening mammogram for malignant neoplasm of breast (principal) ==